=== PATIENT | female | born 1955 | race Caucasian/White ===

== ENCOUNTER 2023-05-27 10:02 | Emergency (ER) | payer OTHER, MEDICARE, SELFPAY ==
[2023-05-27 10:19] VITALS: BP 163/95; PULSE 72; RESP 18; TEMP 36.6; O2SAT 98; BMI 26.6
[2023-05-27 10:47] LABS: Bilirubin Urine NEGATIVE (NEGATIVE); Blood Urine NEGATIVE (NEGATIVE); Clarity Urine CLEAR (CLEAR); Color Urine LT. YELLOW (YELLOW); Glucose Urine UA NEGATIVE (NEGATIVE); Ketones Urine NEGATIVE (NEGATIVE); Leukocyte Esterase Urine NEGATIVE (NEGATIVE); Nitrite Urine NEGATIVE (NEGATIVE); Protein Urine NEGATIVE (NEG/TRACE); Specific Gravity Urine <=1.005 (1.005-1.025); Urobilinogen Urine 0.2 EU/dL (0.2-1.0); pH Urine 6.5 (5.0-9.0)
[2023-05-27 11:52] LABS: Urine Microscopic Indicated YES
[2023-05-27 12:04] LABS: Bacteria Urine TRACE #/HPF (NONE SEEN); Cast Seen? NONE SEEN #/LPF (NONE SEEN); Crystals Seen? None Seen #/HPF (None Seen); Mucus Urine NONE SEEN (NONE SEEN); RBC Urine 0-2 #/HPF (0-2); Squamous Epithelial Cell Urine FEW #/LPF (NONE/RARE); WBC Urine 0-2 #/HPF (NONE SEEN)
--- NOTE | 2023-05-27 13:19 | ED.GENADUL1 ---
HPI - General Adult General Chief complaint: Urogenital-Female Stated complaint: UTI SYMPTOMS Time Seen by Provider: 05/27/23 11:40 Source: patient Source information: Pt was on cefdinir previously - UTI on 05/11/23 finished course of treatment Mode of arrival: walk-in Limitations: no limitations History of Present Illness HPI narrative: Patient is a 68-year-old female who is presenting to the Emergency Room with intermittent bladder spasms/lower abdominal pain this been intermittent and frequent urinary tract infection for the past month. Patient was initially on a antibiotic, patient had finished the course in her bladder spasm and urinary symptoms improved for a few days, then patient's bladder spasms started again. Patient was then placed on Cipro. Patient did give a urine sample the 1st time and Dr. Collins office and was started on antibiotic. The 2nd time a repeat urine sample was not done. Patient has no fever, chills. No bowel pain, she has had intermittent bladder spasm and pelvic spasm. Patient does have her ovaries and her uterus. No diarrhea or constipation. No other acute complaints at this time. Patient has not seen a urologist for this. No rash, no heavy lifting, twisting or turning. Related Data Home Medications Medication Instructions Recorded Confirmed amlodipine 10 mg tablet 10 mg PO DAILY 05/27/23 05/27/23 azelastine 205.5 mcg (0.15 %) 205.5 mcg intranasal .hs 05/27/23 05/27/23 nasal spray bisoprolol fumarate 10 mg tablet 10 mg PO DAILY 05/27/23 05/27/23 buspirone 10 mg tablet 7.5 mg PO DAILY 05/27/23 05/27/23 ciprofloxacin HCl 500 mg tablet 500 mg PO Q12H UTI 05/27/23 05/27/23 fluticasone propionate 50 1 spray intranasal Q12H 05/27/23 05/27/23 mcg/actuation nasal spray,suspension hydrochlorothiazide 12.5 mg capsule 12.5 mg PO DAILY 05/27/23 05/27/23 Previous Rx's Medication Instructions Recorded oxybutynin chloride 5 mg tablet 5 mg PO Q12H PRN bladder spasms 3 05/27/23 days #7 tabs Allergies Allergy/AdvReac Type Severity Reaction Status Date / Time No Known Drug Allergies Allergy Verified 05/27/23 10:18 Review of Systems ROS Narrative All systems are negative except as noted/marked. All systems reviewed and otherwise negative. [facility], [facility] Surgical History (Updated 05/27/23 @ 10:42 by George Dallas) History of cholecystectomy ?Z90.49 - Acquired absence of other specified parts of digestive tract (ICD-10) History of hysterectomy ?Z90.710 - Acquired absence of both cervix and uterus (ICD-10) Social History Smoking status: Former smoker Exam Narrative Exam Narrative: Nurses note and vital signs reviewed and patient is not hypoxic. General: The patient appears well and in no apparent distress. Patient is resting comfortably on cart. Patient is not toxic, lethargic, or listless Skin: Warm, dry, no pallor noted. There is no rash noted. No petechiae, purpura. Head: Normocephalic, atraumatic Eye: Normal conjunctiva, no drainage, EOMI. PERRL Ears, Nose, Mouth, and Throat: oral mucosa is moist. Cardiovascular: Regular Rate and Rhythm, no murmur, gallop, rub Respiratory: Patient is in no distress, no accessory muscle use, lungs are clear to auscultation, no wheezing, rales or rhonchi Back: non-tender, no CVA tenderness bilaterally to percussion. No CT LS midline pain GI: soft, no tenderness to palpation, no masses appreciated. No rebound, guarding, or rigidity noted. No flank pain bilateral, No distention. Mild suprapubic tenderness to palpation reproducible. Musculoskeletal: Patient has full range of motion of all of the extremities, no motor, sensory, or focal neurological deficits Neurological: A&O x3, normal speech Psychiatric: Cooperative Constitutional Vital Signs, click to edit/add: Last Vital Signs Temp 97.8 F 05/27/23 10:19 Pulse 72 05/27/23 10:19 Resp 18 05/27/23 10:19 BP 163/95 H 05/27/23 10:19 Pulse Ox 98 05/27/23 10:19 O2 Del Method Room Air 05/27/23 10:19 Course Vital Signs Vital signs: Vital Signs Temperature 97.8 F 05/27/23 10:19 Pulse Rate 72 05/27/23 10:19 Respiratory Rate 18 05/27/23 10:19 Blood Pressure 163/95 H 05/27/23 10:19 Pulse Oximetry 98 05/27/23 10:19 Oxygen Delivery Method Room Air 05/27/23 10:19 Temperature 97.8 F 05/27/23 10:19 Pulse Rate 72 05/27/23 10:19 Respiratory Rate 18 05/27/23 10:19 Blood Pressure 163/95 H 05/27/23 10:19 Pulse Oximetry 98 05/27/23 10:19 Oxygen Delivery Method Room Air 05/27/23 10:19 Medical Decision Making MDM Narrative Medical decision making narrative: Patient's urine shows no signs of acute infection. Patient was given a oxybutynin in the Emergency Room and a short prescription for this. Patient was referred to urology. Patient will follow-up with PCP Dr. Collins. Patient will continue increase fluids. No acute indication for imaging or radiographic imaging at this time. Patient was told to stop continuing in taking the Cipro that she started last Sunday or Sunday. No questions at discharge, patient agrees the plan, patient will return if intractable nausea, vomiting, bladder spasm or pain continue. Lab Data Lab results reviewed: Yes I reviewed the patient's lab results Labs: Lab Results 05/27/23 Range/Units 10:38 Urine Color Lt. yellow (YELLOW) Urine Clarity Clear (CLEAR) Urine pH 6.5 (5.0-9.0) Ur Specific [place] <=1.005 A (1.005-1.025) Urine Protein Negative (NEG/TRACE) mg/dL Urine Glucose (UA) Negative (NEGATIVE) mg/dL Urine Ketones Negative (NEGATIVE) mg/dL Urine Occult Blood Negative (NEGATIVE) Urine Nitrite Negative (NEGATIVE) Urine Bilirubin Negative (NEGATIVE) Urine Urobilinogen 0.2 (0.2-1.0) EU/dL Ur Leukocyte Esterase Negative (NEGATIVE) Urine RBC 0-2 (0-2) #/HPF Urine WBC 0-2 A (NONE SEEN) #/HPF Ur Squamous Epith Cells Few A (NONE/RARE) #/LPF Urine Crystals None seen (None Seen) #/HPF Urine Bacteria Trace A (NONE SEEN) #/HPF Urine Casts None seen (NONE SEEN) #/LPF Urine Mucus None seen (NONE SEEN) Discharge Plan Discharge Chief Complaint: Urogenital-Female Clinical Impression: Abdominal pain, Bladder spasms Patient Disposition: Home, Self-Care Time of Disposition Decision: 13:22 Condition: Fair Prescriptions / Home Meds: New oxybutynin chloride 5 mg tablet 5 mg PO Q12H PRN (Reason: bladder spasms) 3 Days Qty: 7 0RF No Action amlodipine 10 mg tablet 10 mg PO DAILY azelastine 205.5 mcg (0.15 %) spray,non-aerosol 205.5 mcg INTRANASAL .hs bisoprolol fumarate 10 mg tablet 10 mg PO DAILY ciprofloxacin HCl 500 mg tablet 500 mg PO Q12H fluticasone propionate 50 mcg/actuation spray,suspension 1 spray INTRANASAL Q12H hydrochlorothiazide 12.5 mg capsule 12.5 mg PO DAILY buspirone 10 mg tablet 7.5 mg PO DAILY Additional Instructions: Continue increase fluids. Use oxybutynin if needed for bladder spasm. Follow-up with PCP for further recommendation. Follow-up with Dr. islas for urology as well for further evaluation. Stand Alone Forms: Portal Instructions Referrals: Gunnar Collins MD [Primary Care Provider] - 1 week Luis Fernando Islas MD [Physician] - 1 week Discharge Date/Time: 05/27/23 13:30
[2023-05-27] MEDS: OXYBUTYNIN CHLORIDE 5 MG TAB XL PO (13:24)
== END 2023-05-27 13:30 | disposition home or self-care (01) ==
PROVIDERS: Emergency Provider Emergency Medicine; PCP Family Medicine
DX: N32.89 Other specified disorders of bladder (principal); R10.9 Unspecified abdominal pain; Z87.440 Personal history of urinary (tract) infections; Z79.899 Other long term (current) drug therapy; Z90.49 Acquired absence of other specified parts of digestive tract; Z90.710 Acquired absence of both cervix and uterus; Z87.891 Personal history of nicotine dependence
CPT/HCPCS: 81001; 81003; 99283

== ENCOUNTER 2023-06-05 08:51 | Outpatient (OUT) | payer OTHER, SELFPAY ==
--- NOTE | 2023-06-05 09:07 | CT_ITS ---
The [address] [address] Patient Name: CARON FREIRE MRN: [id number] date: 1955 Sex: F Assigned Patient Location: LAB Current Patient Location: LAB Accession/Order Number: [id number] Exam Date: 06/05/2023 10:22 Report Date: 06/05/2023 11:18 At the request of: CHARLES ARAMBULA Procedure: CT abdomen pelvis w con EXAM: CT abdomen pelvis w con HISTORY: Abdominal Pain R10.9 COMPARISON: None. TECHNIQUE: Following the intravenous administration of 90 cc of Omnipaque 300, axial soft tissue windows of the abdomen and pelvis were performed with coronal and sagittal reformats. CT dose reduction technique was used including Automated Exposure Control. Findings: Minimal left lower lobe scarring. ABDOMEN: There is fatty infiltration of the liver. The gallbladder is surgically absent. The spleen, pancreas and adrenal glands are unremarkable. Minimal nonspecific bilateral perinephric fat stranding bilaterally. No renal stones or collecting system dilatation. Left renal cysts. The largest is an exophytic cyst off the upper pole measuring 3.1 cm. The bilateral ureters are nondilated. There are colonic diverticula. Otherwise, the bowel is unremarkable without evidence of wall thickening or obstruction. The appendix is nondilated. The aorta is normal caliber. Mild atherosclerotic disease. No enlarged abdominal lymph nodes or free abdominal fluid. Pelvis: Unremarkable bladder. The uterus is surgically absent. No enlarged pelvic lymph nodes or free pelvic fluid. No aggressive sclerotic or lytic osseous lesions. Multilevel degenerative spondylosis. CT/CT abdomen pelvis w con IMPRESSION: 1. Diverticulosis. 2. Fatty liver. 3. Other more incidental findings, as described above. Electronically authenticated by: HARRIETT LU Date: 06/05/2023 11:18
[2023-06-05 09:09] LABS: Estimated GFR (African America >60 (>=60); Estimated GFR (Non-African Ame >60 (>=60)
== END 2023-06-05 08:52 | disposition home or self-care (01) ==
LOC: LAB 08:51
PROVIDERS: PCP Family Medicine; Visit Provider Family Medicine
DX: R10.9 Unspecified abdominal pain (principal); K57.90 Diverticulosis of intestine, part unspecified, without perforation or abscess without bleeding; K76.0 Fatty (change of) liver, not elsewhere classified
CPT/HCPCS: 36415; 74177; 82565; Q9967

== ENCOUNTER 2023-08-29 11:25 | Outpatient (OUT) | payer SELFPAY ==
--- NOTE | 2023-08-29 11:27 | MM_ITS ---
Patient Name: CARON FREIRE MR#: [id number] : 1955 Exam Date: 08/29/2023 Ordering Doctor: DR Gunnar Collins . RADIOLOGY REPORT PROCEDURE: MM TOMOSYNTHESIS SCREENING BI COMPARISON: MG MAMM SCREEN 3D ERNESTO CAD, 12/20/2021. MG MAMM SCREEN 3D ERNESTO CAD, 12/25/2019. INDICATIONS: screening Calculator Name NCI Breast Cancer Risk Assessment Tool 5 Year Breast Cancer Risk 1.80% Lifetime Breast Cancer Risk 6.30% Personal Breast Cancer No Personal Ovarian Cancer No Treatments Lobectomy LLL Family Cancers None LOCATION: [facility] BREAST COMPOSITION: Heterogeneously dense,which may obscure small masses. FINDINGS: DIAGNOSTIC CATEGORY 2--BENIGN FINDING. NO CHANGE FROM COMPARISON. Scattered benign-appearing nodules are present. Scattered benign-appearing calcifications are present. Scattered benign-appearing lymph nodes are present. RIGHT BREAST: No significant suspicious finding. LEFT BREAST: No significant suspicious finding. RECOMMENDATIONS: ROUTINE MAMMOGRAM AND CLINICAL EVALUATION IN 12 MONTHS. PLEASE NOTE: A NORMAL MAMMOGRAM DOES NOT EXCLUDE THE POSSIBILITY OF BREAST CANCER. A CLINICALLY SUSPICIOUS PALPABLE LUMP SHOULD BE BIOPSIED. Dictated by: George Cisneros MD on 08/29/2023 at 14:17 Approved by: George Cisneros MD on 08/29/2023 at 14:18
== END 2023-08-29 11:26 | disposition home or self-care (01) ==
LOC: MAMMO 11:25
PROVIDERS: PCP Family Medicine; Visit Provider Family Medicine
DX: Z12.31 Encounter for screening mammogram for malignant neoplasm of breast (principal)
CPT/HCPCS: 77063; 77067

== ENCOUNTER 2023-12-26 19:59 | Outpatient (OUT) | payer MEDICARE, OTHER, SELFPAY ==
--- OUTSIDE RECORDS SUMMARY | 2023-12-26 20:03 | XMS_ITS ---
Patient Summarization (C-CDA 2.1 CCD) Created on: December 26, 2023 TANIROSELYN Wolfgang : 1955 Sex: Female Author Organization Sample organization Care Team Providers Care Nutrition Worker Name Role Phone Charles Arambula Primary Care Physician [phone] MD Charles Arambula Primary Care Provider [phone] DO Noah Dolan Attending Provider Charles Arambula Unavailable Unavailable Unavailable MARILEE Cortez Attending Provider Gely Cortez Unavailable DR CHARLES OLIVAREZ Attending Unavailable HOY ., DR SOTO Consulting Unavailable HOY ., DR SOTO Primary Care Unavailable HOY ., DR SOTO Admitting Unavailable ZIEBER, DR ROBE Nath Consulting Unavailable HOY ., DR SOTO Attending Unavailable HOY ., DR SOTO Consulting Unavailable HOY ., DR SOTO Primary Care Unavailable HOY ., DR SOTO Admitting Unavailable NEFLC CRAWFORD Consulting Unavailable MISC, DR ALSTON Admitting Unavailable HOY ., DR SOTO Primary Care Unavailable MISC, DR ALSTON Attending Unavailable MISC, DR ALSTON Consulting Unavailable ZIEBER, DR ROBE Nath Consulting Unavailable HOY ., DR SOTO Attending Unavailable HOY ., DR SOTO Consulting Unavailable HOY ., DR SOTO Primary Care Unavailable HOY ., DR SOTO Admitting Unavailable CARLOS, DR SIN Yeager Consulting Unavailable HOY ., DR SOTO Attending Unavailable HOY ., DR SOTO Primary Care Unavailable HOY ., DR SOTO Admitting Unavailable HOY ., DR SOTO Admitting Unavailable HOY ., DR SOTO Attending Unavailable HOY ., DR SOTO Consulting Unavailable HOY ., DR SOTO Primary Care Unavailable PERICO FARAH Consulting Unavailable MD LUKASZ ROSARIO Attending Unav ailable ABRAHAM, MD LUKASZ VOGT Referring Unav ailable Dennis, Dr. Charles Lubin Primary Care Unavail able Dennis, Dr. Charles Lubin Primary Care Unavail able Magdaleno, Dr. Noah Holden Referring Unavailab le ABRAHAM, MD LUKASZ VOGT Attending Unav ailable ABRAHAM, MD LUKASZ VOGT Attending Unav ailable ABRAHAM, MD LUKASZ VOGT Referring Unav ailable ABRAHAM, MD LUKASZ VOGT Admitting Unav ailable Hoy, Dr. Charles Lubin Primary Care Unavail able MD YENNY VARGAS Referring Unavailable ABRAHAM, MD LUKASZ VOGT Admitting Unav ailable ABRAHAM, MD LUKASZ VOGT Attending Unav ailable Hoy, Dr. Charles Lubin Primary Care Unavail able MD YENNY VARGAS Attending Unavailable Hoy, Dr. Charles Lubin Primary Care Unavail able Dennis, Dr. Charles Lubin Primary Care Unavail able MD LUKASZ ROSARIO Attending Unav ailable Hoy, Dr. Charles Lubin Primary Care Unavail able MD LUKASZ ROSARIO Referring Unav ailable ABRAHAM, MD LUKASZ VOGT Attending Unav ailable Hoy, Dr. Charles Lubin Primary Care Unavail able MD LUKASZ ROSARIO Referring Unav ailable ABRAHAM, MD LUKASZ VOGT Attending Unav ailable ABRAHAM, MD LUKASZ VOGT Referring Unav ailable ABRAHAM, MD LUKASZ VOGT Attending Unav ailable Hoy, Dr. Charles Lubin Primary Care Unavail able Charles Arambula MD Primary Care Provider [phone] MD Rebeca Mason Attending Provider [phone] MD Charles Arambula Primary Care Provider [phone] Rebeca Mason Admitting Unavailable Rebeca Mason Attending Unavailable Charles Arambula Primary Care Unavailable Charles Arambula Primary Care Unavailable Noah Dolan Admitting Unavailable Noah Dolan Attending Unavailable NO FAMILY, PHYSICIAN Primary Care Unavailable Gely Cortez Admitting Unavailable Gely Cortez Attending Unavailable LUKASZ ROSARIO Attending Unavailable CHARLES ARAMBULA Primary Care Unavailable GABRIEL HUERTA Attending Unavailable REBECA MASON Attending Unavailable REBECA MASON Referring Unavailable TRISTAN WARD Attending Unavailable SITA PEREZ Referring Unavailable Torri Null Attending Unavailable Orzech, Torri X Referring Unavailable Orzech, Torri X Attending Unavailable Torri Null Admitting Unavailable Oneal Cornelius Attending Unavailable Tay BHAT Attending Unavailable Oneal Cornelius Attending Unavailable Allergies Allergy Classification Reported Allergen(s) Allergy Type Date of Onset Reaction(s) Facility (4 sources) Meperidine; Translations: [MEPERIDINE] Drug Allergy 4 Nausea And Vomiting, Unknown [facility] (1 source) Meperidine Drug Allergy 3 [facility] Repository Encounters Encounter Date Encounter Type Care Provider Facility Start: 11-24-2023 End: 11-24-2023 Emergency department patient visit Oneal Cornelius [place] Start: 11-24-2023 End: 11-24-2023 Emergency department patient visit Oneal Cornelius [facility] Start: 10-29-2023 End: 10-29-2023 ambulatory TRISTAN WARD Not Available Start: 09-26-2023 End: 09-26-2023 ambulatory LUKASZ ROSARIO [facility] Start: 09-26-2023 End: 09-26-2023 Office outpatient visit 15 minutes Lukasz Rosario MD Work Phone: [facility] Comment on above: Chronic sphenoidal s inusitis (Primary Dx); Decreased sense of smell; Inverted papilloma of sphenoid sinus; Epistaxis Start: 09-14-2023 End: 09-14-2023 ambulatory Rebeca Mason Facility:[facility] Start: 09-14-2023 End: 09-14-2023 ambulatory MD Charles Arambula Work Phone: [facility] Work Phone: Start: 09-14-2023 End: 09-14-2023 Patient encounter procedure MD Charles Arambula Work Phone: [facility] [place] Work Phone: Start: 09-10-2023 End: 09-10-2023 ambulatory REBECA MASON Not Available Start: 09-04-2023 End: 09-05-2023 ambulatory Tay BHAT Facility:[facility] Start: 08-20-2023 End: 08-21-2023 ambulatory Torri X Orzech [place] Start: 08-20-2023 End: 08-20-2023 Patient encounter procedure Torri X Orzech [facility] Start: 07-31-2023 End: 08-01-2023 ambulatory Torri X Orzech Facility:[facility] Start: 07-31-2023 End: 07-31-2023 Patient encounter procedure Torri X Orzech [facility] Start: 07-13-2023 ambulatory Torri Orbony Facility: [facility] Start: 07-03-2023 End: 07-03-2023 ambulatory GABRIEL HUERTA Not Available Start: 01-03-2023 Postop follow up vis it related to original px Charles Arambula Work Phone: [facility] Work Phone: Start: 01-03-[address] Charles Arambula Facility:[id number] Start: 12-27-2022 Postop follow up vis it related to original px Charles Anisa Arambula Work Phone: [facility] Work Phone: Start: 12-27-[address] Charles Arambula Facility:[id number] Start: 12-18-2022 End: 12-19-2022 Evaluation and management of inpatient MD YENNY VARGAS Facility:[facility] Start: 12-12-2022 Office outpatient ne w 60 minutes Charles Arambula Work Phone: [facility] Work Phone: Start: 12-11-2022 ambulatory MD YENNY VARAGS Facilit y:[facility] Start: 12-11-2022 Encounter for blood typing MD YENNY VARGAS [facility] Start: 12-11-2022 Encounter for preprocedural laboratory examination MD YENNY VARGAS [facility] Start: 12-03-2022 End: 12-03-2022 ambulatory Gely Cortze Other [address] Other Start: 12-03-2022 Telephone encounter Gely Cortez [facility] [address] Start: 12-01-2022 End: 12-01-2022 ambulatory PHYSICIAN NO FAMILY Facility:[facility] Start: 12-01-2022 End: 12-01-2022 Departed Referred MD Charles Arambula Work Phone: [facility] [place] Work Phone: Start: 12-01-2022 End: 12-01-2022 ambulatory MD Charles Arambula Work Phone: [facility] Work Phone: Start: 12-01-2022 Office outpatient ne w 20 minutes Gely Cortez [facility] Start: 11-22-2022 End: 11-23-[address] [place] [facility] [place] Start: 11-08-2022 Office outpatient vi sit 15 minutes Charles Arambula Work Phone: [facility] Work Phone: Start: 11-08-2022 Patient encounter procedure Charles Arambula Work Phone: [facility] Work Phone: Start: 11-08-2022 ambulatory MD LUKASZ ROSARIO Facility:[id number] Start: 11-01-2022 Office outpatient vi sit 25 minutes Charles Arambula Work Phone: [facility]bkft[facility]ihfw[facility]10 Work Phone: Start: 11-01-2022 ambulatory MD LUKASZ ROSARIO Facility:[id number] Start: 10-16-2022 End: 10-16-2022 ambulatory MD LUKASZ ROSARIO Facility:[facility] Start: 10-16-2022 End: 10-16-2022 Subsequent hospital visit by physician Lukasz Rosario MD Work Phone: [facility] Comment on above: Neoplasm of unspecif ied behavior of bone, soft tissue, and skin; Chronic sphenoidal sinusitis; Benign neoplasm of middle ear, nasal cavity and accessory sinuses; Essential (primary) hypertension; Obstructive sleep apnea (adult) (pediatric); Malignant neoplasm of unspecified part of unspecified bronchus or lung (CMS/HCC); Anxiety disorder, unspecified; Depression, unspecified; Unspecified viral hepatitis C without hepatic coma; Personal history of nicotine dependence; alf (current) use of aspirin Start: 10-06-[address] Charles Arambula Facility:[facility] Start: 10-06-2022 Encounter for preprocedural cardiovascular examination MD LUKASZ ROSARIO [facility] Start: 10-04-2022 Chart Update Charles Arambula Work Phone: MN[facility]Punebcuyvrloyb[facility]1 Work Phone: Start: 09-28-2022 Office consultation new/estab patient 60 min Charles Arambula Work Phone: YV[facility]Ttkopfmqwaifmc-[facility] 9581 Work Phone: Start: 09-28-2022 Patient encounter procedure Charles Arambula Work Phone: GH-Zkvyamobpcqexu-[facility]em[facility] 6679 Work Phone: Start: 09-28-[address] Charles Arambula Facility:[id number] Start: 09-23-2022 End: 09-23-2022 ambulatory Charles Arambula Facility:[facility] Start: 09-23-2022 End: 09-23-2022 ambulatory MD Charles Arambula Work Phone: [facility] Work Phone: Start: 09-23-2022 End: 09-23-2022 Patient encounter procedure MD Charles Arambula Work Phone: [facility] [place] Work Phone: Start: 09-18-2022 End: 09-18-2022 ambulatory MD Charles Arambula Work Phone: [facility] Work Phone: Start: 09-18-2022 End: 09-18-2022 Patient encounter procedure MD Charles Arambula Work Phone: [facility] [place] Work Phone: Start: 08-05-2022 End: 08-06-[address] CHARLES ARAMBULA . Facility:[facility]1 Start: 07-27-2022 End: 07-28-[address] CHARLES ARAMBULA . Facility:[facility] Start: 07-13-2022 End: 07-14-[address] CHARLES ARAMBULA . Facility:[facility] Start: 03-07-2022 End: 03-07-2022 Patient encounter procedure Daly White [facility] Start: 12-30-[address] CHARLES ARAMBULA . Facili ty:H1 Start: 12-20-2021 End: 12-21-[address] CHARLES ARAMBULA . Facility:[facility] Start: 12-15-2021 End: 12-15-2021 Patient encounter procedure Jamie Cunningham [facility] Start: 12-02-2021 End: 12-02-2021 Patient encounter procedure Daly White [facility] Start: 11-11-2021 End: 11-11-2021 Patient encounter procedure Liana ROJAS [facility] Start: 10-04-2021 End: 10-04-2021 Patient encounter procedure Daly White [facility] Immunizations Immunization Date Immunization Notes Care Provider Semaj rocha 12-30-2022 zoster vaccine recombinant [employer] [facility] 06-06-2022 influenza virus vaccine, unspecified formulation Lukasz Rosario MD Work Phone: [facility] 04-22-2022 zoster vaccine recombinant [employer] [facility] 09-24-2020 tetanus toxoid, redu alberta diphtheria toxoid, and acellular pertussis vaccine, adsorbed [employer] [facility] 07-12-2020 SARS-CoV-2 (COVID-19 ) mRNA BNT-162b2 vax [employer] [facility] Comment on above: Result Comment: 2023: [id number] 06-21-2020 SARS-CoV-2 (COVID-19 ) mRNA BNT-162b2 vax [employer] [facility] Comment on above: Result Comment: 2023: [id number] 04-26-2020 influenza virus vaccine, unspecified formulation [employer] [facility] Medications Current Medications Medication Drug Class(es) Dates Sig (Normalized) Sig (Original) 8 hr acetaminophen 650 mg extended release oral tablet (1 source) acetaminophen (Tylenol 8 HOUR) 650 mg ER tablet Tylenol 0 Active acetaminophen 325 mg / HYDROcodone bitartrate 5 mg oral tablet (4 sources) Opioid Agonist Start: 12-04-2017 Hydrocodone-Acetam inophen Active TABLET December 04, 2017 12:00am amLODIPine 10 mg oral tablet (20 sources) Dihydropyridine Calcium [employer] Leanna Start: 12-04-2017 amLODIPine 10 mg Tab Refills(s) 0, High blood sugar Start Date: 10/04/21 Status: Ordered Norvasc 10 MG Or al Tablet Quantity: 0 Refills: 0 Ordered: 28-Sep-2022 DO Active amoxicillin 875 mg / clavulanate 125 mg oral tablet (2 sources) Penicillin-class Antibacterial Start: 11-24-2023 End: 12-04-2023 take 1 tablet by mouth every eight hours Augmentin 875 mg oral tablet = 1 tab(s), Oral, q8hr, X 10 day(s), # 30 tab(s), Refills(s) 0, Pharmacy: [facility]/pharmacy #[id number], 159, cm, 11/24/23 13:04:00 EDT, Height/Length Dosing, 68.4, kg, 11/24/23 13:04:00 EDT, Weight Dosing Start Date: 11/24/23 Stop Date: 12/04/23 Status: Ordered Start: 07-12-2022 End: 11-01-2022 take 1 tablet by mouth twice daily Amoxicillin-Pot Clavulanate 875-125 MG Oral Tablet take 1 tablet by mouth twice a day Quantity: 20 Refills: 0 Ordered: 12-Jul-2022 DO Start : 12-Jul-2022 End : 01-Nov-2022 Complete aspirin 325 mg oral tablet (19 sources) Platelet Aggregation Inhibitor, Nonsteroidal Anti-inflammatory Drug Start: 10-04-2021 take 325 mg by mouth once daily aspirin 325 mg, Oral, Daily, Ordered by another provider., Refills(s) 0, Prophylaxis Start Date: 10/04/21 Status: Ordered Aspirin 325 MG O ral Tablet Quantity: 0 Refills: 0 Ordered: 28-Sep-2022 DO Active take 1 tablet by mouth once hemant y Aspirin 325 mg 325 mg one tab orally daily Active bisoprolol fumarate 10 mg oral tablet (20 sources) beta-Adrenergic Leanna Start: 10-04-2021 bisopr olol 10 mg Tab Refills(s) 0, High blood pressure Start Date: 10/04/21 Status: Ordered Zebeta TABS Vineet tity: 0 Refills: 0 Ordered: 27-Dec-2022 DO Active Zebeta 10 MG TAB S Quantity: 0 Refills: 0 Ordered: 28-Sep-2022 DO Active busPIRone hydrochloride 15 m g oral tablet (19 sources) Start: 10-04-2021 busPIRone 15 m g Tab Refills(s) 0, Anxiety Start Date: 10/04/21 Status: Ordered busPIRone HCl - 7.5 MG Oral Tablet Quantity: 0 Refills: 0 Ordered: 28-Sep-2022 DO Active [facility] busPIRone HCl 7.5 MG 1 tablet Orally ONC E A DAY Active chlorhexidine gluconate 1.2 mg/ml mouthwash (4 sources) Start: 12-11-2022 End: 12-27-2022 take 15 mL by mouth in the morning Chlorhexidine Gluconate 0.12 % Mouth/Throat Solution RINSE MOUTH WITH 15ML (1 CAPFUL) FOR 30 SECONDS AM AND PM AFTER TOOTHBRUSHING. EXPECTORATE AFTER RINSING, DO NOT SWALLOW Quantity: 1 Refills: 0 Ordered: 11-Dec-2022 Karen Hartman Start : 11-Dec-2022 End : 27-Dec-2022 Active Start: 12-11-2022 Hibiclens 4 % External Liquid Use as directed for preoperative shower. Quantity: 1 Refills: 0 Ordered: 11-Dec-2022 Karen Hartman Start : 11-Dec-2022 Active 24 hr desvenlafaxine succinate 50 mg extended release oral tablet (4 sources) Serotonin and Norepinephrine Reuptake Inhibitor Start: 12-04-2017 Desvenlafaxine Succinate Active December 04, 2017 12:00am Colace (15 sources) Start: 07-31-2023 Colace Oral, B ID, Refills(s) 0 Start Date: 07/31/23 Status: Ordered take 1 capsule by mo [facility] every twenty-four hours as needed docusate sodium (Colace) 100 mg capsule Take 1 capsule (100 mg) by mouth once daily as needed. 0 Active Colace 100 MG Or al Capsule Quantity: 0 Refills: 0 Ordered: 28-Sep-2022 DO Active fluticasone propionate 0.05 mg/actuat metered dose nasal spray (10 sources) Corticosteroid take 2 spray(s) nasal route once daily fluticasone (Flonase) 50 mcg/actuation nasal spray INSTILL 2 SPRAYS IN EACH NOSTRIL ONCE A DAY for 90 0 Active Fluticasone Prop ionate SUSP Quantity: 0 Refills: 0 Ordered: 28-Sep-2022 DO Active hydroCHLOROthiazide 12.5 mg oral capsule (20 sources) Thiazide Diuretic Start: 12-04-2017 hydrochlorothiazide 12.5 mg Cap Refills(s) 0, diuretic/water pill Start Date: 10/04/21 Status: Ordered hydroCHLOROthiaz olivier 12.5 MG Oral Capsule Quantity: 0 Refills: 0 Ordered: 28-Sep-2022 DO Active Hydrochlorothiazide-12.5 mg 12.5 MG (2 sources) take 1 tablet by mouth once daily Hydrochlorothiazide-12.5 mg 12.5 MG 1 tablet Orally Once a day Active nebivolol 10 mg oral tablet (4 sources) Start: 018 Nebivolol (Bystolic) 10 mg tablet Active TABLET December 04, 2017 12:00am phenazopyridine hydrochlorid e 200 mg oral tablet (2 sources) Start: take 1 tablet by mouth every eight hours Pyridium 200 MG 1 tablet after meals Orally Three times a day for 2 day(s) Nov, Active polyethylene glycol 3350 wit h electrolytes Oral Pwdr for Dia 4000 mL (NuLytely) (1 source) Start: 022 take 1 dose by mouth once polyethylene glycol 3350 with electrolytes Oral Pwdr for Dia 4000 mL (NuLytely) See Instructions, 1 EA, Refill(s) 0, PER PHYSICIAN INSTRUCTIONS. PRIOR TO COLONOSCOPY., [facility]/pharmacy #[id number], 164, cm, 10/04/21 12:12:00 EDT, Height/Length Dosing, 73, kg, 10/04/21 12:12:00 EDT, Weight Dosing Start Date: 10/04/21 Status: Ordered Psyllium (3 sources) Start: 024 Metamucil Oral, Refills(s) 0 Start Date: 07/31/23 Status: Ordered sodium chloride 0.111 meq/ml nasal spray (7 sources) Start: 023 take 4 spray(s) nasal route every four hours Saline NasaL 0.65 % nasal spray SPRAY 4 SPRAYS INTO EACH NOSTRIL EVERY 4 HOURS 0 12/09/2022 Active Start: 10-16-2022 take 4 spray(s) nasa l route every four hours [facility] Saline Nasal [place] 0.65 % Nasal Solution SPRAY 4 SPRAYS INTO EACH NOSTRIL EVERY 4 HOURS Quantity: 88 Refills: 0 Ordered: 16-Oct-2022 DO Start : 16-Oct-2022 Active terconazole 4 mg/ml vaginal cream (1 source) Azole Antifungal Start: 09-13-2023 terconazole ( Terazol 7) 0.4 % vaginal cream INSERT 1 APPLICATOR INTO THE VAGINA AT BEDTIME FOR 7 DAYS. 0 09/13/2023 Active Completed/Discontinued Medications Medication Drug Class(es) Dates Sig (Normalized) Sig (Original) ASA Arthritis Strength/Antacid TABS (4 sources) End: 11-01-2022 ASA Arthritis Strength/Antacid TABS Quantity: 0 Refills: 0 Ordered: 01-Nov-2022 DO End : 01-Nov-[address] rength/Antacid TABS Quantity: 0 Refills: 0 Ordered: 28-Sep-2022 DO Active azelastine (9 sources) Histamine-1 Receptor Antagonist Azelastine HCl SOLN Quantity: 0 Refills: 0 Ordered: 28-Sep-2022 DO Active ciprofloxacin 500 mg oral tablet (3 sources) Quinolone Antimicrobial Start: 07-31-19 take 1 tablet by mouth once daily Cipro 500 mg Tab 500 mg = 1 tab(s), Oral, Daily, Take 1 tablet the day before the procedure and 1 tablet after the procedure, # 2 tab(s), Refills(s) 0, Pharmacy: [facility]/pharmacy #[id number], 159, cm, 07/31/23 10:21:00 EST, Height/Length Dosing, 65, kg, 07/31/23 10:21:00 EST, Weight Dosing Start Date: 07/31/23 Status: Ordered docusate sodium 50 mg / sennosides, prison 8.6 mg oral tablet (3 sources) Start: 10-17-19 End: 11-09-19 take 2 tablets by mouth once daily at bedtime [facility] Senna Plus 8.6-50 MG Oral Tablet TAKE 2 TABLETS BY MOUTH EVERY DAY AT BEDTIME Quantity: 14 Refills: 0 Ordered: 16-Oct-2022 DO Start : 16-Oct-2022 End : 08-Nov-2022 Complete krill oil 500 mg oral capsule (5 sources) Start: 11-09-19 Krill Oil 500 MG Oral Capsule Quantity: 0 Refills: 0 Ordered: 08-Nov-2022 DO Start : 08-Nov-2022 Active levoFLOXacin 500 mg oral tablet (1 source) Quinolone Antimicrobial Start: 08-18-19 End: 11-02-19 take 1 tablet by mouth once daily levoFLOXacin 500 MG Oral Tablet TAKE 1 TABLET BY MOUTH EVERY DAY Quantity: 10 Refills: 0 Ordered: 18-Aug-2022 DO Start : 18-Aug-2022 End : 01-Nov-2022 Complete nitrofurantoin, macrocrystals 25 mg / nitrofurantoin, monohydrate 75 mg oral capsule (1 source) Nitrofuran Antibacterial Start: 09-13-19 End: 09-20-19 take 1 capsule by mouth twice daily nitrofurantoin, macrocrystal-monohyd rate, (Macrobid) 100 mg capsule Take 1 capsule (100 mg) by mouth 2 times a day. 0 09/13/2023 09/20/2023 oxyCODONE hydrochloride 5 mg oral tablet (3 sources) Opioid Agonist Start: 10-17-19 End: 11-09-19 oxyCODONE HCl - 5 MG Oral Tablet Quantity: 15 Refills: 0 Ordered: 16-Oct-2022 DO Start : 16-Oct-2022 End : 08-Nov-2022 Complete pantoprazole 40 mg delayed release oral tablet (6 sources) Proton Pump Inhibitor Start: 12-03-19 End: 02-01-20 take 1 tablet by mouth once daily Pantoprazole [address] Tab 40 mg = 1 tab(s), Oral, Daily, X 60 day(s), # 60 tab(s), Refills(s) 0, Pharmacy: [facility]/pharmacy #[id number], 164, cm, 12/02/21 9:25:00 EDT, Height/Length Dosing, 72.1, kg, 12/02/21 9:25:00 EDT, Weight Dosing Start Date: 12/02/21 Stop Date: 01/31/22 Status: Ordered Start: 12-02-2021 End: 01-31-2022 take 1 tablet by mouth once daily Pantoprazole Sodium 40 MG Oral Tablet Delayed Release TAKE 1 TABLET BY MOUTH EVERY DAY Quantity: 60 Refills: 0 Ordered: 02-Dec-2021 DO Start : 02-Dec-2021 Active Payers Date Payer Category Payer Private Health Insurance [employer] SUPP[employer]MENTAL [employer] SENIOR SUPPLEMENT [id number] 2023-Present [address] [place] [address] [id number] 2023 Medicare MEDICARE MEDICAR E PART A AND B [id number] 2023-Present [address] [place] [address] [id number] 2023 Private Health Insurance [id number] 2022 Self-pay [id number] 1959 Medicare [id number] 1959 Self-pay [id number] 1959 Unknown [id number] 1959 Unknown [id number] 1956 Unknown [id number] 2.16.840.1.816010.3.579.2 .593 1956 Unknown [id number] 2.16.840.1.302271.3.579.2 .593 1956 Unknown [id number] 2.16.840.1.459731.3.579.2 .593 1956 Unknown [id number] 2.16.840.1.568677.3.579.2 .593 1956 Unknown [id number] 2.16.840.1.903466.3.579.2 .593 1956 Unknown [id number] 2.16.840.1.945888.3.579.2 .593 1956 Unknown [id number] 2.16.840.1.548619.3.579.2 .356 1956 Unknown [id number] 2.16.840.1.997490.3.579.2 .356 1956 Unknown [id number] 2.16.840.1.317449.3.579.2 .356 1956 Unknown [id number] 2.16.840.1.366885.3.579.2 .356 1956 Unknown [id number] 2.16.840.1.015939.3.579.2 .356 1956 Unknown [id number] 2.16.840.1.391994.3.579.2 .356 1956 Unknown [id number] 2.16.840.1.935924.3.579.2 .356 1956 Unknown [id number] 2.16.840.1.221104.3.579.2 .356 1956 Unknown [id number] 2.16.840.1.240914.3.579.2 .356 1956 Unknown [id number] 2.16.840.1.376478.3.579.2 .1244 1956 Unknown [id number] 2.16.840.1.922040.3.579.2 .1259 1956 Unknown [id number] 2.16.840.1.963677.3.579.2 .1259 1956 Unknown [id number] 2.16.840.1.735201.3.579.2 .1259 1956 Unknown [id number] 2.16.840.1.654090.3.579.2 .1259 1956 Unknown [id number] 2.16.840.1.786247.3.579.2 .727 1956 Unknown [id number] 2.16.840.1.977807.3.579.2 .727 1956 Unknown [id number] 2.16.840.1.866658.3.579.2 .727 1956 Unknown [id number] 2.16.840.1.116512.3.579.2 .727 1956 Unknown [id number] 2.16.840.1.253659.3.579.2 .727 Private Health Insurance [employer] [id number] Unknown O [id number] Unknown [facility] [employer] Unknown [id number] Unknown [id number] 2.16.840.1.296436.3.579.2 .531 Unknown [id number] 2.16.840.1.622859.3.579.2 .531 Unknown [id number] 2.16.840.1.969683.3.579.2 .531 Plan of Treatment Date Care Activity Detail Author Start: 09-24-2030 DTaP/Tdap/Td Vaccines (2 - Td or Tdap) DTaP/Tdap/Td Vaccines (2 - Td or Tdap) [facility] Start: 03-26-2024 End: 03-26-2024 Patient encounter procedure 03/26/2024 2:15 PM EDT Office Visit [facility] [address] [place] [phone] Lukasz Rosario MD [address] [facility] [address] [place] [address] [facility] Start: 09-26-2023 End: 09-26-2023 Patient encounter procedure 09/26/2023 2:30 PM EDT Office Visit [facility] [address] [place] [phone] Lukasz Rosario MD [address] [facility] [address] [place] [address] [facility] Start: 03-28-2023 FUV, Provider: Lukasz Rosario, Status: Pen, Time: 9:45 AM FUV, Provider: Lukasz Rosario, Status: Pen, Time: 9:45 AM [facility] Work Phone: Start: 03-02-2023 COVID-19 Vaccine ( season) COVID-19 Vaccine () [facility] Start: 03-02-2023 Influenza vaccination Influenza Vaccine (#1) [facility] Start: 01-03-2023 POV, Provider: Lukasz Rosario, Status: Pen, Time: 2:45 PM POV, Provider: Lukasz Rosario, Status: Pen, Time: 2:45 PM ZI-Ahmdwgvmxewftx-Szi [address] Work Phone: Start: 12-27-2022 POV, Provider: Lukasz Rosario, Status: Pen, Time: 9:00 AM POV, Provider: Lukasz Rosario, Status: Pen, Time: 9:00 AM CE-Cgdmqmfablpaqe-Naj [address] Work Phone: Start: 12-18-2022 [facility], Provider: Yenny Vargas, Status: Pen, Time: 12:30 PM [facility], Provider: Yenny Vargas, Status: Pen, Time: 12:30 PM HQ-Uvqkmdzvwesubw-Vne [address] Work Phone: Start: 12-18-2022 [facility], Provider: Lukasz Rosario, Status: Pen, Time: 12:00 PM [facility], Provider: Lukasz Rosario, Status: Pen, Time: 12:00 PM VY-Zirdhxhyprrjxu-Gou [address] Work Phone: Start: 12-12-2022 VIRNPVHOME, Provider: Yenny Vargas, Status: Pen, Time: 1:00 PM VIRNPVHOME, Provider: Yenny Vargas, Status: Pen, Time: 1:00 PM [facility] Work Phone: Start: 12-12-2022 NPVRFRL, Provider: Yenny Vargas, Status: Pen, Time: 10:00 AM NPVRFRL, Provider: Yenny Vargas, Status: Pen, Time: 10:00 AM [facility] Work Phone: Start: 12-01-2022 Bacteria identified in Urine by Culture [facility] Start: 11-08-2022 POV, Provider: Lukasz Rosario, Status: Pen, Time: 1:15 PM POV, Provider: Lukasz Rosario, Status: Pen, Time: 1:15 PM VH-Bwdpnnjzzuyfii-Ape [address] Work Phone: Start: 11-01-2022 POV, Provider: Lukasz Rosario, Status: Pen, Time: 11:45 AM POV, Provider: Lukasz Rosario, Status: Pen, Time: 11:45 AM [facility] 4[facility] Work Phone: Start: 10-16-2022 SURGCM, Provider: Lukasz Rosario, Status: Pen, Time: 10:00 AM SURGCMC, Provider: Lukasz Rosario, Status: Pen, Time: 10:00 AM SX-Xmddlxmvphtqvy[facility] [address] Work Phone: Start: 09-18-2022 MR angiography of head with contrast MR angio MR brain wo/w con [facility] Start: 2021 Pneumococcal Vaccine: 65+ Years (1 - PCV) Pneumococcal Vaccine: 65+ Years (1 - PCV) [facility] Start: 12-24-2020 Screening for malignant neoplasm of breast Mammogram [facility] Start: 09-06-2020 COVID-19 Vaccine (3 - Pfizer series) COVID-19 Vaccine (3 - Pfizer series) [facility] Start: 2016 Hepatitis B Vaccines (1 of 3 - Risk 3-dose series) Hepatitis B Vaccines (1 of 3 - Risk 3-dose series) [facility] Start: 1996 Screening for malignant neoplasm of breast Mammogram [facility] Start: 1975 Hepatitis A Vaccines (1 of 2 - Risk 2-dose series) Hepatitis A Vaccines (1 of 2 - Risk 2-dose series) [facility] Start: 1974 Diabetes mellitus screening Diabetes Screening [facility] Start: 1956 Examination of skin Derm Melanoma Skin Check [facility] Start: 1956 Lipid panel Lipid Panel [facility] Start: 1956 Medicare Annual Wellness Visit Medicare Annual Wellness Visit (AWV) [facility] Start: 1956 Screening for malignant neoplasm of colon [facility] Start: 1956 Screening for osteoporosis Bone Density Scan [facility] Start: 1956 Thyroid stimulating hormone measurement TSH Level [facility] Start: 1956 Yearly Adult Physical Yearly Adult Physical [facility] Problems Active Problems Problem Classification Problem Date Documented Date Episodic/Chronic Abdominal pain (11 sources) Left upper quadrant pain; Translations: [Left upper quadrant pain] Onset: 10-04-2021 Episodic Anal and rectal conditions (7 sources) Rectal polyp; Translations: [Rectal polyp] Onset: 12-02-2021 Episodic Anxiety disorders (2 sources) Anxiety disorder, unspecified; Translations: [Anxiety disorder] Onset: 12-19-2022 10-26-2022 Chronic Biliary tract disease (3 sources) Gallstone 07-31-2023 Episodic Cancer of bronchus; lung (5 sources) Malignant neoplasm of unspecified part of unspecified bronchus or lung; Translations: [Malignant neoplasm of lower respiratory tract] Onset: 10-16-2022 10-26-2022 Chronic Cancer of bronchus; lung (1 source) Personal history of other malignant neoplasm of bronchus and lung; Translations: [Personal history of malignant neoplasm of bronchus and lung] Onset: 12-19-2022 Episodic Cancer of thyroid (3 sources) Malignant tumor of thyroid gland 07-31-2023 Chronic Cancer of thyroid (1 source) Personal history of malignant neoplasm of thyroid; Translations: [Personal history of malignant neoplasm of thyroid] Onset: 12-19-2022 Episodic Complications of surgical procedures or medical care (1 source) Postprocedural hypothyroidism; Translations: [Postprocedural hypothyroidism] Onset: 12-19-2022 Chronic Disorders of lipid metabolism (4 sources) Hyperlipidemia, unspecified; Translations: [Hypercholesterolemia ] Onset: 10-06-2022 07-31-2023 Chronic Diverticulosis and diverticulitis (8 sources) Diverticula of intestine; Translations: [Diverticulosis of intestine, part unspecified, without perforation or abscess without bleeding] Onset: 12-02-2021 Chronic E Codes: Adverse effects of medical care (1 source) Removal of other organ (partial) (total) as the cause of abnormal reaction of the patient, or of later complication, without mention of misadventure at the time of the procedure; Translations: [Remov org (total) cause abn react/compl, w/o misadvnt] Onset: 12-19-2022 Episodic Esophageal disorders (1 source) Gastro-esophageal reflux disease without esophagitis; Translations: [Gastro-esophageal reflux disease without esophagitis] Onset: 12-19-2022 Chronic Essential hypertension (10 sources) Hypertensive disorder; Translations: [Essential (primary) hypertension] Onset: 12-19-2022 07-12-2016 Chronic Gastritis and duodenitis (7 sources) Gastritis; Translations: [Gastritis, unspecified, without bleeding] Onset: 12-02-2021 Episodic Genitourinary symptoms and ill-defined conditions (5 sources) Dysuria; Translations: [Personal history of urinary (tract) infections] Onset: 12-01-2022 Episodic Headache; including migraine (4 sources) Headache; including migraine; Translations: [HEADACHE UNSPECIFIED] Onset: 07-27-2022 Hepatitis (2 sources) Unspecified viral hepatitis C without hepatic coma; Translations: [Viral hepatitis C] Onset: 10-16-2022 10-26-2022 Episodic Menopausal disorders (2 sources) Postmenopausal bleeding; Translations: [Atrophy of vagina] Onset: 09-14-2023 09-04-2023 Chronic Mood disorders (1 source) Depressive disorder; Translations: [Depression, unspecified] 10-26-2022 Chronic Mood disorders (1 source) Mood disorders; Translations: [Depression, unspecified] Onset: 12-11-2022 Neoplasms of unspecified nature or uncertain behavior (12 sources) Neoplasm of sphenoid bone; Translations: [Neoplasm of unspecified nature of bone, soft tissue, and skin] Onset: 11-29-2022 Episodic Osteoarthritis (4 sources) Unspecified osteoarthritis, unspecified site; Translations: [Arthritis] Onset: 12-19-2022 07-31-2023 Chronic Other aftercare (1 source) 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; Translations: [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] Onset: 12-19-2022 Episodic Other aftercare (1 source) Other meterman (current) drug therapy; Translations: [Other skilled nursing (current) drug therapy] Onset: 12-19-2022 Episodic Other aftercare (1 source) Long-term current use of aspirin; Translations: [alf (current) use of aspirin] 10-26-2022 Episodic Other and ill-defined heart disease (1 source) Cardiomegaly; Translations: [Cardiomegaly] Onset: 10-06-2022 Chronic Other and ill-defined heart disease (3 sources) Heart disease 07-31-2023 Chronic Other and unspecified benign neoplasm (9 sources) History of polyp of colon; Translations: [Personal history of colonic polyps] Onset: 10-04-2021 Episodic Other and unspecified benign neoplasm (3 sources) Benign neoplasm of middle ear, nasal cavity and accessory sinuses; Translations: [Benign neoplasm of mid ear, nasl cav and accessory sinuses] Onset: 12-18-2022 Episodic Other and unspecified benign neoplasm (1 source) Benign neoplasm of nose, middle ear and accessory sinuses; Translations: [Benign neoplasm of middle ear, nasal cavity and accessory sinuses] 10-26-2022 Episodic Other and unspecified benign neoplasm (1 source) Benign lipomatous tumor; Translations: [Benign lipomatous neoplasm, unspecified] Onset: 07-31-2023 Episodic Other and unspecified benign neoplasm (1 source) Neoplasm of sphenoidal sinus; Translations: [Benign neoplasm of middle ear, nasal cavity and accessory sinuses] 10-01-2023 Episodic Other and unspecified benign neoplasm (1 source) Lipoma (clinical) 09-04-2023 Episodic Other connective tissue disease (8 sources) Ganglion/synovial cyst - wrist 07-12-2016 Episodic Other diseases of kidney and ureters (1 source) Acquired renal cyst without neoplastic change; Translations: [Cyst of kidney, acquired] Onset: 07-31-2023 Episodic Other diseases of kidney and ureters (1 source) Cyst of kidney 09-04-2023 Episodic Other infections; including parasitic (1 source) Personal history of other infectious and parasitic diseases; Translations: [Personal history of other infectious and parasitic diseases] Onset: 12-11-2022 Episodic Other liver diseases (3 sources) Inflammatory disease of liver 07-31-2023 Chronic Other nervous system disorders (1 source) Chronic pain; Translations: [Other chronic pain] Onset: 11-11-2021 Chronic Other nervous system disorders (1 source) Sense of smell impaired; Translations: [Other disturbances of smell and taste] 10-01-2023 Episodic Other upper respiratory disease (1 source) Bleeding from nose; Translations: [Epistaxis] 10-01-2023 Episodic Other upper respiratory infections (20 sources) Chronic sphenoidal sinusitis; Translations: [Chronic sphenoidal sinusitis] Onset: 08-05-2022 Chronic Other upper respiratory infections (12 sources) Posterior rhinorrhea; Translations: [Postnasal drip] Onset: 07-13-2022 Episodic Residual codes; unclassified (1 source) Obstructive sleep apnea (adult) (pediatric); Translations: [Obstructive sleep apnea (adult) (pediatric)] Onset: 12-19-2022 Chronic Residual codes; unclassified (1 source) Obstructive sleep apnea syndrome; Translations: [Obstructive sleep apnea (adult) (pediatric)] 10-26-2022 Chronic Residual codes; unclassified (1 source) Family history of polyp of colon; Translations: [Family history of colonic polyps] Onset: 11-11-2021 Episodic Residual codes; unclassified (1 source) Acquired absence of lung [part of]; Translations: [ACQUIRED ABSENCE OF LUNG] Onset: 12-19-2022 Episodic Residual codes; unclassified (1 source) Acquired absence of other specified parts of digestive tract; Translations: [Acquired absence of other specified parts of digestive tract] Onset: 12-19-2022 Episodic Residual codes; unclassified (1 source) Acquired absence of both cervix and uterus; Translations: [Acquired absence of both cervix and uterus] Onset: 12-19-2022 Episodic Screening and history of mental health and substance abuse codes (2 sources) Personal history of nicotine dependence; Translations: [Personal history of tobacco use] Onset: 12-19-2022 10-26-2022 Episodic Sprains and strains (4 sources) Lumbar sprain; Translations: [Lumbar sprain] Episodic Unclassified (1 source) Pt noncompl with other med trtmt and regimen d/t unsp reason; Translations: [Pt noncompl with other med trtmt and regimen d/t unsp reason] Onset: 10-06-2022 Past or Other Problems Problem Classification Problem Date Documented Da te Episodic/Chronic Cardiac dysrhythmias (1 source) Bradycardia, unspecified; Translations: [Bradycardia, unspecified] Onset: 10-06-2022 Episodic Other bone disease and musculoskeletal deformities (2 sources) Disorder of bone, unspecified; Translations: [Disorder of bone, unspecified] Onset: 10-06-2022 Episodic Other screening for suspected conditions (not mental disorders or infectious disease) (5 sources) Screening for malignant neoplasm of colon done; Translations: [Encounter for screening for malignant neoplasm of colon] Onset: 11-11-2021 Episodic Other upper respiratory disease (1 source) Cyst and mucocele of nose and nasal sinus; Translations: [CYST AND MUCOCELE NOSE AND NASAL SINUS] Onset: 08-07-2022 Episodic Other upper respiratory disease (1 source) Unspecified disorder of nose and nasal sinuses; Translations: [UNS DISORDER NOSE AND NASAL SINUSES] Onset: 07-28-2022 Episodic Other upper respiratory disease (3 sources) Other specified disorders of nose and nasal sinuses; Translations: [Other specified disorders of nose and nasal sinuses] Onset: 09-23-2022 Episodic Unclassified (1 source) Onset: 09-26-2023 09-26-2023 Procedures Date Procedure Procedure Detail Performing Clinician Start: 09-26-2023 Follow-up visit Follow-up LUKASZ ROSARIO Start: 09-14-2023 CT of pelvis with contrast MD Charles raza Work Phone: Start: 09-04-2023 Transurethral cystoscopy Oneal Cornelius Start: 12-11-2022 Antibody screen MD LKUASZ ROSARIO Comment on above: Performed By: #### T+S ####[id number] [place] [address] Start: 10-16-2022 SURGICAL PATHOLOGY RESULTS Lukasz Rosario MD Work Phone: Start: 09-23-2022 Magnetic resonance angiography of head without contrast MD Charles Arambula Work Phone: Start: 09-18-2022 MRI of head MD Charles Arambula Work Phone: Start: 11-11-2021 Colonoscopy Liana SALSTEWART Start: 11-11-2021 Esophagogastroduodenoscopy Gaines SALAM Start: 12-25-2019 Mammography Lukasz Rosario MD Work Phone: Start: 07-02-2006 Cholecystectomy Torri Orzech Hysterectomy Torri Orzech Lobectomy Torri Orzech Results Test Name Value Interpretation Reference Range Facility ED Note-Physicianon 11-26-19 ED Note-Physician Basic Information Time Seen: Katherine Holt PA-C 11/24/2023 13:04 Chief Complaint c/o fevers, vomiting, diarrhea, cramping lower abdominal pain that started night. took tylenol 1230 today. History of Present Illness 68-year-old female presents to the ER complaining of abdominal pain, fevers, chills, nausea, vomiting, diarrhea. Symptoms have been going for the last 3 days. Diarrhea and vomiting have improved but patient still having lower abdominal pain with fevers. Has been taking Tylenol and Motrin on the clock to help with fevers and pain. Patient reports he had a colonoscopy 2 years ago and was diagnosed with diverticulosis but otherwise was normal and was told to come back in 7 years. No history abdominal surgeries. Otherwise healthy. Review of Systems All organ systems are reviewed. Pertinent positive and negative findings as mentioned in the HPI. Physical Exam Vitals & Measurements T: 36.9 ?C(Oral) HR: 63(Monitored) RR: 16 BP: 120/78 SpO2: 97% HT: 159 cm WT: 68.4 kg BMI: 27.06 GENERAL APPEARANCE: Well developed, well nourished, alert and cooperative, and appears to be in no acute distress. HEAD: normocephalic, atraumatic EYES: PERRL, EOMI. Vision is grossly intact. EARS: External auditory canals clear, hearing grossly intact. NOSE: No nasal discharge. THROAT: Oral cavity and pharynx normal. Oral mucosa moist. CARDIAC: Normal heart sounds, no murmurs. Rhythm is regular. LUNGS: Clear to auscultation without rales, rhonchi, wheezing or diminished breath sounds. ABDOMEN: Abdomen soft, nondistended. Mild generalized tenderness to deep palpation without rebound or guarding. MUSCULOSKELETAL: Adequately aligned spine. ROM intact spine and extremities. No joint erythema or tenderness. NEUROLOGICAL: CN grossly intact. Strength and sensation symmetric and intact throughout. SKIN: Skin normal color, texture and turgor with no lesions or eruptions. Assessment/Plan 1. Diverticulitis (K57.92: Diverticulitis of intestine, part unspecified, without perforation or abscess without bleeding) Orders: amoxicillin-clavulanate, = 1 tab(s), Oral, q8hr, X 10 day(s), # 30 tab(s), Refills(s) 0, Pharmacy: [facility]/pharmacy #[id number], 159, cm, 11/24/23 13:04:00 EDT, Height/Length Dosing, 68.4, kg, 11/24/23 13:04:00 EDT, Weight Dosing piperacillin-tazobactam + Sodium Chloride 0.9% intravenous solution 50 mL, 3.375 gm = 1 EA, IV Piggyback, q6hrFT, STAT, Start date 11/24/23 14:39:00 EDT, 100 mL/hr, Infuse over 30 minute(s), 11/24/23 14:39:00 EDT Sodium Chloride 0.9% intravenous solution, 500 mL, Soln-IV, IV, Once, Stop date 11/24/23 13:22:00 EDT, STAT, Start date 11/24/23 13:22:00 EDT, 500 mL/hr, Infuse over 1, hour(s) Sodium Chloride 0.9% intravenous solution 1,000 mL, 1,000 mL, IV, 20 mL/hr, STAT, Start date 11/24/23 13:22:00 EDT, 50 hour(s), Total volume (mL): 1,000, 68.4 kg, 1.74, m2 Basic Metabolic Panel Blood Culture Charcoal Blood Culture Charcoal CBC w/ Auto Diff CT Abdomen/Pelvis w/ Contrast eGFR Extra SST Tube Hepatic Function Panel Influenza A&B Ag Lactic Acid Lipase Level Rapid [place] Antigen [place] UA with Cult Rflx 68-year-old female presents to the ER with abdominal complaints and fever. In the ER patient is febrile, vital signs otherwise stable. Labs are reviewed and noted. CT scan was ordered, concerning for acute uncomplicated diverticulitis. Patient was treated with Zosyn in the ER. On reexamination patient resting comfortably, sitting up on edge of exam bed, ready to be discharged home. Results are discussed with the patient at length. She is discharged home with prescription for Augmentin and instructions to follow with her PCP. Patient is to return to the ER with any new or worsening symptoms. Patient voices understanding is agreeable to plan. Medications Administered Given Sodium Chloride 0.9% IV Dia 1000 mL 1,000 mL, 1000 mL, IV NS 500 ml Bolus, 500 mL, IV piperacillin-tazobactam additive 3.375 gm + Sodium Chloride 0.9% intravenous solution 50 mL, IV Piggyback Disposition Plan Patient Discharge Condition Improved, stable Discharge Disposition To home Discharge Prescription List Prescriptions Augmentin 875 mg oral tablet, 1 tab(s), Oral, q8hr Follow-up With When Contact Information Charles Hory In 3 days [address] [facility] [place] [id number] Business (1) Additional Instructions: Patient Education Diverticulitis Attestation Patient was treated and evaluated by the Physician Hand Inserter Operator. The attending physician was in the Emergency Department at all times and supervised care. The case was discussed with the attending physician and diagnostics were reviewed as needed. Problem List/Past Medical History Ongoing Angiomyolipoma Arthritis Bladder pain Diverticulosis Elevated cholesterol Gallstones Gastritis Heart disease Hepatitis History of colon polyps Lung cancer LUQ pain Rectal polyp Renal cyst Thyroid cancer Vaginal atrophy (more content not included)... Normal [facility] Comment on above: Result Comment: Elec tronically Signed By: Katherine Holt PA-C\.br\Date and Time Signed: 11/24/23 15:44 EDT\.br\Electronically Co-Signed By: Oneal Cornelius DO\.br\Date and Time Co-Signed: 11/26/23 07:05 EDT BMPon 11-24-2023 Anion gap [Moles/Vol] 11 mmol/L Normal 6-16 [facility] Comment on above: Performed By: #### 2 [id number] #### [facility] [address] [place] [address] Calcium [Mass/Vol] 9.3 mg/dL Normal 8.9-11.1 [facility] Comment on above: Performed By: #### 2 [id number] #### [facility] [address] [place] [address] Chloride [Moles/Vol] 100 mmol/L Low 101-111 [facility] Comment on above: Performed By: #### 2 [id number] #### [facility] [address] [place] [address] CO2 [Moles/Vol] 28 mmol/L Normal 21-31 [facility] Comment on above: Performed By: #### 2 [id number] #### [facility] [address] [place] [address] Creatinine [Mass/Vol] 0.5 mg/dL Normal 0.5-1.3 [facility] Comment on above: Performed By: #### 2 [id number] #### [facility] [address] [place] [address] Glucose [Mass/Vol] 113 mg/dL Normal 55-199 [facility] Comment on above: Performed By: #### 2 [id number] #### [facility] [address] [place] [address] Potassium [Moles/Vol] 3.4 mmol/L Low 3.5-5.3 [facility] Comment on above: Performed By: #### 2 [id number] #### [facility] [address] [place] [address] Sodium [Moles/Vol] 136 mmol/L Normal 135-145 [facility] Comment on above: Performed By: #### 2 [id number] #### [facility] [address] [place] [address] Urea nitrogen [Mass/Vol] 17 mg/dL Normal 5-21 [facility] Comment on above: Performed By: #### 2 [id number] #### [facility] [address] [place] [address] Urea nitrogen/Creatinine [Mass ratio] 34 No Units High 10-20 [facility] Comment on above: Performed By: #### 2 [id number] #### [facility] [address] [place] [address] CBC w/ Auto Diffon 11-23- 4 Basophils/100 WBC (Bld) 0.2 % Normal 0.0-2.0 [facility] Comment on above: Performed By: #### 2 [id number] #### [facility] [address] [place] [address] Basophils/Leukocytes Auto (Bld) [Pure # fraction] 0.0 E9/L Normal 0.0-0.2 [facility] Comment on above: Performed By: #### 2 [id number] #### [facility] [address] [place] [address] Eosinophils (Bld) [#/Vol] 0.0 E9/L Normal 0.0-0.5 [facility] Comment on above: Performed By: #### 2 [id number] #### [facility] [address] [place] [address] Eosinophils/100 WBC (Bld) 0.4 % Normal 0.0-8.0 [facility] Comment on above: Performed By: #### 2 [id number] #### [facility] [address] [place] [address] Erythrocyte distribution width (RBC) [Ratio] 12.9 % Normal 10.9-14.2 [facility] Comment on above: Performed By: #### 2 [id number] #### [facility] [address] [place] [address] Hematocrit (Bld) [Volume fraction] 39.9 % Normal 34.0-46.0 [facility] Comment on above: Performed By: #### 2 [id number] #### [facility] [address] [place] [address] Hemoglobin (Bld) [Mass/Vol] 14.1 g/dL Normal 12.0-16.0 [facility] Comment on above: Performed By: #### 2 [id number] #### [facility] [address] [place] [address] Lymphocytes (Bld) [#/Vol] 0.5 E9/L Low 1.0-4.0 [facility] Comment on above: Performed By: #### 2 [id number] #### [facility] [address] [place] [address] Lymphocytes/100 WBC (Bld) 7.2 % Low 14.0-50.0 [facility] Comment on above: Performed By: #### 2 [id number] #### [facility] [facility] [address] [place] [address] MCH (RBC) [Entitic mass] 30.9 pg Normal 27.0-34.0 [facility] Comment on above: Performed By: #### 2 [id number] #### [facility] [address] [place] [address] MCHC (RBC) [Mass/Vol] 35.5 g/dL Normal 31.4-36.0 [facility] Comment on above: Performed By: #### 2 [id number] #### [facility] [address] [place] [address] MCV (RBC) [Entitic vol] 87.0 fL Normal 80.0-100.0 [facility] Comment on above: Performed By: #### 2 [id number] #### [facility] [address] [place] [address] Monocytes (Bld) [#/Vol] 0.6 E9/L Normal 0.2-1.0 [facility] Comment on above: Performed By: #### 2 [id number] #### [facility] [address] [place] [address] Neutrophils (Bld) [#/Vol] 5.9 E9/L Normal 2.0-7.5 [facility] Comment on above: Performed By: #### 2 [id number] #### [facility] [address] [place] [address] Neutrophils/100 WBC (Bld) 83.7 % High 36.0-75.0 [facility] Comment on above: Performed By: #### 2 [id number] #### [facility] [address] [place] [address] Platelet mean volume (Bld) [Entitic vol] 8.3 fL Normal 6.4-10.8 [facility] Comment on above: Performed By: #### 2 [id number] #### [facility] [address] [place] [address] Platelets (Bld) [#/Vol] 128.0 E9/L Low 150.0-500. 0 [facility] Comment on above: Performed By: #### 2 [id number] #### [facility] [address] [place] [address] RBC (Bld) [#/Vol] 4.6 E12/L Normal 4.3-5.9 [facility] Comment on above: Performed By: #### 2 [id number] #### [facility] [address] [place] [address] WBC corrected for nucl RBC Auto (Bld) [#/Vol] 7.1 E9/L Normal 4.0-11.0 [facility] Comment on above: Performed By: #### 2 [id number] #### [facility] [address] [place] [address] CHEMISTRYOrdered By: SYSTEM SYSTEM on 11-24-2023 Albumin [Mass/Vol] 4.3 g/dL Normal 3.3 - 5.0 gm/dL Rem[facility] Chem Albumin/Globulin [Mass ratio] 1.3 {ratio} Normal 1.1 - 2.2 [facility] Chem ALP [Catalytic activity/Vol] 48 [iU]/d Normal 21 - 98 Int._Unit/ L Rem[facility] Chem ALT No additional P-5'-P [Catalytic activity/Vol] 20 [iU]/d Normal 6 - 46 Int._Unit/ L [facility] Chem Anion gap [Moles/Vol] 11 mmol/L Normal 6 - 16 mEq/L [facility] Chem AST [Catalytic activity/Vol] 19 [iU]/d Normal 5 - 43 Int._Unit/ L [facility] Chem Bilirubin [Mass/Vol] 0.9 mg/dL Normal 0.0 - 1 .1 mg/dL Remisol Chem Bilirubin.direct [Mass/Vol] 0.2 mg/dL Normal 0.0 - 0.4 mg/dL [facility] Chem Bilirubin.indirect [Mass or moles/Vol] 0.7 mg/dL Normal 0.1 - 0.9 mg/dL [facility] Chem Calcium [Mass/Vol] 9.3 mg/dL Normal 8.9 - 11. 1 mg/dL [facility] Chem Chloride [Moles/Vol] 100 mmol/L Low 101 - 1 11 mmol/L [facility] Chem CO2 [Moles/Vol] 28 mmol/L Normal 21 - 31 mmol/L [facility] Chem Creatinine [Mass/Vol] 0.5 mg/dL Normal 0.5 - 1.3 mg/dL [facility] Chem eGFR 102 mL/min/1.73 m2 Normal >=59mL/mi n /1.73 m2 [facility] Chem Globulin (S) [Mass/Vol] 3.2 g/dL Normal 1.4 - 4.0 gm/dL [facility] Chem Glucose [Mass/Vol] 113 mg/dL Normal 55 - 199 mg/dL [facility] Chem Lactic Acid Lvl 1.7 mmol/L Normal 0.5 - 2.2 mmol/L [facility] Chem Lipase [Catalytic activity/Vol] 45 U/L Normal 13 - 58 unit/L [facility] Chem Potassium [Moles/Vol] 3.4 mmol/L Low 3.5 - 5.3 mmol/L [facility] Chem Protein [Mass/Vol] 7.5 g/dL Normal 6.0 - 7.8 gm/dL [facility] Chem Sodium [Moles/Vol] 136 mmol/L Normal 135 - 145 mmol/L [facility] Chem Urea nitrogen [Mass/Vol] 17 mg/dL Normal 5 - 21 mg/dL [facility] Chem Urea nitrogen/Creatinine [Mass ratio] 34 mg/mg High 10 - [address] Abdomen/Pelvis w/ Contras ton 11-24-2023 CT Abdomen/Pelvis w/ Contrast Exam Date/Time: 11/24/2023 14:23 EDT Reason for Exam: Abdominal pain, acute, nonlocalized;Other (please specify) Report IMPRESSION: Acute uncomplicated distal sigmoid diverticulitis. EXAMINATION: CT Abdomen/Pelvis w/ Contrast HISTORY: Abdominal pain, acute, nonlocalized. Fevers. Vomiting. Diarrhea. TECHNIQUE: CT of the abdomen and pelvis was performed using standard technique with intravenous contrast, scanning from just above the dome of the diaphragm to the symphysis pubis. Including delayed images through the kidneys. Including sagittal and coronal reconstructions on both phases. Unless otherwise stated, incidental findings identified in this report do not require routine follow-up imaging. All CT scans at this facility use dose modulation, iterative reconstruction, and/or weight based dosing when appropriate to reduce radiation dose to as low as reasonably achievable. COMPARISON: 12/16/2021. RESULT: Liver: Diffuse hepatic steatosis without focal hepatic lesion. Biliary: Cholecystectomy. No bile duct dilation. Pancreas: No mass or duct dilation. Spleen: No mass or splenomegaly. Adrenals: No mass. Kidneys: No calculus or hydronephrosis. 3.0 cm simple cyst left upper pole and additional smaller benign lesions, unchanged. Delayed phase imaging with normal excreted contrast in the renal collecting system, ureters, and bladder. GI tract: Diverticulosis, especially involving the sigmoid colon, with short segment of wall thickening and minimal stranding involving the distal sigmoid colon within the left pelvis, suspicious for acute uncomplicated diverticulitis. Feces throughout the colon. No bowel dilation. Normal caliber appendix. Lymph nodes: No abdominal or pelvic lymphadenopathy. Report Mesentery/Peritoneum/Retrop eritoneum: Perisigmoid stranding as above. No loculated collection or pneumoperitoneum. Vasculature: The celiac axis and SMA are patent. The portal vein and branches, splenic vein, SMV, and hepatic veins are patent. Moderate arterial atherosclerotic disease without aneurysm. Pelvis: Sigmoid findings as above. Hysterectomy. Bladder decompressed and not well evaluated. Bones: No acute osseous findings. Degenerative changes. Underlying decreased bone mineral density. Soft tissues: Unremarkable. Lower thorax: Scarring/atelectasis at the left lung base. Ordering Provider: Katherine Holt FINAL REPORT Dictated: 11/24/2023 2:32 pm Jonny Cho MD Signed (Electronic Signature): 11/24/2023 2:32 pm Signed by: Jonny Cho MD Transcribed by: ROCKY Technologist: GILSON Technical Comments GFR (mL/min/1/73m2) 102 Contrast: Isovue 300 Contrast amount in ml's: 100 Rectal Contrast Given? No Oral contrast amount in ml's: 0 Normal [facility] Consent for Treatmenton 10-31 Consent for Treatment [id number] Normal [facility] Discharge Instructionson Discharge Instructions [id number] Normal [facility] ED Clinical Summaryon 2023 ED Clinical Summary (Inserted Image. Corina ble to display) [place] [id number] ED Clinical Summary Person Information Name: ROSELYN FREIRE [facility] Age: 68 Years : 1955 Sex: Female Language: Albanian PCP: Charles Arambula MD Marital Status: Visit Id: Visit Reason: Diarrhea; Vomiting; Abdominal pain; Fever; N/V FEVER Speciality: Acuity: 3 Enc Type: Emergency Med Service: Emergency Arrival: 11/24/2023 12:58:20 Discharge: 11/24/2023 15:44:31 LOS: 000 02:46 Checkin: 11/24/2023 12:58:20 Checkout: 11/24/2023 15:44:31 Dispo Type: Home (Routine DC) EVENTS: Event Name Event Status Request Date/Time Start Date/Time Complete Date/Time Arrive Complete 11/24/2023 12:58:20 11/24/2023 12:58:20 11/24/2023 12:58:20 Document Home Meds Request 11/24/2023 12:58:20 Triage Complete 11/24/2023 12:58:20 11/24/2023 13:04:39 11/24/2023 13:04:39 Registration Complete 11/24/2023 13:04:14 11/24/2023 13:04:14 11/24/2023 13:04:14 Reg Complete Request 11/24/2023 13:04:14 Reg Bed Request Complete 11/24/2023 13:04:14 11/24/2023 13:04:14 11/24/2023 13:04:14 Bed Assign Complete 11/24/2023 13:04:47 11/24/2023 13:04:47 11/24/2023 13:04:47 Dr Exam Complete 11/24/2023 13:04:47 11/24/2023 13:04:58 11/24/2023 13:04:58 RN Exam Complete 11/24/2023 13:04:47 11/24/2023 13:30:22 11/24/2023 13:30:22 Registration Request 11/24/2023 13:04:58 Dr Exam Complete 11/24/2023 13:05:51 11/24/2023 13:05:51 11/24/2023 13:05:51 Meds Admin Request 11/24/2023 13:22:42 Pending Labs Complete 11/24/2023 13:22:42 11/24/2023 13:58:52 Lab Complete 11/24/2023 13:22:42 11/24/2023 13:58:52 CT Complete 11/24/2023 13:22:42 11/24/2023 14:02:24 11/24/2023 14:23:40 Pending Labs Inlab 11/24/2023 13:33:44 Lab Inlab 11/24/2023 13:33:44 Pending Labs Complete 11/24/2023 13:34:16 11/24/2023 14:10:15 Swab Complete 11/24/2023 13:34:16 11/24/2023 14:09:39 Lab Complete 11/24/2023 13:34:16 11/24/2023 14:10:15 Pending Labs Complete 11/24/2023 13:35:15 11/24/2023 13:35:15 11/24/2023 13:58:52 Lab Complete 11/24/2023 13:35:15 11/24/2023 13:35:15 11/24/2023 13:58:52 Meds Admin Request 11/24/2023 14:39:20 Pending Labs Complete 11/24/2023 15:22:39 11/24/2023 15:22:39 11/24/2023 15:22:39 Discharge Complete 11/24/2023 15:39:15 11/24/2023 15:44:36 11/24/2023 15:44:36 Transfer Complete 11/24/2023 15:44:36 11/24/2023 15:44:36 11/24/2023 15:44:36 ADDRESS: [address] [place] [phone] PHYS DOC NOTES: MEDICAL INFORMATION: Prescriptions Given: New Medications [id number], [address] [place], [place] [id number], [phone] amoxicillin-clavulanate (Augmentin 875 mg oral tablet) 1 Tablets By Mouth every 8 hours for 10 Days. Refills: 0. Medications to Continue with No Changes Other Medications amlodipine (amLODIPine 10 mg Tab) aspirin 325 Milligram By Mouth every day. Ordered by another provider.. bisoprolol (bisoprolol 10 mg Tab) busPIRone (busPIRone 15 mg Tab) ciprofloxacin (Cipro 500 mg Tab) 1 Tablets By Mouth every day. Take 1 tablet the day before the procedure and 1 tablet after the procedure. Refills: 0. docusate (Colace) By Mouth 2 times a day. hydrochlorothiazide (hydrochlorothiazide 12.5 mg Cap) psyllium (Metamucil) By Mouth. PATIENT EDUCATION INFORMATION: Instructions: Diverticulitis Follow up: With: Address: When: Charles Arambula [facility] [facility], [place] [address] Business (1) In 3 days DIAGNOSIS: 1:Diverticulitis Normal [facility] ED Patient Education Noteon 11-24-2023 ED Patient Education Note Gastroenterology Diverticulitis Diverticulitis is infection or inflammation of small pouches (diverticula) in the colon that form due to a condition called diverticulosis. Diverticula can trap stool (feces) and bacteria, causing infection and inflammation. Diverticulitis may cause severe stomach pain and diarrhea. It may lead to tissue damage in the colon that causes bleeding or blockage. The diverticula may also burst (rupture) and cause infected stool to enter other areas of the abdomen. What are the causes? This condition is caused by stool becoming trapped in the diverticula, which allows bacteria to grow in the diverticula. This leads to inflammation and infection. What increases the risk? You are more likely to develop this condition if you have diverticulosis. The risk increases if you: ? Are overweight or obese. ? Do not get enough exercise. ? Drink alcohol. ? Use tobacco products. ? Eat a diet that has a lot of red meat such as beef, pork, or ashley. ? Eat a diet that does not include enough fiber. High-fiber foods include fruits, vegetables, beans, nuts, and whole grains. ? Are over 40 years of age. What are the signs or symptoms? Symptoms of this condition may include: ? Pain and tenderness in the abdomen. The pain is normally located on the left side of the abdomen, but it may occur in other areas. ? Fever and chills. ? Nausea. ? Vomiting. ? Cramping. ? Bloating. ? Changes in bowel routines. ? Blood in your stool. How is this diagnosed? This condition is diagnosed based on: ? Your medical history. ? A physical exam. ? Tests to make sure there is nothing else causing your condition. These tests may include: ? Blood tests. ? Urine tests. ? CT scan of the abdomen. How is this treated? Most cases of this condition are mild and can be treated at home. Treatment may include: ? Taking wrad-dbl-sjrylje pain medicines. ? Following a clear liquid diet. ? Taking antibiotic medicines by mouth. ? Resting. More severe cases may need to be treated at a hospital. Treatment may include: ? Not eating or drinking. ? Taking prescription pain medicine. ? Receiving antibiotic medicines through an IV. ? Receiving fluids and nutrition through an IV. ? Surgery. When your condition is under control, your health care provider may recommend that you have a colonoscopy. This is an exam to look at the entire large intestine. During the exam, a lubricated, bendable tube is inserted into the anus and then passed into the rectum, colon, and other parts of the large intestine. A colonoscopy can show how severe your diverticula are and whether something else may be causing your symptoms. Follow these instructions at home: Medicines ? Take msnf-bdd-uihmdcl and prescription medicines only as told by your health care provider. These include fiber supplements, probiotics, and stool softeners. ? If you were prescribed an antibiotic medicine, take it as told by your health care provider. Do not stop taking the antibiotic even if you start to feel better. ? Ask your health care provider if the medicine prescribed to you requires you to avoid driving or using machinery. Eating and drinking ? Follow a full liquid diet or another diet as directed by your health care provider. ? After your symptoms improve, your health care provider may tell you to change your diet. He or she may recommend that you eat a diet that contains at least 25 grams (25 g) of fiber daily. Fiber makes it easier to pass stool. Healthy sources of fiber include: ? Berries. One cup contains 4?8 grams of fiber. ? Beans or lentils. One-half cup contains 5?8 grams of fiber. ? Green vegetables. One cup contains 4 grams of fiber. ? Avoid eating red meat. General instructions ? Do not use any products that contain nicotine or tobacco, such as cigarettes, e-cigarettes, and chewing tobacco. If you need help quitting, ask your health care provider. ? Exercise for at least 30 minutes, 3 times each week. You should exercise hard enough to raise your heart rate and break a sweat. ? Keep all follow-up visits as told by your health care provider. This is important. You may need to have a colonoscopy. Contact a health care provider if: ? Your pain does not improve. ? Your bowel movements do not return to normal. Get help right away if: ? Your pain gets worse. ? Your symptoms do not get better with treatment. ? Your symptoms suddenly get worse. ? You have a fever. ? You vomit more than one time. ? You have stools that are bloody, black, or tarry. Summary ? Diverticulitis is infection or inflammation of small pouches (diverticula) in the colon that form due to a condition called diverticulosis. Diverticula can trap stool (feces) and bacteria, causing infection and inflammation. ? You are at higher risk for this condition if you have diverticulosis and you eat a diet zack (more content not included)... Normal [facility] ED Patient Summaryon 024 ED Patient Summary (Inserted Image. Corina ble to display) [address] [address] Patient Discharge Instructions Person Information Name: ROSELYN FREIRE Age: 68 Years Arrival Date: 11/24/2023 12:58:20 Discharge Diagnosis: 1:Diverticulitis Primary Care Physician: Charles Arambula MD Provider Information Primary Provider: Oneal Cornelius DO Advanced Water Chaser:Katherine Holt PA-C The exam and treatment you received in the Emergency Department were for an urgent problem and are not intended as complete care. It is important that you follow up with a doctor, nurse practitioner, or physician?s under water assistant for ongoing care. If your symptoms become worse or you do not improve as expected and you are unable to reach your usual health care provider, you should return to the Emergency Department. We are available 24 hours a day. ROSELYN FREIRE has been given the following list of patient education materials, prescriptions and follow-up instructions: Follow-up Instructions: With: Address: When: Charles Arambula [address] [place] [address], [place] [address] [facility] (1) In 3 days In the event that this physician does not participate in your insurance network, please consult with your insurance company to find a nearby participating provider. Patient Education Materials: Diverticulitis A MESSAGE TO ALL PATIENTS REGARDING OPIOIDS PRESCRIPTION OPIOIDS: WHAT YOU NEED TO KNOW Prescription opioids can be used to help relieve wewiryra-sc-odypqj pain and are often prescribed following a surgery or injury, or for certain health conditions. These medications can be an important part of the treatment but also come with serious risks. It is important to work with your healthcare provider to make sure you are getting the safest, most effective care. WHAT ARE THE RISKS AND SIDE EFFECTS OF OPIOID USE? Prescription opioids carry serious risks of addiction and overdose, especially with prolonged use. An opioid overdose, often marked by slowed breathing, can cause sudden . The use of prescription opioids can have a number of side effects as well, even when taken as directed: ? Tolerance?meaning you might need to take more of the medication for the same pain relief ? Physical dependence?meaning you have symptoms of withdrawal when a medication is stopped ? Increased sensitivity to pain ? Constipation ? Nausea, vomiting, and dry mouth ? Sleepiness and dizziness ? Confusion ? Depression ? Low levels of testosterone that can result in lower sex drive, energy, and strength ? Itching and sweating RISKS ARE GREATER WITH: ? History of drug misuse, substance use disorder, or overdose ? Mental health conditions (such as depression or anxiety) ? Sleep apnea ? Older age (65 years and older) ? Avoid alcohol while taking prescription opioids. Also, unless specifically advised by your health care provider, medications to avoid include: ? Benzodiazepines (such as Xanax or Valium) ? Muscle relaxants (such as Soma or Flexeril) ? Hypnotics (such as Ambien or Lunesta) ? Other prescription opioids KNOW YOUR OPTIONS Talk to your health care provider about ways to manage your pain that don?t involve prescription opioids. Some of these options may actually work better and have fewer risks and side effects. Options may include: ? Pain relievers such as acetaminophen, ibuprofen, and naproxen ? Some medication that are also used for depression or seizures ? Physical therapy and exercise ? Cognitive behavioral therapy, a psychological, goal-directed approach, in which patients learn how to modify physical, behavioral, and emotional triggers of pain and stress. IF YOU ARE PRESCRIBED OPIOIDS FOR PAIN: ? Never take opioids in greater amounts or more often than prescribed. ? Follow up with your primary health care provider. o Work together to create a plan on how to manage your pain. o Talk about ways to help manage your pain that don?t involve prescription opioids. o Talk about any and all concerns and side effects. ? Help prevent misuse and abuse o Never sell or share prescription opioids. o Never use another person?s prescription opioids. ? Store prescription opioids in a secure place and out of reach of others (this may include visitors, children, friends, and family). ? Safely dispose of unused prescription opioids: Find your community drug take-back program or your pharmacy mail-back program, or flush them down the toilet, following guidance from the Food and Drug Administration (www.fda.gov/Drugs/Resource sForYou). ? Visit www.cdc.gov/drugoverdose to learn about the risks of opioids abuse and overdose. ? If you believe you may be struggling with addiction, tell your health rn progressive care unit and ask for guidance or call [facility]?S National Helpline at 9-174-732-GGAE. v Source: [facility] of [facility] (more content not included)... Normal [facility] HEMATOLOGYOrdered By: SYSTEM SYSTEM on 11-24-2023 Basophils/100 WBC (Bld) 0.2 % Normal 0.0 - 2.0 % [facility] Basophils/Leukocytes Auto (Bld) [Pure # fraction] 0.0 E9/L Normal 0.0 - 0.2 E9/L [facility] Eosinophils (Bld) [#/Vol] 0.0 E9/L Normal 0.0 - 0.5 E9/L [facility] Eosinophils/100 WBC (Bld) 0.4 % Normal 0.0 - 8.0 % [facility] Erythrocyte distribution width (RBC) [Ratio] 12.9 % Normal 10.9 - 14.2 % [facility] Hematocrit (Bld) [Volume fraction] 39.9 % Normal 34.0 - 46.0 % [facility] Hemoglobin (Bld) [Mass/Vol] 14.1 g/dL Normal 12.0 - 16.0 gm/dL [facility] Lymphocytes (Bld) [#/Vol] 0.5 E9/L Low 1.0 - 4.0 E9/L [facility] Lymphocytes/100 WBC (Bld) 7.2 % Low 14.0 - 50.0 % [facility] MCH (RBC) [Entitic mass] 30.9 pg Normal 27.0 - 34.0 pg [facility] MCHC (RBC) [Mass/Vol] 35.5 g/dL Normal 31.4 - 36.0 gm/dL [facility] MCV (RBC) [Entitic vol] 87.0 fL Normal 80.0 - 100.0 fL [facility] Monocytes (Bld) [#/Vol] 0.6 E9/L Normal 0.2 - 1.0 E9/L [facility] Monocytes/100 WBC (Bld) 8.5 % Normal 4.0 - 14.0 % [facility] Neutrophils (Bld) [#/Vol] 5.9 E9/L Normal 2.0 - 7.5 E9/L [facility] Neutrophils/100 WBC (Bld) 83.7 % High 36.0 - 75.0 % [facility] Platelet mean volume (Bld) [Entitic vol] 8.3 fL Normal 6.4 - 10.8 fL [facility] Platelets (Bld) [#/Vol] 128.0 E9/L Low 150.0 - 500.0 E9/L [facility] RBC (Bld) [#/Vol] 4.6 E12/L Normal 4.3 - 5.9 E12/L [facility] WBC corrected for nucl RBC Auto (Bld) [#/Vol] 7.1 E9/L Normal 4.0 - 11.0 E9/L [facility] Hep Func Panelon 11-24-2023 Albumin [Mass/Vol] 4.3 g/dL Normal 3.3-5.0 [facility] Comment on above: Performed By: #### 2 [id number] #### [facility] [address] [place] [address] Albumin/Globulin (S) [Mass conc ratio] 1.3 Normal 1.1-2.2 [facility] Comment on above: Performed By: #### 2 [id number] #### [facility] [address] [place] [address] ALP [Catalytic activity/Vol] 48 Int._Unit/L Normal 21-98 [facility] Comment on above: Performed By: #### 2 [id number] #### [facility] [address] [place] [address] ALT No additional P-5'-P [Catalytic activity/Vol] 20 Int._Unit/L Normal 6-46 [facility] Comment on above: Performed By: #### 2 [id number] #### [facility] [address] [place] [address] AST [Catalytic activity/Vol] 19 Int._Unit/L Normal 5-43 [facility] Comment on above: Performed By: #### 2 [id number] #### [facility] [address] [place] [address] Bilirubin [Mass/Vol] 0.9 mg/dL Normal 0.0-1.1 [facility] Comment on above: Performed By: #### 2 [id number] #### [facility] [address] [place] [address] Bilirubin.direct [Mass/Vol] 0.2 mg/dL Normal 0.0-0.4 [facility] Comment on above: Performed By: #### 2 [id number] #### [facility] [address] [place] [address] Bilirubin.indirect [Mass or moles/Vol] 0.7 mg/dL Normal 0.1-0.9 [facility] [place] Comment on above: Performed By: #### 2 [id number] #### [facility] [address] [place] [address] Globulin (S) [Mass/Vol] 3.2 g/dL Normal 1.4-4.0 [facility] [place] [facility] Comment on above: Performed By: #### 2 [id number] #### [facility] [address] [place] [address] Protein [Mass/Vol] 7.5 g/dL Normal 6.0-7.8 [facility] [place] [facility] Comment on above: Performed By: #### 2 [id number] #### [facility] [place] [address] [place] [address] [address] Influenza A&B Agon 4 Influenzae A Ag Negative Normal Negative [facility] Comment on above: Performed By: #### 1 [id number] #### [facility] [address] [place] [address] Influenzae B Ag Negative Normal Negative [facility] Comment on above: Result Comment: Test sensitivity and specificity vary for age group, specimen type, antigen types, and prevalence of disease. Test results must be evaluated in conjunction with other clinical data available to the physician. Individuals who received nasally administered Influenza A vaccine may have positive test results up to 3 days after vaccination. Performed By: #### 1 [id number] #### [facility] [address] [place] [address] Lactic Acidon 11-24-2023 Lactic Acid Lvl 1.7 mmol/L Normal 0.5-2.2 [facility] Comment on above: Performed By: #### 2 [id number] #### [facility] [address] [place] [address] Lipase Levelon 11-24-2023 Lipase [Catalytic activity/Vol] 45 U/L Normal 13-58 [facility] Comment on above: Performed By: #### 2 [id number] #### [facility] [address] [place] [address] MICRO OTHER TESTSOrdered By: Harriet Barros on 11-24-2023 Influenzae A Ag Negative (11/24/23 1:42 PM) Normal Negative [facility] Influenzae B Ag Negative 2 (11/24/23 1:42 PM) Normal Negative [facility] Comment on above: Interpretive Data: T est sensitivity and specificity vary for age group, specimen type, antigen types, and prevalence of disease. Test results must be evaluated in conjunction with other clinical data available to the physician. Individuals who received nasally administered Influenza A vaccine may have positive test results up to 3 days after vaccination. Rapid COV Int NEG Ctl Pass (11/24/23 1:42 PM) Normal [facility] Rapid COV Int POS Ctl Pass (11/24/23 1:42 PM) Normal [facility] SARS-CoV+SARS-CoV-2 (COVID-19) Ag IA.rapid Ql (Resp) Not Detected 3 (11/24/23 1:42 PM) Normal Not Detected [facility] Comment on above: Interpretive Data: T he [employer] Veritor System for Rapid Detection of SARS-CoV-2 is a chromatographic digital immunoassay intended for the direct and qualitative detection of SARS-CoV-2 nucleocapsid antigens in nasal swabs from individuals who are suspected of COVID-19 by their healthcare provider within the first five days of the onset of symptoms. Negative results should be treated as presumptive, do not rule out SARS-CoV-2 infection and should not be used as the sole basis for treatment or patient management decisions, including infection control decisions. Negative results should be considered in the context of a patient s recent exposures, history and the presence of clinical signs and symptoms consistent with COVID-19, and confirmed with a molecular assay, if necessary, for patient management. For in vitro diagnostic use. In the [place], only for use under an Emergency Use Authorization. In the [place], this test has not been FDA cleared or approved; this test has been authorized by FDA under an EUA for use by authorized laboratories; use by laboratories certified under the CLIA, 42 U.S.C. 263a, that meet requirements to perform moderate, high, or waived complexity tests and at the Point of Care (POC), i.e., in patient care settings operating under a CLIA Certificate of Waiver, Certificate of Compliance, or Certificate of Accreditation. This test has been authorized only for the detection of proteins from SARS-CoV-2, not for any other viruses or pathogens; and, in the [place], this test is only authorized for the duration of the declaration that circumstances exist justifying the authorization of emergency use of in vitro diagnostics for detection and/or diagnosis of the virus that causes COVID-19 under Section 564(b)(1) of the Act, 21 U.S.C. 360bbb-3(b)(1), unless the authorization is terminated or revoked sooner. Rapid COVID Antigen ([facility]on 11-24-2023 Rapid COV Int NEG Ctl Pass Normal [facility] Comment on above: Performed By: #### 2 [id number] #### [facility] [address] [place] [address] Rapid COV Int POS Ctl Pass Normal [facility] Comment on above: Performed By: #### 2 [id number] #### [facility] [address] [place] [address] SARS-CoV+SARS-CoV-2 (COVID-19) Ag IA.rapid Ql (Resp) Not detected Normal Not Detected [facility] Comment on above: Result Comment: The [employer] Veritor? System for Rapid Detection of SARS-CoV-2 is a chromatographic digital immunoassay intended for the direct and qualitative detection of SARS-CoV-2 nucleocapsid antigens in nasal swabs from individuals who are suspected of COVID-19 by their healthcare provider within the first five days of the onset of symptoms. Negative results should be treated as presumptive, do not rule out SARS-CoV-2 infection and should not be used as the sole basis for treatment or patient management decisions, including infection control decisions. Negative results should be considered in the context of a patient?s recent exposures, history and the presence of clinical signs and symptoms consistent with COVID-19, and confirmed with a molecular assay, if necessary, for patient management. For in vitro diagnostic use. In the [facility], only for use under an Emergency Use Authorization. In the [place], this test has not been FDA cleared or approved; this test has been authorized by FDA under an EUA for use by authorized laboratories; use by laboratories certified under the CLIA, 42 U.S.C. ?263a, that meet requirements to perform moderate, high, or waived complexity tests and at the Point of Care (POC), i.e., in patient care settings operating under a CLIA Certificate of Waiver, Certificate of Compliance, or Certificate of Accreditation. This test has been authorized only for the detection of proteins from SARS-CoV-2, not for any other viruses or pathogens; and, in the [facility], this test is only authorized for the duration of the declaration that circumstances exist justifying the authorization of emergency use of in vitro diagnostics for detection and/or diagnosis of the virus that causes COVID-19 under Section 564(b)(1) of the Act, 21 U.S.C. ? 360bbb-3(b)(1), unless the authorization is terminated or revoked sooner. Performed By: #### 2 [id number] #### [facility] [address] [place] [address] UA with Cult Rflxon 11-23-20 24 Bacteria Auto Ql (U) Trace Normal Trace Fish [facility] Comment on above: Performed By: #### 4 [id number] #### [facility] [address] [place] [address] Bilirubin Ql (U) Negative Normal Negative [facility] Comment on above: Performed By: #### 4 [id number] #### [facility] [address] [place] [address] Clarity (U) Clear Normal Clear [facility] Comment on above: Performed By: #### 4 [id number] #### [facility] [address] [place] [address] Color (U) Yellow Normal Yellow [facility] Comment on above: Result Comment: Micr oscopic readings are only performed on those samples that meet specific criteria set forth by [facility]. Performed By: #### 4 [id number] #### [facility] [address] [place] [address] Epithelial cells.squamous Auto (Urine sed) [#/Area] 0-2 Normal 0-2 [facility] Comment on above: Performed By: #### 4 [id number] #### [facility] [address] [place] [address] Glucose Ql (U) Negative Normal Negative [facility] Comment on above: Performed By: #### 4 [id number] #### [facility] [address] [place] [address] Hemoglobin Auto test strip (U) [Mass/Vol] Negative Normal Negative [facility] Comment on above: Performed By: #### 4 [id number] #### [facility] [address] [place] [address] Ketones Auto test strip Ql (U) Negative Normal Negative [facility] Comment on above: Performed By: #### 4 [id number] #### [facility] [address] [place] [address] Leukocyte esterase Auto test strip Ql (U) Negative Normal Negative [facility] Comment on above: Performed By: #### 4 [id number] #### [facility] [address] [place] [address] Mucus Auto Ql (U) Trace Normal Negative [facility] Comment on above: Performed By: #### 4 [id number] #### [facility] [address] [place] [address] Nitrite Auto test strip Ql (U) Negative Normal Negative [facility] Comment on above: Performed By: #### 4 [id number] #### [facility] [address] [place] [address] pH (U) 6.5 [pH] Invalid Interpretation Code 5.0-9.0 [facility] Comment on above: Performed By: #### 4 [id number] #### [facility] [address] [place] [address] Protein Ql (U) 1+ mg/dL Abnormal Negative [facility] Comment on above: Performed By: #### 4 [id number] #### [facility] [address] [place] [address] RBC Ql (U) 4-20 Abnormal 0-3 [facility] Comment on above: Performed By: #### 4 [id number] #### [facility] [address] [place] [address] Specific gravity (U) [Rel density] 1.024 Invalid Interpretation Code 1.005-1.03 0 [facility] Comment on above: Performed By: #### 4 [id number] #### [facility] [address] [place], [place] [id number] Type of Urine collection method Clean Catch Normal [facility] Comment on above: Performed By: #### 4 [id number] #### [facility] [address] [place] [address] Urobilinogen (U) [Mass/Vol] 2 mg/dL Abnormal Negative [facility] Comment on above: Performed By: #### 4 [id number] #### [facility] [address] [place] [address] WBC Auto (Urine sed) [#/Area] 0-5 Normal 0-5 [facility] Comment on above: Performed By: #### 4 [id number] #### [facility] [address] [place] [address] URINALYSISOrdered By: SYSTEM SYSTEM on 11-24-2023 Bacteria Auto Ql (U) Trace /HPF Normal Trace/HPF [facility] UA Auto SS Bilirubin Ql (U) Negative Normal Negativemg /dL [facility] UA Auto SS Clarity (U) Clear (11/24/23 1:28 PM) Normal Clear [facility] UA Auto SS Color (U) Yellow 1 (11/24/23 1:28 PM) Normal Yellow [facility] UA Auto SS Comment on above: Interpretive Data: M icroscopic readings are only performed on those samples that meet specific criteria set forth by [facility]. Epithelial cells.squamous Auto (Urine sed) [#/Area] 0-2 graded/HPF Normal 0-2graded/ HPF [facility] UA Auto SS Glucose Ql (U) Negative Normal Negativemg /dL [facility] UA Auto SS Hemoglobin Auto test strip (U) [Mass/Vol] Negative Normal Negativemg /dL [facility] UA Auto SS Ketones Auto test strip Ql (U) Negative Normal Negativemg /dL [facility] UA Auto SS Leukocyte esterase Auto test strip Ql (U) Negative Normal NegativeLe u/uL [facility] UA Auto SS Mucus Auto Ql (U) Trace graded/LPF Normal Negati vegr aded/LPF [facility] UA Auto SS Nitrite Auto test strip Ql (U) Negative Normal Negativemg /dL [facility] UA Auto SS pH (U) 6.5 *NA* (11/24/23 1:28 PM) Invalid Interpretation Code 5.0 - 9.0 [facility] UA Auto SS Protein Ql (U) 1+ mg/dL Invalid Interpretation Code Negativemg /dL [facility] UA Auto SS RBC Ql (U) 4-20 graded/HPF Invalid Interpretation Code 0-3graded/ HPF [facility] UA Auto SS Specific gravity (U) [Rel density] 1.024 *NA* (11/24/23 1:28 PM) Invalid Interpretation Code 1.005 - 1.030 [facility] UA Auto SS Urobilinogen (U) [Mass/Vol] 2 mg/dL Invalid Interpretation Code Negativemg /dL [facility] UA Auto SS WBC Auto (Urine sed) [#/Area] 0-5 graded/HPF Normal 0-5graded/ HPF [facility] UA Auto SS URINALYSISOrdered By: Kp Holt on 11-24-2023 UA Spec Desc Clean Catch (11/24/23 1:28 PM) Normal [facility] UA Auto SS eGFRon 11-24-2023 eGFR 102 mL/min/1.73 m2 Normal >=59 [facility] Comment on above: Order Comment: Order added by Discern Expert. Performed By: #### 1 [id number] #### [facility] [address] [place] [id number] Blood Urea Nitrogenon 2023 Urea nitrogen [Mass/Vol] 11 mg/dL Normal 7-25 [facility] Comment on above: Order Comment: STAT FOR CT Performed By: #### C REAT, BUN #### [facility] [address] pelvis w conon 09-14-2023 CT pelvis w con [facility] [place] [address] [place] [address] CT Scan Report Signed Patient: Roselyn Freire MR#: [id number] : 1955 Acct:[id number] Age/Sex: 68 / F ADM Date: 09/14/23 Loc: CT Room: Type: [facility] Attending Dr: Rebeca Mason MD Copies to: Rebeca Mason MD-NOMS Ordering Provider: Rebeca Mason MD-FORTINO Date of Service: 09/14/23 CT/CT pelvis w con: N94.0, R19.00 CT PELVIS WITH INTRAVENOUS CONTRAST: CLINICAL HISTORY: Postmenopausal bleeding for 4 days. Lower pelvic pain for 4 months. COMPARISON: None TECHNIQUE: Spiral images were obtained through the pelvis following the administration of IV contrast. This CT exam was performed using one or more following dose reduction techniques: Automated exposure control, adjustment of the mA and/or kV according to patient size, or use of iterative reconstruction technique. FINDINGS: Urinary bladder is grossly unremarkable. Uterus has been removed. A presumed right ovary is seen within the right adnexa. Presumed left ovarian tissue is seen. No definite pelvic mass is seen. Colonic diverticulosis. Visualized small bowel appears nondilated. No free air, free fluid or lymphadenopathy. Osseous structures demonstrate degenerative change. CT/CT pelvis w con IMPRESSION: NO EVIDENCE OF PELVIC MASS. COLONIC DIVERTICULOSIS. Impression dictated by: Rey Fletcher Jr., D.O.09/14/2023 2:30 PM Dictation Location: [place] [address] Transcribed By: [facility] 09/14/23 1430 Dictated By: Rey Fletcher Jr, DO 09/14/23 1428 Signed By: 09/14/23 1430 Normal [facility] Creatinineon 09-14-2023 Creatinine [Mass/Vol] 0.57 mg/dL Low 0.60-1.20 [facility] Comment on above: Order Comment: STAT FOR CT Performed By: #### C REAT, BUN #### [facility] [address] [place] [address] [place] GFR/1.73 sq M.predicted MDRD (S/P/Bld) [Vol rate/Area] mL/min/{1.73_m2} [facility] Comment on above: Order Comment: STAT FOR CT Result Comment: PERF ORMED BY: [place] [address] PATHOLOGIST [employer] ALANNA GABRIEL M.D. Performed By: #### C REAT, BUN #### [facility] [address] Creatinine [Mass/volume] in Serum or PlasmaOrdered By: VASQUEZ Mason on 09-14-2023 Creatinine [Mass/Vol] 0.57 mg/dL 0.60-1.20 [facility] No Panel InformationOrdered By: VASQUEZ Mason on 09-14-2023 Estimated GFR (CKD-EPI) > 60.0 mL/Min [facility] Creatinine Clearance (Chem N/A [facility] Urea nitrogen [Mass/volume] in Serum or PlasmaOrdered By: VASQUEZ Mason on 09-14-2023 Urea nitrogen [Mass/Vol] 11 mg/dL 01-23 [facility] Consent for Procedure/Surger yon 09-05-2023 Consent for Procedure/Surgery [id number] Normal [facility] Ambulatory Visit Summaryon 0 09-04-2023 Ambulatory Visit Summary ROSELYN FREIRE :1955 Visit Date:09/04/2023 Ambulatory Visit Instructions Your Diagnosis Bladder pain Angiomyolipoma Renal cyst Vaginal atrophy Your Care Team Attending Physician - BHAT Tay BREWER Primary Care Physician - Charles Arambula MD This Is Your Medications List ciprofloxacin (Cipro 500 mg Tab) Contact prescribing physician if questions or concerns amlodipine (amLODIPine 10 mg Tab) aspirin bisoprolol (bisoprolol 10 mg Tab) busPIRone (busPIRone 15 mg Tab) docusate (Colace) hydrochlorothiazide (hydrochlorothiazide 12.5 mg Cap) psyllium (Metamucil) Procedures Performed Cystoscopy (09/04/2023), Colonoscopy (11/11/2021), Esophagogastroduodenoscopy (11/11/2021), Cholecystectomy (2006), Hysterectomy, Lobectomy. Discharge Vitals Heart Rate (Apical) 54 Blood Pressure 136/88 Height 63 in Height 159 cm Weight 143 lb Weight 65 kg BMI 25.71 What to do next You Need to Schedule the Following Appointments Follow Up with Tay BHAT MD, URL When: Comments: 1 yr recall placed for MONICA f/u with AO Where: [facility] [address], [place] [address]- Medications What How Much When Instructions Unchanged ciprofloxacin (Cipro 500 mg Tab) 1 Tablets By Mouth Every day Take 1 tablet the day before the procedure and 1 tablet after the procedure Unchanged amlodipine (amLODIPine 10 mg Tab) Contact prescribing physician if questions or concerns Unchanged aspirin 325 Milligram By Mouth Every day Ordered by another provider. Contact prescribing physician if questions or concerns Unchanged bisoprolol (bisoprolol 10 mg Tab) Contact prescribing physician if questions or concerns Unchanged busPIRone (busPIRone 15 mg Tab) Contact prescribing physician if questions or concerns Unchanged docusate (Colace) By Mouth 2 times a day Contact prescribing physician if questions or concerns Unchanged hydrochlorothiazide (hydrochlorothiazide 12.5 mg Cap) Contact prescribing physician if questions or concerns Unchanged psyllium (Metamucil) By Mouth Contact prescribing physician if questions or concerns Medications and Immunizations Administered Given lidocaine Top 2% Gel w/Appl 6 mL, 6 mL, Topical. For: Bladder pain, Angiomyolipoma, Renal cyst Allergies No Known Allergies Problems Ongoing - Any problem that you are currently receiving treatment for. Angiomyolipoma Arthritis Bladder pain Diverticulosis Elevated cholesterol Gallstones Gastritis Heart disease Hepatitis History of colon polyps Lung cancer LUQ pain Rectal polyp Renal cyst Thyroid cancer Vaginal atrophy Patient Survey You may receive a survey via text or e-mail asking about your office visit. Please share your experience with us by completing your survey. We appreciate your feedback and thank you for choosing us for your care. Education Materials Atrophic Vaginitis Atrophic vaginitis is a condition in which the tissues that line the vagina become dry and thin. This condition is most common in women who have stopped having regular menstrual periods (are in menopause). This usually starts when a woman is 45 to 55 years old. That is the time when a woman's estrogen levels begin to decrease. Estrogen is a female hormone. It helps to keep the tissues of the vagina moist. It stimulates the vagina to produce a clear fluid that lubricates the vagina for sex. This fluid also protects the vagina from infection. Lack of estrogen can cause the lining of the vagina to get thinner and dryer. The vagina may also shrink in size. It may become less elastic. Atrophic vaginitis tends to get worse over time as a woman's estrogen level drops. What are the causes? This condition is caused by the normal drop in estrogen that happens around the time of menopause. What increases the risk? Certain conditions or situations may lower a woman's estrogen level, leading to a higher risk for atrophic vaginitis. You are more likely to develop this condition if: ? You are taking medicines that block estrogen. ? You have had your ovaries removed. ? You are being treated for cancer with radiation or medicines (chemotherapy). ? You have given or are . ? You are older than age 50. ? You smoke. What are the signs or symptoms? Symptoms of this condition include: ? Pain, soreness, a feeling of pressure, or bleeding during sex (dyspareunia). ? Vaginal burning, irritation, or itching. ? Pain or bleeding when a speculum is used in a vaginal exam. ? Having burning pain while urinating. ? Vaginal discharge. In some cases, there are no symptoms. How is this diagnosed? This condition is diagnosed based on your medical history and a physical exam. This will include a pelvic exam that checks the vaginal tissues. Though rare, you may also have other tests, including: ? A urine test. ? A test that (more content not included)... Normal [facility] Patient Educationon 09-04-19 Patient Education Obstetrics and Gynec ology Atrophic Vaginitis Atrophic vaginitis is a condition in which the tissues that line the vagina become dry and thin. This condition is most common in women who have stopped having regular menstrual periods (are in menopause). This usually starts when a woman is 45 to 55 years old. That is the time when a woman's estrogen levels begin to decrease. Estrogen is a female hormone. It helps to keep the tissues of the vagina moist. It stimulates the vagina to produce a clear fluid that lubricates the vagina for sex. This fluid also protects the vagina from infection. Lack of estrogen can cause the lining of the vagina to get thinner and dryer. The vagina may also shrink in size. It may become less elastic. Atrophic vaginitis tends to get worse over time as a woman's estrogen level drops. What are the causes? This condition is caused by the normal drop in estrogen that happens around the time of menopause. What increases the risk? Certain conditions or situations may lower a woman's estrogen level, leading to a higher risk for atrophic vaginitis. You are more likely to develop this condition if: ? You are taking medicines that block estrogen. ? You have had your ovaries removed. ? You are being treated for cancer with radiation or medicines (chemotherapy). ? You have given or are . ? You are older than age 50. ? You smoke. What are the signs or symptoms? Symptoms of this condition include: ? Pain, soreness, a feeling of pressure, or bleeding during sex (dyspareunia). ? Vaginal burning, irritation, or itching. ? Pain or bleeding when a speculum is used in a vaginal exam. ? Having burning pain while urinating. ? Vaginal discharge. In some cases, there are no symptoms. How is this diagnosed? This condition is diagnosed based on your medical history and a physical exam. This will include a pelvic exam that checks the vaginal tissues. Though rare, you may also have other tests, including: ? A urine test. ? A test that checks the acid balance in your vagina (acid balance test). How is this treated? Treatment for this condition depends on how severe your symptoms are. Treatment may include: ? Using an rejw-djj-jikhxry vaginal lubricant before sex. ? Using a long-acting vaginal moisturizer. ? Using low-dose estrogen for moderate to severe symptoms that do not respond to other treatments. Options include creams, tablets, and inserts (vaginal rings). Before you use a vaginal estrogen, tell your health care provider if you have a history of: ? Breast cancer. ? Endometrial cancer. ? Blood clots. If you are not sexually active and your symptoms are very mild, you may not need treatment. Follow these instructions at home: Medicines ? Take sfqs-cns-udtmnwh and prescription medicines only as told by your health care provider. ? Do not use herbal or alternative medicines unless your health care provider says that you can. ? Use tthw-gqb-eweongt creams, lubricants, or moisturizers for dryness only as told by your health care provider. General instructions ? If your atrophic vaginitis is caused by menopause, discuss all of your menopause symptoms and treatment options with your health care provider. ? Do not douche. ? Do not use products that can make your vagina dry. These include: ? Scented feminine sprays. ? Scented tampons. ? Scented soaps. ? Vaginal sex can help to improve blood flow and elasticity of vaginal tissue. If you choose to have sex and it hurts, try using a water-soluble lubricant or moisturizer right before having sex. Contact a health care provider if: ? Your discharge looks different than normal. ? Your vagina has an unusual smell. ? You have new symptoms. ? Your symptoms do not improve with treatment. ? Your symptoms get worse. Summary ? Atrophic vaginitis is a condition in which the tissues that line the vagina become dry and thin. It is most common in women who have stopped having regular menstrual periods (are in menopause). ? Treatment options include using vaginal lubricants and low-dose vaginal estrogen. ? Contact a health care provider if your vagina has an unusual smell, or if your symptoms get worse or do not improve after treatment. This information is not intended to replace advice given to you by your health care provider. Make sure you discuss any questions you have with your health care provider. Document Revised: 12/16/2020 Document Reviewed: 12/16/2020 [employer] Patient Education ? 2022 [employer]. Larry [facility] Urology Office/Clinic Noteon 09-04-2023 Urology Office/Clinic Note Chief Complaint Cysto HPI Staff Cysto, possible UD History of Present Illness Tests reviewed: none. I have reviewed the previous health record information and history for this patient from Torri MUNOZ. I have reviewed and verified the staff HPI to be accurate for this encounter. There have been no associated fever, chills, flank pain, or blood in the urine. Denies any urinary infections since last encounter. Review of Systems PHQ Score Initial Depression Screen Score: 0 SCORE ROS - Provider Constitutional: denies weight loss, denies hot flashes. Eyes: denies eye problems. Gastrointestinal: denies nausea, denies vomiting. Cardiovascular: denies chest pain or angina. Integumentary: no dryness Musculoskeletal: denies musculoskeletal symptoms. ENMT: denies otolaryngeal symptoms. Respiratory: no shortness of breath. Heme/Lymph: denies easy bleeding tendency, denies easy bruising tendency. Psychiatric: no confusion, no anxiety. Genitourinary: See HPI. Physical Exam Vitals & Measurements HR: 54(Apical) BP: 136/88 HT: 63 in HT: 159 cm WT: 65 kg WT: 143 lb BMI: 25.71 General Appearance: alert , no acute distress, well nourished, well developed female. Genitourinary: bladder nonpalpable, no flank pain. Procedure Operative Information Anesthesia Type: Local Procedure: Local Cystoscopy Complications: None Surgical risks, benefits, details of the procedure have been explained to the patient. Full informed consent has been obtained. Intraoperative Information Prepped: Patient is brought back to the endoscopy suite. Patient is placed in supine/frog leg position. Patient prepped in the usual fashion with Betadine solution. 2% Xylocaine Jelly is placed per Urethra. After waiting several minutes, the Cystoscope is introduced. The Urethra is: Normal, The Bladder: Normal, no tumors, no stones, no STACEY, no prolapse, moderate A.V, Trabeculated: Moderate (2) The Ureteral orifices: Show efflux of clear urine Specimens Removed: None Removal: Cystoscope is removed. The patient tolerated it well. Postoperative Information Patient is discharged home with antibiotic coverage. Follow up arranged. Assessment/Plan 1. Bladder pain (R39.89: Other symptoms and signs involving the genitourinary system) Patient reports ongoing bladder pain since May. Reports that it feels like a bladder spasm that does not stop. Has had ongoing pain for 3 weeks at a time x 2 episodes since May. Denies episode of sensation at this time and has not had the pain for about 3 weeks. Denies episodes being accompanied by other urinary sxs. Denies other systemic sxs. Initially thought she might have a UTI during first episode. PCP Dr Arambula treated her w/ 10 days of cefdinir on 05/11/23 without improvement of symptoms. Then was placed on cipro x 10 days starting 05/23/23, which she does report improved pain but started again as soon as she stopped it. She does report that pain did mildly improve w/ tylenol. [facility] ER 05/27/23 - negative UA, rx'd oxybutynin Pt states oxybutynin did not change her sxs. CT AP w/o con 06/05/23 - no renal stones or collecting system dilatation. Bilateral ureters are nondilated. Unremarkable bladder. Pt denies constipation. Currently taking Metamucil and Colace, having soft BM daily. Drinks mostly water throughout the day. Denies heavy intake of bladder irritants. Pt is a former smoker and does note that she is worried about cancer. Denies ever having episode of gross hematuria. Pt had IO Cysto today without complications. Prophylactic abx taken. she will do timed voids q2-3 and focus on emptying. All questions/concerns were discussed. Pt to call the office if she encounters any issues prior. Pt acknowledges understanding. 2. 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 3. Renal cyst (N28.1: Cyst of kidney, acquired) CT AP w/ con 12/16/21 - a nearly 3 cm simple cyst arises from the upper pole of the left kidney, w/ a few less than 1 cm cysts noted in the upper poles of both kidneys CT AP w/ con 06/05/23 - 3.1 cm exophytic cyst off left upper pole. Other small left renal cysts. Pt reports she has had these for years. 4. Vaginal atrophy (N95.2: Postmenopausal atrophic vaginitis) Found on Cysto today, moderate. was on estrogen many years ago. Follow-up With When Contact Information HOME BREWER, Tay Nath, URL [facility] [address], [place] [address]- Additional Instructions: 1 yr recall placed for MONICA f/u with AO Patient Education Atrophic Vaginitis I, Karlene Dow , personally scribed for Dr. Bhat on 09/04/2023 16:20:42. . Documentation (more content not included)... [facility] Comment on above: Result Comment: Elec tronically Signed By: Tay BHAT MD\.br\Date and Time Signed: 09/04/23 16:23 EST\.br\Electronically Co-Signed By: Karlene Dow\.br\Date and Time Co-Signed: 09/04/23 16:20 EST Consent for Treatmenton 08-02 Consent for Treatment [id number]#1.00TIFF [facility] US Renalon 08-20-2023 US Renal Exam Date/Time: 08/20/2023 07:31 EST Reason for Exam: Angiomyolipoma;Other (please specify) Report IMPRESSION: NO SIGNIFICANT INTERVAL CHANGE OF AN 8 MM ECHOGENIC FOCUS OF THE INFERIOR POLE OF THE LEFT KIDNEY LIKELY REPRESENTING AN ANGIOMYOLIPOMA HOWEVER CONTINUED SURVEILLANCE IS RECOMMENDED. CLINICAL HISTORY: Angiomyolipoma. COMPARISON: CT abdomen pelvis 12/16/2021 COMMENT: The right kidney measures approximately 12.2 cm in length, with renal cortical thickness of approximately 1.7 cm. The left kidney measures approximately 12.3 cm in length, with renal cortical thickness of approximately 1.8 cm. No significant interval change of an 8 mm echogenic focus within the inferior pole of the right kidney. No additional solid renal lesions. No hydronephrosis. Simple appearing cyst of the superior pole of the left kidney measuring approximately 2.7 cm. Ordering Provider: Torri Null FINAL REPORT Dictated: 08/20/2023 3:48 pm Sanchez Davies DO Signed (Electronic Signature): 08/20/2023 3:48 pm Signed by: Sanchez Davies DO Transcribed by: ROCKY Technologist: CADE [facility] RAD - CT Reporton 08-15-2023 RAD - CT Report [id number]#1.00TIFF Normal [facility] ED Note-Physicianon 08-01-19 24 ED Note-Physician [id number]#1.00TIFF Normal [facility] Lab Reportson 08-01-2023 Lab Reports [id number]#1.00TIFF Normal [facility] Lab Reports [id number]#1.00TIFF Normal [facility] RAD - CT Reporton 08-01-2023 RAD - CT Report [id number]#1.00TIFF Normal [facility] Screenson 08-01-2023 Screens [id number]#1.00TIFF [facility] Ambulatory Visit Summaryon 0 07-31-2023 Ambulatory Visit Summary ROSELYN FREIRE :1955 Visit Date:07/31/2023 Ambulatory Visit Instructions Your Diagnosis Angiomyolipoma Renal cyst Your Care Team Attending Physician - HENRIETTA Null APRN, Torri Carrion Primary Care Physician - Charles Arambula MD This Is Your Medications List Contact prescribing physician if questions or concerns amlodipine (amLODIPine 10 mg Tab) aspirin bisoprolol (bisoprolol 10 mg Tab) busPIRone (busPIRone 15 mg Tab) docusate (Colace) hydrochlorothiazide (hydrochlorothiazide 12.5 mg Cap) psyllium (Metamucil) Procedures Performed Colonoscopy (11/11/2021), Esophagogastroduodenoscopy (11/11/2021), Cholecystectomy (2006), Hysterectomy, Lobectomy. Discharge Vitals Heart Rate (Peripheral) 53 Respiratory Rate 16 Blood Pressure 135/77 Height 159 cm Height 63 in Weight 65 kg Weight 143 lb BMI 25.71 Medications What How Much When Instructions Unchanged amlodipine (amLODIPine 10 mg Tab) Contact prescribing physician if questions or concerns Unchanged aspirin 325 Milligram By Mouth Every day Ordered by another provider. Contact prescribing physician if questions or concerns Unchanged bisoprolol (bisoprolol 10 mg Tab) Contact prescribing physician if questions or concerns Unchanged busPIRone (busPIRone 15 mg Tab) Contact prescribing physician if questions or concerns Unchanged docusate (Colace) By Mouth 2 times a day Contact prescribing physician if questions or concerns Unchanged hydrochlorothiazide (hydrochlorothiazide 12.5 mg Cap) Contact prescribing physician if questions or concerns Unchanged psyllium (Metamucil) By Mouth Contact prescribing physician if questions or concerns Allergies No Known Allergies Problems Ongoing - Any problem that you are currently receiving treatment for. Arthritis Diverticulosis Elevated cholesterol Gallstones Gastritis Heart disease Hepatitis History of colon polyps Lung cancer LUQ pain Rectal polyp Thyroid cancer Patient Survey You may receive a survey via text or e-mail asking about your office visit. Please share your experience with us by completing your survey. We appreciate your feedback and thank you for choosing us for your care. Normal [facility] Urology Office/Clinic Noteon 07-31-2023 Urology Office/Clinic Note Chief Complaint New Pt *Bladder Spasms HPI Staff New pt. Never before seen in our office. Here today due to Bladder Spasms. Previous incidental finding of 8mm angiomyolipoma found on CT ap 12/16/21 ordered by [facility] to f/u to abdominal US done 12/07/21 due to abdominal pain. Frequent UTI's. Has been ongoing for several yrs. Believes last infection was w/in last 2 months. Cardinal SX: Bladder pain & burning. Pain last month that felt like it was coming from bladder. Did try Oxybutynin (from [facility] ER). Took for a couple days. No improvement. Occasional frequency, attributes to water intake & water pill. Not bothersome. Occasional leaking with coughing & sneezing. Again not bothersome at this time. Main concern is bladder pain. History of Present Illness I have reviewed and verified the staff HPI to be accurate for this encounter. Review of Systems PHQ Score Initial Depression Screen Score: 0 SCORE Physical Exam Vitals & Measurements HR: 53(Peripheral) RR: 16 BP: 135/77 HT: 63 in HT: 159 cm WT: 65 kg WT: 143 lb BMI: 25.71 General: Well developed, well nourished, in no acute distress. Genitourinary: Flank Pain: none. Bladder: nonpalpable. Assessment/Plan BBSQ 10 Complete review of external labs, imaging, ER note. 1. Bladder pain (R39.89: Other symptoms and signs involving the genitourinary system) Patient reports ongoing bladder pain since May. Reports that it feels like a bladder spasm that does not stop. Has had ongoing pain for 3 weeks at a time x 2 episodes since May. Denies episode of sensation at this time and has not had the pain for about 3 weeks. Denies episodes being accompanied by other urinary sxs. Denies other systemic sxs. Initially thought she might have a UTI during first episode. PCP Dr Arambula treated her w/ 10 days of cefdinir on 05/11/23 without improvement of symptoms. Then was placed on cipro x 10 days starting 05/23/23, which she does report improved pain but started again as soon as she stopped it. She does report that pain did mildly improve w/ tylenol. [facility] ER 05/27/23 - negative UA, rx'd oxybutynin Pt states oxybutynin did not change her sxs. CT AP w/o con 06/05/23 - no renal stones or collecting system dilatation. Bilateral ureters are nondilated. Unremarkable bladder. Pt denies constipation. Currently taking Metamucil and Colace, having soft BM daily. Drinks mostly water throughout the day. Denies heavy intake of bladder irritants. Pt is a former smoker and does note that she is worried about cancer. Denies ever having episode of gross hematuria. UA today w/o blood or infection. PVR 15cc Discussed imaging results without abnormality that explains her discomfort. Discussed next step would be to cystoscopy to view inside bladder. The risks and benefits for cystoscopy have been discussed. The risks include bleeding, infection, and irritation of the bladder and urinary channel, among others. The patient, after being informed of procedural details and after questions have been answered, wishes to proceed. Full informed consent has been obtained. Will order Local anesthesia and prophylactic abx. -Schedule cysto w/ PRW -f/u pending results 2. 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 Left message w/ [facility] Radiology requesting addendum commenting on this. If not visualized on recent CT, will order MONICA. -f/u 1 yr w/ MONICA, recall placed. Ordered: Urnls Dip Stick Auto w/o Microscopy POC [id number] Urology Procedure Order 3. Renal cyst (N28.1: Cyst of kidney, acquired) CT AP w/ con 12/16/21 - a nearly 3 cm simple cyst arises from the upper pole of the left kidney, w/ a few less than 1 cm cysts noted in the upper poles of both kidneys CT AP w/ con 06/05/23 - 3.1 cm exophytic cyst off left upper pole. Other small left renal cysts. Pt reports she has had these for years. Discussed the simple cysts are benign growths, generally do not cause issues at this size. Did discuss that cysts may cause discomfort w/ increased size, usually >5 cm. Denies flank pain at this time. Ordered: Urnls Dip Stick Auto w/o Microscopy POC [id number] Urology Procedure Order Orders: ciprofloxacin, 500 mg = 1 tab(s), Oral, Daily, Take 1 tablet the day before the procedure and 1 tablet after the procedure, # 2 tab(s), Refills(s) 0, Pharmacy: [facility]/pharmacy #[id number], 159, cm, 07/31/23 10:21:00 EST, Height/Length Dosing, 65, kg, 07/31/23 10:21:00 EST, W... Follow-up With When Contact Information HENRIETTA Null APRN, Torri Carrion, PEDRO, URL In 1 year Additional Instructions: w/ MONICA Patient Education Cystoscopy Renal Mass Problem List/Past Medical History Ongoing Arthritis Diverticulosis Elevated cholesterol Gallstones Gastritis Heart disease Hepati (more content not included)... 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 Please feel free to contact my office by calling [phone] with any questions. Provider Impressions 1. 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 Sensation of left eye pulsation, increased watering, and blurry vision 3. Posterior nasal drainage 4. Headaches 5. Adenocarcinoma of left lung s/p lobectomy in 2012 6. History of left thyroid lobectomy Discussion: Roselyn appeared very well on examination today. She has been utilizing Tylenol as needed for pain and I think this is more than reasonable. It is okay for her to restart her aspirin. I recommended continuation of rinsing and follow-up with me in 1 week. She was amenable to this and all questions were answered. Chief Complaint 1. Left sphenoid inverted papilloma 2. Sensation of left eye pulsation, increased watering, and blurry vision 3. Posterior nasal drainage 4. Headaches 5. Adenocarcinoma of left lung s/p lobectomy in 2012 6. History of left thyroid lobectomy History of Present Illness Roselyn presents to her first postoperative visit following endoscopic endonasal resection of left-sided inverted papilloma and right-sided sinus surgery on 12/18/22. She's doing well in the postoperative setting, she is having some pain, she's taking Tylenol as needed. She is doing the saline irrigations 3-5x daily as well as saline spray as needed. 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 hydroCHLOROthiazide 12.5 MG Oral Capsule Krill Oil 500 MG Oral Capsule Norvasc 10 MG Oral Tablet Zebeta TABS Vitals Vital Signs Recorded: 27Dec2022 09:05AM Height5 ft 3 in Frrcyl187 lb 11.2 oz BMI Prncqmdczs77.05 kg/m2 BSA Calculated1.72 Tobacco Useb) No PHQ-2 #1. Over the last 2 weeks have you felt down, depressed or hopeless? (If yes, answer PHQ-9 below)No PHQ-2 #2. Over the last 2 weeks have you felt little interest or pleasure in doing things? (If yes, answer PHQ-9 below)No Falls Screening (Age 18+)a) No falls within the last year Physical Exam Nose: On external exam there are neither lesions nor asymmetry of the nasal tip/dorsum. On anterior rhinoscopy, visualization posteriorly is limited on anterior examination. For this reason, to adequately evaluate posteriorly for masses, source of epistaxis, polypoid disease, debridement, and/or signs of infections, nasal endoscopy is indicated. (Please see procedure below.) SINONASAL ENDOSCOPY WITH DEBRIDEMENT (CPT 58958-44-Q): Due to the patient's chronic sinusitis/chronic rhinitis, sinonasal endoscopy with debridement is indicated.After discussion of risks and benefits, and topical decongestion and anesthesia, an endoscope was used to perform nasal endoscopy with debridement. A timeout identifying the patient, the procedure, and any concerns was performed prior to beginning the procedure. Findings: Examination of the right nasal cavity revealed a patent ethmoid cavity and sphenoid without significant debris. Examination of the left nasal cavity revealed a patent maxillary and ethmoid cavity without crusting. Within the left sphenoid there was granulation tissue and crusting over the site of the tumor resection that was removed with a malleable suction. She tolerated the procedure very well. Procedure This note is prepared by Pamela Aguero acting as Lukasz Rosario MD. All medical record entries made by the Scribe were at my direction and personally dictated by me. I have reviewed the chart and agree that the record accurately reflects my personal performance of the history, physical exam, assessment, plan, and diagnosis. I have also personally directed, reviewed, and agree with the discharge instructions. Lukasz Rosario MD. 'Scores and Scales' Signatures Electronically signed by : Lukasz Rosario MD; Dec 27 2022 9:38AM EST (Author) Normal [facility] Tobacco Screening.on 023 Adult depression screening assessment No MG-Otolaryn go logy-[facility] 4100 Work Phone: Fall risk assessment a) No falls within the last year [facility]: Tobacco use status [facility] b) No MG-Otolaryngo logy-[facility] 4100 Work Phone: Daily Progress Note-ENTon Daily Progress Note-ENT Service: ENT Subjective Data: ROSELYN FREIRE is a 67 year old Female who is Hospital Day # 2 and POD #1 for 1. Extradural resection of left sphenoid mass;2. Right total ethmoid and sphenoid;3. Image guidance. Additional Information: [facility] [place] Daily Progress Note Subjective: No acute events overnight No significant nasal bleeding Pain controlled No visual complaints Objective: Vitals reviewed in EMR General: In no acute distress Nose: External nose midline, no bleeding, drainage, or lesions. OC/OP: Moist mucous membranes. No masses or lesions. Neck: Neck supple, trachea midline. Skin: Neck skin without scar or injury. Psych: Appropriate mood and affect Assessment: This patient is a 67-year-old female who presented with concerns for a left sphenoid mass on imaging who was taken to the OR on 12/18/2022 for endoscopic resection of left sphenoid mass, right total ethmoidectomy, sphenoidotomy with Drs. Rosario and Sam. Admitted to the regular nursing floor overnight for observation. Active Issues: L. sphenoid mass Hypertension History of lung cancer History of thyroid cancer Recurrent UTI Obstructive sleep apnea Plan: - Neuro: Continue scheduled acetaminophen, 650 mg Q6H Continue oxycodone 5/10 mg Q4H PRN - Resp: IS 10x per hour when awake - Cardiovascular: Continuing home Bisoprolol, Amlodipine, HCTZ - GI: Bowel regimen Famotidine 10 mg daily Ondansetron 4 mg Q6H - FEN: Monitor and replete electrolytes PRN Diet: Regular - : No active issues - Heme: Monitor H/H PRN Oxymetazoline for bleeding - ID: No indication for antibiotics - Endo: No active issues - Embolic PPx: SCDs - Consulting Teams: Neurosurgery: No further needs Disposition: Discharge today. Otolaryngology - Head & Neck Surgery Phone: [phone] Consult Pager: [phone]. Objective Data: Objective Information: T PRBPMAPSpO2 [id number]/7293% Date/Time12/19 1: 1: 1: 1: 1:56 Range(36.6C - 36.6C ) (77 - 81 ) (18 - 18 ) (118 - 147 )/ (72 - 88 ) (93% - 96% ) Pain reported at 12/19 2:43: sleeping ---- Intake and Output ----- Mn/Dy/Year TimeIntakeOutputNet Dec 19, 2022 6:00 [id number] Dec 18, 2022 10:00 [id number] The Intake and Output Totals for the last 24 hours are: IntakeOutputNet [id number] Assessment and Plan: Code Status: Code StatusFull Code Attestation: Note Completion: I am a: Resident/Fellow Attending AttestationI reviewed the resident/fellows documentation and discussed the patient with the resident/fellow. I agree with the resident/fellows medical decision making as documented in the note. Electronic Signatures: Manuelito Mir (Resident)) (Signed 19-Dec-2022 07:35) Authored: Service, Subjective Data, Objective Data, Assessment and Plan, Note Completion Lukasz Rosario) (Signed 20-Dec-2022 07:16) Authored: Note Completion Co-Signer: Service, Subjective Data, Objective Data, Assessment and Plan, Note Completion Last Updated: 20-Dec-2022 07:16 by Lukasz Rosario) Normal [facility] Daily Progress Note-Monica ahumada 12-19-2022 Daily Progress Note-Neurosurgery Service: Neurosurgery Subjective Data: ROSELYN FREIRE is a 67 year old Female who is Hospital Day # 2 and POD #1 for 1. Extradural resection of left sphenoid mass;2. Right total ethmoid and sphenoid;3. Image guidance. Objective Data: Objective Information: T PRBPMAPSpO2 [id number]% Date/Time12/18 20: 20: 20: 20:46 Range (81 - 81 ) (18 - 18 ) (147 - 147 )/ (88 - 88 ) (96% - 96% ) Pain reported at 12/18 21:40: 0 = None Assessment and Plan: Code Status: Code StatusFull Code Assessment: 67yF h/o HTN, MAGALI, lung adenocarcinoma s/p lobectomy (2011), recurrent UTIs, anxiety, GERD, thyroid cancer (s/p thyroidectomy 2019), OA, who presented post nasal drainage, found to have sphenoid mass (path consistent with inverted papilloma), 12/18 s/p endoscopic endonasal removal of sphenoid mass PLAN No acute neurosurgical intervention or additional neuroimaging needed at this time no follow up needed Attestation: Note Completion: I am a: Resident/Fellow Attending AttestationI reviewed the resident/fellows documentation and discussed the patient with the resident/fellow. I agree with the resident/fellows medical decision making as documented in the note. Electronic Signatures: Yenny Vargas) (Signed 19-Dec-2022 12:57) Authored: Note Completion Co-Signer: Service, Subjective Data, Objective Data, Assessment and Plan, Note Completion Wilson Tsang (Resident)) (Signed 19-Dec-2022 07:23) Authored: Service, Subjective Data, Objective Data, Assessment and Plan, Note Completion Last Updated: 19-Dec-2022 12:57 by Yenny Vargas) Normal [facility] Order Reconciliationon 12-19 Order Reconciliation Page 1 Discharge Reconciliation Document Reconciliation Type: Discharge requested on behalf of Manuelito Mir (Resident) done by Manuelito iMr ( (Resident)) Discharge - Reconciliation: 19-Dec-2022 07:31 by: Manuelito Mir ( (Resident)) Home Medications EnteredHOME MEDICATIONS AT DISCHARGE DateReconciliation Comment/ Additional Information acetaminophen 325 mg oral tablet 2 tab(s) orally every 4 hours, As Needed 18-Dec-2022 12:23 acetaminophen 325 mg oral tablet 2 tab(s) orally every 4 hours, As Needed 18-Dec-2022 12:23 acetaminophen 325 mg oral tablet is continued as acetaminophen 325 mg oral tablet amLODIPine 10 mg oral tablet 1 tab(s) oral once a day 11-Dec-2022 08:20 amLODIPine 10 mg oral tablet 1 tab(s) oral once a day 11-Dec-2022 08:20 amLODIPine 10 mg oral tablet is continued as amLODIPine 10 mg oral tablet aspirin 325 mg oral tablet 1 tab(s) oral once a day 11-Dec-2022 08:32 aspirin 325 mg oral tablet 1 tab(s) oral once a day 11-Dec-2022 08:32 Resume tomorrow, 12/20/2022 azelastine nasal 137 mcg/inh nasal spray 1 spray(s) nasal 2 times a day, As Needed 18-Dec-2022 12:19 azelastine nasal 137 mcg/inh nasal spray 1 spray(s) nasal 2 times a day, As Needed 18-Dec-2022 12:19 azelastine nasal 137 mcg/inh nasal spray is continued as azelastine nasal 137 mcg/inh nasal spray bisoprolol 10 mg oral tablet 1 tab(s) orally once a day 18-Dec-2022 12:22 bisoprolol 10 mg oral tablet 1 tab(s) orally once a day 18-Dec-2022 12:22 bisoprolol 10 mg oral tablet is continued as bisoprolol 10 mg oral tablet busPIRone 7.5 mg oral tablet 1 tab(s) oral once a day 11-Dec-2022 08:20 busPIRone 7.5 mg oral tablet 1 tab(s) oral once a day 11-Dec-2022 08:20 busPIRone 7.5 mg oral tablet is continued as busPIRone 7.5 mg oral tablet docusate sodium 100 mg oral capsule 1 tab(s) oral once a day 11-Dec-2022 08:20 docusate sodium 100 mg oral capsule 1 tab(s) oral once a day 11-Dec-2022 08:20 docusate sodium 100 mg oral capsule is continued as docusate sodium 100 mg oral capsule famotidine 10 mg oral tablet 1 tab(s) orally once, As Needed 18-Dec-2022 12:23 famotidine 10 mg oral tablet 1 tab(s) orally once, As Needed 18-Dec-2022 12:23 famotidine 10 mg oral tablet is continued as famotidine 10 mg oral tablet hydroCHLOROthiazide 12.5 mg oral capsule 1 tab(s) oral once a day 11-Dec-2022 08:21 hydroCHLOROthiazide 12.5 mg oral capsule 1 tab(s) oral once a day 11-Dec-2022 08:21 hydroCHLOROthiazide 12.5 mg oral capsule is continued as hydroCHLOROthiazide 12.5 mg oral capsule krill oil 500mg capsules 1 cap(s) orally once a day 18-Dec-2022 12:22 Discontinued; Discontinue from ORM krill oil 500mg capsules is not required Multiple Vitamins oral tablet 1 tab(s) orally once a day 18-Dec-2022 12:24 Multiple Vitamins oral tablet 1 tab(s) orally once a day 18-Dec-2022 12:24 Multiple Vitamins oral tablet is continued as Multiple Vitamins oral tablet [place] 0.65% nasal spray 4 spray(s) nasal every 4 hours, As Needed 16-Oct-2022 00:00 [place] 0.65% nasal spray 4 spray(s) nasal every 4 hours, As Needed 16-Oct-2022 00:00 [place] 0.65% nasal spray is continued as [place] 0.65% nasal spray Current OrdersDateHOME MEDICATIONS AT DISCHARGE DateReconciliation Comment/ Additional Information Acetaminophen Tablet (TYLENOL)DOSE = 650 mg Oral Every 6 Hours, PRN Pain - Mild (1-3) 18-Dec-2022 16:06 Acetaminophen is not required amLODIPine (NORVASC) TabletDOSE = 10 mg Oral Daily 18-Dec-2022 16:02 amLODIPine (NORVASC) is not required Bisacodyl Rectal Suppository (DULCOLAX)DOSE = 10 mg Rectal Daily, PRN if no BM in the previous 36 hoursClinician Notes: once now and daily PRN 18-Dec-2022 16:06 Bisacodyl Rectal is not required Bisoprolol Tablet (ZEBETA)DOSE = 10 mg Oral Daily 18-Dec-2022 16:02 Bisoprolol is not required busPIRone (BUSPAR) TabletDOSE = 7.5 mg Oral Every 24 Hours 18-Dec-2022 16:02 busPIRone (BUSPAR) is not required Docusate Capsule (COLACE)DOSE = 100 mg Oral Daily 18-Dec-2022 16:02 Docusate is not required Famotidine Tablet (PEPCID)DOSE = 10 mg Oral Daily, PRN dyspepsia 18-Dec-2022 16:02 Famotidine is not required Fleet Adult (Sodium Phosphate) Rectal EnemaDOSE = 1 enema Rectal Daily, PRN if no BM in the previous 24 hoursClinician Notes: now and daily PRN 18-Dec-2022 16:06 Fleet Adult (Sodium Phosphate) Rectal is not required hydroCHLOROthiazide Tablet (MICROZIDE)DOSE = 12.5 mg Oral Daily 18-Dec-2022 16:02 hydroCHLOROthiazide is not required HYDROmorphone Injectable (DILAUDID)DOSE = 0.2 mg IntraVenous Push Every 3 Hours, PRN breakthrough pain 18-Dec-2022 16:06 HYDROmorphone Injectable is not required Ondansetron Injectable (ZOFRAN)DOSE = 4 mg IntraVenous Push Every 6 Hours, PRN Nausea 18-Dec-2022 16:06 Ondansetron Injectable is not required oxyCODONE Immediate Release Tablet (OXYIR, ROXICODONE)DOSE = 10 mg Oral Every 4 Hours, PRN Pain - Severe (7-10) 18-Dec-2022 16:06 oxyCODONE Immediate Re (more content not included)... Normal [facility] ABO/RH GROUP TESTon 12-19-19 23 ABO TYPE A Normal [facility] Comment on above: Performed By: #### V ERAB #### [facility] [address] [place] [address] RH TYPE Negative Normal [facility] Comment on above: Performed By: #### V ERAB #### [facility] [address] [place] [address] Discharge [id number] Discharge Profile2 Discharge Orders: Anticipated Discharge Date: Anticipated Discharge [id number] Problem List: Additional Dx: Mass of sphenoid sinus: Catalog Name: Other specified disorders of nose and nasal sinuses Significant Events: Surgical Procedure: Clinical Events This Visit, 18-Dec-2022, 1. endoscopic endonasal resection of sphenoid inverted papilloma Hospital Providers: Provider RoleProvider Name Yenny Bhatti Code Status: Code Status at Discharge: Full Code DNR Order Additional Instructions (peds only): Activity: activity as tolerated. May shower. May not return to school/work until follow-up visit with Dr. Rosario Instructions: May not drive while taking narcotics. No pushing, pulling, or lifting objects greater than 10 pounds. Weight-bearing Instructions: full weight bearing. Diet: Dietresume normal diet Additional Orders: Additional Instructions Nasal and Sinus Surgery At Home Instructions The following instructions will help you know what to expect in the days following your surgery. Do not hesitate to call if you have questions or concerns. Please have the following items available at your home/recovery residence. It is best to pick these supplies up when you go to the pharmacy to drop off your prescriptions. NeilMed Sinus Rinse bottle for post-surgical nasal irrigations Afrin (to be used ONLY if you have a nosebleed or excessive bleeding) or oxymetazoline or neosynephrine or another short acting nasal decongestant (ask your pharmacist.) 4 x 4 gauze and paper tape Tylenol (to be used if necessary after you are out of alternative pain medication) Activities You may shower this evening. Avoid sneezing or blowing your nose for 2 weeks after surgery (gently sniff rather than blow, if you do sneeze, do so with your mouth open). Activities should be limited for 1 week after surgery. Do not lift heavy objects (greater than 10 pounds) for 1 week after surgery. Walking is strongly encouraged. Most patients do not return to work for about 5 to 7 days after surgery; however some return sooner, and others may need more time. The level of pain and frustration caused by the nasal congestion and blockage may be different from patient to patient. Diet A normal diet may be resumed. Fever A low-grade fever, less than 101 F is not uncommon for 2 to 3 days after surgery. If fever continues or is higher than 101 F, call your physician. Use Tylenol to control the fever. Pain Control Many patients do not have much pain after nasal surgery, but everyone is different. Most patients feel pressure and congestion. For mild pain, acetaminophen (Tylenol) will do. We suggest scheduling 500-1000 mg of acetaminophen every 6 hours for the first several days (unless you are allergic to this medicine or have severe liver issues). We will also prescribe stronger pain medication for after surgery. Drink plenty of water as these stronger pain medications can be constipating. Also take the prescribed stool softeners on a regular basis while taking narcotic pain medications. Avoid taking aspirin, ibuprofen (Advil, Motrin), naproxen (Aleve, Naprosyn), and other nonsteroidal anti-inflammatory medications (NSAIDs) for a week following nasal surgery. These drugs can increase bleeding. Pain should lessen with time. If pain increases, call the office. Drainage You can expect to have bloody nasal drainage after nasal or sinus surgery. To catch this drainage and to help avoid continuous nose wiping, we usually put a gauze mustache dressing under the nose and tape it to the cheeks for as long as the drainage continues. BLEEDING: Some blood in the nasal drainage after surgery is to be expected. This may be dark red or brown. If the nose is bleeding freely or you think the amount is too much, call the office immediately. One way to monitor this is to tape a piece of gauze under the nose to collect the bloody drainage. This may saturate with blood every 1 to 2 hours for the first few days after surgery. IF it saturates completely with blood (blood dripping off of it and totally red) MORE FREQUENTLY THAN EVERY 30 MINUTES then call the office. Avoid nose blowing and try to sneeze with your mouth open if needed. Sleeping with your head elevated for at least the first night will also help prevent bleeding and reduce congestion. If you have a nosebleed, you can try spraying oxymetazoline spray (Afrin) in the nose. You can also use neosynephrine spray or another short acting nasal decongestant. Care of the Nose Nasal saline sprays: We will prescribe you a saline spray bottle. You should use this every few hours as directed. PLEASE NOTE: THIS IS DIFFERENT THAN THE NASAL SALINE IRRIGATIONS (LISTED BELOW). IT IS IMPORTANT TO DO BOTH THE SALINE SPRAY AND THE SALINE IRRIGATIONS. NASAL SALINE IRRIGATION: THIS IS VERY IMPORTANT - (more content not included)... Normal [facility] Laboratory - Blood bankon ABO group Nom (Bld) [facility] Phone: Rh immune globulin screen (Bld) [Interp] Negative -Otolaryngo logy-[employer] Work Phone: No Panel Informationon 12-18 MG-Otolaryngo logBizzingo-[employer] Work Phone: Operative Reports - [facility] Operative Reports - [facility] PREOPERATIVE DIAGNOSIS: 1. Left sphenoid papilloma. 2. Chronic sinusitis. POSTOPERATIVE DIAGNOSIS: 1. Left sphenoid papilloma. 2. Chronic sinusitis. OPERATION/PROCEDURE: 1. 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 2. Right nasal endoscopy with total ethmoidectomy including sphenoidotomy with tissue removal. 3. Extracranial CT image guidance. SURGEON: Lukasz Rosario MD. CHILD DEVELOPMENT ASSISTANT(S): None. ANESTHESIA: General endotracheal anesthesia. CO-SURGEON: Yenny Vargas MD. COMPLICATIONS: None. ESTIMATED BLOOD LOSS: Approximately 125 mL. FINDINGS: 1. Gross total resection of left sphenoid inverted papilloma. 2. No permanent packing was placed. 3. Hemostasis achieved with Floseal. INDICATIONS FOR PROCEDURE: The patient is a 67-year-old female who I initially met on September 28, 2022, with concerns over left sphenoid mass. She was brought to the operating room October 16, 2022, for left-sided sinus surgery with biopsy, which returned as inverted papilloma. There was atypia present. Given this finding, I recommended definitive resection. The papilloma was found to be originating from the lateral wall of the left sphenoid, so I asked the patient to meet with my neurosurgery partner, Dr. Vargas, to move forward with the joint procedure with Dr. Vargas and myself resecting the lesion of concern. Risks and benefits were reviewed. We now proceeded to the operating room for this intervention. DESCRIPTION OF PROCEDURE: After informed consent was obtained and all questions were answered, the patient was brought to the operating room and placed supine on the operating room table. General anesthesia was induced by the Anesthesia staff, and the patient was orally intubated. The table was turned 90 degrees. Afrin-soaked pledgets were placed within both the patient's nasal cavities. The CT image guidance system was brought into the field. The CT data was uploaded, reviewed, and a plan was finalized. The headset was attached to the patient. The image guidance was registered accurate in 3 separate orientations and was used throughout the surgical procedure to identify critical landmarks such as the borders of the orbit as well as the ethmoid skull base. The patient was then prepped and draped in a standard fashion for endonasal surgery. Right nasal endoscopy with total ethmoidectomy including sphenoidotomy with tissue removal was performed. Examination of the left nasal cavity revealed a widely patent maxillary, ethmoid, and sphenoid. The previously noted papilloma was within the left sphenoid and was in continuity both laterally and inferiorly. The optic nerve ran immediately above the lesion of concern. Examination of the right nasal cavity revealed a normal middle meatus and sphenoethmoid recess. Bilaterally, each middle turbinate was resected, and each posterior blood supply was cauterized. Anterior and posterior ethmoid air cells on the right adjacent to the lamina along the ethmoid skull base were widely removed. The superior turbinate was identified, and the inferior one-third was resected. Following this, I cannulated the sphenoid through the natural drainage pathway, and then widely opened the sphenoidotomy to the lateral wall as well as the planum. At the conclusion of this dissection, the lamina and posterior ethmoid skull base had been widely delineated. A posterior septectomy was then created, and the intersphenoid septation was resected. There was edematous mucosa on the floor of the right sphenoid that was debrided. Endoscopic resection of left sphenoid inverted papilloma was performed. In conjunction with Neurological Surgery, the lesion of concern was approached. The left maxillary, ethmoid, and sphenoid were patent following the prior procedure. We made mucosal incision circumferentially around the lesion and then began to resect it from the lateral wall and inferior aspect of the sphenoid. Areas of bleeding encountered during this dissection were controlled with Floseal as well as pressure from Afrin pledgets. There was no direct connection between the lesion of concern and the cavernous sinus. As we proceeded more posteriorly into the clival recess, the lesion was resected and then across the floor of the sphenoid. With the lesion grossly resected, we then returned to the surgical field, and any areas of persistence of any mucosa were either removed with a curette or cauterization. Care was paid over the clival carotid that was clearly delineated. There were no direct feeders of the tumor to any arterial vessel within the sphenoid. This dissection was completely extradural and no CSF leak was encountered. We removed all tissue circumferentially around the papilloma within the sphenoid, and therefore, frozen sections were not obtained as the lesion did not extend outside of the sphenoid, and all (more content not included)... Normal [facility] Order Reconciliationon 12-18 Order Reconciliation Page 1 Admission Reconciliation Document Reconciliation Type: Admission requested on behalf of Isidro Hickman (Resident) done by Isidro Hickman ( (Resident)) Admission - Reconciliation: 18-Dec-2022 16:02 by: Isidro Hickman ( (Resident)) Home MedicationsEnteredLast Dose TakenReconciled with current Order Reconciliation Comment/ Additional Information acetaminophen 325 mg oral tablet 2 tab(s) orally every 4 hours, As Needed 18-Dec-2022 Reviewed and Held amLODIPine 10 mg oral tablet 1 tab(s) oral once a [id number] AM amLODIPine (NORVASC) TabletDOSE = 10 mg Oral DailyamLODIPine 10 mg oral tablet continued as the inpatient order amLODIPine (NORVASC) aspirin 325 mg oral tablet 1 tab(s) oral once a [id number] Reviewed and Held azelastine nasal 137 mcg/inh nasal spray 1 spray(s) nasal 2 times a day, As [id number] 3 Reviewed and Held bisoprolol 10 mg oral tablet 1 tab(s) orally once a [id number] AM Bisoprolol Tablet (ZEBETA)DOSE = 10 mg Oral Dailybisoprolol 10 mg oral tablet continued as the inpatient order Bisoprolol busPIRone 7.5 mg oral tablet 1 tab(s) oral once a [id number] AM busPIRone (BUSPAR) TabletDOSE = 7.5 mg Oral Every 24 HoursbusPIRone 7.5 mg oral tablet continued as the inpatient order busPIRone (BUSPAR) docusate sodium 100 mg oral capsule 1 tab(s) oral once a [id number]-Dec-2022 AM Docusate Capsule (COLACE)DOSE = 100 mg Oral Dailydocusate sodium 100 mg oral capsule continued as the inpatient order Docusate famotidine 10 mg oral tablet 1 tab(s) orally once, As [id number] Famotidine Tablet (PEPCID)DOSE = 10 mg Oral Daily, PRN dyspepsiafamotidine 10 mg oral tablet continued as the inpatient order Famotidine hydroCHLOROthiazide 12.5 mg oral capsule 1 tab(s) oral once a [id number]-Dec-2022 AM hydroCHLOROthiazide Tablet (MICROZIDE)DOSE = 12.5 mg Oral DailyhydroCHLOROthiazide 12.5 mg oral capsule continued as the inpatient order hydroCHLOROthiazide krill oil 500mg capsules 1 cap(s) orally once a [id number] Reviewed and Held Multiple Vitamins oral tablet 1 tab(s) orally once a [id number]-Dec-2022 Reviewed and Held [place] 0.65% nasal spray 4 spray(s) nasal every 4 hours, As [id number] Reviewed and Held Additional Current Orders Acetaminophen Tablet (TYLENOL)DOSE = 650 mg Oral Every 4 Hours, PRN Pain - Mild (1-3) (PACU) when able to take OralClinician Notes: Rohini-operative order ONLY Albuterol 2.5 mg/ 3 mL Nebulizer Soln (PROVENTIL)DOSE = 3 mL Inhalation Once via Nebulizer, PRN Wheezing (PACU)Clinician Notes: Rohini-operative order ONLY ceFAZolin 1 gram Vial_IPRO SolutionGive 2 gram(s), IntraVenous, ONCE Droperidol Injectable (INAPSINE)DOSE = 0.625 mg IntraVenous Push Once, PRN Nausea or persistent PONV if first line ineffectivCa.625 mg/DOSE x 1 = 0.625 mg/Dose (Daily Total is 0.625 mg)Clinician Notes: Rohini-operative order ONLY Monitor QTc while on therapy (2 leed monitoring) Esmolol 100 mg/10 mL Inj_IPRO SolutionGive 50 mg, IntraVenous, ONCE FENTANYL 50MCG/1ML 2ML INJ_IPRO SolutionGive 100 microgram(s), IntraVenous, ONCE Glycopyrrolate 0.2 mg/mL Inj 1 mL_IPRO SolutionGive 0.8 mg, IntraVenous, ONCE HYDROmorphone 1 mg/mL 1 mL Ampule_IPRO SolutionGive 1 mg, IntraVenous, ONCE HYDROmorphone Injectable (DILAUDID)DOSE = 0.2 mg IntraVenous Push Every 5 Minutes, PRN Pain - Mod (4-6) (PACU) if unable to take oralClinician Notes: Rohini-operative order ONLYMax total of 4 mg regardless of dose. HYDROmorphone Injectable (DILAUDID)DOSE = 0.4 mg IntraVenous Push Every 5 Minutes, PRN Pain - Severe (7-10) (PACU)Clinician Notes: Rohini-operative order ONLYMax total of 4 mg regardless of dose. Labetalol 100 mg/20 mL Vial_IPRO SolutionGive 10 mg, IntraVenous, ONCE Labetalol Injectable (TRANDATE)DOSE = 5 mg IntraVenous Push Once, PRN For SBP>180, DBP>100, HR>60Clinician Notes: Rohini-operative order ONLY Lactated Ringers Infusion IV Bag Volume = 1,000 mL Run at: 100 mL/hr IntraVenous Clinician Notes: Rohini-operative order ONLY LIDOCAINE 2% PF 5ML VIAL_IPRO SolutionGive 100 mg, IntraVenous, ONCE Lidocaine 1% Injectable DOSE = 0.1 mL SubCutaneous Once, PRN analgesia for IV startClinician Notes: Rohini-operative order ONLYTo be used for IV Insertion Only Midazolam 1 mg/mL Inj 2 mL_IPRO SolutionGive 2 mg, IntraVenous, ONCE Neostigmine 1 mg/mL 10 mL Vial_IPRO SolutionGive 4 mg, IntraVenous, ONCE Ondansetron 4 mg/2 mL Inj_IPRO SolutionGive 4 mg, IntraVenous, ONCE Ondansetron Injectable (ZOFRAN)DOSE = 4 mg IntraVenous Push Once, PRN PONV, first lineClinician Notes: Rohini-operative order ONLY oxyCODONE 5 mg - Acetaminophen 325 mg Tablet (PERCOCET)DOSE = 1 tablet(s) Oral Every 4 Hours, PRN Pain - Mod (4-6) (PACU) when able to take oralClinician Notes: Rohini-operative order ONLY Phenylephrine 400 abbey (more content not included)... Normal [facility] Patient Profile - Preop v3on 12-18-2022 Patient Profile - Preop v3 Patient Profile - Preop: Initial Info: Patient DemographicsName: ROSELYN FREIRE Date: 1955 Address: [address] [place] [address] Primary Phone [phone] How to be AddressedCINDY Spoken Language PreferredEnglish Stated Reason for Admission LEFT SINUS MASS REMOVAL Primary Contact Name and NumberHARRY (SPOUSE) Medications Brought to Hospitalno General Health: Weight in kg70.5 kilogram(s) Weight in gty246.4 pound(s) Weight Methodactual (measured) Scale Typestanding Height in feet5 feet Height in inches2.95 inch(es) Height in cm159.8 centimeter(s) Height Methodstated BMI (kg/m2)27.608 square meter Patient or Family Member Reaction to Anesthesianever had anesthesia; no previous reaction; no previous family member reaction Blood Avoidance/Restrictionsnone Previous Transfusion Reactionnot applicable Health Mgmt: Symptoms/Conditions Managed at Homecardiovascular; cancer Cardiovascular Symptoms/Conditionshyperten mukul Cardiovascular Management Strategiesmedication therapy Barriers to Managing Healthnone Relationship/Environ: Lives Withspouse Living Arrangementshouse Resource/Environmental Concernsnone Anticipated Transition Toinpatient acute unit Services Anticipated at Transitionnone Tobacco Use: Tobacco Useno FORMER [employer], QUIT 2006 Additional Information: Information Review: Allergies, Home Meds and Significant Events have been Reviewed and Verified with Patient/Familyyes Allergy, Intolerance, Adverse Event: Allergies: No Known Allergies: Active Significant Events: 18-Dec-2022 Hypertension (HTN): Past Medical History, Active Electronic Signatures: Muriel Solis (MARISA APODACA) (Signed 18-Dec-2022 11:49) Authored: Initial Info, General Health, Health Mgmt, Relationship/Environ, Tobacco Use, Additional Information Last Updated: 18-Dec-2022 11:49 by Muriel Solis (MARISA APODACA) Normal [facility] Preop Checkliston 12-18-2022 Preop Checklist Preop Checklist: Preop Checklist: Arrival [id number] Arrival Time11:30 Temperature C36.6 degrees C Temperature F97.8 degrees F Heart Rate62 beats per minute Respiratory Rate18 breath per minute Blood Pressure Ohsdtbju589 mm/Hg Blood Pressure Xavhwysvh65 mm/Hg COVID 19 Results in Last 7 daysNot Tested NPOyes Last Food [id number] 23:00 Last Clear Fluid [id number] 23:00 NPO CommentSIPS OF WATER WITH MEDS Beta-leanna Last Dose Date/[id number] 09:00 ID Band On Patientpatient ID (name) Consent Signedpending H&P Completepending Anesthesia Assessment Completedpending EKG Performednot ordered Chest X-Ray Performednot ordered Preop Antibioticsnot ordered Type and Screen Resultedyes HCG Urine TestN/A FORM DRAFTER, HYSTERECTOMY Chlorhexadine Bath Givencompleted at home Nasal Antiseptic Appliedcompleted at home Soap and Water Bath the Night Before Surgeryyes Hair Washed with Shampooyes Hat placed on infant prior to transportyes SCD's Appliedsent to OR NILE Hose Appliednot ordered Denturesplaced in locker Prostheticsnot applicable Hearing Aidsnot applicable Valuables Securedplaced in locker Glasses / Contactsplaced in locker Language / Communication: Language / CommunicationEnglish Electronic Signatures: Muriel Solis (MARISA PRN) (Signed 18-Dec-2022 11:45) Authored: Preop Checklist Last Updated: 18-Dec-2022 11:45 by Muriel Solis (MARISA PRN) Normal [facility] Surgical Pathology Depar tmenton 12-18-2022 [facility] Surgical Pathology Department Name ROSELYN FREIRE Pathologist: Fawn Soria MD, Ph.D. Date of Procedure: 12/18/2022 Date Received: 12/18/2022 Date Reported 12/21/2022 Submitting Physician: LUKASZ ROSARIO MD Location: [place] [address] Copy To/Referring/Attending: YENNY VARGAS MD Other External # FINAL DIAGNOSIS LEFT SPHENOID MASS, EXCISION: --SINONASAL PAPILLOMA, INVERTED TYPE. SEE NOTE Note: Specimen is submitted in its entirety. Microscopic examination of H AND E sections demonstrates a sinonasal papilloma, inverted type. No evidence of high-grade dysplasia is identified. Clinical correlation is recommended. Electronically Signed Out By Fawn Soria MD, Ph.D./MAC By the signature on this report, the individual or group listed as making the Final Interpretation/Diagnosis certifies that they have reviewed this case. Diagnostic interpretation performed at [facility] [address] [facility]. [place] [address] Clinical History: Physician Contact Number: [phone] Fixative (A): Saline Clinical Diagnosis History SPHENOI MASS Specimens Submitted As: A: LEFT SPHENOID MASS Gross Description: Received fresh and then placed in formalin, labeled with the patient's name and hospital number and L sphenoid mass , are multiple fragments of gilman-pink cerebriform soft tissue aggregating to 3.5 x 3.5 x 0.8 cm. Also received are 2 segments of gilman-pink membranous tissue aggregating to 2.0 x 1.0 x 0.2 cm. The specimen is submitted entirely in 4 cassettes, membranous tissue in cassette 4. JLL jl/12/19/2022 [facility] Department of Pathology [id number] [place] [address] Normal [facility] Comment on above: Performed By: #### U [facility] ####[facility] Surgical Pathology [id number] [place] [id number] Initial Visit (Neurosurgery) on 12-12-2022 Initial Visit (Neurosurgery) Provider Impressions I personally reviewed MRI of the brain done on 09/23/[address] sinus done on 11/22/2022 and compared to prior scans. There is a left sphenoid sinus mass abutting the carotid artery with possibly some areas where it is encasing it hard to tell. For the most part there seems to be a good plane between the tumor and the carotid. There does seem to be some growth of this mass when compared to initial CT scan done on 08/25/2022. I described the endoscopic endonasal procedure for resection of the sphenoid sinus mass and risks including hemorrhage, stroke, infection, CSF leak. I explained there is a chance that we believe some tumor behind especially if there is tumor adherent to the carotid artery and there is risk of growth of this residual tumor/recurrence and malignant transformation. Chief Complaint An interactive audio and video telecommunication system which permits real time communications between the patient (at the originating site) and provider (at the distant site) was utilized to provide this telehealth service. Verbal consent was requested and obtained from ROSELYN FREIRE on this date, 12/12/2022 01:00 PM , for a telehealth visit. Ms. ROSELYN FREIRE is a 67 year old woman here for endonasal surgery consult for sphenoid sinus mass, referred by Dr. Abraham BREWER, [facility] . This HANDP is partly from review of the patient's previous chart. History of Present Illness Ms. ROSELYN FREIRE is a very nice 67 year year old woman with history of post-nasal drainage, headaches, sensation of left eye pulsation, increased watering, and blurry vision at times who was found to have a left sphenoid sinus mass. 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 She is scheduled to have endoscopic endonasal resection of this mass on 12/18/2022. Review of Systems All other systems have been reviewed and are negative for complaint other than what is already stated. 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 EXPECTORATE AFTER RINSING, DO NOT SWALLOW Colace 100 MG Oral Capsule [facility] Saline Nasal [place] 0.65 % Nasal SolutionSPRAY 4 SPRAYS INTO EACH NOSTRIL EVERY 4 HOURS Fluticasone Propionate SUSP Hibiclens 4 % External LiquidUse as directed for preoperative shower. hydroCHLOROthiazide 12.5 MG Oral Capsule Krill Oil 500 MG Oral Capsule Norvasc 10 MG Oral Tablet Pantoprazole Sodium 40 MG Oral Tablet Delayed ReleaseTAKE 1 TABLET BY MOUTH EVERY DAY Zebeta 10 MG TABS Physical Exam no acute distress, well developed woman appearing Her stated age normal sclera moist mucus membranes no peripheral edema symmetric chest rise nondistended abdomen alert and oriented, pupils equal and round, extraocular movements intact, no focal weakness, no dysmetria normal mood Signatures Electronically signed by : Yenny Vargas MD; Dec 13 2022 2:58PM EST (Author) Normal [employer] BASIC METABOLIC PANELon 11-30 Anion gap [Moles/Vol] 17 mmol/L Normal 10 - 20 [facility] Comment on above: Performed By: #### B MP #### [facility] [address] [place] [address] Calcium [Mass/Vol] 10.5 mg/dL Normal 8.6 - 10.6 [facility] Comment on above: Performed By: #### B MP #### [facility] [address] [place] [address] Chloride [Moles/Vol] 101 mmol/L Normal 98 - 107 [facility] Comment on above: Performed By: #### B MP #### [facility] [address] [place] [address] Creatinine [Mass/Vol] 0.61 mg/dL Normal 0.50 - 1.05 [facility] Comment on above: Performed By: #### B MP #### [facility] [address] [place] [address] eGFR FEMALE >90 Normal >90 [facility] Comment on above: Result Comment: CALC ULATIONS OF ESTIMATED GFR ARE PERFORMED USING THE 2020 CKD-EPI STUDY REFIT EQUATION WITHOUT THE RACE VARIABLE FOR THE IDMS-TRACEABLE CREATININE METHODS. https://jasn.asnjournals.org/content/early/ASN.3777837 988 Performed By: #### B MP #### [facility] [address] [place] [address] Glucose [Mass/Vol] 110 mg/dL High 74 - 99 [facility] Comment on above: Performed By: #### B MP #### [facility] [address] [place] [address] HCO3 (Bld) [Moles/Vol] 26 mmol/L Normal 21 - 32 [facility] Comment on above: Performed By: #### B MP #### [facility] [address] [place] [address] Potassium [Moles/Vol] 4.6 mmol/L Normal 3.5 - 5.3 [facility] Comment on above: Performed By: #### B MP #### [facility] [address] [place] [address] Sodium [Moles/Vol] 139 mmol/L Normal 136 - 145 [facility] Comment on above: Performed By: #### B MP #### [facility] [address] [place] [address] Urea nitrogen [Mass/Vol] 17 mg/dL Normal 6 - 23 [facility] Comment on above: Performed By: #### B MP #### [facility] [address] [place] [address] CBC AND DIFFERENTIALon 12-11 % AUTOMATED IMMATURE GRAN 0.5 % Normal 0.0 - 0.9 [facility] Comment on above: Result Comment: María Elena ture Granulocyte Count (IG) includes promyelocytes, myelocytes and metamyelocytes but does not include bands. Percent differential counts (%) should be interpreted in the context of the absolute cell counts (cells/L). Performed By: #### C BCDF #### [facility] [address] [place] [address] Basophils (Bld) [#/Vol] 0.07 10*3/uL Normal 0.00 - 0.10 [facility] Comment on above: Performed By: #### C BCDF #### [facility] [address] [place] [address] Basophils/100 WBC (Bld) 1.1 % Normal 0.0 - 2.0 [facility] Comment on above: Performed By: #### C BCDF #### [facility] [address] [place] [address] Eosinophils (Bld) [#/Vol] 0.09 10*3/uL Normal 0.00 - 0.70 [facility] Comment on above: Performed By: #### C BCDF #### [facility] [address] [place] [address] Eosinophils/100 WBC (Bld) 1.4 % Normal 0.0 - 6.0 [facility] Comment on above: Performed By: #### C BCDF #### [facility] [address] [place] [address] Erythrocyte distribution width (RBC) [Ratio] 12.2 % Normal 11.5 - 14.5 [facility] Comment on above: Performed By: #### C BCDF #### [facility] [address] [place] [address] Hematocrit (Bld) [Volume fraction] 42.2 % Normal 36.0 - 46.0 [facility] Comment on above: Performed By: #### C BCDF #### [facility] [address] [place] [address] Hemoglobin (Bld) [Mass/Vol] 14.1 g/dL Normal 12.0 - 16.0 [facility] Comment on above: Performed By: #### C BCDF #### [facility] [address] [place] [address] Lymphocytes (Bld) [#/Vol] 1.83 10*3/uL Normal 1.20 - 4.80 [facility] Comment on above: Performed By: #### C BCDF #### [facility] [address] [place] [address] Lymphocytes/100 WBC (Bld) 28.6 % Normal 13.0 - 44.0 [facility] Comment on above: Performed By: #### C BCDF #### [facility] [address] [place] [address] MCHC (RBC) [Mass/Vol] 33.4 g/dL Normal 32.0 - 36.0 [facility] Comment on above: Performed By: #### C BCDF #### [facility] [address] [place] [address] MCV (RBC) [Entitic vol] 90 fL Normal 80 - 100 [facility] Comment on above: Performed By: #### C BCDF #### [facility] [address] [place] [address] Monocytes (Bld) [#/Vol] 0.51 10*3/uL Normal 0.10 - 1.00 [facility] Comment on above: Performed By: #### C BCDF #### [facility] [address] [place] [address] Monocytes/100 WBC (Bld) 8.0 % Normal 2.0 - 10.0 [facility] Comment on above: Performed By: #### C BCDF #### [facility] [address] [place] [address] Neutrophils (Bld) [#/Vol] 3.86 10*3/uL Normal 1.20 - 7.70 [facility] Comment on above: Performed By: #### C BCDF #### [facility] [address] [place] [address] Neutrophils/100 WBC (Bld) 60.4 % Normal 40.0 - 80.0 [facility] Comment on above: Performed By: #### C BCDF #### [facility] [address] [place] [address] NUCLEATED RBC 0.0 /100 WBC Normal 0.0-0.0 [facility] Comment on above: Performed By: #### C BCDF #### [facility] [address] [place] [address] Platelets (Bld) [#/Vol] 221 10*3/uL Normal 150 - 450 [facility] Comment on above: Performed By: #### C BCDF #### [facility] [address] [place] [address] RBC 4.69 x10E12/L Normal 4.00 - 5.20 [facility] Comment on above: Performed By: #### C BCDF #### [facility] [address] [place] [address] WBC (Bld) [#/Vol] 6.4 10*3/uL Normal 4.4 - 11.3 [facility] Comment on above: Performed By: #### C BCDF #### [facility] [address] [place] [address] COAGULATION SCREENon 06-12-2 023 aPTT Coag (Bld) [Time] 28 s Normal 26 - 39 [facility] Comment on above: Result Comment: THE APTT IS NO LONGER USED FOR MONITORING UNFRACTIONATED HEPARIN THERAPY. FOR MONITORING HEPARIN THERAPY, USE THE HEPARIN ASSAY. Performed By: #### C OAGS #### [facility] [address] [place] [address] PT Coag (PPP) [Time] 10.1 s Normal 9.8 - 13.4 [facility] Comment on above: Performed By: #### C OAGS #### [facility] [address] [place] [address] PT, INR 0.9 Normal 0.9 - 1.1 [facility] Comment on above: Performed By: #### C OAGS #### [facility] [address] [place] [address] Complete Blood Count + Diffe rentialon 12-11-2022 Basophils/100 WBC (Bld) 1.1 % 0.0 - 2.0 [facility] Work Phone: Erythrocyte distribution width (RBC) [Ratio] 12.2 % See Below [facility] -[facility] Work Phone: Comment on above: Reference Range: 11. 5 - 14.5 Hematocrit (Bld) [Volume fraction] 42.2 % See Below [facility] -[facility] Work Phone: Comment on above: Reference Range: 36. 0 - 46.0 Hemoglobin (Bld) [Mass/Vol] 14.1 g/dL See Below [facility] -[facility] Work Phone: Comment on above: Reference Range: 12. 0 - 16.0 Lymphocytes/100 WBC (Bld) 28.6 % See Below [facility] -[facility] Work Phone: Comment on above: Reference Range: 13. 0 - 44.0 MCHC (RBC) [Mass/Vol] 33.4 g/dL See Below MG-Neurosurge [facility] Work Phone: Comment on above: Reference Range: 32. 0 - 36.0 MCV (RBC) [Entitic vol] 90 fL 80 - 100 [facility] Work Phone: Monocytes/100 WBC (Bld) 8.0 % 2.0 - 10.0 [facility] Work Phone: Neutrophils/100 WBC (Bld) 60.4 % See Below [facility] Work Phone: Comment on above: Reference Range: 40. 0 - 80.0 Platelets (Bld) [#/Vol] 221 10*3/uL 150 - 450 [facility] Work Phone: RBC (Bld) [#/Vol] 4.69 {x10E12/L} See Below [facility] -Neurosurge [facility] Work Phone: Comment on above: Reference Range: 4.0 0 - 5.20 WBC (Bld) [#/Vol] 6.4 10*3/uL 4.4 - 11.3 MG-Amber rosurge rhianna-[facility] Work Phone: Complete Blood Count + Differential 0.07 {x10E9/L} See Below [facility] Work Phone: Comment on above: Reference Range: 0.0 0 - 0.10 Complete Blood Count + Differential 0.09 {x10E9/L} See Below [facility] Work Phone: Comment on above: Reference Range: 0.0 0 - 0.70 Complete Blood Count + Differential 0.51 {x10E9/L} See Below [facility] Work Phone: Comment on above: Reference Range: 0.1 0 - 1.00 Complete Blood Count + Differential 1.83 {x10E9/L} See Below [facility] Work Phone: Comment on above: Reference Range: 1.2 0 - 4.80 Complete Blood Count + Differential 3.86 {x10E9/L} See Below [facility] Work Phone: Comment on above: Reference Range: 1.2 0 - 7.70 Complete Blood Count + Differential 1.4 % 0.0 - 6.0 [facility] Work Phone: Complete Blood Count + Differential 0.5 % 0.0 - 0.9 [facility] Work Phone: [phone] Comment on above: Immature Granulocyte Count (IG) includes promyelocytes, myelocytes and metamyelocytes but does not include bands. Percent differential counts (%) should be interpreted in the context of the absolute cell counts (cells/L). Complete Blood Count + Differential 0.0 {/100_WBC} 0.0-0.0 [facility] -[facility] Work Phone: [phone] Laboratory - Blood bankon ABO group Nom (Bld) A MG-Ne urosurge -[facility] Work Phone: [phone] Blood group antibody screen Ql Negative [facility] -[facility] Work Phone: Rh immune globulin screen (Bld) [Interp] Negative [facility] -[facility] Work Phone: [phone] Laboratory - Chemistry and C hemistry - challengeon 12-11-2022 Anion gap [Moles/Vol] 17 mmol/L 10 - 20 [facility] Work Phone: [phone] Calcium [Mass/Vol] 10.5 mg/dL 8.6 - 10.6 MG-Amber rosurge [employer] Work Phone: [phone] Chloride [Moles/Vol] 101 mmol/L 98 - 107 MG-N eurosurge ry-[facility] Work Phone: [phone] CO2 [Moles/Vol] 26 mmol/L 21 - 32 [facility]-Neuros urge [facility] Work Phone: Creatinine [Mass/Vol] 0.61 mg/dL See Below [facility]-Ne[facility]surge [facility] Work Phone: Comment on above: Reference Range: 0.5 0 - 1.05 Glucose [Mass/Vol] 110 mg/dL above high threshold 74 - 99 MG-Neurosurge [facility] Work Phone: Potassium [Moles/Vol] 4.6 mmol/L 3.5 - 5.3 [facility]-Neurosurge [facility] Work Phone: Sodium [Moles/Vol] 139 mmol/L 136 - 145 MG-Amber rosurge [facility] Work Phone: Urea nitrogen [Mass/Vol] 17 mg/dL 6 - 23 [facility]Ne[facility]sur[facility] Work Phone: Laboratory - Coagulationon 0 12-11-2022 aPTT Coag (PPP) [Time] 28 s 26 - 39 [facility]Ne[facility] Work Phone: Comment on above: THE APTT IS NO LONGE R USED FOR MONITORING UNFRACTIONATED HEPARIN THERAPY. FOR MONITORING HEPARIN THERAPY, USE THE HEPARIN ASSAY. INR Coag (PPP) [Relative time] 0.9 {INR} 0.9 - 1.1 [facility]-Neurosur[facility] Work Phone: PT Coag (PPP) [Time] 10.1 s 9.8 - 13.4 MG-N eurosurge [facility] Work Phone: MRSA Screenon 12-11-2022 Staphylococcus sp identified Org specific cx Nom (Unsp spec) MG-Neurosurge [facility] Work Phone: No Panel Informationon 12-11 >90 >90 MG-Neurosurge [facility] Work Phone: Comment on above: CALCULATIONS OF GLENN MATED GFR ARE PERFORMED USING THE 2020 CKD-EPI STUDY REFIT EQUATION WITHOUT THE RACE VARIABLE FOR THE IDMS-TRACEABLE CREATININE METHODS.https://jasn.asnjournals.org/content//ASN .4932847684 STAPH/MRSA SCREENon 12-12-19 STAPH/MRSA SCREEN PATIENT: ELISA FREIRE LOCATION: [place] TAI#: [id number] : 57 AGE: SEX: F ORDERED BY: YENNY VARGAS SOURCE: ANTERIOR NARES COLLECTED: 12/11/22 10:28 ANTIBIOTICS AT TANMAY.: RECEIVED : 12/11/22 15:04 SITE: Nasal R E S U L T S STAPH/MRSA SCREEN FINAL 12/13/22 11:50 NO Staphylococcus aureus ISOLATED. Normal [facility] Comment on above: Performed By: #### S TAPH ####[id number] [id number] TYPE + SCREENon 12-11-2022 ABO TYPE A Normal [facility] Comment on above: Performed By: #### T +S ####[id number] [place] [address] RH TYPE Negative Normal [facility] Comment on above: Performed By: #### T +S ####[id number] [place] [address] Urinalysis - AUTOMATEDon Appearance (U) CLEAR [employer] Other Bilirubin Ql (U) Negative [employer] Other Color (U) YELLOW [email or web address] Other Glucose Ql (U) Negative [employer] Other Hemoglobin Ql (U) TRACE-INTACT [email or web address] Other Ketones Ql (U) Negative [employer] Other Leukocyte esterase Test strip Ql (U) Negative [email or web address] Other Nitrite Ql (U) Negative [employer] Other pH (U) 6.0 [pH] [email or web address] Other Protein Ql (U) 100 [employer] Other Specific gravity (U) [Rel density] 1.015 [email or web address] Other Urobilinogen (U) [Mass/Vol] 0.2 mg/dL [email or web address] Other Urinalysis - AUTOMATED [email or web address] Other Urine Cultureon 12-01-2022 Bacteria identified Cx Nom (U) 20,000 colonies/ml mixed bacterial skin contaminants 2 Days PERFORMED BY: [place] [address] PATHOLOGIST [employer] ALANNA GABRIEL M.D. Normal [facility] Comment on above: Performed By: #### C UU #### [address] SINUSES WO CONon 11-23-19 CT SINUSES WO CON EXAMINATION: CT SINU SES WO CON HISTORY: Chronic sphenoidal sinusitis ; tumor of left sphenoid sinus COMPARISON: CT sinuses to 423 TECHNIQUE: Axial and Coronal CT images were created without IV contrast. Dose reduction techniques were achieved by using automated exposure control and/or adjustment of mA and/or kV according to patient size and/or use of iterative reconstruction technique. FINDINGS: MAXILLARY SINUSES: No significant mucosal thickening or fluid. Right infundibula is patent. Left maxillary antrectomy. No significant anomalous inferior orbital ethmoid (João) air cells. ETHMOID SINUSES: No significant mucosal thickening or fluid. Fovea ethmoidali and lamina papyracea are symmetric and intact. SPHENOID SINUSES: Partial opacification of left sphenoid sinus with area of greater density adjacent the left lateral wall suggestive of a mass or inspissated secretions, 2.1 x 1.0 x 1.2 cm. Low density surrounding this likely representing mucosal thickening or secretions. Small mucocele or retention cysts within base of right sphenoid sinus. FRONTAL SINUSES: No significant mucosal thickening or fluid. Frontal recesses are patent. NASAL FOSSA: 2 mm leftward deviation of the nasal septum. No dinh bullosa or paradoxical turbinates are identified. OTHER: Negative. Limited views of the skull base and orbits are unremarkable. IMPRESSION: 1. Interval increase in size of left sphenoid sinus mass versus inspissated secretions with small amount of surrounding fluid versus mucosal thickening. 2. Small mucocele versus retention cyst within right sphenoid sinus. 3. Prior left maxillary antrectomy. 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 Provider Impressions 1. Left sphenoid inverted papilloma 2. Sensation of left eye pulsation, increased watering, and blurry vision 3. Posterior nasal drainage 4. Headaches 5. Adenocarcinoma of left lung s/p lobectomy in 2011 6. History of left thyroid lobectomy Discussion: Roselyn appeared very well on examination today. We will plan to move forward with endoscopic resection later over the summer and I recommended continuation of rinses between now and then. I provided her with a requisition for CT sinus with high resolution imaging. I asked her to obtain this prior to her surgical date. All questions were answered. Chief Complaint 1. Left sphenoid inverted papilloma 2. Sensation of left eye pulsation, increased watering, and blurry vision 3. Posterior nasal drainage 4. Headaches 5. Adenocarcinoma of left lung s/p lobectomy in 2012 6. History of left thyroid lobectomy History of Present Illness Roselyn presents today for second postoperative evaluation. She is rinsing her nose twice per day. She is scheduled to see my neurosurgery partner, Dr. Vargas, in a few weeks. She has done very well since her last assessment. 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) Postnasal drip (784.91) (R09.82) Allergies No Known Drug Allergies Recorded By: Johnny Barrios; 09/28/2022 10:52:31 AM Current Meds Medication NameInstruction Aspirin 325 MG Oral Tablet Azelastine HCl SOLN busPIRone HCl - 7.5 MG Oral Tablet Colace 100 MG Oral Capsule [facility] Saline Nasal [place] 0.65 % Nasal SolutionSPRAY 4 SPRAYS INTO EACH NOSTRIL EVERY 4 HOURS Fluticasone Propionate SUSP hydroCHLOROthiazide 12.5 MG Oral Capsule Krill Oil 500 MG Oral Capsule Norvasc 10 MG Oral Tablet Pantoprazole Sodium 40 MG Oral Tablet Delayed ReleaseTAKE 1 TABLET BY MOUTH EVERY DAY Zebeta 10 MG TABS Vitals Vital Signs Recorded: [id number] 01:24PM Height5 ft 3 in Fsftrc019 lb 6 oz BMI Osfykrwrzb08.17 kg/m2 BSA Calculated1.73 Tobacco Useb) No PHQ-2 #1. Over the last 2 weeks have you felt down, depressed or hopeless? (If yes, answer PHQ-9 below)No PHQ-2 #2. Over the last 2 weeks have you felt little interest or pleasure in doing things? (If yes, answer PHQ-9 below)No Falls Screening (Age 18+)a) No falls within the last year Physical Exam Nose: On external exam there are neither lesions nor asymmetry of the nasal tip/dorsum. On anterior rhinoscopy, visualization posteriorly is limited on anterior examination. For this reason, to adequately evaluate posteriorly for masses, source of epistaxis, polypoid disease, debridement, and/or signs of infections, nasal endoscopy is indicated. (Please see procedure below.) SINONASAL ENDOSCOPY (CPT 19491): To better evaluate the patient's symptoms, sinonasal endoscopy is indicated. After discussion of risks and benefits, and topical decongestion and anesthesia,an endoscope was used to perform nasal endoscopy on each side. A time out identifying the patient, the procedure, the location of the procedure and any concerns was performed prior to beginning the procedure. Findings: Examination of the left nasal cavity revealed a widely patent maxillary, ethmoid, and sphenoid. There was persistence of inverted papilloma along the lateral wall of the left sphenoid. No pus or polyps at the middle meatus or sphenoethmoid recess. No significant crusting. Examination of the right nasal cavity revealed a normal middle meatus and sphenoethmoid recess. Results/Data Surgical [id number] 01:04PMLukasz Rosario Test NameResultFlagReference Case Surgical Pathology(Report) Name ROSELYN FREIRE Pathologist: WILLIE MONTANEZ DMD. Date of Procedure: 10/16/2022 Date Received: 10/16/2022 Date Reported 10/25/2022 Submitting Physician: LUKASZ ROSARIO MD Location: [facility] Other External # Procedures/Addenda Present FINAL DIAGNOSIS SPHENOID, LEFT, LESION, BIOPSY: -- SINONASAL PAPILLOMA, INVERTED TYPE, WITH ATYPIA, SEE NOTE. NOTE: While definitive high grade dysplasia is not identified, atypia composed of increased cellularity, nuclear enlargement, scattered mitotic figures, and dense ciliation are noted. The findings are seen in background of inflammation. Clinical follow up is recommended. websphere commerce consultant: Dr. Albaro Patino at The gross and/or microscopic findings were reviewed in conjunction with pathology resident, Ezio Montana MD. Electronically Signed Out By WILLIE MONTANEZ DMD./RANDOLPH By the signature on this report, the individual or group listed as making the Final Interpretation/Diagnosis certifies that they have reviewed this case. Diagnostic interpretation performed at [facility] [address] [facility] [address] Ad[place] (more content not included)... Normal [employer] Tobacco Screening.on 023 Adult depression screening assessment No MG-Otolaryn go [facility] 4100 Work Phone: Fall risk assessment a) No falls within the last year -Otolaryngo [facility] 4100 Work Phone: Tobacco use status [facility] b) No -Otolaryngo 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 Provider Impressions 1. Left sphenoid inverted papilloma 2. Sensation of left eye pulsation, increased watering, and blurry vision 3. Posterior nasal drainage 4. Headaches 5. Adenocarcinoma of left lung s/p lobectomy in 2011 6. History of left thyroid lobectomy Discussion: Roselyn and I discussed her pathology. Her specimen was benign but there is a 10% chance of malignant degeneration with this type of pathology. I recommended definitive resection and she was amenable. The skull base surgery itself was discussed at length. The risks, benefits, and alternatives were explained in detail which include but is not limited to: pain, bleeding, infection, scarring. Specifically in regard to the location, we discussed proximity to the carotid and that any damage to the structure can result in stroke and significant morbidity. It would be very unlikely she would have any type of orbital process or vision change with this as we will attempt to stay extradural. Her left sinuses are patent but she may require more of an expanded approach opening of the right sinuses and this is a similar risk profile to what was discussed for her initial biopsy. We discussed that our goal is gross total resection but if the lesion is adherent to a critical structure a small amount may remain behind and we discussed additional strategies to deal with this possibility. She was amenable to moving forward with further surgical intervention. I will arrange an evaluation with my neurosurgery partner, Dr. Vargas. I will schedule her at her convenience. All questions were answered. Chief Complaint 1. Left sphenoid sinus mass 2. Sensation of left eye pulsation, increased watering, and blurry vision 3. Posterior nasal drainage 4. Headaches 5. Adenocarcinoma of left lung s/p lobectomy in 2011 6. History of left thyroid lobectomy History of Present Illness Roselyn presents for her first postoperative visit following left-sided endoscopic sinus surgery on 10/16/22. She's feeling well in the postoperative setting, she's doing saline rinses 3 times daily as well as saline spray regularly. 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) Postnasal drip (784.91) (R09.82) Allergies No Known Drug Allergies Recorded By: Johnny Barrios; 09/28/2022 10:52:31 AM Current Meds Medication NameInstruction Aspirin 325 MG Oral Tablet Azelastine HCl SOLN busPIRone HCl - 7.5 MG Oral Tablet Colace 100 MG Oral Capsule [facility] Saline Nasal [place] 0.65 % Nasal SolutionSPRAY 4 SPRAYS INTO EACH NOSTRIL EVERY 4 HOURS [facility] Senna Plus 8.6-50 MG Oral TabletTAKE 2 TABLETS BY MOUTH EVERY DAY AT BEDTIME Fluticasone Propionate SUSP hydroCHLOROthiazide 12.5 MG Oral Capsule Norvasc 10 MG Oral Tablet oxyCODONE HCl - 5 MG Oral Tablet Pantoprazole Sodium 40 MG Oral Tablet Delayed ReleaseTAKE 1 TABLET BY MOUTH EVERY DAY Zebeta 10 MG TABS Vitals Vital Signs Recorded: 01Nov2022 11:28AM Height5 ft 3 in Riyakw743 lb 1 oz BMI Cncrdyzktk32.35 kg/m2 BSA Calculated1.76 Tobacco Useb) No PHQ-2 #1. Over the last 2 weeks have you felt down, depressed or hopeless? (If yes, answer PHQ-9 below)No PHQ-2 #2. Over the last 2 weeks have you felt little interest or pleasure in doing things? (If yes, answer PHQ-9 below)No Falls Screening (Age 18+)a) No falls within the last year Pain Scale0/10 Physical Exam Nose: On external exam there are neither lesions nor asymmetry of the nasal tip/dorsum. On anterior rhinoscopy, visualization posteriorly is limited on anterior examination. For this reason, to adequately evaluate posteriorly for masses, source of epistaxis, polypoid disease, debridement, and/or signs of infections, nasal endoscopy is indicated. (Please see procedure below.) SINONASAL ENDOSCOPY (CPT 53839): To better evaluate the patient's symptoms, sinonasal endoscopy is indicated. After discussion of risks and benefits, and topical decongestion and anesthesia,an endoscope was used to perform nasal endoscopy on each side. A time out identifying the patient, the procedure, the location of the procedure and any concerns was performed prior to beginning the procedure. Findings: Examination of the left nasal cavity revealed a small amount of crusting in the ethmoid cavity that was removed. The maxillary, ethmoid, and sphenoid were all widely patent. There was expected postoperative edema. I was able to clearly see the inverted papilloma within the lateral wall of the sphenoid. Results/Data Roselyn and I discussed her pathology revealing inverted papilloma. Surgical [id number] 01:04PMLukasz Rosario Test NameResultFlagReference Case Surgical Pathology(Report) Name ROSELYN FREIRE Pathol (more content not included)... Normal [employer] Tobacco Screening.on 023 Adult depression screening assessment No MG-Otolaryn go [facility] 4100 Work Phone: Fall risk assessment a) No falls within the last year -Otolaryngo [facility] 4100 Work Phone: Tobacco use status CPHS b) No -Otolaryngo [facility] 4100 Work Phone: SURGICAL PATHOLOGY RESULTSon 10-25-2022 Pathology Report Name ROSELYN FREIRE Pathologist: WILLIE MONTANEZ DMD. Date of Procedure: 10/16/2022 Date Received: 10/16/2022 Date Reported 10/25/2022 Submitting Physician: LUKASZ ROSARIO MD Location: [place] Other External # Procedures/Addenda Present FINAL DIAGNOSIS SPHENOID, LEFT, LESION, BIOPSY: -- SINONASAL PAPILLOMA, INVERTED TYPE, WITH ATYPIA, SEE NOTE. NOTE: While definitive high grade dysplasia is not identified, atypia composed of increased cellularity, nuclear enlargement, scattered mitotic figures, and dense ciliation are noted. The findings are seen in background of inflammation. Clinical follow up is recommended. websphere commerce consultant: Dr. Albaro Patino at The gross and/or microscopic findings were reviewed in conjunction with pathology resident, Ezio Montana MD. Electronically Signed Out By WILLIE MONTANEZ DMD./AMT By the signature on this report, the individual or group listed as making the Final Interpretation/Diagnosis certifies that they have reviewed this case. Diagnostic interpretation performed at [facility] [address] [facility] [address] Addendum/Procedures: Addendum Date Ordered: 10/25/2022 Status: Signed Out Date Complete: 10/25/2022 Date Reported: 10/25/2022 Addendum Diagnosis Appropriately controlled CDX-2 immunostain is negative. CK20 shows a nonspecific blush. Diagnosis remains unchanged. Electronically Signed Out By WILLIE MONTANEZ DMD./AMT By the signature on this report, the individual or group listed as making the Final Interpretation/Diagnosis certifies that they have reviewed this case. Addendum signed out at [facility] [address] [facility] [address]. Clinical History: Physician Contact Number: [phone] Fixative (A): Saline Clinical Diagnosis History LEFT SPHENOID MASS Specimens Submitted As: A: LEFT SPHENOID LESION Gross Description: Received in formalin, labeled with the patient's name and hospital number and left sphenoid lesion , are multiple fragments of gilman-brown soft tissue aggregating to 1.4 x 1.3 x 0.5 cm. The specimen is submitted in toto in one cassette. [facility]/10/17/2022 The assays/tests were performed with appropriate positive and negative controls which stained appropriately. [facility] Department of Pathology [address] [id number] [facility] No Panel Informationon 10-16 -Otolaryngo logy-[facility] 9006 Work Phone: [facility] PREOPERATIVE DIAGNOSIS: Left sphenoid sinus mass. POSTOPERATIVE DIAGNOSIS: Left sphenoid sinus mass. OPERATION/PROCEDURE: 1. Left nasal endoscopy with total ethmoidectomy including sphenoidotomy with tissue removal, CPT 72194-Y. 2. Left maxillary endoscopy, CPT 75388-A. 3. Extracranial CT image guidance, CPT 06421. SURGEON: Lukasz Rosario MD. CHILD DEVELOPMENT ASSISTANT(S): Dr. Pradip Daly. ANESTHESIA: General endotracheal anesthesia. COMPLICATIONS: None. ESTIMATED BLOOD LOSS: Approximately 50 cc. SPECIMENS: Left sphenoid mass for permanent. FINDINGS: 1. Papillomatous mass within the left sphenoid, originating from the lateral wall. 2. No involvement of the planum. 3. No permanent or absorbable packing was placed. INDICATIONS FOR PROCEDURE: The patient is a 67-year-old female, who I initially met on September 28, 2022. She had presented to a different financial professional outside the System with left eye pulsations and increased epiphora in July of 2022. Imaging was obtained demonstrating a lesion within the left sphenoid sinus. She was asked to see me to discuss further options for this finding. She and I discussed that the lesion of concern may or may not be responsible for her left eye pulsing, but I would recommend biopsy to determine pathology. Risks and benefits were reviewed and we now presented to the operating room for this intervention. DESCRIPTION OF PROCEDURE: After informed consent was obtained and all questions were answered, the patient was brought to the operating room and placed supine on the operating room table. General anesthesia was induced by the anesthesia staff and the patient was orally intubated. The table was turned 90 degrees. Afrin-soaked pledgets were placed within the left nasal cavity. The CT image guidance system was brought into the field. The CT data was uploaded, reviewed, and a plan was finalized. The headset was attached to the patient. The image guidance was registered accurate in 3 separate orientations and was used throughout the surgical procedure to identify critical landmarks such as the borders of the orbit as well as the ethmoid skull base. The patient was then prepped and draped in a standard fashion for endonasal surgery. Left maxillary endoscopy with tissue removal was performed. The left middle turbinate was medialized, and the uncinate process was identified and resected. The antrostomy was opened from the lacrimal bone anteriorly to the posterior wall of the maxillary sinus posteriorly and the natural drainage pathway was incorporated. There was no purulence within maxillary sinus and no significant mucosal edema. Left nasal endoscopy with total ethmoidectomy including sphenoidotomy with tissue removal was performed. Anterior and posterior ethmoid air cells adjacent to the lamina and along the ethmoid skull base were widely removed. The basal lamella was traversed and the superior turbinate was identified and the inferior 1/3 was resected. The anterior nor posterior ethmoid arteries were encountered during the ethmoid dissection. The natural drainage pathway of the sphenoid was identified and cannulated and the sphenoidotomy was opened widely in all orientations. Upon widely opening the sphenoid, the lesion of concern was identified originating from the left lateral wall. 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 Several specimens were obtained for biopsy purposes. There was no direct involvement of the planum. With adequate tissue obtained, the procedure was concluded. Hemostasis was deemed excellent. The monopolar was used to cauterize the cut edge of the basal lamella. With hemostasis excellent, the patient was turned over to the anesthesia staff and extubated in the operating room without complication. She was transported to the postanesthesia care unit in satisfactory condition. I attest that, Dr. Lukasz Rosario, was present for all flynn portions of the surgical procedure and immediately available for all non-flynn portions. There were no intraoperative complications noted. Lukasz Rosario MD EST EST DICTATION NUMBER: [id number] INTERNAL JOB NUMBER: [id number] CC: Lukasz Rosario MD, Electronic Signatures: Lukasz Rosario) (Signed on 18-Oct-2022 18:54) Authored Unsigned, Draft (SYS GENERATED) (Entered on 17-Oct-2022 08:15) Entered Last Updated: 18-Oct-2022 18:54 by Lukasz Rosario) [facility] Order Reconciliationon 10-16 Order Reconciliation Page 1 Discharge Reconciliation Document Reconciliation Type: Discharge requested on behalf of Pradip Daly (Resident) done by Pradip Daly (Resident)) Discharge - Reconciliation: 16-Oct-2022 11:30 by: Pradip Daly (Resident)) Home Medications EnteredHOME MEDICATIONS AT DISCHARGE DateReconciliation Comment/ Additional Information aspirin 81 mg oral tablet 1 tab(s) oral once a day 06-Oct-2022 15:10 aspirin 81 mg oral tablet 1 tab(s) oral once a day 06-Oct-2022 15:10 aspirin 81 mg oral tablet is continued as aspirin 81 mg oral tablet busPIRone 7.5 mg oral tablet 1 tab(s) oral once a day 06-Oct-2022 15:10 busPIRone 7.5 mg oral tablet 1 tab(s) oral once a day 06-Oct-2022 15:10 busPIRone 7.5 mg oral tablet is continued as busPIRone 7.5 mg oral tablet docusate sodium 100 mg oral capsule 1 tab(s) oral once a day 06-Oct-2022 15:10 docusate sodium 100 mg oral capsule 1 tab(s) oral once a day 06-Oct-2022 15:10 docusate sodium 100 mg oral capsule is continued as docusate sodium 100 mg oral capsule fluticasone nasal 50 mcg/inh nasal spray 1 nasal once a day 06-Oct-2022 15:10 fluticasone nasal 50 mcg/inh nasal spray 1 nasal once a day 06-Oct-2022 15:10 fluticasone nasal 50 mcg/inh nasal spray is continued as fluticasone nasal 50 mcg/inh nasal spray hydroCHLOROthiazide 12.5 mg oral capsule 1 tab(s) oral once a day 06-Oct-2022 15:10 hydroCHLOROthiazide 12.5 mg oral capsule 1 tab(s) oral once a day 06-Oct-2022 15:10 hydroCHLOROthiazide 12.5 mg oral capsule is continued as hydroCHLOROthiazide 12.5 mg oral capsule Krill oil 0 06-Oct-2022 15:11 Krill oil 0 06-Oct-2022 15:11 Krill oil is continued as Krill oil Norvasc 10 mg oral tablet 1 tab(s) oral once a day 06-Oct-2022 15:11 Norvasc 10 mg oral tablet 1 tab(s) oral once a day 06-Oct-2022 15:11 Norvasc 10 mg oral tablet is continued as Norvasc 10 mg oral tablet Zebeta 10 mg oral tablet 1 tab(s) oral once a day 06-Oct-2022 15:11 Zebeta 10 mg oral tablet 1 tab(s) oral once a day 06-Oct-2022 15:11 Zebeta 10 mg oral tablet is continued as Zebeta 10 mg oral tablet Home Medications Added During Discharge Reconciliation Activity as Tolerated 16-Oct-2022, Routine, Assistance Level: None, Restrictions: None, Limit your activities and rest today. Additional Patient Instructions Additional post-operative instructions were given to the patient by the provider in the pre-op office visit Additional Patient Instructions Do not consume alcoholic beverages for 24 hours. Additional Patient Instructions Do not engage in sports, heavy work or lifting. Additional Patient Instructions Do not smoke for 24 hours. Additional Patient Instructions Keep Surgical incision dry and clean. Call Physician For: excessive bleeding (slow general oozing that completely soaks dressing or fresh bright red bleeding) or bleeding that will not stop. Apply pressure to the area and elevate. Call Physician For: inability to urinate every 8-12 hours and your bladder becomes too full or painful. Call Physician For: persistant nausea and/or vomiting Over 24 hours Call Physician For: signs and sypmtoms of infection Increased redness or swelling at incision site, increased pain/tenderness at surgical site, increased temperature greater than 100 degress, increasing and/or progressive drainage from surgical site, and/or unusual odor from surgical site. Diet Regular Special Instructions: Liquids and light meals today, regular diet tomorrow. Discharge Discharge Diagnosis< J34.89 Nasal obstruction;G89.18 Postoperative pain;J34.89 Mass of sphenoid sinus Discharge Provider, Lukasz Rosario Discharge Disposition : .Home Condition at Discharge: Satisfactory Discharge Communication Instructions for Nursing Only: Remove IV prior to discharge from hospital. Do not remove any midline, if present, without an order from the provider. Discharge Instructions - PHR After your discharge from the hospital, two Summary of Care Documents will be available online in your Personal Health Record (PHR). 1.Consolidated-Clinical Document Architecture (C-CDA) Patient Discharge Summary This document is a summary of your hospital stay to be kept for your reference.2.C-CDA Visit Summary This document is a summary of your hospital stay to be shared with your follow-up providers (doctor, placement director, physical therapist, etc.). Follow Up with Dr. Rosario in [address] or operate motor vehicles for 24 hours. May shower [place] 0.65% nasal spray 4 spray(s) intranasally every 4 hours oxyCODONE 5 mg oral tablet 1 tab(s) orally every 8 hours x 5 days, As Needed -for severe pain g89.18 Post Procedure Discharge Criteria Criteria: Easily arousable / responding appropriately; Significant complications are absent; SpO2 = or > 92%, or if SpO2 < 92%, maintains within 2% of baseline; Vital signs +/- 20% of preprocedure status; Ambulates without dizziness / age appropria (more content not included)... Normal [facility] Patient Profile - Preop v3on 10-16-2022 Patient Profile - Preop v3 Patient Profile - Preop: Initial Info: Patient DemographicsName: ROSELYN FREIRE Date: 1955 Address: [address] [place] [address] Primary Phone [phone] How to be AddressedCindy Spoken Language PreferredEnglish Stated Reason for AdmissionBiopsy sinus cavity Primary Contact Name and NumberHarry. . [phone] Medications Brought to Hospitalno General Health: Weight in kg70.8 kilogram(s) Weight in nmx908 pound(s) Weight Methodactual (measured) Scale Typestanding Height in feet5 feet Height in inches2.95 inch(es) Height in cm159.8 centimeter(s) Height Methodstated BMI (kg/m2)27.725 square meter Patient or Family Member Reaction to Anesthesiano previous reaction Blood Avoidance/Restrictionsnone Previous Transfusion Reactionnot applicable Health Mgmt: Symptoms/Conditions Managed at Homecardiovascular; behavioral health; musculoskeletal Barriers to Managing Healthnone Relationship/Environ: Lives Withspouse Living Arrangementshouse Resource/Environmental Concernsnone Anticipated Transition [facility] Anticipated at Transitionnone Tobacco Use: Tobacco Useno Pre-op Checklist: Arrival [id number] Arrival Time10:42 Procedure TypeLeft endoscopic sinus surgery with image guidance NPOyes ID Band On Patientpatient ID (name) Consent Signedpending H&P Completepending Anesthesia Assessment Completedpending EKG Performednot ordered Chest X-Ray Performednot ordered Preop Antibioticsnot ordered COVID 19 Results in Last 7 daysoutpatient Type and Screen Resultedno HCG Urine TestN/A Chlorhexadine Bath Givennot applicable Nasal Antiseptic Appliednot applicable Soap and Water Bath the Night Before Surgerynot applicable Hair Washed with Shampoonot applicable Bowel Prepno Surgical Site Infection Preventionyes Pain Scales and Managementyes Additional Information: Information Review: Allergies, Home Meds and Significant Events have been Reviewed and Verified with Patient/Familyyes Allergy, Intolerance, Adverse Event: Allergies: No Known Allergies: Active Electronic Signatures: Donna Cox (MARISA) (Signed 16-Oct-2022 11:15) Authored: Initial Info, General Health, Health Mgmt, Relationship/Environ, Tobacco Use, Pre-op Checklist, Additional Information Last Updated: 16-Oct-2022 11:15 by Donna Cox) Normal [facility] Surgical Pathology Depar tmenton 10-16-2022 [facility] Surgical Pathology Department Name ROSELYN FREIRE Pathologist: WILLIE MONTANEZ DMD. Date of Procedure: 10/16/2022 Date Received: 10/16/2022 Date Reported 10/25/2022 Submitting Physician: LUKASZ ROSARIO MD Location: [facility] Other External # Procedures/Addenda Present FINAL DIAGNOSIS SPHENOID, LEFT, LESION, BIOPSY: -- SINONASAL PAPILLOMA, INVERTED TYPE, WITH ATYPIA, SEE NOTE. NOTE: While definitive high grade dysplasia is not identified, atypia composed of increased cellularity, nuclear enlargement, scattered mitotic figures, and dense ciliation are noted. The findings are seen in background of inflammation. Clinical follow up is recommended. websphere commerce consultant: Dr. Albaro Patino at The gross and/or microscopic findings were reviewed in conjunction with pathology resident, Ezio Montana MD. Electronically Signed Out By WILLIE MONTANEZ DMD./AMT By the signature on this report, the individual or group listed as making the Final Interpretation/Diagnosis certifies that they have reviewed this case. Diagnostic interpretation performed at [place] [address] Addendum/Procedures: Addendum Date Ordered: 10/25/2022 Status: Signed Out Date Complete: 10/25/2022 Date Reported: 10/25/2022 Addendum Diagnosis Appropriately controlled CDX-2 immunostain is negative. CK20 shows a nonspecific blush. Diagnosis remains unchanged. Electronically Signed Out By WILLIE MONTANEZ DMD./STEWARTT By the signature on this report, the individual or group listed as making the Final Interpretation/Diagnosis certifies that they have reviewed this case. Addendum signed out at [place] [address]. Clinical History: Physician Contact Number: [id number] Fixative (A): Saline Clinical Diagnosis History LEFT SPHENOID MASS Specimens Submitted As: A: LEFT SPHENOID LESION Gross Description: Received in formalin, labeled with the patient's name and hospital number and left sphenoid lesion , are multiple fragments of gilman-brown soft tissue aggregating to 1.4 x 1.3 x 0.5 cm. The specimen is submitted in toto in one cassette. [facility]/10/17/2022 The assays/tests were performed with appropriate positive and negative controls which stained appropriately. [facility] Department of Pathology [address] [place] [address] Normal [facility] Comment on above: Performed By: #### U [facility] ####[facility] Surgical Pathology [id number] [place] [address] BASIC METABOLIC PANELon 04-0 Anion gap [Moles/Vol] 16 mmol/L Normal 10 - 20 [facility] Comment on above: Performed By: #### B MP #### [facility] [address] [place] [address] Calcium [Mass/Vol] 10.2 mg/dL Normal 8.6 - 10.6 [facility] Comment on above: Performed By: #### B MP #### [facility] [address] [place] [address] Chloride [Moles/Vol] 99 mmol/L Normal 98 - 107 [facility] Comment on above: Performed By: #### B MP #### [facility] [address] [place] [address] Creatinine [Mass/Vol] 0.60 mg/dL Normal 0.50 - 1.05 [facility] Comment on above: Performed By: #### B MP #### [facility] [address] [place] [address] eGFR FEMALE >90 Normal >90 [facility] Comment on above: Result Comment: CALC ULATIONS OF ESTIMATED GFR ARE PERFORMED USING THE 2020 CKD-EPI STUDY REFIT EQUATION WITHOUT THE RACE VARIABLE FOR THE IDMS-TRACEABLE CREATININE METHODS. https://jasn.asnjournals.org/content/early/ASN.6840199 988 Performed By: #### B MP #### [facility] [address] [place] [address] Glucose [Mass/Vol] 95 mg/dL Normal 74 - 99 [facility] Comment on above: Performed By: #### B MP #### [facility] [address] [place] [address] HCO3 (Bld) [Moles/Vol] 28 mmol/L Normal 21 - 32 [facility] Comment on above: Performed By: #### B MP #### [facility] [address] [place] [address] Potassium [Moles/Vol] 3.6 mmol/L Normal 3.5 - 5.3 [facility] Comment on above: Performed By: #### B MP #### [facility] [address] [place] [address] Sodium [Moles/Vol] 139 mmol/L Normal 136 - 145 [facility] Comment on above: Performed By: #### B MP #### [facility] [address] [place] [address] Urea nitrogen [Mass/Vol] 16 mg/dL Normal 6 - 23 [facility] Comment on above: Performed By: #### B MP #### [facility] [address] [place] [address] CBCon 10-06-2022 Erythrocyte distribution width (RBC) [Ratio] 11.8 % Normal 11.5 - 14.5 [facility] Comment on above: Performed By: #### C BC #### [facility] [address] [place] [address] Hematocrit (Bld) [Volume fraction] 41.2 % Normal 36.0 - 46.0 [facility] Comment on above: Performed By: #### C BC #### [facility] [address] [place] [address] Hemoglobin (Bld) [Mass/Vol] 14.5 g/dL Normal 12.0 - 16.0 [facility] Comment on above: Performed By: #### C BC #### [facility] [address] [place] [address] MCHC (RBC) [Mass/Vol] 35.2 g/dL Normal 32.0 - 36.0 [facility] Comment on above: Performed By: #### C BC #### [facility] [address] [place] [address] MCV (RBC) [Entitic vol] 87 fL Normal 80 - 100 [facility] Comment on above: Performed By: #### C BC #### [facility] [address] [place] [address] NUCLEATED RBC 0.0 /100 WBC Normal 0.0-0.0 [facility] Comment on above: Performed By: #### C BC #### [facility] [address] [place] [address] Platelets (Bld) [#/Vol] 207 10*3/uL Normal 150 - 450 [facility] Comment on above: Performed By: #### C BC #### [facility] [address] [place] [address] RBC 4.71 x10E12/L Normal 4.00 - 5.20 [facility] Comment on above: Performed By: #### C BC #### [facility] [address] [place] [address] WBC (Bld) [#/Vol] 8.7 10*3/uL Normal 4.4 - 11.3 [facility] Comment on above: Performed By: #### C BC #### [facility] [address] [place] [address] Electrocardiogram 12 Leadon 10-06-2022 Electrocardiogram 12 Lead Ventricular Rate 51 Atrial Rate 51 P-R Interval 140 QRS Duration 102 Q-T Interval 438 QTC Calculation(Bazett) 403 P [place] 26 R [place] -10 T [place] -14 QRS Count 9 Q Onset 222 P Onset 152 P Offset 219 T Offset 441 QTC Fredericia 415 Diagnosis Class Abnormal Diagnosis Sinus bradycardia Possible Left atrial enlargement LVH Abnormal ECG No previous ECGs available Confirmed by Marino Wolf ([id number]) on 10/10/2022 5:57:37 PM Normal [facility] Laboratory - Chemistry and C hemistry - challengeon 10-06-2022 Anion gap [Moles/Vol] 16 mmol/L 10 - 20 MG-Otolaryngo [facility] 4100 Work Phone: Calcium [Mass/Vol] 10.2 mg/dL 8.6 - 10.6 MG-Carlos laryngo [facility] 4100 Work Phone: [phone] Chloride [Moles/Vol] 99 mmol/L 98 - 107 MG-O tolaryngo [facility] 4100 Work Phone: CO2 [Moles/Vol] 28 mmol/L 21 - 32 MG-Otolar yngo [facility] 4100 Work Phone: Creatinine [Mass/Vol] 0.60 mg/dL See Below MG-Otolaryngo [facility] 4100 Work Phone: Comment on above: Reference Range: 0.5 0 - 1.05 Glucose [Mass/Vol] 95 mg/dL 74 - 99 [place] [address] Work Phone: Potassium [Moles/Vol] 3.6 mmol/L 3.5 - 5.3 [place] [address] Work Phone: Sodium [Moles/Vol] 139 mmol/L 136 - 145 [place] [address] Work Phone: Urea nitrogen [Mass/Vol] 16 mg/dL 6 - 23 [place] [address] Work Phone: Laboratory - Hematology and Cell countson 10-06-2022 Erythrocyte distribution width (RBC) [Ratio] 11.8 % See Below [place] [address] Work Phone: Comment on above: Reference Range: 11. 5 - 14.5 Hematocrit (Bld) [Volume fraction] 41.2 % See Below [place] [address] Work Phone: Comment on above: Reference Range: 36. 0 - 46.0 Hemoglobin (Bld) [Mass/Vol] 14.5 g/dL See Below [place] [address] Work Phone: Comment on above: Reference Range: 12. 0 - 16.0 MCHC (RBC) [Mass/Vol] 35.2 g/dL See Below [place] [address] Work Phone: Comment on above: Reference Range: 32. 0 - 36.0 MCV (RBC) [Entitic vol] 87 fL 80 - 100 [place] [address] Work Phone: [phone] Platelets (Bld) [#/Vol] 207 10*3/uL 150 - 450 MG-Otolaryngo [place] [address] Work Phone: [phone] RBC (Bld) [#/Vol] 4.71 {x10E12/L} See Below MG -Otolaryngo [place] [address] Work Phone: [phone] Comment on above: Reference Range: 4.0 0 - 5.20 WBC (Bld) [#/Vol] 8.7 10*3/uL 4.4 - 11.3 MG-Carlos laryngo [place] [address] Work Phone: [phone] No Panel Informationon 10-06 [email or web address]/[email or web address]?R etrieveTestByDateTime?Patie auBB=[id number]&Date= 023&Time=14%3a15%3a12%3a00& TestType=ECG&Site=1&OutputT ype=PDF&Ext=PDF MG-Otolaryngo [place] [address] Work Phone: [phone] Sinus bradycardia MG-Otol aryngo [place] [address] Work Phone: [phone] Abnormal MG-Otolaryngo [place] [address] Work Phone: [phone] 1 MG-Otolaryngo [place] [address] Work Phone: [phone] 1 MG-Otolaryngo [place] [address] Work Phone: [phone] 1 MG-Otolaryngo [place] [address] Work Phone: [phone] 1 MG-Otolaryngo [place] [address] Work Phone: [phone] 1 [facility] Work Phone: [phone] 1 [facility] Work Phone: [phone] -[phone] 1 [facility] Work Phone: [phone] -10 1 [facility] Work Phone: [phone] 1 [facility] Work Phone: [phone] 1 [facility] Work Phone: [phone] 1 [facility] Work Phone: [phone] 1 [facility] Work Phone: [phone] 140 1 [facility] Work Phone: [phone] 1 [facility] Work Phone: >[phone] >90 MG-Otolaryngo [facility] 4100 Work Phone: Comment on above: CALCULATIONS OF GLENN MATED GFR ARE PERFORMED USING THE 2020 CKD-EPI STUDY REFIT EQUATION WITHOUT THE RACE VARIABLE FOR THE IDMS-TRACEABLE CREATININE METHODS.https://jasn.asnjournals.org/content//ASN .5663188847 0.0 {/100_WBC} 0.0-0.0 MG-Otolary guerra [facility] 4100 Work Phone: Chart Updateon 10-04-2022 Chart Update Chart Update Following her last assessment, I spoke with my neurosurgery partner who recommended endoscopic biopsy prior to any definitive surgical procedure. I contacted Roselyn today and discussed these details. The sinus surgery itself was discussed at length. The risks, benefits, and alternatives were explained in detail which include but is not limited to: persistence of symptoms, pain, bleeding, smell loss or alteration, infection, need for nasal packing, double vision, or vision loss. Any damage to her brain or CSF leak with a biopsy would be extraordinarily unlikely. We discussed specific considerations with this lesion and bleeding but there are number of methods in the operating room to control this. She understands that this would be a biopsy and not a definitive resection and a secondary surgery may be required in the future. All questions were answered. 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 Lukasz Rosario?s clinic. We are here to assist you with your ENT needs at [facility] [place]. Dr. Rosario is an ENT that specializes in nose, sinus, and skull base disorders. Dr. Lukasz Rosario?s office number is [phone]. Please call this number to contact his care team regardless of which office you use to access care. This number is the most direct way to communicate with all the members of the care team. Elen Beckford CNP is a nurse practitioner who is a part of Dr. Rosario?s team. She will work collaboratively with Dr. Rosario to meet your goals. This often may include seeing you for more urgent appointments or follow-up visits under Dr. Rosario?s supervision. Ellen Crane LAMP REPLACER is Dr. Rosario?s primary nurse. She can be reached by calling [phone]. Ellen is available during business hours Sunday through Sunday. Messages left for her will be returned within one business day. She is also Dr. Rosario?s vice president of business development and will assist you with planning and scheduling of your surgery. Monie Petit is Dr. Rosario?s private secretary and you can reach her at [phone]. She can help you with scheduling of appointments, general questions and information. She is available to receive calls Sunday through Sunday from 8:00 am until 4:25 pm. For your convenience, Dr. Rosario sees patients at [facility]. While we try to make your appointments as convenient as possible, occasionally a visit to another location may be necessary to provide the best care for you. Dr. Rosario makes every effort to run on time for your appointments. Therefore, if you are more than 25 minutes late, your appointment will need to be rescheduled to another day. We appreciate your understanding. We look forward to working with you to meet your healthcare goals. Provider Impressions 1. Left sphenoid sinus mass 2. Sensation of left eye pulsation, increased watering, and blurry vision 3. Posterior nasal drainage 4. Headaches 5. Adenocarcinoma of left lung s/p lobectomy in 2011 6. History of left thyroid lobectomy Discussion: Roselyn and I discussed her MRI findings. I recommended a biopsy given its appearance. 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 We discussed what would be involved in surgical intervention today. There are several ways to approach this issue. One would be endoscopic biopsy without the goal of resection. The advantage of this is we would not rely on frozen section analysis to understand what we are dealing with but she may require a second procedure if the pathology mandates surgical intervention for treatment. We could also consider an approach combining biopsy with resection but this would rely on frozen section analysis and I cannot guarantee that what she has will be able to be definitively known on frozen. Risks were discussed at a high level most notably bleeding. If more aggressive procedures are considered this would elevate surgical risk as the structures just lateral to the lesion of concern include the carotid. I would like to review her imaging with my neurosurgery partner, Dr. Vargas, to get his opinion. If biopsy is the preferred next step I will schedule her as soon as feasible. All questions were answered. I will also ask my nurse to request her CT sinus as we received both MRI images but it was mentioned that a CT was also obtained. Chief Complaint Left sphenoid mass History of Present Illness Reason for visit: ROSELYN FREIRE presents to the Otolaryngology Clinic in consultation at the request of Dr. Noah Dolan for left sinus mass. The symptoms are persistent and have been present for 3 months. Main Symptoms: Patient does not have anterior nasal drainage. Patient has posterior nasal drainage. improves with sprays. Patient does not have nasal airway obstruction. Patient does not have facial pain. Patient does not have facial pressure. Patient does not have decreased sense of smell. Associated Symptoms: Patient has headaches. left cheondoism, new over last 12 months. Patient has throat clearing. improves with sprays. Patient does not have coughing. Patient does not have dysphonia. Patient has nasal bleeding. mild left-sided, cleared large clot 3 days ago. Medications currently on for sinonasal symptoms Flonase/Fluticasone 1 spray in each nostril once per day and Azelastine 1 spray in each nostril once per day. Medications tried in the past for sinonasal symptoms. Augmentin. Other Pertinent Medical Conditions: Patient does not have asthma. Patient does not have aspirin sensitivity. (more content not included)... Normal [facility] Tobacco Screening.on 023 Adult depression screening assessment No MG-Otolaryn go [facility] 4100 Work Phone: Fall risk assessment a) No falls within the last year -Otolaryngo [facility] 4100 Work Phone: Tobacco use status [facility] b) No -Otolaryngo [facility] 4100 Work Phone: MR angio head wo conon 09-24 MR angio head wo [facility] [place] [id number] MRI Report Signed Patient: Roselyn Freire MR#: [id number] 189 : 1955 Acct:[id number] Age/Sex: 67 / F ADM Date: 09/23/22 Loc: MR Room: Type: [facility] Attending Dr: Noah Dolan DO Copies to: oNah Dolan DO Ordering Provider: Noah Dolan DO Date of Service: 09/23/22 MR/MR angio head wo con: J34.89 MR angio head wo con 09/23/2022 11:19 AM SIGN OF SYMPTOMS: History of sphenoid mass on left, pulsatile sensation in left orbit. PROTOCOL: Sagittal T2 and axial 3-D [id number] MRA with 3-D reconstructions COMPARISON: None. FINDINGS: MRI BRAIN WITHOUT CONTRAST: Visualized Paranasal sinuses: There is redemonstration of an intermediate intensity mass in the left sphenoid sinus similar to the prior study measuring 2.1 x 0.8 cm x 1.0 in greatest dimension. There is flow based enhancement along the periphery of the lesion consistent with vascularity. There is mucosal thickening redemonstrated in the posterior left ethmoid air cells which is hyperintense on T2. Visualized Orbits: No abnormal flow based enhancement is noted within the orbits. Normal-appearing ophthalmic arteries are present. Sella and skull base: Within normal limits. The superior cerebellar arteries, posterior inferior cerebellar arteries, and the basilar artery are within normal limits. The posterior cerebral arteries are unremarkable. The intracranial segments of the internal carotid arteries are within normal limits. There are normal anterior and middle cerebral arteries. Anterior communicating artery is patent. The right posterior tracheal artery is hypoplastic. This is a normal variant. The deep venous system and dural venous systems appear to be patent. MR/MR angio head wo con IMPRESSION: No focal stenosis, occlusion, or aneurysmal dilatation. There is redemonstration of an intermediate intensity mass in the left sphenoid sinus similar to the prior study measuring 2.1 x 0.8 cm x 1.0 in greatest dimension. There is flow based enhancement along the periphery of the lesion consistent with vascularity. No abnormal flow based enhancement is noted within the orbits. Normal-appearing ophthalmic arteries are present. Impression dictated by: Sita Don M.D.09/23/2022 11:01 PM Dictation Location: [place] [address] Transcribed By: [facility] 09/23/222300 Dictated By: Sita Don II, MD 09/23/222251 Signed By: 09/23/222300 Normal [facility] Creatinine (Bld) [Mass/Vol]O rdered By: Noah Dolan on 09-18-2022 Creatinine [Mass/Vol] 0.7 mg/dL 0.6-1.3 [facility] Comment on above: ER/ESD physician is notified/shown all ISTAT results.Critical values may be confirmed by laboratory testing ifdeemed necessary by ER attending doctor. CT SINUSES WO CONon 08-06-19 CT SINUSES WO CON EXAMINATION: CT SINU SES WO CON HISTORY: Chronic sinusitis COMPARISON: None. TECHNIQUE: Noncontrast axial CT images obtained through the sinuses. Reconstructions obtained in the sagittal and coronal planes. Dose reduction techniques were achieved by using automated exposure control and/or adjustment of mA and/or kV according to patient size and/or use of iterative reconstruction technique. FINDINGS: There is a small mucous retention cyst inferiorly and medially in the right maxillary sinus measuring approximately 7 mm. Maxillary sinus is otherwise clear. Ostiomeatal units are patent. Nasal septum deviates to the left. No nasal cavity polyps. There is mucosal thickening posteriorly in the posterior ethmoid region on the left. There is a retention cyst or polyp in the sphenoid sinus on the left measuring 2 cm. No significant mucosal thickening. No air-fluid levels. Frontal sinuses clear. No invasive or destructive sinus process. Skull base intact. Nasopharynx normal. 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 Orbital contents normal. IMPRESSION: 1. There is a small mucous retention cyst in the right maxillary sinus. There is some mucosal thickening in the posterior ethmoid region on the left. There is a retention cyst or polyp in the left sphenoid sinus. 2. No significant mucosal thickening in the paranasal sinuses. No air-fluid levels. 3. Nasal septum deviates to the left. Nasal passages are otherwise clear. No nasal cavity polyps. Electronically authenticated by: PERICO FARAH Date: 2022-08-06 13:22 Normal [facility] XR SINUS WATERon 07-27-2022 XR SINUS WATER EXAMINATION: XR SINU S WATER HISTORY: Headache COMPARISON: No relevant comparison available. FINDINGS: MAXILLARY: [Mild mucosal thickening. No fluid levels. ETHMOID: No visible mucosal thickening or fluid level. FRONTAL: Suspect mucosal thickening. No fluid levels. SPHENOID: No visible mucosal thickening or fluid level. OTHER: Negative. IMPRESSION: 1. No appreciable fluid levels to suggest acute sinusitis. 2. Suspect frontal and maxillary mild chronic sinusitis. Electronically authenticated by: ROBE BAR Date: 2022-07-27 14:38 Normal [facility] XR CHEST 2 Von 07-13-2022 XR CHEST 2 V EXAM: XR CHEST 2 V HISTORY: Cough for the past week. The patient has a history of lung cancer. COMPARISON: 01/05/2021 TECHNIQUE: Upright PA and lateral chest x-ray FINDINGS: Some pleural and parenchymal changes are seen at the left lung base, and there is overall loss of lung volume on the left. The patient has had prior surgery. No acute infiltrate, effusion or pneumothorax is identified. The heart is not enlarged and the vasculature is not distended. The osseous structures are grossly intact. Surgical clips are seen in the right upper quadrant. IMPRESSION: No acute infiltrate or evidence of cardiac decompensation. Some chronic changes are seen in the left hemithorax. The overall appearance of the chest is unchanged. Electronically authenticated by: LC HERNANDEZ Date: 2022-07-13 16:19 Normal [facility] MAMM SCREEN 3D ERNESTO CADon 12-20-2021 MAMM SCREEN 3D ERNESTO CAD Patient: ROSELYN FREIRE Exam Date: 12/20/2021 : 1955 Gender:F Ordering : DR CHARLES ARAMBULA . Admission #: [id number] Family : Order #: [id number] CLICK HERE TO VIEW EXAM RADIOLOGY REPORT PROCEDURE: MAMMOGRAM SCREENING 3D BILATERAL CAD COMPARISON: MAMM SCREEN 3D ERNESTO CAD, 12/19/2018. MAMM SCREEN 3D ERNESTO CAD, 12/25/2019. INDICATIONS: Screening mammography Calculator Name NCI Breast Cancer Risk Assessment Tool 5 Year Breast Cancer Risk 1.80% Lifetime Breast Cancer Risk 6.80% Personal Breast Cancer No Personal Ovarian Cancer No Treatments Lobectomy LLL Family Cancers None LOCATION: [facility] BREAST COMPOSITION: Heterogeneously dense,which may obscure small masses. FINDINGS: DIAGNOSTIC CATEGORY 2--BENIGN FINDING. NO CHANGE FROM COMPARISON. Scattered benign-appearing nodules are present. Scattered benign-appearing lymph nodes are present. RIGHT BREAST: No significant suspicious finding. Micro clip marker upper outer quadrant, mid breast. LEFT BREAST: No significant suspicious finding. RECOMMENDATIONS: ROUTINE MAMMOGRAM AND CLINICAL EVALUATION IN 12 MONTHS. PLEASE NOTE: A NORMAL MAMMOGRAM DOES NOT EXCLUDE THE POSSIBILITY OF BREAST CANCER. A CLINICALLY SUSPICIOUS PALPABLE LUMP SHOULD BE BIOPSIED. Dictated by: Sin Cisneros MD on 12/20/2021 at 13:49 Approved by: Sin Cisneros MD on 12/20/2021 at 13:51 Normal [facility] CHEMISTRYOrdered By: SYSTEM SYSTEM on 12-15-2021 Creatinine [Mass/Vol] 0.5 mg/dL Normal 0.5 - 1.3 mg/dL [facility] Remisol GFR/1.73 sq M.predicted among blacks MDRD (S/P/Bld) [Vol rate/Area] mL/min/1.73 m2 Normal >=59mL/min /1.[address] [facility] Chem S GFR/1.73 sq M.predicted among non-blacks MDRD (S/P/Bld) [Vol rate/Area] mL/min/1.73 m2 Normal >=59mL/min /1.[address] [facility] Chem S MRI Shoulder w/o Lefton 08-02 MRI Shoulder w/o Left HISTORY: Shoulder pain and decreased range of motion since lifting injury. COMPARISON: Shoulder radiographs 06/01/2021 TECHNIQUE: Multiplanar multisequence MRI was performed of the left shoulder without contrast. FINDINGS: Mild degenerative changes of the acromial clavicular joint without undersurface of the great formation. The acromion is slightly curved. Coracoclavicular ligament is intact. Trace subacromial/subdeltoid bursal fluid. Low-grade intrasubstance tear along the myotendinous junction of supraspinatus superimposed on moderate tendinosis. Mild infraspinatus and subscapularis tendinosis. No atrophy or fatty infiltration of the rotator cuff musculature. Moderate intra-articular long head biceps tendinosis. The biceps tendon resides within the bicipital groove. Anterior superior through posterior superior labral degeneration/tearing. No well-defined or measurable articular cartilage defect or subchondral bone marrow edema. No glenohumeral joint effusion. IMPRESSION: Low-grade intrasubstance tear along the myotendinous junction of supraspinatus superimposed on moderate tendinosis. Mild infraspinatus and subscapularis tendinosis. Moderate biceps tendinosis. Report reported and signed by Sanchez Davies on 08/11/2021 1550 Normal [facility] [employer] Social History Date Type Detail Facility Start: 09-26-2023 Sex Assigned At Female F [facility] Start: 09-26-2023 Tobacco use and exposure Smokeless tobacco non-user [facility] Work Phone: Start: 09-26-2023 Alcohol intake Current drinke r of alcohol (finding) [facility] Work Phone: Start: 09-26-2023 History of Social function [facility] Work Phone: Start: 09-16-2023 End: 09-26-2023 Exposure to SARS-CoV-2 (event) Not sure [facility] Start: 10-04-2021 End: 11-24-2023 Tobacco smoking status Ex-smoker (finding) [facility] Start: 1955 Sex Assigned At Female F [facility] Start: 1955 Sex Assigned At Not on file [facility] Work Phone: Tobacco smoking status Never [facility] Tobacco smoking status NHIS Tobacco smoking consumption unknown [facility] Work Phone: End: 07-02-2006 History of tobacco use Current smoker [facility] Work Phone: End: 07-02-2006 History of tobacco use Cigarette Smoker [facility] Work Phone: Vital Signs Date Time Vital Sign Value Performing Clinician Facility 11-24-2023 15:41-0400 Diastolic blood pressure 78 mm[Hg] Oneal Cornelius [facility] 11-24-2023 15:41-0400 Heart rate 63 /min Oneal Cornelius [facility] 11-24-2023 15:41-0400 Mean blood pressure 92 mm[Hg] Oneal Cornelius [facility] 11-24-2023 15:41-0400 Respiratory rate 16 /min Oneal Cornelius [facility] 11-24-2023 15:41-0400 SaO2% (BldA) [Mass fraction] 97 % Oneal Mcarthure [facility] 11-24-2023 15:41-0400 Systolic blood pressure 120 mm[Hg] Oneal Mcarthure [facility] 11-24-2023 15:00-0400 Diastolic blood pressure 70 mm[Hg] Oneal Mcarthure [facility] 11-24-2023 15:00-0400 Mean blood pressure 87 mm[Hg] Oneal Mcarthure [facility] 11-24-2023 15:00-0400 SaO2% (BldA) [Mass fraction] 95 % Oneal Mcarthure [facility] 11-24-2023 14:00-0400 Body temperature 98.42 [degF] Oneal Mcarthure [facility] 11-24-2023 14:00-0400 Diastolic blood pressure 74 mm[Hg] Oneal Mcarthure [facility] 11-24-2023 14:00-0400 Heart rate 66 /min Oneal Mcarthure [facility] 11-24-2023 14:00-0400 Mean blood pressure 91 mm[Hg] Oneal Mcarthure [facility] 11-24-2023 14:00-0400 SaO2% (BldA) [Mass fraction] 96 % Oneal Ashli [facility] 11-24-2023 14:00-0400 Systolic blood pressure 124 mm[Hg] Oneal Ashli [facility] 11-24-2023 13:01-0400 Body temperature 99.5 [degF] Oneal Ashli [facility] 11-24-2023 13:01-0400 Heart rate 70 /min Oneal Cornelius [facility] 11-24-2023 13:01-0400 Respiratory rate 18 /min Oneal Cornelius [facility] 09-26-2023 14:38-0400 Body height 160 cm Lukasz Rosario MD Work Phone: [facility] 09-26-2023 14:38-0400 Body mass index (BMI) [Ratio] 26.87 kg/m2 Lukasz Rosario MD Work Phone: [facility] 09-26-2023 14:38-0400 Body weight 68.81 kg Lukasz Rosario MD Work Phone: [facility] 07-31-2023 10:17-0500 Blood Pressure Location Torri Orzech [facility] 07-31-2023 10:17-0500 Diastolic blood pressure 77 mm[Hg] Torri Orzech [facility] 07-31-2023 10:17-0500 Heart rate 53 /min Torri Orzech [facility] 07-31-2023 10:17-0500 Respiratory rate 16 /min Torri Orzech [facility] 07-31-2023 10:17-0500 Systolic blood pressure 135 mm[Hg] Torri Orzech [facility] 12-27-2022 09:05-0400 Body height 160.02 cm Charles M Dennis Work Phone: [facility] Work Phone: 12-27-2022 09:05-0400 Body mass index (BMI) [Ratio] 27.05 kg/m2 Charles Arambula Work Phone: [facility] Work Phone: 12-27-2022 09:05-0400 Body surface area Derived from formula 1.72 m2 Charles Arambula Work Phone: [facility] [address] Work Phone: 12-27-2022 09:05-0400 Body weight 69.26 kg Charles Arambula Work Phone: [facility] [address] Work Phone: 12-01-2022 15:05-0400 Body height 160.02 cm Gely Cortez Other [employer] [facility] [employer] Other 12-01-2022 15:05-0400 Body mass index (BMI) [Ratio] 28.34 kg/m2 Gely Cortez Other [email or web address] Other 12-01-2022 15:05-0400 Body temperature 96.8 [degF] Gely Cortez Other [email or web address] Other 12-01-2022 15:05-0400 Body weight 72.58 kg Gely Cortez Other [email or web address] Other 12-01-2022 15:05-0400 Diastolic blood pressure 82 mm[Hg] Gely Cortez Other [email or web address] Other 12-01-2022 15:05-0400 Respiratory rate 18 /min Gely Cortez Other [email or web address] Other 12-01-2022 15:05-0400 SaO2% (BldA) [Mass fraction] 94 % Gely Cortez Other [facility] [employer] [facility] Other 12-01-2022 15:05-0400 Systolic blood pressure 139 mm[Hg] Gely Cortez Other [facility] [employer] [facility] Other 11-08-2022 13:24-0400 Body height 160.02 cm Charles M Hoy Work Phone: PM[facility]flanctnzmmkqf[facility] Work Phone: 11-08-2022 13:24-0400 Body mass index (BMI) [Ratio] 27.17 kg/m2 Charles M Hoy Work Phone: RT[facility]ou[facility]tbklofurwk[facility] Work Phone: 11-08-2022 13:24-0400 Body surface area Derived from formula 1.73 m2 Charles M Hoy Work Phone: [facility] [address] Work Phone: 11-08-2022 13:24-0400 Body weight 69.57 kg Charles M Hoy Work Phone: [facility] [address] Work Phone: 11-01-2022 11:28-0400 Body height 160.02 cm Charles M Hoy Work Phone: NA-Ypdcklhxyvdkfk-[facility] Work Phone: 11-01-2022 11:28-0400 Body mass index (BMI) [Ratio] 28.35 kg/m2 Charles M Hoy Work Phone: [facility] [address] Work Phone: 11-01-2022 11:28-0400 Body surface area Derived from formula 1.76 m2 Charles M Hoy Work Phone: [facility] Work Phone: 11-01-2022 11:28-0400 Body weight 72.6 kg Charles M Hoy Work Phone: TE-Jpynxlxwmqosrw-By[facility] 4[facility] Work Phone: 11-01-2022 11:28-0400 0 1 Charles M Hoy Work Phone: SE-Rxbmjtsllpbcti-Ch[facility] Work Phone: Comment on above: [employer] 10-16-2022 11:11-0400 Body height 159.8 cm Lukasz Rosario MD Work Phone: [facility] 10-16-2022 11:11-0400 Body mass index (BMI) [Ratio] 27.73 kg/m2 Lukasz Rosario MD Work Phone: [facility] 10-16-2022 11:11-0400 Body weight 70.8 kg Lukasz Rosario MD Work Phone: [facility] 09-28-2022 10:52-0400 Body height 160.02 cm Charles M Hoy Work Phone: [facility] [address] Work Phone: 09-28-2022 10:52-0400 Body mass index (BMI) [Ratio] 28.72 kg/m2 Charles M Hoy Work Phone: OS-Ffvzzaacrfuwji-BrP[facility] Work Phone: 09-28-2022 10:52-0400 Body surface area Derived from formula 1.77 m2 Charles M Hoy Work Phone: NB-Xzjxsavrqlichx-PeP[facility] Work Phone: 09-28-2022 10:52-0400 Body temperature 97.8 [degF] Charles Arambula Work Phone: OE[facility]mvzbaazwebmas[facility] Work Phone: 09-28-2022 10:52-0400 Body weight 73.53 kg Charles Arambula Work Phone: ZY-Kmowteudgyotrl-Tg[facility] Work Phone: 12-02-2021 09:22-0400 Blood Pressure Location Daly Villanuevaz [facility] 12-02-2021 09:22-0400 Body temperature 97.7 [degF] Dalydevyn PérezCindy [facility] 12-02-2021 09:22-0400 Diastolic blood pressure 88 mm[Hg] Daly Pérezmetz [facility] 12-02-2021 09:22-0400 Heart rate 64 /min Daly Villanuevaz [facility] 12-02-2021 09:22-0400 SaO2% (BldA) [Mass fraction] 96 % Daly Villanuevaz [facility] 12-02-2021 09:22-0400 Systolic blood pressure 138 mm[Hg] Daly Cindy [facility] 11-11-2021 13:50-0400 Diastolic blood pressure 84 mm[Hg] Liana ROJAS [facility] 05-13-2022 13:50-0400 Heart rate 62 /min Gaines SALAM [facility] 11-11-2021 13:50-0400 Respiratory rate 10 /min Gaines SALAM [facility] 11-11-2021 13:50-0400 SaO2% (BldA) [Mass fraction] 98 % Gaines SALAM [facility] 11-11-2021 13:50-0400 Systolic blood pressure 125 mm[Hg] Gaines SALAM [facility] 11-11-2021 13:35-0400 Diastolic blood pressure 72 mm[Hg] Gaines SALAM [facility] 11-11-2021 13:35-0400 Heart rate 65 /min Gaines SALAM [facility] 11-11-2021 13:35-0400 Respiratory rate 15 /min Gaines SALAM [facility] 11-11-2021 13:35-0400 SaO2% (BldA) [Mass fraction] 94 % Gaines SALAM [facility] 11-11-2021 13:35-0400 Systolic blood pressure 129 mm[Hg] Gaines SALAM [facility] 11-11-2021 13:30-0400 Diastolic blood pressure 57 mm[Hg] Gaines SALAM [facility] 11-11-2021 13:30-0400 Heart rate 64 /min Gaines SALAM [facility] 11-11-2021 13:30-0400 SaO2% (BldA) [Mass fraction] 95 % Gaines SALAM [facility] 11-11-2021 13:30-0400 Systolic blood pressure 104 mm[Hg] Gaines SALAM [facility] 11-11-2021 13:23-0400 Blood Pressure Location Gaines SALAM [facility] 11-11-2021 13:23-0400 Body temperature 96.98 [degF] Gaines SALAM [facility] 11-11-2021 11:43-0400 Blood Pressure Location Gaines SALAM [facility] 11-11-2021 11:43-0400 Body temperature 96.98 [degF] [facility] SALAM [facility] 10-04-2021 12:27-0400 Diastolic blood pressure 88 mm[Hg] Daly Cindy [facility] 10-04-2021 12:27-0400 Mean blood pressure 109 mm[Hg] Daly Cindy [facility] 10-04-2021 12:27-0400 Systolic blood pressure 151 mm[Hg] Daly Cindy [facility] 10-04-2021 12:10-0400 Diastolic blood pressure 86 mm[Hg] Daly Cindy [facility] 10-04-2021 12:10-0400 Heart rate 91 /min Daly Cindy [facility] 10-04-2021 12:10-0400 Systolic blood pressure 157 mm[Hg] Daly Cindy [facility] Functional Status Date Assessment Result Facility 11-24-2023 Functional Status N/A [facility] 07-31-2023 Functional Status N/A [facility] Clinical Notes 10-04-2021 to 12-01-2023 Lukasz Rosario MD - 09/26/2023 2:30 PM EDT Note Date & Type Note Facility 12-01-2023 Note Microbiology PROCEDURE: Blood Culture Charcoal [R1] SOURCE: Blood BODY SITE: Arm L COLLECTED DATE/TIME: 11/24/2023 13:43 EDT RECEIVED DATE/TIME: 11/24/2023 13:53 EDT START DATE/TIME: 11/24/2023 13:53 EDT FREE TEXT SOURCE: Katherine Holt PA-C, PA-C, Kristen N FINAL REPORTS Final Report [] Verified Date/Time: 12/01/2023 14:20 EDT No growth at 7 days. Performing Locations R1: This test [facility] performed at: [facility], [address] [place] [address], [address] [place] [address], [facility] Comment on above: Performed By: #### [id number] #### [facility] [address] [place] [id number] 12-01-2023 Note Microbiology PROCEDURE: Blood Culture Charcoal [R1] SOURCE: Blood BODY SITE: Hand R COLLECTED DATE/TIME: 11/24/2023 13:48 EDT RECEIVED DATE/TIME: 11/24/2023 13:54 EDT START DATE/TIME: 11/24/2023 13:54 EDT FREE TEXT SOURCE: Katherine Holt PA-C, PA-C, Katherine Ghosh FINAL REPORTS Final Report [] Verified Date/Time: 12/01/2023 14:20 EDT No growth at 7 days. Performing Locations R1: This test was performed at: [facility], [address] [place] [address], [address] [place] [address], [facility] Comment on above: Performed By: #### 1 [id number] #### [facility] [address] [place] [address] 11-24-2023 Hospital Discharge instructions Patient Education 11/24/2023 15:44:36 Diverticulitis Diverticulitis Diverticulitis is infection or inflammation of small pouches (diverticula) in the colon that form due to a condition called diverticulosis. Diverticula can trap stool (feces) and bacteria, causing infection and inflammation. Diverticulitis may cause severe stomach pain and diarrhea. It may lead to tissue damage in the colon that causes bleeding or blockage. The diverticula may also burst (rupture) and cause infected stool to enter other areas of the abdomen. What are the causes? This condition is caused by stool becoming trapped in the diverticula, which allows bacteria to grow in the diverticula. This leads to inflammation and infection. What increases the risk? You are more likely to develop this condition if you have diverticulosis. The risk increases if you: Are overweight or obese. Do not get enough exercise. Drink alcohol. Use tobacco products. Eat a diet that has a lot of red meat such as beef, pork, or ashley. Eat a diet that does not include enough fiber. High-fiber foods include fruits, vegetables, beans, nuts, and whole grains. Are over 40 years of age. What are the signs or symptoms? Symptoms of this condition may include: Pain and tenderness in the abdomen. The pain is normally located on the left side of the abdomen, but it may occur in other areas. Fever and chills. Nausea. Vomiting. Cramping. Bloating. Changes in bowel routines. Blood in your stool. How is this diagnosed? This condition is diagnosed based on: Your medical history. A physical exam. Tests to make sure there is nothing else causing your condition. These tests may include: ?Blood tests. ?Urine tests. ?CT scan of the abdomen. How is this treated? Most cases of this condition are mild and can be treated at home. Treatment may include: Taking euks-yyi-loxbkcs pain medicines. Following a clear liquid diet. Taking antibiotic medicines by mouth. Resting. More severe cases may need to be treated at a hospital. Treatment may include: Not eating or drinking. Taking prescription pain medicine. Receiving antibiotic medicines through an IV. Receiving fluids and nutrition through an IV. Surgery. When your condition is under control, your health care provider may recommend that you have a colonoscopy. This is an exam to look at the entire large intestine. During the exam, a lubricated, bendable tube is inserted into the anus and then passed into the rectum, colon, and other parts of the large intestine. A colonoscopy can show how severe your diverticula are and whether something else may be causing your symptoms. Follow these instructions at home: Medicines Take xbdi-gfu-fhxahnp and prescription medicines only as told by your health care provider. These include fiber supplements, probiotics, and stool softeners. If you were prescribed an antibiotic medicine, take it as told by your health care provider. Do not stop taking the antibiotic even if you start to feel better. Ask your health care provider if the medicine prescribed to you requires you to avoid driving or using machinery. Eating and drinking Follow a full liquid diet or another diet as directed by your health care provider. After your symptoms improve, your health care provider may tell you to change your diet. He or she may recommend that you eat a diet that contains at least 25 grams (25 g) of fiber daily. Fiber makes it easier to pass stool. Healthy sources of fiber include: ?Berries. One cup contains 4 8 grams of fiber. ?Beans or lentils. One-half cup contains 5 8 grams of fiber. ?Green vegetables. One cup contains 4 grams of fiber. Avoid eating red meat. General instructions Do not use any products that contain nicotine or tobacco, such as cigarettes, e-cigarettes, and chewing tobacco. If you need help quitting, ask your health care provider. Exercise for at least 30 minutes, 3 times each week. You should exercise hard enough to raise your heart rate and break a sweat. Keep all follow-up visits as told by your health care provider. This is important. You may need to have a colonoscopy. Contact a health care provider if: Your pain does not improve. Your bowel movements do not return to normal. Get help right away if: Your pain gets worse. Your symptoms do not get better with treatment. Your symptoms suddenly get worse. You have a fever. You vomit more than one time. You have stools that are bloody, black, or tarry. Summary Diverticulitis is infection or inflammation of small pouches (diverticula) in the colon that form due to a condition called diverticulosis. Diverticula can trap stool (feces) and bacteria, causing infection and inflammation. You are at higher risk for this condition if you have diverticulosis and you eat a diet that does not include enough fiber. Most cases of this condition are mild and can be treated at home. More severe cases may need to be treated at a hospital. When your condition is under control, your health care provider may recommend that you have an exam called a colonoscopy. This exam can show how severe your diverticula are and whether something else may be causing your symptoms. Keep all follow-up visits as told by your health care provider. This is important. This information is not intended to replace advice given to you by your health care provider. Make sure you discuss any questions you have with your health care provider. Document Revised: 03/29/2020 Document Reviewed: 03/29/2020 [employer] Patient Education 2022 [employer]. Follow Up Care 11/24/2023 12:59:13 With:Charles Arambula Address: [address] [place], [place] [id number] Business (1) When:Within 3 Day(s) [facility] 11-24-2023 Evaluation + Plan note Diagnostic Tests PendingBlood Culture Charcoal 11/24/23Blood Culture Charcoal 11/24/23 [facility] 09-26-2023 History of Present illness Narrative Chief Complaint: 1. 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 Sensation of left eye pulsation, increased watering, and blurry vision 3. Posterior nasal drainage 4. Headaches 5. Adenocarcinoma of left lung s/p lobectomy in 2011 6. History of left thyroid lobectomy History Of Present Illness: Roselyn Freire presents since last being seen March 28, 2023. She's been having minor bleeding/clotting from the right side over the past 3 months, that she attributes it to dryness. She also mention having a left-sided vitreous detachment and is continuing to follow with ophthalmology as this has been impacting her vision. Main Symptoms: Patient does not have anterior nasal drainage. Patient has posterior nasal drainage. Patient does not have nasal airway obstruction. Patient does not have facial pain. Patient does not have facial pressure. Patient has decreased sense of smell. Decreased 20-30 % of normal. Down since having COVID in 2022 Associated Symptoms: Patient has nasal bleeding. over the past 3 months Medications currently on for sinonasal symptoms: Flonase and azelastine 1 puff each nostril once per day Active Problems: There is no problem list on file for this patient. Past Medical History: She has no past medical history on file. Surgical History: She has no past surgical history on file. Family History: No family history on file. Social History: She reports that she quit smoking about 17 years ago. Her smoking use included cigarettes. She has never used smokeless tobacco. She reports current alcohol use. She reports that she does not use drugs. Allergies: Meperidine Current Meds: Current Outpatient Medications: acetaminophen (Tylenol 8 HOUR) 650 mg ER tablet, Tylenol, Disp: , Rfl: amLODIPine (Norvasc) 10 mg tablet, Take 1 tablet every day by oral route for 90 days., Disp: , Rfl: bisoprolol (Zebeta) 10 mg tablet, Take 1 tablet (10 mg) by mouth once daily., Disp: , Rfl: docusate sodium (Colace) 100 mg capsule, Take 1 capsule (100 mg) by mouth once daily as needed., Disp: , Rfl: fluticasone (Flonase) 50 mcg/actuation nasal spray, INSTILL 2 SPRAYS IN EACH NOSTRIL ONCE A DAY for 90, Disp: , Rfl: hydroCHLOROthiazide (Microzide) 12.5 mg capsule, Take 1 capsule every day by oral route for 30 days., Disp: , Rfl: Saline NasaL 0.65 % nasal spray, SPRAY 4 SPRAYS INTO EACH NOSTRIL EVERY 4 HOURS, Disp: , Rfl: terconazole (Terazol 7) 0.4 % vaginal cream, INSERT 1 APPLICATOR INTO THE VAGINA AT BEDTIME FOR 7 DAYS., Disp: , Rfl: Vitals: Visit Vitals Ht 1.6 m (5' 3 ) Wt 68.8 kg (151 lb 11.2 oz) BMI 26.87 kg/m Smoking Status Former BSA 1.75 m Physical Exam: Nose: On external exam there are neither lesions nor asymmetry of the nasal tip/dorsum. On anterior rhinoscopy, visualization posteriorly is limited on anterior examination. For this reason, to adequately evaluate posteriorly for masses, source of epistaxis, polypoid disease, debridement, and/or signs of infections, nasal endoscopy is indicated. (Please see procedure below.) SINONASAL ENDOSCOPY WITH DEBRIDEMENT (CPT 28050-H): Due to the patient's chronic sinusitis/chronic rhinitis, sinonasal endoscopy with debridement is indicated. After discussion of risks and benefits, and topical decongestion and anesthesia, an endoscope was used to perform nasal endoscopy with debridement. A timeout identifying the patient, the procedure, and any concerns was performed prior to beginning the procedure. Findings: Examination of the right nasal cavity revealed no pus or polyps at the middle meatus or sphenoethmoid recess. There was mild dryness of the anterior septum but no concerning lesions. Examination of the left nasal cavity revealed a normal middle meatus and sphenoethmoid recess without pus or polyps. There was crusting along the floor of the left sphenoid that was completely removed with an alligator and suction. Following removal, there was no evidence of papilloma within the left sphenoid. She has healed very well from the procedure. Provider Impressions: 1. 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 Sensation of left eye pulsation, increased watering, and blurry vision 3. Posterior nasal drainage 4. Decreased sense of smell following coronavirus infection in 2022 5. Adenocarcinoma of left lung s/p lobectomy in 2011 6. History of left thyroid lobectomy 7. Right-sided epistaxis Discussion: Roselyn Freire and I discussed her exam and symptoms. I agree that as the weather warms, her nasal dryness and right-sided bleeding should improve. I did not see evidence of papilloma today and I recommended repeat assessment in about 6 months. She was amenable to this and all questions were answered. Signature: Scribe Attestation By signing my name below, I, Pamela Aguero Gerber attest that this documentation has been prepared under the direction and in the presence of Lukasz Rosario MD. documented in this encounter [facility] Work Phone: 07-31-2023 Hospital Discharge instructions Patient Education 07/31/2023 12:43:15 Cystoscopy Cystoscopy Cystoscopy is a procedure that is used to help diagnose and sometimes treat conditions that affect the lower urinary tract. The lower urinary tract includes the bladder and the urethra. The urethra is the tube that drains urine from the bladder. Cystoscopy is done using a thin, tube-shaped instrument with a light and camera at the end (cystoscope). The cystoscope may be hard or flexible, depending on the goal of the procedure. The cystoscope is inserted through the urethra, into the bladder. Cystoscopy may be recommended if you have: Urinary tract infections that keep coming back. Blood in the urine (hematuria). An inability to control when you urinate (urinary incontinence) or an overactive bladder. Unusual cells found in a urine sample. A blockage in the urethra, such as a urinary stone. Painful urination. An abnormality in the bladder found during an intravenous pyelogram (IVP) or CT scan. Cystoscopy may also be done to remove a sample of tissue to be examined under a microscope (biopsy). Tell a health care provider about: Any allergies you have. All medicines you are taking, including vitamins, herbs, eye drops, creams, and ilwx-yqa-lxjzjiv medicines. Any problems you or family members have had with anesthetic medicines. Any blood disorders you have. Any surgeries you have had. Any medical conditions you have. Whether you are or may be . What are the risks? Generally, this is a safe procedure. However, problems may occur, including: Infection. Bleeding. Allergic reactions to medicines. Damage to other structures or organs. What happens before the procedure? Medicines Ask your health care provider about: Changing or stopping your regular medicines. This is especially important if you are taking diabetes medicines or blood thinners. Taking medicines such as aspirin and ibuprofen. These medicines can thin your blood. Do not take these medicines unless your health care provider tells you to take them. Taking qfdv-gbx-krnzwtn medicines, vitamins, herbs, and supplements. Tests You may have an exam or testing, such as: X-rays of the bladder, urethra, or kidneys. CT scan of the abdomen or pelvis. Urine tests to check for signs of infection. General instructions Follow instructions from your health care provider about eating or drinking restrictions. Ask your health care provider what steps will be taken to help prevent infection. These steps may include: ?Washing skin with a germ-killing soap. ?Taking antibiotic medicine. Plan to have a responsible adult take you home from the hospital or clinic. What happens during the procedure? You will be given one or more of the following: ?A medicine to help you relax (sedative). ?A medicine to numb the area (local anesthetic). The area around the opening of your urethra will be cleaned. The cystoscope will be passed through your urethra into your bladder. Germ-free (sterile) fluid will flow through the cystoscope to fill your bladder. The fluid will stretch your bladder so that your health care provider can clearly examine your bladder sinha. Your doctor will look at the urethra and bladder. Your doctor may take a biopsy or remove stones. The cystoscope will be removed, and your bladder will be emptied. The procedure may vary among health care providers and hospitals. What can I expect after the procedure? After the procedure, it is common to have: Some soreness or pain in your abdomen and urethra. Urinary symptoms. These include: ?Mild pain or burning when you urinate. Pain should stop within a few minutes after you urinate. This may last for up to 1 week. ?A small amount of blood in your urine for several days. ?Feeling like you need to urinate but producing only a small amount of urine. Follow these instructions at home: Medicines Take jwlt-mua-zojgmht and prescription medicines only as told by your health care provider. If you were prescribed an antibiotic medicine, take it as told by your health care provider. Do not stop taking the antibiotic even if you start to feel better. General instructions Return to your normal activities as told by your health care provider. Ask your health care provider what activities are safe for you. If you were given a sedative during the procedure, it can affect you for several hours. Do not drive or operate machinery until your health care provider says that it is safe. Watch for any blood in your urine. If the amount of blood in your urine increases, call your health care provider. Follow instructions from your health care provider about eating or drinking restrictions. If a tissue sample was removed for testing (biopsy) during your procedure, it is up to you to get your test results. Ask your health care provider, or the department that is doing the test, when your results will be ready. Drink enough fluid to keep your urine pale yellow. Keep all follow-up visits. This is important. Contact a health care provider if: You have pain that gets worse or does not get better with medicine, especially pain when you urinate. You have trouble urinating. You have more blood in your urine. Get help right away if: You have blood clots in your urine. You have abdominal pain. You have a fever or chills. You are unable to urinate. Summary Cystoscopy is a procedure that is used to help diagnose and sometimes treat conditions that affect the lower urinary tract. Cystoscopy is done using a thin, tube-shaped instrument with a light and camera at the end. After the procedure, it is common to have some soreness or pain in your abdomen and urethra. Watch for any blood in your urine. If the amount of blood in your urine increases, call your health care provider. If you were prescribed an antibiotic medicine, take it as told by your health care provider. Do not stop taking the antibiotic even if you start to feel better. This information is not intended to replace advice given to you by your health care provider. Make sure you discuss any questions you have with your health care provider. Document Revised: 03/01/2022 Document Reviewed: 01/28/2021 [employer] Patient Education 2022 [employer]. 07/31/2023 12:43:01 Renal Mass Renal Mass A renal mass is an abnormal growth in the kidney. It may be found while performing an MRI, CT scan, or ultrasound to evaluate other problems of the abdomen. A renal mass that is cancerous (malignant) may grow or spread quickly. Others are not cancerous (benign). Renal masses include: Tumors. These may be malignant or benign. ?The most common type of kidney cancer in adults is renal cell carcinoma. In children, the most common type of kidney cancer is Wilms tumor. ?The most common benign tumors of the kidney include renal adenomas, oncocytomas, and angiomyolipoma (AML). Cysts. These are fluid-filled sacs that form on or in the kidney. What are the causes? Certain types of cancers, infections, or injuries can cause a renal mass. It is not always known what causes a cyst to develop in or on the kidney. What are the signs or symptoms? Often, a renal mass does not cause any signs or symptoms; most kidney cysts do not cause symptoms. How is this diagnosed? Your health care provider may recommend tests to diagnose the cause of your renal mass. These tests may be done if a renal mass is found: Physical exam. Blood tests. Urine tests. Imaging tests, such as ultrasound, CT scan, or MRI. Biopsy. This is a small sample that is removed from the renal mass and tested in a lab. The exact tests and how often they are done will depend on: The size and appearance of the renal mass. Risk factors or medical conditions that increase your risk for problems. Any symptoms associated with the renal mass, or concerns that you have about it. Tests and physical exams may be done once, or they may be done regularly for a period of time. Tests and exams that are done regularly will help monitor whether the mass is growing and beginning to cause problems. How is this treated? Treatment is not always needed for this condition. Your health care provider may recommend careful monitoring and regular tests and exams. Treatment will depend on the cause of the mass. Treatment for a cancerous renal mass may include surgical removal, chemotherapy, radiation, or immunotherapy. Most kidney cysts do not need to be treated. Follow these instructions at home: What you need to do at home will depend on the cause of the mass. Follow the instructions that your health care provider gives to you. In general: Take pgim-oqc-zpsqihu and prescription medicines only as told by your health care provider. If you were prescribed an antibiotic medicine, take it as told by your health care provider. Do not stop taking the antibiotic even if you start to feel better. Follow any restrictions that are given to you by your health care provider. Keep all follow-up visits. This is important. ?You may need to see your health care provider once or twice a year to have CT scans and ultrasounds. These tests will show if your renal mass has changed or grown. Contact a health care provider if you: Have pain in your side or back (flank pain). Have a fever. Feel full soon after eating. Have pain or swelling in the abdomen. Lose weight. Get help right away if: Your pain gets worse. There is blood in your urine. You cannot urinate. You have chest pain. You have trouble breathing. These symptoms may represent a serious problem that is an emergency. Do not wait to see if the symptoms will go away. Get medical help right away. Call your local emergency services (911 in the [place] Summary A renal mass is an abnormal growth in the kidney. It may be cancerous (malignant) and grow or spread quickly, or it may not be cancerous (benign). Renal masses often do not have any signs or symptoms. Renal masses may be found while performing an MRI, CT scan, or ultrasound for other problems of the abdomen. Your health care provider may recommend that you have tests to diagnose the cause of your renal mass. These may include a physical exam, blood tests, urine tests, imaging, or a biopsy. Treatment is not always needed for this condition. Careful monitoring may be recommended. This information is not intended to replace advice given to you by your health care provider. Make sure you discuss any questions you have with your health care provider. Document Revised: 12/13/2020 Document Reviewed: 12/13/2020 [employer] Patient Education 2022 [employer]. Follow Up Care 07/13/2023 08:18:03 With:HENRIETTA Null APRN, Torri Carrion, PEDRO, URL Address: When:Within 1 Year(s) Comments:jigar/ MONICA [facility] Note Urology Cystoscopy Cystoscopy is a procedure that is used to help diagnose and sometimes treat conditions that affect the lower urinary tract. The lower urinary tract includes the bladder and the urethra. The urethra is the tube that drains urine from the bladder. Cystoscopy is done using a thin, tube-shaped instrument with a light and camera at the end (cystoscope). The cystoscope may be hard or flexible, depending on the goal of the procedure. The cystoscope is inserted through the urethra, into the bladder. Cystoscopy may be recommended if you have: ? Urinary tract infections that keep coming back. ? Blood in the urine (hematuria). ? An inability to control when you urinate (urinary incontinence) or an overactive bladder. ? Unusual cells found in a urine sample. ? A blockage in the urethra, such as a urinary stone. ? Painful urination. ? An abnormality in the bladder found during an intravenous pyelogram (IVP) or CT scan. Cystoscopy may also be done to remove a sample of tissue to be examined under a microscope (biopsy). Tell a health care provider about: ? Any allergies you have. ? All medicines you are taking, including vitamins, herbs, eye drops, creams, and hmpn-mfg-fydanax medicines. ? Any problems you or family members have had with anesthetic medicines. ? Any blood disorders you have. ? Any surgeries you have had. ? Any medical conditions you have. ? Whether you are or may be . What are the risks? Generally, this is a safe procedure. However, problems may occur, including: ? Infection. ? Bleeding. ? Allergic reactions to medicines. ? Damage to other structures or organs. What happens before the procedure? Medicines Ask your health care provider about: ? Changing or stopping your regular medicines. This is especially important if you are taking diabetes medicines or blood thinners. ? Taking medicines such as aspirin and ibuprofen. These medicines can thin your blood. Do not take these medicines unless your health care provider tells you to take them. ? Taking mwdn-csz-trybbic medicines, vitamins, herbs, and supplements. Tests You may have an exam or testing, such as: ? X-rays of the bladder, urethra, or kidneys. ? CT scan of the abdomen or pelvis. ? Urine tests to check for signs of infection. General instructions ? Follow instructions from your health care provider about eating or drinking restrictions. ? Ask your health care provider what steps will be taken to help prevent infection. These steps may include: ? Washing skin with a germ-killing soap. ? Taking antibiotic medicine. ? Plan to have a responsible adult take you home from the hospital or clinic. What happens during the procedure? ? You will be given one or more of the following: ? A medicine to help you relax (sedative). ? A medicine to numb the area (local anesthetic). ? The area around the opening of your urethra will be cleaned. ? The cystoscope will be passed through your urethra into your bladder. ? Germ-free (sterile) fluid will flow through the cystoscope to fill your bladder. The fluid will stretch your bladder so that your health care provider can clearly examine your bladder sinha. ? Your doctor will look at the urethra and bladder. Your doctor may take a biopsy or remove stones. ? The cystoscope will be removed, and your bladder will be emptied. The procedure may vary among health care providers and hospitals. What can I expect after the procedure? After the procedure, it is common to have: ? Some soreness or pain in your abdomen and urethra. ? Urinary symptoms. These include: ? Mild pain or burning when you urinate. Pain should stop within a few minutes after you urinate. This may last for up to 1 week. ? A small amount of blood in your urine for several days. ? Feeling like you need to urinate but producing only a small amount of urine. Follow these instructions at home: Medicines ? Take klxi-dmk-aysbzwj and prescription medicines only as told by your health care provider. ? If you were prescribed an antibiotic medicine, take it as told by your health care provider. Do not stop taking the antibiotic even if you start to feel better. General instructions ? Return to your normal activities as told by your health care provider. Ask your health care provider what activities are safe for you. ? If you were given a sedative during the procedure, it can affect you for several hours. Do not drive or operate machinery until your health care provider says that it is safe. ? Watch for any blood in your urine. If the amount of blood in your urine increases, call your health care provider. ? Follow instructions from your health care provider about eating or drinking restrictions. ? If a tissue sample was removed for testing (biopsy) during your procedure, it is up to you to get your test results. Ask your health care provider, or the department th (more content not included)... [facility] 01-06-2023 History of Present illness Narrative Roselyn presents for her second postoperative visit.She has continued to have some headaches. She is rinsing about 3 times per day. She denies significant nasal bleeding but did evacuate a rather large crust from the right-hand side yesterday. 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 Extradural resection of left sphenoid mass 2. Right total ethmoid and sphenoid 3. 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 No bleeding. Pain controlled Patient discharged on POD1 with outpatient ENT follow-up. She will start nasal saline irrigations today. Discharge Information: and Continuing Care: Lab Results - Pending: Surgical Pathology Drawn at 18-Dec-2022 15:31:00 Radiology Results - Pending: None Discharge Instructions: Activity: activity as tolerated. May shower.. May not return to school/work until follow-up visit with. Dr. Rosario May not drive while taking narcotics. No pushing, pulling, or lifting objects greater than 10 pounds. Weight-bearing Instructions: full weight bearing. Activity as tolerated Increase your activity slowly. Walking is good exercise activity after surgery. Gradually increase the time and distance you walk each day. You may walk as much as is comfortable for you. Nutrition/Diet: resume normal diet Wound Care: Avoid blowing your nose. If you need to sneeze do so with your mouth open. Avoid bending over or lifting heavy objects. Sleep with your head elevated roughly 30 degrees. Additional Orders: Additional Instructions: Nasal and Sinus Surgery At Home Instructions The following instructions will help you know what to expect in the days following your surgery. Do not hesitate to call if you have questions or concerns. Please have the following items available at your home/recovery residence. It is best to pick these supplies up when you go to the pharmacy to drop off your prescriptions. [employer]Med Sinus Rinse bottle for post-surgical nasal irrigations Afrin (to be used ONLY if you have a nosebleed or excessive bleeding) or oxymetazoline or neosynephrine or another short acting nasal decongestant (ask your pharmacist.) 4 x 4 gauze and paper tape Tylenol (to be used if necessary after you are out of alternative pain medication) Activities You may shower this evening. Avoid sneezing or blowing your nose for 2 weeks after surgery (gently sniff rather than blow, if you do sneeze, do so with your mouth open). Activities should be limited for 1 week after surgery. Do not lift heavy objects (greater than 10 pounds) for 1 week after surgery. Walking is strongly encouraged. Most patients do not return to work for about 5 to 7 days after surgery; however some return sooner, and others may need more time. The level of pain and frustration caused by the nasal congestion and blockage may be different from patient to patient. Diet A normal diet may be resumed. Fever A low-grade fever, less than 101 F is not uncommon for 2 to 3 days after surgery. If fever continues or is higher than 101 F, call your physician. Use Tylenol to control the fever. Pain Control Many patients do not have much pain after nasal surgery, but everyone is different. Most patients feel pressure and congestion. For mild pain, acetaminophen (Tylenol) will do. We suggest scheduling 500-1000 mg of acetaminophen every 6 hours for the first several days (unless you are allergic to this medicine or have severe liver issues). We will also prescribe stronger pain medication for after surgery. Drink plenty of water as these stronger pain medications can be constipating. Also take the prescribed stool softeners on a regular basis while taking narcotic pain medications. Avoid taking aspirin, ibuprofen (Advil, Motrin), naproxen (Aleve, Naprosyn), and other nonsteroidal anti-inflammatory medications (NSAIDs) for a week following nasal surgery. These drugs can i (more content not included)... [facility] 12-18-2022 Note Post Operative Note: PreOp Diagnosis: Left sphenoid papilloma Post-Procedure Diagnosis: Same Procedure: 1. Extradural resection of left sphenoid mass 2. Right total ethmoid and sphenoid 3. Image guidance Surgeon: Abraham Vargas Resident/Fellow/Other Hand Inserter Operator: None Anesthesia: GET Estimated Blood Loss (mL): 125cc Specimen: yes Complications: None Findings: Left sphenoid mass resected Patient Returned To/Condition: PACU satisfactory Additional Details: No permanent packing placed Floseal placed in left sphenoid Attestation: Note Completion: Attending AttestationI was present for the entire procedure Electronic Signatures: Lukasz Rosario) (Signed 18-Dec-2022 16:19) Authored: Post Operative Note, Note Completion Last Updated: 18-Dec-2022 16:19 by Lukasz Rosario) [facility] 12-18-2022 Note PROCEDURE DETAILS 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 The patient was put in supine position. The thin cut volumetric CT and MRI were transferred to the Buy buy tea and awcvh-[id number] registration was done using the contras the patient scalp, forehead, bridge of nose. Multiple anatomic landmarks were used to check the accuracy registration. The patient was done prepped and draped in the usual fashion for endonasal surgery. Endoscopic endonasal access to the sphenoid sinus was obtained by the laryngology team. Please see separate dictation for this prior to procedure. Briefly, bilateral middle turbinates were resected. Posterior septectomy was performed. The inner sphenoid septation was removed. The sphenoid sinus inverted papilloma was clearly seen on the left side to be filling up the sphenoid sinus over here. In conjunction with the otolaryngology team, resection of the sphenoid sinus inverted papilloma was performed. The tumor was partially debulked with the microdebrider anteriorly. A plane was then delineated between the tumor and the posterior and lateral sphenoid bone the tumor was removed in pieces for starting medially and then working laterally and more inferiorly with curettes and pituitary rongeurs. There was no bony invasion of the tumor that we could see. The left internal carotid artery was clearly delineated with bone overlying it. No gross residual tumor was left behind and additional edematous mucosa was removed as well extending into the clival recess. There was no CSF leak. The tumor was sent for permanent pathology. The anterior inferior portion of the sphenoid was coagulated with the suction Bovie. Hemostasis was achieved with Floseal. The patient was then turned over to the anesthesia team, extubated, and taken to the recovery area in stable condition. Attestation: Note Completion: Attending AttestationI was present for flynn portions of the procedure and the procedure lasted longer than 5 minutes. I am a:Resident/Fellow Electronic Signatures: Isidro Hickman (Resident)) (Signed 18-Dec-2022 15:59) Authored: Post-Operative Note, Chart Review, Note Completion Yenny Vargas) (Signed 19-Dec-2022 23:39) Authored: Post-Operative Note, Chart Review, Note Completion Co-Signer: Post-Operative Note, Chart Review, Note Completion Last Updated: 19-Dec-2022 23:39 by Yenny Vargas) [facility] 12-18-2022 Note Clinical Note - Phar jose d v2: Education: Document TopicMedication Education [id number] Patient declines Meds to Beds service at discharge. Prefers [facility]. Sources used to confirm home medication list: Patient interview, Pharmacy ([facility] [phone]), Chart review (OARRS, AEMR, SS, HIE) Comments/other: Patient was cooperative and knowledgeable of medication history at time of interview. See OMR for updated last doses of all medications. Aspirin was stopped 1 week ago for procedure; supplements were stopped 2 weeks ago. Of note: patient had a bladder infection for which she completed therapy of 10 day supply of Bactrim and 3 day supply of Phenazopyridine. OARRS last filled oxycodone 5mg on 10/16/22 #15, 5 days (completed). OMR updated appropriately. Medication reconciliation complete Please reach out via [employer] for questions, or if no response call [phone] or Arnulfo Mcclendon PharmD, [facility] PGY1 Resident [facility] Ambulatory Pharmacy Services Is This Intervention Medication Reconciliation Relatedyes Time [id number] - 60 minutes Outcome2=meets goals/outcomes Additional NotesDrug Name: amLODIPine 10 mg oral tablet Instructions: 1 tab(s) oral once a day Drug Name: busPIRone 7.5 mg oral tablet Instructions: 1 tab(s) oral once a day Drug Name: docusate sodium 100 mg oral capsule Instructions: 1 tab(s) oral once a day Drug Name: hydroCHLOROthiazide 12.5 mg oral capsule Instructions: 1 tab(s) oral once a day Drug Name: [place] 0.65% nasal spray Instructions: 4 spray(s) nasal every 4 hours, As Needed Drug Name: aspirin 325 mg oral tablet Instructions: 1 tab(s) oral once a day Drug Name: azelastine nasal 137 mcg/inh nasal spray Instructions: 1 spray(s) nasal 2 times a day, As Needed Drug Name: krill oil 500mg capsules Instructions: 1 cap(s) orally once a day Drug Name: bisoprolol 10 mg oral tablet Instructions: 1 tab(s) orally once a day Drug Name: famotidine 10 mg oral tablet Instructions: 1 tab(s) orally once, As Needed Drug Name: acetaminophen 325 mg oral tablet Instructions: 2 tab(s) orally every 4 hours, As Needed Drug Name: Multiple Vitamins oral tablet Instructions: 1 tab(s) orally once a day Allergy: Allergies Summary No Known Allergies Electronic Signatures: Sruthi Mcclendon (FORMERLY [facility]) (Signed 18-Dec-2022 12:30) Authored: Education, Allergy Shubham Fraire (FORMERLY [facility]) (Signed 18-Dec-2022 14:33) Co-Signer: Education, Allergy Last Updated: 18-Dec-2022 14:33 by Shubham Fraire (FORMERLY [facility]) [facility] 12-18-2022 History of Present illness Narrative Roselyn presents to her first postoperative visit following endoscopic endonasal resection of left-sided inverted papilloma and right-sided sinus surgery on 12/18/22.She's doing well in the postoperative setting, she is having some pain, she's taking Tylenol as needed. She is doing the saline irrigations 3-5x daily as well as saline spray as needed. [facility] Work Phone: 12-18-2022 Note History & Physical R eviewed: I have reviewed the History and Physical dated: 11-Dec-2022 History and Physical reviewed and relevant findings noted. Patient examined to review pertinent physical findings.: No significant changes Home Medications Reviewed: no changes noted Allergies Reviewed: no changes noted ERAS (Enhanced Recovery After Surgery): ERAS Patient: no Consent: COVID-19 Consent: COVID-19 Risk ConsentSurgeon has reviewed flynn risks related to the risk of betsy COVID-19 and if they contract COVID-19 what the risks are. Attestation: Note Completion: I am a: Resident/Fellow Attending AttestationI saw and evaluated the patient. I personally obtained the flynn and critical portions of the history and physical exam or was physically present for flynn and critical portions performed by the resident/fellow. I reviewed the resident/fellows documentation and discussed the patient with the resident/fellow. I agree with the resident/fellows medical decision making as documented in the note. I personally evaluated the patient [id number] Electronic Signatures: Isidro Hickman (Resident)) (Signed 18-Dec-2022 06:01) Authored: History & Physical Reviewed, ERAS, Consent, Note Completion Yenny Vargas) (Signed 19-Dec-2022 12:19) Authored: Note Completion Co-Signer: History & Physical Reviewed, ERAS, Consent, Note Completion Last Updated: 19-Dec-2022 12:19 by Yenny Vargas) [facility] 12-12-2022 Chief complaint Narrative - Reported An interactive audio and video telecommunication system which permits real time communications between the patient (at the originating site) and provider (at the distant site) was utilized to provide this telehealth service.Verbal consent was requested and obtained from ROSELYN FREIRE on this date, 12/12/2022 01:00 PM , for a telehealth visit.Ms. ROSELYN FREIRE is a 67 year old woman here for endonasal surgery consult for sphenoid sinus mass, referred by Dr. Abraham BREWER, [facility] . This H&P is partly from review of the patient's previous chart. ZW-Nxzhlfmdvosc-Jtrtw Work Phone: 12-01-2022 Evaluation note Encounter Date Diagnosis Assessment Notes Nov, Dysuria (ICD-10 - R30.0) Discussed diagnosis and dipstick findings with patient. Will hold off on treatment at this time. Advised patient culture was sent today and we will call with her results in 2-5 days. At time of results, treatment plan many change. In the meantime, will send in Rx of Pyridium to use as directed. Patient instructed to push fluids. Patient symptoms should improve in the next 48 hours, if symptoms persist follow up with PCP or UC. Immediate eval by ER if back or flank pain, fever, chills, N/V, or any other concerning symptoms arise. Patient verbalizes understanding and is agreeable to treatment plan [email or web address] Other [id number] NotePROCEDURE DETAILS Preoperative Diagnosis: Left sphenoid sinus mass Postoperative Diagnosis: Same Surgeon: Abraham Resident/Fellow/Other Hand Inserter Operator: MD Malika Procedure: 1. Left endoscopic sinus surgery consisting of maxillary, ethmoid, and sphenoid with tissue removal 2. Image guidance Anesthesia: GET Estimated Blood Loss: 50cc Findings: Mass of the left sphenoid-papillomatous appearing-biopsies sent, involved lateral aspect of sinus, no involvement of planum Specimens(s) Collected: yes, Left sphenoid mass Complications: None immediately apparent Additional Details: No permanent or absorbable packing placed Patient Returned To/Condition: PACU satisfactory Attestation: Note Completion: Attending AttestationI was present for flynn portions of the procedure and the procedure lasted longer than 5 minutes. I am a:Resident/Fellow Electronic Signatures: Lukasz Rosario) (Signed 16-Oct-2022 20:19) Authored: Post-Operative Note, Chart Review, Note Completion Co-Signer: Post-Operative Note, Chart Review, Note Completion Pradip Daly (Resident)) (Signed 16-Oct-2022 13:34) Authored: Post-Operative Note, Chart Review, Note Completion Last Updated: 16-Oct-2022 20:19 by Lukasz Rosario)[facility]04-17-2023 History of Present illness Edith presents for her first postoperative visit following left-sided endoscopic sinus surgery on . She's feeling well in the postoperative setting, she's doing saline rinses 3 times daily as well as saline spray regularly.[facility]-K[facility]ylhiptmkvwgm-[facility] [address] Work Phone: 1(190) 526-195304-17-2023 Miscellaneous Notes* Op Note - Pradip Daly MD - 10/16/2022 1:32 PM EDT PROCEDURE DETAILS Preoperative Diagnosis: Left sphenoid sinus mass Postoperative Diagnosis: Same Surgeon: Abraham Resident/Fellow/Other Hand Inserter Operator: MD Malika Procedure: 1. Left endoscopic sinus surgery consisting of maxillary, ethmoid, and sphenoid with tissue removal 2. Image guidance Anesthesia: GET Estimated Blood Loss: 50cc Findings: Mass of the left sphenoid-papillomatous appearing-biopsies sent, involved lateral aspect of sinus, no involvement of planum Specimens(s) Collected: yes, Left sphenoid mass Complications: None immediately apparent Additional Details: No permanent or absorbable packing placed Patient Returned To/Condition: PACU satisfactory Attestation: Note Completion: Attending Attestation I was present for flynn portions of the procedure and the procedure lasted longer than 5 minutes. I am a: Resident/Fellow Electronic Signatures: Lukasz Rosario) (Signed 16-Oct-2022 20:19) Authored: Post-Operative Note, Chart Review, Note Completion Co-Signer: Post-Operative Note, Chart Review, Note Completion Pradip Daly (Resident)) (Signed 16-Oct-2022 13:34) Authored: Post-Operative Note, Chart Review, Note Completion Last Updated: 16-Oct-2022 20:19 by Lukasz Rosario) documented in this [facility] Work Phone: 1(564) 870-256104-17-2023 Note* Op Note - Pradip Daly MD - 10/16/2022 1:32 PM EDT PROCEDURE DETAILS Preoperative Diagnosis: Left sphenoid sinus mass Postoperative Diagnosis: Same Surgeon: Abraham Resident/Fellow/Other Hand Inserter Operator: MD Malika Procedure: 1. Left endoscopic sinus surgery consisting of maxillary, ethmoid, and sphenoid with tissue removal 2. Image guidance Anesthesia: GET Estimated Blood Loss: 50cc Findings: Mass of the left sphenoid-papillomatous appearing-biopsies sent, involved lateral aspect of sinus, no involvement of planum Specimens(s) Collected: yes, Left sphenoid mass Complications: None immediately apparent Additional Details: No permanent or absorbable packing placed Patient Returned To/Condition: PACU satisfactory Attestation: Note Completion: Attending Attestation I was present for flynn portions of the procedure and the procedure lasted longer than 5 minutes. I am a: Resident/Fellow Electronic Signatures: Lukasz Rosario) (Signed 16-Oct-2022 20:19) Authored: Post-Operative Note, Chart Review, Note Completion Co-Signer: Post-Operative Note, Chart Review, Note Completion Pradip Daly (Resident)) (Signed 16-Oct-2022 13:34) Authored: Post-Operative Note, Chart Review, Note Completion Last Updated: 16-Oct-2022 20:19 by Lukasz Rosario) [facility] Work Phone: [phone]) 718-656904-17-2023 NoteHistory & Physical Reviewed: I have reviewed the History and Physical dated: 06-Oct-2022 History and Physical reviewed and relevant findings noted. Patient examined to review pertinent physical findings.: No significant changes Home Medications Reviewed: no changes noted Allergies Reviewed: no changes noted ERAS (Enhanced Recovery After Surgery): ERAS Patient: no Consent: COVID-19 Consent: COVID-19 Risk ConsentSurgeon has reviewed flynn risks related to the risk of betsy COVID-19 and if they contract COVID-19 what the risks are. Attestation: Note Completion: I am a: Resident/Fellow Attending AttestationI saw and evaluated the patient. I personally obtained the flynn and critical portions of the history and physical exam or was physically present for flynn and critical portions performed by the resident/fellow. I reviewed the resident/fellows documentation and discussed the patient with the resident/fellow. I agree with the resident/fellows medical decision making as documented in the note. I personally evaluated the patient [id number] Electronic Signatures: Lukasz Rosario) (Signed 16-Oct-2022 12:09) Authored: Note Completion Co-Signer: History & Physical Reviewed, ERAS, Consent, Note Completion Pradip Daly (Resident)) (Signed 16-Oct-2022 11:11) Authored: History & Physical Reviewed, ERAS, Consent, Note Completion Last Updated: 16-Oct-2022 12:09 by Lukasz Rosario)[facility]04-17-2023 History and physical note* Pradip Daly MD - 10/16/2022 7:39 AM EDT History & Physical Reviewed: I have reviewed the History and Physical dated: 06-Oct-2022 History and Physical reviewed and relevant findings noted. Patient examined to review pertinent physical findings.: No significant changes Home Medications Reviewed: no changes noted Allergies Reviewed: no changes noted ERAS (Enhanced Recovery After Surgery): ERAS Patient: no Consent: COVID-19 Consent: COVID-19 Risk Consent Surgeon has reviewed flynn risks related to the risk of betsy COVID-19 and if they contract COVID-19 what the risks are. Attestation: Note Completion: I am a: Resident/Fellow Attending Attestation I saw and evaluated the patient. I personally obtained the flynn and critical portions of the history and physical exam or was physically present for flynn and critical portions performed by the resident/fellow. I reviewed the resident/fellow?s documentation and discussed the patient with the resident/fellow. I agree with the resident/fellow?s medical decision making as documented in the note. I personally evaluated the patient on 16-Oct-2022 Electronic Signatures: Lukasz Rosario) (Signed 16-Oct-2022 12:09) Authored: Note Completion Co-Signer: History & Physical Reviewed, ERAS, Consent, Note Completion Pradip Daly (Resident)) (Signed 16-Oct-2022 11:11) Authored: History & Physical Reviewed, ERAS, Consent, Note Completion Last Updated: 16-Oct-2022 12:09 by Lukasz Rosario) [facility]04-17-2023 History and physical note* Pradip Daly MD - 10/16/2022 7:39 AM EDT History & Physical Reviewed: I have reviewed the History and Physical dated: 06-Oct-2022 History and Physical reviewed and relevant findings noted. Patient examined to review pertinent physical findings.: No significant changes Home Medications Reviewed: no changes noted Allergies Reviewed: no changes noted ERAS (Enhanced Recovery After Surgery): ERAS Patient: no Consent: COVID-19 Consent: COVID-19 Risk Consent Surgeon has reviewed flynn risks related to the risk of betsy COVID-19 and if they contract COVID-19 what the risks are. Attestation: Note Completion: I am a: Resident/Fellow Attending Attestation I saw and evaluated the patient. I personally obtained the flynn and critical portions of the history and physical exam or was physically present for flynn and critical portions performed by the resident/fellow. I reviewed the resident/fellow?s documentation and discussed the patient with the resident/fellow. I agree with the resident/fellow?s medical decision making as documented in the note. I personally evaluated the patient on 16-Oct-2022 Electronic Signatures: Lukasz Rosario) (Signed 16-Oct-2022 12:09) Authored: Note Completion Co-Signer: History & Physical Reviewed, ERAS, Consent, Note Completion Pradip Daly (Resident)) (Signed 16-Oct-2022 11:11) Authored: History & Physical Reviewed, ERAS, Consent, Note Completion Last Updated: 16-Oct-2022 12:09 by Lukasz Rosario) [facility] Work Phone: [phone]) 237-824006-03-2022 Evaluation + Plan note Future Scheduled Tests Radiology* US Abdomen Complete 12/02/21 [facility] 06-03-2022 Hospital Discharge instructions Patient Education 12/02/2021 09:41:16 Gastritis, Adult Gastritis, Adult Gastritis is inflammation of the stomach. There are two kinds of gastritis: Acute gastritis. This kind develops suddenly. Chronic gastritis. This kind is much more common and lasts for a long time. Gastritis happens when the lining of the stomach becomes weak or gets damaged. Without treatment, gastritis can lead to stomach bleeding and ulcers. What are the causes? This condition may be caused by: An infection. Drinking too much alcohol. Certain medicines. These include steroids, antibiotics, and some egrs-xtz-ubchcod medicines, such as aspirin or ibuprofen. Having too much acid in the stomach. A disease of the intestines or stomach. Stress. An allergic reaction. Crohn's disease. Some cancer treatments (radiation). Sometimes the cause of this condition is not known. What are the signs or symptoms? Symptoms of this condition include: Pain or a burning sensation in the upper abdomen. Nausea. Vomiting. An uncomfortable feeling of fullness after eating. Weight loss. Bad breath. Blood in your vomit or stools. In some cases, there are no symptoms. How is this diagnosed? This condition may be diagnosed with: Your medical history and a description of your symptoms. A physical exam. Tests. These can include: ?Blood tests. ?Stool tests. ?A test in which a thin, flexible instrument with a light and a camera is passed down the esophagusand into the stomach (upper endoscopy). ?A test in which a sample of tissue is taken for testing (biopsy). How is this treated? This condition may be treated with medicines. The medicines that are used vary depending on the cause of the gastritis: If the condition is caused by a bacterial infection, you may be given antibiotic medicines. If the condition is caused by too much acid in the stomach, you may be given medicines called H2 blockers, proton pump inhibitors, or antacids. Treatment may also involve stopping the use of certain medicines, such as aspirin, ibuprofen, or other NSAIDs. Follow these instructions at home: Medicines Take uzys-ooi-cdefnii and prescription medicines only as told by your health care provider. If you were prescribed an antibiotic medicine, take it as told by your health care provider. Do notstop taking the antibiotic even if you start to feel better. Eating and drinking Eat small, frequent meals instead of large meals. Avoid foods and drinks that make your symptoms worse. Drink enough fluid to keep your urine pale yellow. Alcohol use Do not drink alcohol if: ?Your health care provider tells you not to drink. ?You are , may be , or are planning to become . If you drink alcohol: ?Limit your use to: ?0 1 drink a day for women. ?0 2 drinks a day for men. ?Be aware of how much alcohol is in your drink. In the [place] one drink equals one 12 oz bottle of beer (355 mL), one 5 oz glass of wine (148 mL), or one 1 oz glass of hard liquor (44 mL). General instructions Talk with your health care provider about ways to manage stress, such as getting regular exercise or practicing deep breathing, meditation, or yoga. Do not use any products that contain nicotine or tobacco, such as cigarettes and e-cigarettes. If you need help quitting, ask your health care provider. Keep all follow-up visits as told by your health care provider. This is important. Contact a health care provider if: Your symptoms get worse. Your symptoms return after treatment. Get help right away if: You vomit blood or material that looks like coffee grounds. You have black or dark red stools. You are unable to keep fluids down. Your abdominal pain gets worse. You have a fever. You do not feel better after one week. Summary Gastritis is inflammation of the lining of the stomach that can occur suddenly (acute) or develop slowly over time (chronic). This condition is diagnosed with a medical history, a physical exam, or tests. This condition may be treated with medicines to treat infection or medicines to reduce the amount of acid in your stomach. Follow your health care provider's instructions about taking medicines, making changes to your diet, and knowing when to call for help. This information is not intended to replace advice given to you by your health care provider. Make sure you discuss any questions you have with your health care provider. Document Released: 06/12/2002 Document Revised: 11/05/2018 Document Reviewed: 11/05/2018 [employer] Patient Education 2020 [employer]. Follow Up Care 11/18/2021 11:18:39 With:Daly White CNP Address: When:3 months [facility] 05-13-2022 Hospital Discharge instructions Patient Education 11/11/2021 13:28:13 Gastritis, Adult, Miyw-kf-Umty Gastritis, Adult Gastritis is swelling (inflammation) of the stomach. Gastritis can develop quickly (acute). It can also develop slowly over time (chronic). It is important to get help for this condition. If you do not get help, your stomach can bleed, and you can get sores (ulcers) in your stomach. What are the causes? This condition may be caused by: Germs that get to your stomach. Drinking too much alcohol. Medicines you are taking. Too much acid in the stomach. A disease of the intestines or stomach. Stress. An allergic reaction. Crohn's disease. Some cancer treatments (radiation). Sometimes the cause of this condition is not known. What are the signs or symptoms? Symptoms of this condition include: Pain in your stomach. A burning feeling in your stomach. Feeling sick to your stomach (nauseous). Throwing up (vomiting). Feeling too full after you eat. Weight loss. Bad breath. Throwing up blood. Blood in your poop (stool). How is this diagnosed? This condition may be diagnosed with: Your medical history and symptoms. A physical exam. Tests. These can include: ?Blood tests. ?Stool tests. ?A procedure to look inside your stomach (upper endoscopy). ?A test in which a sample of tissue is taken for testing (biopsy). How is this treated? Treatment for this condition depends on what caused it. You may be given: Antibiotic medicine, if your condition was caused by germs. H2 blockers and similar medicines, if your condition was caused by too much acid. Follow these instructions at home: Medicines Take axqu-zvs-kqzcdgf and prescription medicines only as told by your doctor. If you were prescribed an antibiotic medicine, take it as told by your doctor. Do not stop taking it even if you start to feel better. Eating and drinking Eat small meals often, instead of large meals. Avoid foods and drinks that make your symptoms worse. Drink enough fluid to keep your pee (urine) pale yellow. Alcohol use Do not drink alcohol if: ?Your doctor tells you not to drink. ?You are , may be , or are planning to become . If you drink alcohol: ?Limit your use to: ?0 1 drink a day for women. ?0 2 drinks a day for men. ?Be aware of how much alcohol is in your drink. In the [place] one drink equals one 12 oz bottle of beer (355 mL), one 5 oz glass of wine (148 mL), or one 1 oz glass of hard liquor (44 mL). General instructions Talk with your doctor about ways to manage stress. You can exercise or do deep breathing, meditation, or yoga. Do not smoke or use products that have nicotine or tobacco. If you need help quitting, ask your doctor. Keep all follow-up visits as told by your doctor. This is important. Contact a doctor if: Your symptoms get worse. Your symptoms go away and then come back. Get help right away if: You throw up blood or something that looks like coffee grounds. You have black or dark red poop. You throw up any time you try to drink fluids. Your stomach pain gets worse. You have a fever. You do not feel better after one week. Summary Gastritis is swelling (inflammation) of the stomach. You must get help for this condition. If you do not get help, your stomach can bleed, and you can get sores (ulcers). This condition is diagnosed with medical history, physical exam, or tests. You can be treated with medicines for germs or medicines to block too much acid in your stomach. This information is not intended to replace advice given to you by your health care provider. Make sure you discuss any questions you have with your health care provider. Document Released: 12/04/2008 Document Revised: 11/05/2018 Document Reviewed: 11/05/2018 [employer] Patient Education 2020 [employer]. 11/11/2021 13:28:13 Endoscopy, Care After Procedure [facility] [place] Endoscopy Care After Procedure Please read the instructions outlined below and refer to this sheet in the next few weeks. These discharge instructions provide you with general information on caring for [facility] Your doctor may also give you specific instructions. While your treatment has been planned according to the most current medical practices available, unavoidable complications occasionally occur. If you have any problems or questions after discharge, please call your doctor. ACTIVITY You may resume your regular activity but move at a slower pace for the next 24 hours. Take frequent rest periods for the next 24 hours. Walking will help expel (get rid of) the air and reduce the bloated feeling in your abdomen. No driving for 24 hours (because of the anesthesia (medicine) used during the test). You may shower. Do not sign any important legal documents or operate any machinery for 24 hours (because of the anesthesia used during the test). NUTRITION Drink plenty of fluids. You may resume your normal diet. Begin with a light meal and progress to your normal diet. Avoid alcoholic beverages for 24 hours or as instructed by your caregiver. MEDICATIONS You may resume your normal medications unless your caregiver tells you otherwise. WHAT YOU CAN EXPECT TODAY You may experience abdominal discomfort such as a feeling of fullness or gas pains. FOLLOW-UP Your doctor will discuss the results of your test with you. SEEK IMMEDIATE MEDICAL ATTENTION IF ANY OF THE FOLLOWING OCCUR: Excessive nausea (feeling sick to your stomach) and/or vomiting. Severe abdominal pain and distention (swelling). Trouble swallowing. Temperature over 100 F (37.8 C). Rectal bleeding or vomiting of blood. Document Released: 01/30/2005 Document Re-Released: 12/10/2006 [employer] Patient Information 2010 [employer]. 11/11/2021 13:28:13 Diverticulosis [facility] (CUSTOM) Diverticulosis Many people have small pouches in their colon called diverticulum. The diverticulum bulge outward through weak spots in the colon. You could have one or more of these pouches in the colon. The condition of having these pouches in the colon is called diverticulosis or diverticular disease. Diverticulosis is usually diagnosed by tests to evaluate something else. For example, you may have had a colonoscopy to screen for colon cancer when the diverticulosis was found. Most people with diverticulosis do not have any discomfort or problems. If symptoms develop, they may include mild cramps, bloating, and constipation. A complication of this condition is called diverticulitis. This is when the diverticulum become inflamed and infected. How to treat diverticulosis: Increasing the amount of fiber in the diet may reduce symptoms of diverticulosis and prevent complications such as diverticulitis (infected diverticuli). Fiber keeps stool soft and lowers pressure inside the colon so that bowel contents can move througheasily. You should eat 20 to 35 grams of fiber each day. The table below shows the amount of fiber in some foods that you can easily add to your diet. Adding fiber slowly may decrease the bloating and fullness sometimes felt with an immediate high fiber diet. The doctor may also recommend taking a fiber product such as Citrucel or Metamucil once a day. In the past people with diverticulosis were to avoid nuts, corn, and seeds. This has not been foundto be true. If you find that certain foods create cramping or bloating, avoid that food. Foods high in fiber include: Fresh fruits, fresh vegetables, legumes (beans), whole wheat bread, bran muffins or cereal, and nuts. See the table below for examples of high fiber foods. Remember, your goal is 20- 35 grams per day. Amount of fiber in different foods Food Serving Grams of fiber Fruits Apple (with skin) 1 medium apple 4.4 Banana 1 medium banana 3.1 Oranges 1 orange 3.1 Prunes 1 cup, pitted 12.4 Juices Apple, unsweetened, w/added ascorbic acid 1 cup 0.5 Grapefruit, white, canned, sweetened 1 cup 0.2 Grape, unsweetened, w/added ascorbic acid 1 cup 0.5 [place] 1 cup 0.7 Vegetables Cooked Green beans 1 cup 4.0 Carrots 1/2 cup sliced 2.3 Peas 1 cup 8.8 Potato (baked, with skin) 1 medium potato 3.8 Raw [place] (with peel) 1 cucumber 1.5 Lettuce 1 cup shredded 0.5 Tomato 1 medium tomato 1.5 Spinach 1 cup 0.7 Legumes Baked beans, canned, no salt added 1 cup 13.9 Kidney beans, canned 1 cup 13.6 [place] beans, canned 1 cup 11.6 Lentils, boiled 1 cup 15.6 Breads, pastas, flours Bran muffins 1 medium muffin 5.2 Oatmeal, cooked 1 cup 4.0 White bread 1 slice 0.6 Whole-wheat bread 1 slice 1.9 Pasta and rice, cooked Macaroni 1 cup 2.5 Rice, brown 1 cup 3.5 Rice, white 1 cup 0.6 Spaghetti (regular) 1 cup 2.5 Nuts Almonds 1/2 cup 8.7 Peanuts 1/2 cup 7.9 Chart from [facility] 2013. SEEK IMMEDIATE MEDICAL CARE IF: You develop abdominal (belly) pain. An oral temperature above _ 101 F__develops. Repeated vomiting occurs. Blood is being passed in stools (bright red or black tarry stools). You develop any bowel problems or changes which you have not had before. Extra Information: To learn how much fiber and other nutrients are in different foods, visit the [place] Department of Agriculture (USDA) National Nutrient Database at: http://www.nal.usda.gov/fnic/foodcomp/search/ Created using data from the USDA National Nutrient Database for Standard Reference. Available at http://www.nal.usda.gov/fnic/foodcomp/search/. Information adapted from: [facility] Patient Information 2009 SR [employer]. [employer] 2012 http://www.ImmunoGen/contents/flapzbfgxqtk-qwigxoz-wbnkre-the-basics 11/11/2021 13:28:13 Colonoscopy, Care After Surgery [facility] (CUSTOM) Colonoscopy Care After Surgery Please read the instructions outlined below and refer to this sheet in the next few weeks. These discharge instructions provide you with general information on caring for yourself after [facility] leave [facility]. Your doctor may also give you specific instructions. While your treatment has been planned according to the most current medical practices available, unavoidable complications occasionally occur. If you have any problems or questions after discharge, please call your doctor. ACTIVITY You may resume your regular activity, but move at a slower pace for the next 24 hours. Take frequent rest periods for the next 24 hours. Walking will help get rid of the air and reduce the bloated feeling in your abdomen (belly). No driving for 24 hours (because of the anesthesia (medicine) used during the test). You may shower. Do not sign any important legal documents or operate any machinery for 24 hours (because of the anesthesia used during the test). NUTRITION Drink plenty of fluids. You may resume your normal diet as instructed by your doctor. Begin with a light meal and progress to your normal diet. Heavy or fried foods are harder to digestand may make you feel nauseated (sick to your stomach). Avoid alcoholic beverages for 24 hours or as instructed. MEDICATIONS You may resume your normal medications unless your doctor tells you otherwise. WHAT YOU CAN EXPECT TODAY Some feelings of bloating in the abdomen. Passage of more gas than usual. Spotting of blood in your stool or on the toilet paper. FOLLOW-UP Your doctor will discuss the results of your test with you. SEEK IMMEDIATE MEDICAL ATTENTION IF: There is more than a spotting of blood in your stool. There is abdominal distention (your abdomen is swollen). There is vomiting. You have a temperature over 101.5 F. There is abdominal pain or discomfort that is severe or gets worse throughout the day. Follow Up Care 10/04/2021 12:41:14 With:Liana ROJAS Address: [address] [place] [address] Business (1) When:1 to 2 weeks Comments:Call for any problems. [facility]05-13-2022 Evaluation + Plan noteExtracted from: Title:Post-anesthesia - General Author:Alejandro Sanchez DO Date:11/11/21 Plan Transfer/ Discharge: Condition stable. Extracted from: Title:Pre-anesthesia - Endoscopy Author:Alejandro Oviedo Jr., DO Date:11/11/21 Plan [place] [employer] Anesthesiologists (ASA) physical status classification: Class III. Anesthetic Preoperative Plan Anesthesia: General. . Anesthetic plan, risks, benefits, and alternatives discussed with the patient and/or family. Patient verbalized understanding. [facility] [place]04-05-2022 Hospital Discharge instructions Patient Education 10/04/2021 11:48:11 Colonoscopy, Adult Colonoscopy, Adult A colonoscopy is an exam to look at the entire large intestine. During the exam, a lubricated, flexible tube that has a camera on the end of it is inserted into the anus and then passed into the rectum, colon, and other parts of the large intestine. You may have a colonoscopy as a part of normal colorectal screening or if you have certain symptoms, such as: Lack of red blood cells (anemia). Diarrhea that does not go away. Abdominal pain. Blood in your stool (feces). A colonoscopy can help screen for and diagnose medical problems, including: Tumors. Polyps. Inflammation. Areas of bleeding. Tell a health care provider about: Any allergies you have. All medicines you are taking, including vitamins, herbs, eye drops, creams, and tqts-myk-avghrom medicines. Any problems you or family members have had with anesthetic medicines. Any blood disorders you have. Any surgeries you have had. Any medical conditions you have. Any problems you have had passing stool. What are the risks? Generally, this is a safe procedure. However, problems may occur, including: Bleeding. A tear in the intestine. A reaction to medicines given during the exam. Infection (rare). What happens before the procedure? Eating and drinking restrictions Follow instructions from your health care provider about eating and drinking, which may include: A few days before the procedure follow a low-fiber diet. Avoid nuts, seeds, dried fruit, raw fruits, and vegetables. 1 3 days before the procedure follow a clear liquid diet. Drink only clear liquids, such as clear broth or bouillon, black coffee or tea, clear juice, clear soft drinks or sports drinks, gelatin dessert, and popsicles. Avoid any liquids that contain red or purple dye. On the day of the procedure do not eat or drink anything starting 2 hours before the procedure, or within the time period that your health care provider recommends. Up to 2 hours before the procedure, you may continue to drink clear liquids, such as water or clear fruit juice. Bowel prep If you were prescribed an oral bowel prep to clean out your colon: Take it as told by your health care provider. Starting the day before your procedure, you will needto drink a large amount of medicated liquid. The liquid will cause you to have multiple loose stools until your stool is almost clear or light green. If your skin or anus gets irritated from diarrhea, you may use these to relieve the irritation: ?Medicated wipes, such as adult wet wipes with aloe and vitamin E. ?A skin-soothing product like petroleum jelly. If you vomit while drinking the bowel prep, take a break for up to 60 minutes and then begin the bowel prep again. If vomiting continues and you cannot take the bowel prep without vomiting, call yourhealth care provider. To clean out your colon, you may also be given: ?Laxative medicines. ?Instructions about how to use an enema. General instructions Ask your health care provider about: ?Changing or stopping your regular medicines or supplements. This is especially important if you are taking iron supplements, diabetes medicines, or blood thinners. ?Taking medicines such as aspirin and ibuprofen. These medicines can thin your blood. Do not take these medicines before the procedure if your health care provider tells you not to. Plan to have someone take you home from the hospital or clinic. What happens during the procedure? An IV may be inserted into one of your veins. You will be given medicine to help you relax (sedative). To reduce your risk of infection: ?Your health care team will wash or sanitize their hands. ?Your anal area will be washed with soap. You will be asked to lie on your side with your knees bent. Your health care provider will lubricate a long, thin, flexible tube. The tube will have a camera and a light on the end. The tube will be inserted into your anus. The tube will be gently eased through your rectum and colon. Air will be delivered into your colon to keep it open. You may feel some pressure or cramping. The camera will be used to take images during the procedure. A small tissue sample may be removed to be examined under a microscope (biopsy). If small polyps are found, your health care provider may remove them and have them checked for cancer cells. When the exam is done, the tube will be removed. The procedure may vary among health care providers and hospitals. What happens after the procedure? Your blood pressure, heart rate, breathing rate, and blood oxygen level will be monitored until themedicines you were given have worn off. Do not drive for 24 hours after the exam. You may have a small amount of blood in your stool. You may pass gas and have mild abdominal cramping or bloating due to the air that was used to inflate your colon during the exam. It is up to you to get the results of your procedure. Ask your health care provider, or the department performing the procedure, when your results will be ready. Summary A colonoscopy is an exam to look at the entire large intestine. During a colonoscopy, a lubricated, flexible tube with a camera on the end of it is inserted into the anus and then passed into the colon and other parts of the large intestine. Follow instructions from your health care provider about eating and drinking before the procedure. If you were prescribed an oral bowel prep to clean out your colon, take it as told by your health care provider. After your procedure, your blood pressure, heart rate, breathing rate, and blood oxygen level will be monitored until the medicines you were given have worn off. This information is not intended to replace advice given to you by your health care provider. Make sure you discuss any questions you have with your health care provider. Document Released: 06/15/2001 Document Revised: 04/10/2018 Document Reviewed: 08/29/2016 [employer] Patient Education 2020 [employer]. Follow Up Care 09/22/2021 08:53:50 With:Daly White CNP Address: When:2 to 4 weeks [facility] Evaluation + Plan note Future Appointments Appointment Date:11/11/2021 12:40:00 PM Scheduled Provider: Location:[facility] Appointment Type:Surgery FT [facility] Evaluation + Plan note Future Appointments Appointment Date:12/16/2021 08:00:00 AM Scheduled Provider: Location:.[facility] Appointment Type:CT Abdomen/Pelvis Combo () Appointment Date:03/07/2022 12:20:00 PM Scheduled Provider:Daly White CNP Location[place] Type:[facility] Follow Up Future Scheduled Tests Radiology* CT Abdomen/Pelvis w/ Contrast [facility] Future Appointments Appointment Date:09/04/2023 07:45:00 AM Scheduled Provider:Tay BHAT MD Location[place] [place] Appointment Type:URO Procedure 15 min [facility] evaluation + Plan note Future Appointments Appointment Date:09/04/2023 03:15:00 PM Scheduled Provider:Tay BHAT MD Location:[facility] [place] Appointment Type:URO Procedure 15 min [facility] note[facility] assessment information available [facility] Work Phone: Evalufxrto noteNo InformationNoCoatesville [facility] [employer] Other evaluwcben note* Diagnosis Neoplasm of unspecified behavior of bone, soft tissue, and skin Chronic sphenoidal sinusitis Benign neoplasm of middle ear, nasal cavity and accessory sinuses Benign neoplasm of nasal cavities, middle ear, and accessory sinuses Essential (primary) hypertension Unspecified essential hypertension Obstructive sleep apnea (adult) (pediatric) Malignant neoplasm of unspecified part of unspecified bronchus or lung (CMS/HCC) Anxiety disorder, unspecified Depression, unspecified Unspecified viral hepatitis C without hepatic coma 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 documented in this encounter [facility] Work Phone: Evaluation note* Diagnosis Chronic sphenoidal sinusitis- Primary Decreased sense of smell 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 Epistaxis documented in this encounter [facility] Work Phone: History general Narrative - Reported* Type Description Date Medical History HTN Medical History History of Lung Cancer Medical History History of Hepatitis C Medical History anxiety Medical History 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 Noah Dolan for left sinus mass. * The symptoms are persistent and have been present for 3 months. * Main Symptoms: * Patient does not have anterior nasal drainage. * Patient has posterior nasal drainage. improves with sprays. * Patient does not have nasal airway obstruction. * Patient does not have facial pain. * Patient does not have facial pressure. * Patient does not have decreased sense of smell. * Associated Symptoms: * Patient has headaches. left cheondoism, new over last 12 months. * Patient has throat clearing. improves with sprays. * Patient does not have coughing. * Patient does not have dysphonia. * Patient does not have nasal bleeding. mild left-sided, cleared large clot 3 days ago. * Medications currently on for sinonasal symptoms Flonase/Fluticasone 1 spray in each nostril once per day and Azelastine 1 spray in each nostril once per day. * Medications tried in the past for sinonasal symptoms. * Augmentin. * Other Pertinent Medical Conditions: * Patient does not have asthma. * Patient does not have aspirin sensitivity. * Patient does not have migraines. * Patient does not have history of sinus surgery. history of septoplasty and uvulopalatopharyngoplasty (UPPP). * Patient has not had a nasal fracture. * The patient has had imaging of sinuses, If yes, 08/31/22 and 09/23/22, both MRI Head. * Roselyn presents to me as a new patient for a left sinus mass. She initially started to have a eye pulsating sensation on the left with increased eye watering in July of 2022, this prompted her evaluation. The eye pulsating intensifies with exercise. He also has some left eye blurred vision that st arted after the pulsation, she's not had ophthalmologic evaluation since the blurry vision started. * History of septoplasty and uvulopalatopharyngoplasty. CR-Cqhtchlntppiza-XhkoyujTrinity [facility] Work Phone: History of Present illness Narrative* Reason for visit: * ROSELYN FREIRE presents to the Otolaryngology Clinic in consultation at the request of Dr. Noah Dolan for left sinus mass. * The symptoms are persistent and have been present for 3 months. * Main Symptoms: * Patient does not have anterior nasal drainage. * Patient has posterior nasal drainage. improves with sprays. * Patient does not have nasal airway obstruction. * Patient does not have facial pain. * Patient does not have facial pressure. * Patient does not have decreased sense of smell. * Associated Symptoms: * Patient has headaches. left cheondoism, new over last 12 months. * Patient has throat clearing. improves with sprays. * Patient does not have coughing. * Patient does not have dysphonia. * Patient has nasal bleeding. mild left-sided, cleared large clot 3 days ago. * Medications currently on for sinonasal symptoms Flonase/Fluticasone 1 spray in each nostril once per day and Azelastine 1 spray in each nostril once per day. * Medications tried in the past for sinonasal symptoms. * Augmentin. * Other Pertinent Medical Conditions: * Patient does not have asthma. * Patient does not have aspirin sensitivity. * Patient does not have migraines. * Patient does not have history of sinus surgery. history of septoplasty and uvulopalatopharyngoplasty (UPPP). * Patient has not had a nasal fracture. * The patient has had imaging of sinuses, If yes, 08/31/22 and 09/23/22, both MRI Head. * Roselyn presents to me in consultation through Dr. Dolan for a left sphenoid mass. She started to have left eye pulsing and increased epiphora in July 2022 and imaging was obtained demonstrating a lesion in the left sphenoid. There was concern that it could be highly vascular so an MRI was obtained. Given the findings on imaging she was asked to see me for further options. * In regard to the left eye pulsing, this seems to worsen with exercise. She has noticed some vision change on the left but has not yet seen ophthalmology since the vision changes began. * She has a prior history of both septoplasty and UPPP. * Past medical history: Hepatitis C, history of lung cancer s/p resection * Social history: Former smoker * Family history: Diabetes BM-Ezfzrjvgrengxc-GgsioovSan[facility] [address] Work Phone: History of Present illness NarrativeRoselyn presents for her second postoperative visit. She continues to rinse twice daily. She scheduled to meet with Dr. Vargas in 1 month.JE-Yaptzknctiwcae-IqanvngOhioHealth [facility] Work Phone: History of Present illness NarrativeRoselyn presents today for second postoperative evaluation. She is rinsing her nose twice per day. She is scheduled to see my neurosurgery partner, Dr. Vargas, in a few weeks. She has done very well sinceher last assessment.KE-Hhejucxcyqnvvl-Sxvhdjhc Work Phone: History of Present illness NarrativeMs. ROSELYN FREIRE is a very nice 67 year year old woman with history of post-nasal drainage, headaches, sensation of left eye pulsation, increased watering, and blurry vision at times who was found to have a left sphenoid sinus mass. 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 She is scheduled to have endoscopic endonasal resectionof this mass on 12/18/2022.GC-Oxcsjpfbgwag-Biysk Work Phone: Hospital course Narrative No data available for this section [facility] Discharge instructions No data available for this section [facility] No data available for this section [facility] Summary Purpose Family History No Family History Records Found Relationship Condition Age at Onset Recorded Date/T enrique father Heart disease Unknown Unknown sister Heart disease Unknown Advance Directives No Advanced Directives Records Found Advance Directive Response Recorded Date/ Time Advance Directives No November 07, 2017 4:39pm Chief Complaint and Reason for Visit Chief Complaint J34.89 Mass of Sphen oid sinus Chief Complaint J34.89 Mass of Sphen oid sinus J34.89 Chief Complaint R19.00 Chief Complaint left sinus massLeft sphenoid mass* 1. Left sphenoid sinus mass * 2. Sensation of left eye pulsation, increased watering, and blurry vision * 3. Posterior nasal drainage * 4. Headaches * 5. Adenocarcinoma of left lung s/p lobectomy in 2011 * 6. History of left thyroid lobectomy * 1. Left sphenoid inverted papilloma * 2. Sensation of left eye pulsation, increased watering, and blurry vision * 3. Posterior nasal drainage * 4. Headaches * 5. Adenocarcinoma of left lung s/p lobectomy in 2011 * 6. History of left thyroid lobectomy * 1. Left sphenoid inverted papilloma * 2. Sensation of left eye pulsation, increased watering, and blurry vision * 3. Posterior nasal drainage * 4. Headaches * 5. Adenocarcinoma of left lung s/p lobectomy in 2011 * 6. History of left thyroid lobectomy * 1. Left sphenoid inverted papilloma * 2. Sensation of left eye pulsation, increased watering, and blurry vision * 3. Posterior nasal drainage * 4. Headaches * 5. Adenocarcinoma of left lung s/p lobectomy in 2011 * 6. History of left thyroid lobectomy * 1. Left sphenoid inverted papilloma s/p endoscopic endonasal resection 12/18/22 * 2. Sensation of left eye pulsation, increased watering, and blurry vision * 3. Posterior nasal drainage * 4. Headaches * 5. Adenocarcinoma of left lung s/p lobectomy in 2011 * 6. History of left thyroid lobectomy Additional Source Comments INFORMATION SOURCE (unrecogn ized section and content) DATE CREATED AUTHOR 08/12/2021 [facility] dical Specialist DATE CREATED AUTHOR AUTHOR'S ORGANIZ ATION 12/11/2022 [facility] DATE CREATED AUTHOR AUTHOR'S ORGANIZ ATION 12/28/2022 [employer] DATE CREATED AUTHOR AUTHOR'S ORGANIZ ATION 03/06/2023 [facility] DATE CREATED AUTHOR AUTHOR'S ORGANIZ ATION 09/21/2023 [facility] DATE CREATED AUTHOR AUTHOR'S ORGANIZ ATION 10/02/2023 [facility] DATE CREATED AUTHOR AUTHOR'S ORGANIZ ATION 10/30/2023 [facility] dical Specialists EPIC DATE CREATED AUTHOR AUTHOR'S ORGANIZ ATION 11/26/2023 [facility] DATE CREATED AUTHOR AUTHOR'S ORGANIZ ATION 12/02/2023 [facility] Care Team (unrecognized sect ion and content) Team Status: Active Member Role Status Dates Charles Arambula MD Primary Care Provider Active Team Status: Inactive Member Role Status Dates Charles Arambula MD Primary Care Provider Active Noah Dolan DO Attending Provider Active Team Status: Inactive Member Role Status Dates Gely Cortez APRN Attending Provider Active Nutrition Worker Relationship Specialty Start Date End Date Charles Arambula MD [address] [place] [address] PCP - General 09/28/22 Team Status: Inactive Member Role Status Dates Rebeca Mason MD Attending Provider Active St art: September 14, 2023 End: September 14, 2023 Charles Arambula MD Primary Care Provider Active Start: September 14, 2023 End: September 14, 2023 Nutrition Worker Relationship Specialty Start Date End Date Charles Arambula MD [address] [place] [address] PCP - General 09/28/22 Goals (unrecognized section and content) Goals may be documented in a n alternate section REASON FOR VISIT (unrecogniz ed section and content) Reason Comments Other Left endoscopic sinu s surgery with image guidance Reason Comments Follow-up FOR RECORDS PERTAINING TO PATIENTS WHO ARE OR HAVE BEEN ENROLLED IN A CHEMICAL DEPENDENCY/SUBSTANCEABUSE PROGRAM, SOME INFORMATION MAY BE OMITTED. This clinical summary was aggregated from multiple sources. Caution should be exercised in using it in the provision of clinical care. This summary normalizes information from multiple sources, and as a consequence, information in this document may materially change the coding, format and clinical context of patient data. In addition, data may be omitted in some cases. CLINICAL DECISIONS SHOULD BE BASED ON THE PRIMARY CLINICAL RECORDS. [facility] [employer] [facility]. provides no warranty or guarantee of the accuracy or completeness of information in this document.
== END 2023-12-26 20:00 | disposition home or self-care (01) ==
LOC: SLEEP 20:00
PROVIDERS: PCP Family Medicine; Visit Provider Family Medicine
DX: G47.33 Obstructive sleep apnea (adult) (pediatric) (principal)
CPT/HCPCS: 95811

== ENCOUNTER 2024-05-26 07:37 | Outpatient (OUT) | payer MEDICARE, OTHER, SELFPAY ==
--- NOTE | 2024-05-26 07:49 | CT_ITS ---
The [address] [address] Patient Name: CARON FREIRE MRN: [id number] date: 1955 Sex: F Assigned Patient Location: LAB Current Patient Location: LAB Accession/Order Number: [id number] Exam Date: 05/26/2024 08:45 Report Date: 05/26/2024 10:25 At the request of: CHARLES ARAMBULA Procedure: CT angio neck CT angio head, CT angio neck, 05/26/2024 8:45 AM EST INDICATION: Carotid Bruit COMPARISON: Prior CT of the neck dated 12/03/2019 TECHNIQUE: Pre and postcontrast enhanced CT angiography of the head and neck were acquired with contrast .3 D MIP images were reconstructed in sagittal and coronal format at the scanner and were evaluated at the time of dictation. Dose reduction techniques were achieved by using automated exposure control and/or adjustment of mA and/or kV according to patient size and/or use of iterative reconstruction technique. FINDINGS: The great vessels enhance normally. No filling defects are identified within the carotid arteries. There is no stenosis at the origin of the left internal carotid artery. Mild stenosis at origin of the right internal carotid artery is noted. No abnormality of [place] is noted. The TRAE MCA and ASSISTED LIVING ASSOCIATE are unremarkable. The anterior and posterior communicating arteries are patent. There is no aneurysm or significant stenosis. No abnormality of the vertebral and basilar arteries is noted. No mass, mass effect or midline shift or hemorrhage in the brain parenchyma is noted. No significant soft tissue abnormality within the neck is noted. Status post left hemithyroidectomy. Small nodules with the right thyroid lobe measuring up to 9 mm. The visualized portion of the lungs is unremarkable. There is some opacification within the sphenoid sinus. Postoperative changes within the left maxillary sinus and ethmoidal cells and sphenoid sinus are noted. Mild mucosal thickening within the maxillary sinuses is noted. No suspicious bone lesion is noted. Multilevel degenerative changes of cervical spine. There is diffuse demineralization of bone. CT/CT angio neck IMPRESSION: No CT evidence of embolus or severe stenosis or dissection in the major arteries in the current study. Small right thyroid nodules. Given the age of the patient and size of the nodule, no further follow-up is recommended per [employer]. Degree of stenosis in the cervical segment of the internal carotid arteries by NASCET criteria : Mild = <50% stenosis. Moderate = 50-69% stenosis. Severe = >70% stenosis to 99%. Total occlusion= No detectable patent lumen. Electronically authenticated by: POLY SANTILLAN Date: 05/26/2024 10:25
--- NOTE | 2024-05-26 07:49 | CT_ITS ---
The [address] [address] Patient Name: CARON FREIRE MRN: [id number] date: 1955 Sex: F Assigned Patient Location: LAB Current Patient Location: LAB Accession/Order Number: [id number] Exam Date: 05/26/2024 08:45 Report Date: 05/26/2024 10:25 At the request of: CHARLES ARAMBULA Procedure: CT angio head CT angio head, CT angio neck, 05/26/2024 8:45 AM EST INDICATION: Carotid Bruit COMPARISON: Prior CT of the neck dated 12/03/2019 TECHNIQUE: Pre and postcontrast enhanced CT angiography of the head and neck were acquired with contrast .3 D MIP images were reconstructed in sagittal and coronal format at the scanner and were evaluated at the time of dictation. Dose reduction techniques were achieved by using automated exposure control and/or adjustment of mA and/or kV according to patient size and/or use of iterative reconstruction technique. FINDINGS: The great vessels enhance normally. No filling defects are identified within the carotid arteries. There is no stenosis at the origin of the left internal carotid artery. Mild stenosis at origin of the right internal carotid artery is noted. No abnormality of [place] is noted. The TRAE MCA and CHANGE NUMBER OPERATOR are unremarkable. The anterior and posterior communicating arteries are patent. There is no aneurysm or significant stenosis. No abnormality of the vertebral and basilar arteries is noted. No mass, mass effect or midline shift or hemorrhage in the brain parenchyma is noted. No significant soft tissue abnormality within the neck is noted. Status post left hemithyroidectomy. Small nodules with the right thyroid lobe measuring up to 9 mm. The visualized portion of the lungs is unremarkable. There is some opacification within the sphenoid sinus. Postoperative changes within the left maxillary sinus and ethmoidal cells and sphenoid sinus are noted. Mild mucosal thickening within the maxillary sinuses is noted. No suspicious bone lesion is noted. Multilevel degenerative changes of cervical spine. There is diffuse demineralization of bone. CT/CT angio head IMPRESSION: No CT evidence of embolus or severe stenosis or dissection in the major arteries in the current study. Small right thyroid nodules. Given the age of the patient and size of the nodule, no further follow-up is recommended per [employer]. Degree of stenosis in the cervical segment of the internal carotid arteries by NASCET criteria : Mild = <50% stenosis. Moderate = 50-69% stenosis. Severe = >70% stenosis to 99%. Total occlusion= No detectable patent lumen. Electronically authenticated by: POLY SANTILLAN Date: 05/26/2024 10:25
[2024-05-26 07:58] LABS: Estimated GFR (African America >60 (>=60 mL/min/1.73m^2); Estimated GFR (Non-African Ame >60 (>=60 mL/min/1.73m^2)
== END 2024-05-26 07:38 | disposition home or self-care (01) ==
LOC: LAB 07:37
PROVIDERS: PCP Family Medicine; Visit Provider Family Medicine
DX: R09.89 Other specified symptoms and signs involving the circulatory and respiratory systems (principal); R10.30 Lower abdominal pain, unspecified
CPT/HCPCS: 36415; 70496; 70498; 82565; Q9967

== ENCOUNTER 2024-06-20 07:53 | Outpatient (OUT) | payer MEDICARE, OTHER, SELFPAY ==
--- NOTE | 2024-06-20 07:57 | MR_ITS ---
The [address] [address] Patient Name: CARON FREIRE MRN: [id number] date: 1955 Sex: F Assigned Patient Location: MRI Current Patient Location: MRI Accession/Order Number: [id number] Exam Date: 06/20/2024 08:10 Report Date: 06/20/2024 09:58 At the request of: CHARLES ARAMBULA Procedure: MR head/brain wo con MR head/brain wo con, 06/20/2024 8:10 AM EST INDICATION: Throbbing Headache COMPARISON: Prior CT of sinus dated 11/22/2022 TECHNIQUE: Multiplanar, multisequential MRI images of brain were obtained without injection of contrast. FINDINGS: The cerebral sulci as well as ventricular system are appropriate for age. There is no restricted diffusion. Hyperintensities on T2 and FLAIR images in the otero radiata and centrum semiovale with sparing of U fibers are nonspecific, statistically most likely consistent with microvascular ischemic changes or migraine or both. There is no intracranial mass, mass effect, midline shift, intra or extra-axial fluid collection or large hemorrhage. Normal flow-void in the intracranial vessels is noted. There is status post left lens replacement. Postoperative changes within the paranasal sinuses is noted. There is mucosal thickening within the right-sided sphenoid sinus. The visualized portions of orbits, mastoid air cells are unremarkable. MR/MR head/brain wo con IMPRESSION: No acute intracranial process is noted. Electronically authenticated by: POLY SANTILLAN Date: 06/20/2024 09:58
--- OUTSIDE RECORDS SUMMARY | 2024-06-20 07:58 | XMS_ITS | CCD ---
Author Organization [facility] Care Team Providers Care Military Personnel Specialist Name Role Phone Charles Arambula Primary Care Physician MD Charles Arambula Primary Care Provider [phone] Noah Dolan Attending Provider [phone] Charles Arambula Unavailable Unavailable Unavailable MARILEE Cortez [...] Unavailable HOY ., DR SOTO Admitting Unavailable LC HERNANDEZ Consulting Unavailable MISC, DR ALSTON Admitting Unavailable [...] ABRAHAM, MD LUKASZ VOGT Referring Unav ailable Hoy, Dr. Charles Lubin Primary [...] Dr. Charles Lubin Primary Care Unavail able Hoy, Dr. Charles Lubin Primary Care Unavail able ABRAHAM, MD LUKASZ VOGT Attending Unav ailable [...] Charles Arambula MD Primary Care Provider [phone] MD Rebeca Mason Attending Provider MD Charles Arambula Primary Care Provider [phone] Rebeca Mason Admitting Unavailable Rebeca Mason Attending Unavailable Charles Arambula Primary Care Unavailable Charles Arambula Primary Care Unavailable Noah Dolan Admitting Unavailable Noah Dolan Attending Unavailable NO FAMILY, PHYSICIAN Primary Care Unavailable Gely Cortez Admitting Unavailable Gely Cortez Attending Unavailable Orzech, Torri X Attending Unavailable Orzech, Torri X Referring Unavailable Orzech Torri X Attending Unavailable Orzech, Torri X Admitting Unavailable Oneal Cornelius Attending Unavailable Tay BHAT Attending Unavailable Oneal Cornelius Attending Unavailable Charles Arambula MD Primary Care Provider [phone] Charles Arambula MD Primary Care Provider [phone] Jyoti Pedro Attending Unavailable Jyoti Pedro Attending Unavailable LUZ MARIA PARISI Attending Unavailable CAROL RAWLS Referring Unavailable CHARLES ARAMBULA Primary Care Unavailable LUZ MARIA PARISI Attending Unavailable CAROL RAWLS Referring Unavailable CHARLES ARAMBULA Primary Care Unavailable JENNIFER STRAUSS Attending Unavailable CHARLES ARAMBULA Primary Care Unavailable CAROL RAWLS Attending Unavailable REBECA MASON Referring Unavailable CHARLES ARAMBULA Primary Care Unavailable GABRIEL HUERTA Attending Unavailable REBECA MASON Attending Unavailable REBECA MASON Referring Unavailable TRISTAN WARD Attending Unavailable SITA PEREZ Referring Unavailable REBECA MASON Attending Unavailable KENNEDY JIM Attending Unavailable JERMAINE BARTON Attending Unavailable KENNEDY JIM Attending Unavailable TRISTAN WARD Attending Unavailable SITA PEREZ Referring Unavailable TRISTAN WARD Attending Unavailable TRISTAN WARD Attending Unavailable LUKASZ ROSARIO Attending Unavailable CHARLES ARAMBULA Primary Care Unavailable LUKASZ ROSARIO Attending Unavailable CHARLES ARAMBULA Primary Care Unavailable LUKASZ ROSARIO Attending Unavailable CHARLES ARAMBULA Primary Care Unavailable Allergies Allergy Classification Reported Allergen(s) Allergy Type Date of Onset Reaction(s) Facility (20 sources) Meperidine; Translations: [MEPERIDINE] Drug Allergy 4 Nausea And Vomiting, Unknown [facility] (1 source) Meperidine Drug Allergy 3 [facility] Repository (15 sources) Meperidine Drug Allergy 4 Other [facility] Healthcare Medications Current Medications Medication Drug Class(es) Dates Sig (Normalized) Sig (Original) 8 hr acetaminophen 650 mg extended release oral tablet (17 sources) acetaminophen (Tylenol 8 Hour) 650 MG ER tablet Tylenol Active acetaminophen 325 mg / HYDROcodone bitartrate 5 mg oral tablet (4 sources) Opioid Agonist Start: 12-04-2017 Hydrocodone-Acetam inophen Active TABLET December 04, 2017 12:00am Albuterol (Eqv-Ventolin HFA) 90 mcg/inh inhalation aerosol (1 source) Start: 04-20-2024 take 2 puff(s) by inhalation every four hours Albuterol (Eqv-Ventolin HFA) 90 mcg/inh inhalation aerosol 2 puff(s), Inhalation, q4hr Wheezing, 18 gm, Refill(s) 0, [facility]/pharmacy #[id number], 160, cm, 04/20/24 12:11:00 EDT, Height/Length Dosing, 67.5, kg, 04/20/24 12:11:00 EDT, Weight Dosing Start Date: 04/20/24 Status: Ordered amLODIPine 10 mg oral tablet (20 sources) [...] day(s), # 30 tab(s), Refills(s) 0, [id number] 159, cm, 11/24/23 13:04:00 EDT, Height/Length [...] 01-Nov-2022 Complete aspirin 325 mg oral tablet (20 sources) Platelet Aggregation Inhibitor, Nonsteroidal Anti-inflammatory Drug [...] tablet (20 sources) beta-Adrenergic Leanna Start: 10-04-2021 take 1 tablet by mouth in the morning bisoprolol (Zebeta) 10 MG tablet Take 10 mg by mouth in the morning. 12/12/2022 Active Zebeta TABS Vineet tity: 0 Refills: 0 [...] 28-Sep-2022 DO Active take 1 tablet by veronique th every twenty-four hours busPIRone HCl 7.5 MG [...] succinate 50 mg extended release oral tablet (5 sources) Serotonin and Norepinephrine Reuptake Inhibitor Start: 12-04-2017 End: 02-08-2024 Desvenlafaxine Succinate Active December 04, 2017 12:00am Colace (20 sources) Start: 07-31-2023 Colace Oral, B ID, Refills(s) 0 Start Date: 07/31/23 Status: Ordered take 1 capsule by [facility] every twenty-four hours as needed Docusate Sodium (DSS) 100 MG capsule Take 100 mg by mouth Daily as needed. Active take 1 capsule by mouth twice da mya docusate sodium (COLACE) 100 mg capsule Take 100 mg by mouth twice daily. Active Colace 100 MG Or al Capsule Quantity: 0 Refills: 0 Ordered: 28-Sep-2022 DO Active doxycycline hyclate 100 mg oral capsule (1 source) Tetracycline-class Drug Start: 04-20-2024 End: 04-30-2024 take 1 capsule by mouth twice daily doxycycline hyclate 100 mg Cap 100 mg = 1 cap(s), Oral, BID, X 10 day(s), # 20 cap(s), Refills(s) 0, Pharmacy: [facility]/pharmacy #[id number], 160, cm, 04/20/24 12:11:00 EDT, Height/Length Dosing, 67.5, kg, 04/20/24 12:11:00 EDT, Weight Dosing Start Date: 04/20/24 Stop Date: 04/30/24 Status: Ordered estradiol 0.1 mg/ml vaginal cream (18 sources) Estrogen Start: 02-08-2024 End: 02-07-2025 estradiol (ESTRACE) 0.01 % (0.1 mg/gram) vaginal cream Use 1 g vaginally as directed. NIGHTLY x 2 weeks, then 2x/week (Mon/Thurs, Tu/Fri). 42.5 g 3 02/08/2024 05/21/2024 Discontinued (Discontinued by Patient) Start: 01-14-2024 estradiol (Est race) 0.1 MG/GM vaginal cream Indications: Vulvovaginal Atrophy Insert 1 gram twice weekly 42.5 g 12 01/14/2024 Active fluticasone propionate 0.05 mg/actuat metered dose nasal spray (20 sources) Corticosteroid take 2 spray(s) nasa l route once daily fluticasone (Flonase) 50 MCG/ACT nasal spray INSTILL 2 SPRAYS IN EACH NOSTRIL ONCE A DAY for 90 Active take 2 spray(s) nasal route once daily fluticasone (Flonase) 50 mcg/actuation nasal spray INSTILL 2 SPRAYS IN EACH NOSTRIL ONCE A DAY for 90 Active Fluticasone Prop ionate SUSP Quantity: 0 [...] 1 tablet Orally Once a day Active ketorolac tromethamine 5 mg/ml ophthalmic solution (1 source) Nonsteroidal Anti-inflammatory Drug, Cyclooxygenase Inhibitor Sta rt: 4 End : 4 take 1 drop(s) into the eye(s) in the morning ketorolac (Acular) 0.5 % ophthalmic solution Indications: Age-related nuclear cataract of left eye Administer 1 drop into affected eye(s) in the morning and 1 drop before bedtime. 5 mL 1 04/03/2024 05/03/2024 Active multivit with min-folic acid 0.4 mg tablet (1 source) take 1 tablet by mouth once daily multivit with min-folic acid 0.4 mg tablet Take 1 tablet by mouth once daily. Active nebivolol 10 mg oral tablet (5 sources) Sta rt: 8 End : 4 Nebivolol (Bystolic) 10 mg tablet Active TABLET December 04, 2017 12:00am ofloxacin 3 mg/ml ophthalmic solution (1 source) Quinolone Antimicrobial Sta rt: 4 End : 4 take 1 drop(s) into the eye(s) five times daily ofloxacin (Ocuflox) 0.3 % ophthalmic solution Indications: Age-related nuclear cataract of left eye Administer 1 drop into the right eye 5 (five) times a day for 1 day Starting 1 day before surgery, continue after surgery as directed 5 mL 1 04/03/2024 04/04/2024 Active phenazopyridine hydrochloride 200 mg oral tablet (2 sources) Sta rt: 3 take 1 tablet by mouth every eight hours Pyridium 200 MG 1 tablet after meals Orally Three times a day for 2 day(s) Nov, Active polyethylene glycol 3350 with electrolytes Oral Pwdr for Dia 4000 mL (NuLytely) (1 source) Sta rt: 2 take 1 dose by mouth once polyethylene glycol 3350 with electrolytes Oral Pwdr for Dia 4000 mL (NuLytely) See Instructions, 1 EA, Refill(s) 0, PER PHYSICIAN INSTRUCTIONS. PRIOR TO COLONOSCOPY., [facility]/pharmacy #[id number], 164, cm, 10/04/21 12:12:00 EDT, Height/Length Dosing, 73, kg, 10/04/21 12:12:00 EDT, Weight Dosing Start Date: 10/04/21 Status: Ordered prednisoLONE acetate 10 mg/ml ophthalmic suspension (1 source) Corticosteroid Sta rt: 4 End : 4 prednisoLONE acetate (Pred-Forte) 1 % ophthalmic suspension Indications: Age-related nuclear cataract of left eye Administer 1 drop into both eyes in the morning and 1 drop at noon and 1 drop in the evening and 1 drop before bedtime. Do all this for 14 days. 5 mL 1 04/03/2024 04/17/2024 Active Psyllium (7 sources) Sta rt: 4 Metamucil Oral, Refills(s) 0 Start Date: 07/31/23 Status: Ordered psyllium husk (M ETAMUCIL) 3.4 gram/5.4 gram powd Take by mouth. Active sodium chloride 0.111 meq/ml nasal spray (8 sources) Start: 12-09-2022 take 4 spray(s) nasa l route every four hours Saline NasaL 0.65 % nasal spray SPRAY 4 SPRAYS INTO EACH NOSTRIL EVERY 4 HOURS 12/09/2022 Active Start: 10-16-2022 take 4 spray(s) nasa l route every four hours [facility] Saline Nasal [place] 0.65 % Nasal Solution SPRAY 4 SPRAYS INTO EACH NOSTRIL EVERY 4 HOURS Quantity: 88 Refills: 0 Ordered: 16-Oct-2022 DO Start : 16-Oct-2022 Active terconazole 4 mg/ml vaginal cream (2 sources) Azole Antifungal Start: 09-13-2023 terconazole ( Terazol 7) 0.4 % vaginal cream INSERT 1 APPLICATOR INTO THE VAGINA AT BEDTIME FOR 7 DAYS. 09/13/2023 Active Completed/Discontinued Medications Medication Drug Class(es) [...] procedure, # 2 tab(s), Refills(s) 0, Pharmacy: [facility]/pharmacy #[id number], 159, cm, 07/31/23 10:21:00 EST, Height/Length Dosing, 65, kg, 07/31/23 10:21:00 EST, Weight Dosing Start Date: 07/31/23 Status: Ordered docusate sodium 50 mg / sennosides, prison 8.6 mg oral tablet (3 sources) Start: 10-17-19 End: 11-09-19 take 2 tablets by mouth once daily at bedtime [facility] Senna Plus 8.6-50 MG Oral Tablet TAKE 2 TABLETS BY MOUTH EVERY DAY AT BEDTIME Quantity: 14 Refills: 0 Ordered: 16-Oct-2022 DO Start : 16-Oct-2022 End : 08-Nov-2022 Complete 12 hr guaiFENesin 600 mg extended release oral tablet (1 source) End: 02-08-20 guaiFENesin (MUCINEX) 600 mg 12 hr tablet Take 1,200 mg by mouth twice daily. 0 02/08/2024 Discontinued (Course of therapy completed) krill oil 500 mg oral capsule (5 [...] day(s), # 60 tab(s), Refills(s) 0, Pharmacy: [facility]/pharmacy #[id number], 164, cm, 12/02/21 9:25:00 EDT, Height/Length Dosing, 72.1, kg, 12/02/21 9:25:00 EDT, Weight Dosing Start Date: 12/02/21 Stop Date: 01/31/22 Status: Ordered Start: 12-02-2021 End: 01-31-2022 take 1 tablet by mouth once daily Pantoprazole Sodium 40 MG Oral Tablet Delayed Release TAKE 1 TABLET BY MOUTH EVERY DAY Quantity: 60 Refills: 0 Ordered: 02-Dec-2021 DO Start : 02-Dec-2021 Active potassium chloride 10 meq extended release oral tablet (1 source) End: 02-08-2024 potassium chloride (KLOR-CON 10) 10 mEq tablet Take 10 mEq by mouth twice daily. 0 02/08/2024 Discontinued (Course of therapy completed) predniSONE 10 mg oral tablet (1 source) Start: 04-20-2024 predniSONE 10 mg Tab 10 mg = 1 tab(s), Oral, As Directed, 6 tabs for 2 days,5 tabs for 2 days,4 tabs for 2 days,3 tabs for 2 days,2 tabs for 2 days,1 tab for 2 days, # 42 tab(s), Refills(s) 0, Pharmacy: [facility]/pharmacy #[id number], 160, cm, 04/20/24 12:11:00 EDT, Height/Length Dosing, 67.5, kg, 04/20/24 12:11:00 EDT, Weight Dosing Start Date: 04/20/24 Status: Ordered Problems Active Problems Problem Classification Problem Date [...] Gallstone 07-31-2023 Episodic Cancer of bronchus; lung (8 sources) Malignant neoplasm of unspecified part of unspecified bronchus or lung; Translations: [Malignant neoplasm of lower respiratory tract] Onset: 11-10-2013 10-26-2022 Chronic Cancer of bronchus; lung (1 [...] malignant neoplasm of thyroid] Onset: 12-19-2022 Episodic Cataract (11 sources) Age-related nuclear cataract of left eye; Translations: [Age-related nuclear cataract, left eye] Onset: 04-03-2024 Resolved: 06-03-2024 04-03-2024 Chronic Chronic obstructive pulmonary disease and bronchiectasis (1 source) Chronic obstructive lung disease; Translations: [Chronic obstructive pulmonary disease, unspecified] Onset: 04-20-2024 Chronic Complications of surgical procedures or medical care [...] 12-02-2021 Episodic Genitourinary symptoms and ill-defined conditions (3 sources) Female stress incontinence; Translations: [Stress incontinence (female) (male)] Onset: 04-25-2024 02-08-2024 Chronic Genitourinary symptoms and ill-defined conditions (5 sources) [...] Mood disorders; Translations: [Depression, unspecified] Onset: 12-11-2022 Osteoarthritis (4 sources) Unspecified osteoarthritis, unspecified site; Translations: [Arthritis] Onset: 12-19-2022 07-31-2023 Chronic Other aftercare (1 source) [facility] (current) use of aspirin; Translations: [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] Onset: 12-19-2022 Episodic Other aftercare (1 source) Other meterman (current) drug therapy; Translations: [Other meterman (current) drug therapy] Onset: 12-19-2022 Episodic Other aftercare (1 source) Long-term current use of aspirin; Translations: [[facility] (current) use of aspirin] 10-26-2022 Episodic Other [...] (1 source) Lipoma (clinical) 09-04-2023 Episodic Other and unspecified benign neoplasm (1 source) Benign neoplasm of sphenoid bone; Translations: [Benign neoplasm of bones of skull and face] 03-26-2024 Episodic Other connective tissue disease (8 sources) Ganglion/synovial cyst - wrist 07-12-2016 Episodic Other connective tissue disease (1 source) Spasm; Translations: [Other muscle spasm] 05-01-2024 Episodic Other connective tissue disease (1 source) Muscle weakness; Translations: [Muscle weakness (generalized)] 05-01-2024 Episodic Other connective tissue disease (1 source) Other muscle spasm; Translations: [Muscle spasm] Onset: 05-01-2024 Episodic Other connective tissue disease (1 source) Muscle weakness (generalized); Translations: [Muscle weakness] Onset: 05-01-2024 Episodic Other diseases of kidney and ureters (1 source) Acquired renal cyst without neoplastic change; Translations: [Cyst of kidney, acquired] Onset: 07-31-2023 Episodic Other diseases of kidney and ureters (1 source) Cyst of kidney 09-04-2023 Episodic Other eye disorders (15 sources) Posterior vitreous detachment of left eye; Translations: [Vitreous degeneration, left eye] Onset: 10-29-2023 10-29-2023 Chronic Other female genital disorders (1 source) Vaginal discharge; Translations: [Other specified noninflammatory disorders of vagina] 02-08-2024 Episodic Other female genital disorders (1 source) Vaginal flatus; Translations: [Other specified noninflammatory disorders of vagina] 05-21-2024 Episodic Other infections; including parasitic (1 source) [...] Onset: 08-05-2022 Chronic Other upper respiratory infections (13 sources) Posterior rhinorrhea; Translations: [Postnasal drip] Onset: 07-13-2022 Episodic Pneumonia (except that caused by tuberculosis or sexually transmitted disease) (1 source) Pneumonia; Translations: [Pneumonia, unspecified organism] Onset: 04-20-2024 Episodic Residual codes; unclassified (1 source) Obstructive sleep apnea (adult) (pediatric); Translations: [Obstructive sleep apnea (adult) (pediatric)] Onset: 12-19-2022 Chronic Residual codes; unclassified (3 sources) Obstructive sleep apnea syndrome; Translations: [Obstructive sleep apnea (adult) (pediatric)] 10-26-2022 Chronic Residual codes; unclassified (2 sources) Hypersomnia; Translations: [Hypersomnia, unspecified] 02-26-2024 Chronic Residual codes; unclassified (1 source) Family [...] unspecified; Translations: [Bradycardia, unspecified] Onset: 10-06-2022 Episodic Neoplasms of unspecified nature or uncertain behavior (14 sources) Neoplasm of sphenoid bone; Translations: [Neoplasm of unspecified nature of bone, soft tissue, and skin] Onset: 11-29-2022 Episodic Other and unspecified benign neoplasm (2 sources) Melanocytic nevus of trunk; Translations: [Melanocytic nevi of trunk] 02-21-2024 Episodic Other and unspecified benign neoplasm (2 sources) Skin lesion; Translations: [Hemangioma of skin and subcutaneous tissue] 02-21-2024 Episodic Other and unspecified benign neoplasm (2 sources) Dermatofibroma; Translations: [Other benign neoplasm of skin, unspecified] 02-21-2024 Episodic Other bone disease and musculoskeletal deformities (2 sources) Disorder of bone, unspecified; Translations: [Disorder of bone, unspecified] Onset: 10-06-2022 Episodic Other lower respiratory disease (2 sources) Hypoxia; Translations: [Hypoxemia] 02-26-2024 Episodic Other lower respiratory disease (2 sources) Snoring; Translations: [Snoring] 02-26-2024 Episodic Other screening for suspected conditions (not mental disorders or infectious disease) (5 sources) Screening for malignant neoplasm of colon done; Translations: [Encounter for screening for malignant neoplasm of colon] Onset: 11-11-2021 Episodic Other skin disorders (2 sources) Lentiginosis; Translations: [Other melanin hyperpigmentation] 02-21-2024 Episodic Other skin disorders (2 sources) Inflamed seborrheic keratosis; Translations: [Inflamed seborrheic keratosis] 02-21-2024 Episodic Other upper respiratory disease (1 source) [...] and nasal sinuses] Onset: 09-23-2022 Episodic Unclassified (2 sources) Onset: 09-26-2023 09-26-2023 Results Test Name Value Interpretation Reference Range Facility [id number] 05-02-2024 [id number] HNO ID: [id number] Author: LUZ MARIA PARISI PT Service: ? Author Type: Physical Therapist Type: [id number] Filed: 05/02/2024 16:20 Note Text: [facility] Physical Therapy Plan of Care Certification Patient Name: Roselyn Freire : 1955 [facility] #: [id number] Date: 05/01/2024 To: Carol Rawls PA-C From Therapist: Luz Maria Parisi PT RE: Patient Certification/ Recertification Your review, approval and electronic signature are required in order to comply with Payor: MEDICARE / Plan: MEDICARE A AND B / Product Type: Medicare / regulations. The identified Physical Therapy PLAN OF CARE for the patient is as follows: M62.838 Muscle spasm (primary encounter diagnosis) M62.81 Muscle weakness PLAN OF CARE: Assessment: Roselyn Freire presents with chief complaint of passing air vaginally since procedure this past spring- non- odorous and likely from mild prolapse bladder ( did not diagnose or stage it per practice guidelines) - that interferes with ADLs/ socially uncomfortable (air/ gas releases from vagina and she can't stop it) . She is tight posterior floor B but not really painful except isolated areas; mildly weak, no complaints of STACEY except minor and occasional and no issues with bowels . The patient presents with impairments in coordination, flexibility, independence in exercise, symptom management, and tissue tenderness. PROMIS? (Patient-Reported Outcomes Measurement Information System) scores were reviewed and identified as within normal limits. Prognosis for therapy is Good due to: current objective clinical presentation, good overall health status . The patient will benefit from skilled therapy services to meet the goals established for this plan of care as noted below. Goals for Episode of Care: established 05/01/24 - improved deep breathing and coordinating PFM and deep core with it - improved / less painful PFM vaginal as noted to minimal isolated and under 2/10 level - no air passing from vagina or less than weekly - IND using pessary or revive or impressa Patient Goals: find out what this is and stop it Time Frame for Goals and Treatment : 07/25/24 Planned Interventions, Frequency, and Duration: Current Frequency: 1x/month Duration: 12 weeks Total Number of Visits Planned: 3 Planned Treatment Interventions: Therapeutic exercise (24749), Neuromuscular re-education (98142), Manual therapy (58972), Self-shelter management (55003), Patient/Family/Caregiver Education PLAN FOR NEXT VISIT: progress PFM strengthening; gravity; re-check for pain; check nerves; check rectally for tight. pain etc. Patient demonstrates good understanding of plan of care and treatment. The above goals and plan of care were discussed and agreed upon by patient/family. For further details regarding this patient refer to the Physical Therapy electronically documented visit dated 05/01/2024. Provider Attestation I have reviewed the treatment plan for Roselyn Freire, [facility]# [id number] for the period of 05/01/24 -- 07/25/24, established on 05/01/2024. Signature certifies the need for therapy services. [facility] CNTHERAPYon 05-01-2024 CNTHERAPY OT/PT/Speech Visit ([facility]) -------- LEXIEALAINAROSELYN S ([id number]) 1955 F Date Time Provider Department 05/01/24 4:30 PM LUZ MARIA PARISI [facility] Date Time Provider Department [place] 05/01/2024 4:30 PM [id number] MARIA PARISI [facility] Reason for Visit: PT Eval [747] Primary Visit Diagnosis:Muscle spasm [M62.838] Other Visit Diagnosis:Muscle weakness [M62.81] Allergies As of Date: 05/01/2024 (No Known Allergies) Date Reviewed: 02/08/2024 Reviewed by: Carol Rawls PA-C - Fully Assessed Prescriptions as of 05/02/2024 - bisoprolol (ZEBETA) 10 mg tablet TAKE 1 TABLET BY MOUTH EVERY DAY for 30 - psyllium husk (METAMUCIL) 3.4 gram/5.4 gram powd Take by mouth. - estradiol (ESTRACE) 0.01 % (0.1 mg/gram) vaginal cream Use 1 g vaginally as directed. NIGHTLY x 2 weeks, then 2x/week (Mon/Thurs, Tue/Fri). - amLODIPine (NORVASC) 10 mg tablet Take 10 mg by mouth once daily. - Hydrochlorothiazide 12.5 mg capsule Take 12.5 mg by mouth once daily. - aspirin 325 mg tablet Take 325 mg by mouth once daily. - docusate sodium (COLACE) 100 mg capsule Take 100 mg by mouth twice daily. [facility] ED Clinical Summaryon 2023 ED Clinical Summary ED Clinical Summary [place] [id number] ED Clinical Summary Person Information Name: ROSELYN FREIRE [facility] Age: 69 Years : 1955 Sex: Female Language: Angolan PCP: Charles Arambula MD Marital Status: Visit Id: Visit Reason: Sinus Pain/Congestion; Cough; positive for covid Speciality: Acuity: 4 Enc Type: Emergency Med Service: Emergency Arrival: 04/20/2024 12:04:27 Discharge: 04/20/2024 13:53:48 LOS: 000 01:49 Checkin: 04/20/2024 12:04:27 Checkout: 04/20/2024 13:53:48 Dispo Type: Home (Routine DC) EVENTS: Event Name Event Status Request Date/Time Start Date/Time Complete Date/Time Arrive Complete 04/20/2024 12:04:27 04/20/2024 12:04:27 04/20/2024 12:04:27 Document Home Meds Request 04/20/2024 12:04:27 Triage Complete 04/20/2024 12:04:27 04/20/2024 12:11:06 04/20/2024 12:11:06 Bed Assign Complete 04/20/2024 12:08:40 04/20/2024 12:08:40 04/20/2024 12:08:40 Dr Exam Complete 04/20/2024 12:08:40 04/20/2024 12:11:54 04/20/2024 12:11:54 RN Exam Complete 04/20/2024 12:08:40 04/20/2024 12:13:30 04/20/2024 12:13:30 Patient Care Request 04/20/2024 12:11:07 Patient Isolation Request 04/20/2024 12:11:07 Registration Complete 04/20/2024 12:11:54 04/20/2024 12:16:26 04/20/2024 12:16:26 X-Ray Complete 04/20/2024 12:12:16 04/20/2024 12:16:21 04/20/2024 12:33:07 Reg Complete Request 04/20/2024 12:16:26 Reg Bed Request Complete 04/20/2024 12:16:26 04/20/2024 12:16:26 04/20/2024 12:16:26 Wet Read Request 04/20/2024 12:33:07 Dr Exam Complete 04/20/2024 12:39:23 04/20/2024 12:39:23 04/20/2024 12:39:23 Registration Complete 04/20/2024 12:39:23 04/20/2024 13:21:39 04/20/2024 13:21:39 Pending Labs Complete 04/20/2024 13:05:47 04/20/2024 13:39:04 Lab Complete 04/20/2024 13:05:47 04/20/2024 13:39:04 Meds Admin Complete 04/20/2024 13:05:47 04/20/2024 13:17:07 RT Tx/ABG Complete 04/20/2024 13:05:48 04/20/2024 13:25:55 04/20/2024 13:25:55 RT Tx/ABG Request 04/20/2024 13:05:48 RT Tx/ABG Complete 04/20/2024 13:05:48 04/20/2024 13:25:47 04/20/2024 13:25:47 RT Tx/ABG Complete 04/20/2024 13:05:48 04/20/2024 13:25:39 04/20/2024 13:25:39 Discharge Complete 04/20/2024 13:47:21 04/20/2024 13:53:57 04/20/2024 13:53:57 Transfer Complete 04/20/2024 13:53:57 04/20/2024 13:53:57 04/20/2024 13:53:57 ADDRESS: [address] [place] [phone] PHYS DOC NOTES: MEDICAL INFORMATION: Prescriptions Given: New Medications [id number], [address], [place] [id number], [phone] albuterol (Albuterol (Eqv-Ventolin HFA) 90 mcg/inh inhalation aerosol) 2 Puffs Inhalation every 4 hours as needed Wheezing. Refills: 0. doxycycline (doxycycline hyclate 100 mg Cap) 1 Capsules By Mouth 2 times a day for 10 Days. Refills: 0. predniSONE (predniSONE 10 mg Tab) 1 Tablets By Mouth As Directed. 6 tabs for 2 days,5 tabs for 2 days,4 tabs for 2 days,3 tabs for 2 days,2 tabs for 2 days,1 tab for 2 days. Refills: 0. PATIENT EDUCATION INFORMATION: Instructions: Community-Acquired Pneumonia, Adult, Slnv-hu-Mhop; COVID-19 Follow up: With: Address: When: Charles Arambula [address] [place] [address], [place] [address] Business (1) In 3 days 04/23/2024 DIAGNOSIS: 1:Community acquired pneumonia of left lung; 2:COPD without exacerbation Normal [facility] ED Note-Physicianon 04-20-20 24 ED Note-Physician ED Note-Physician Basic Information Time Seen: Maritza Cooley PA-C 04/20/2024 12:11 Chief Complaint pt reports covid + since sunday, has concerns for PNE due to cough/congestion. VSS, NAD. just finished a z janett. History of Present Illness This patient presents emergency department chief complaint of cough, congestion. She states she feels like she has pneumonia. She just tested positive for COVID-19. She does have underlying lung disease. The patient does not have an albuterol inhaler at home. She did have some chills, no fevers or sweats. She coughs but it is nonproductive. She has wheezing. The patient does not smoke currently. She denies any urinary or bowel complaints. She denies any chest pain. She denies headache. She has no known allergies. Review of Systems Constitutional: Denies weight loss, fevers, chills, sweats, malaise Eyes: Denies visual changes, eye pain, double vision, scotomas, floaters ENT: Denies runny nose, epistaxis, sinus pain, ear pain, ringing in ears, tooth ache, sore throat, pain with swallowing Cardiovascular: Denies chest pain, shortness of breath, orthopnea, edema, palpitations, loss of consciousness, claudication Respiratory: Denies sputum production, hemoptysis, shortness of breath, dyspnea on exertion. + Cough, wheezing, congestion Gastrointestinal: Denies abdominal pain, unintentional weight loss, difficulty swallowing, indigestion, bloating, cramping, loss of appetite, nausea, vomiting, diarrhea, constipation, hematochezia, melena Genitourinary: Denies any incontinence of urine, dysuria, hematuria, nocturia, polyuria, hesitancy, frequency, urgency, burning Musculoskeletal: Denies joint pain, morning stiffness, joint swelling, decreased range of motion, crepitus Integumentary: Denies any pruritus, rashes, lesions, wounds, petechiae Neurologic: Denies any changes in sight, smell, hearing, taste, seizures, headache, paresthesia, numbness, weakness, balance disturbance Psychiatric denies any depression, change in sleep patterns, anxiety, difficulty concentrating, paranoia, anhedonia, lack of energy, abhinav Hematologic/lymphatic: Denies any purpura, petechiae, excessive bleeding, bruising Physical Exam Vitals & Measurements T: 36.8 ?C(Oral) HR: 72(Monitored) RR: 18 BP: 160/80 SpO2: 99% HT: 160 cm WT: 67.5 kg BMI: 26.37 Vital signs and nursing notes reviewed. General: Awake, alert, NAD. HEENT: Head is normocephalic, atraumatic. PERRL. EOMI. Sclerae are anicteric. External ears are normal. TMs are intact bilaterally. Canals are clear bilaterally. Nares are patent bilaterally. Oral mucosa is pink and moist. No lesions noted. Tongue protrudes in midline. Uvula rises with phonation. Neck is supple, no no palpable adenopathy. No JVD. Trachea is midline. Thorax: Symmetrical rise and fall Lungs: Inspiratory expiratory wheezing all stafford with poor air exchange. Heart: Regular rate and rhythm. No murmur, gallop, or rub Abdomen: No tenderness on palpation. Bowel sounds are present active and normal. No organomegaly. No palpable masses. No CVA tenderness. Extremities: Motor sensory pulses intact x4 extremities. No lower extremity edema. Skin: No lesions, rashes, ulcerations. No bruising or petechiae. Color appropriate, warm and dry Neuro: No oriented x3, no focal neuro deficits Psych: Mood and affect are normal Medical Decision Making MEDICAL DECISION MAKING Number and Complexity of Problems Differential Diagnosis: COVID-19, bacterial pneumonia, exacerbation asthma/COPD MDM Data External documents reviewed: Not applicable My EKG interpretation: Noted in chart if applicable My CT interpretation: Noted in chart if applicable My X-ray interpretation: Noted in chart if applicable My Ultrasound interpretation: Not applicable Decision rules/scores evaluated: Noted in chart if applicable Discussed with: Not applicable Treatment and Disposition ED Course: Patient was interviewed and examined. Patient was given a triple nebulizer treatment. Upon reevaluation, patient has much improved air exchange, With minimal end expiratory wheezing. Patient is still testing positive here for rapid COVID today. She requested this test due to needing it to know if she can return to her job tomorrow. The patient was given steroids here in the department. She is feeling much better. I discussed the use of albuterol rescue inhaler with a spacer. The patient was provided with a spacer and instructed in its use. I have discussed the discharge diagnosis, plan of care, home-going instructions and prescriptions with the patient. The patient will be discharged to home in stable condition. She is to return to the emergency department for any further problems or concerns. She is to follow-up with her primary care physician. Shared decision making: I discussed the discharge diagnosis and plan of care with the patient. She is in agreement with the plan of care. Code status: Not applicable Assessment/Plan 1. Communit (more content not included)... Normal [facility] Comment on above: Result Comment: Elec tronically Signed By: Maritza Cooley PA-C\.br\Date and Time Signed: 04/20/24 14:54 EDT\.br\Electronically Co-Signed By: Jyoti Pedro M.D.\.br\Date and Time Co-Signed: 04/20/24 16:05 EDT ED Patient Summaryon 024 ED Patient Summary ED Patient Summary [address] [address] Patient Discharge Instructions Person Information Name: ORSELYN FREIRE Age: 69 Years Arrival Date: 04/20/2024 12:04:27 Discharge Diagnosis: 1:Community acquired pneumonia of left lung; 2:COPD without exacerbation Primary Care Physician: Charles Arambula MD Provider Information Primary Provider: Jyoti Pedro M.D. Advanced Loader:None The exam and treatment you received in the Emergency Department were for an urgent problem and are not intended as complete care. It is important that you follow up with a doctor, nurse practitioner, or physician?s bookkeeper assistant for ongoing care. If your symptoms [...] Follow-up Instructions: With: Address: When: Charles Arambula [address] [place] [address], [facility] [place] [address] Business (1) In 3 days 04/23/2024 In the event that this physician does not participate in your insurance network, please consult with your insurance company to find a nearby participating provider. Patient Education Materials: Community-Acquired Pneumonia, Adult, Yymf-jz-Jpxv; COVID-19 A MESSAGE TO ALL PATIENTS REGARDING OPIOIDS PRESCRIPTION OPIOIDS: WHAT YOU NEED TO KNOW Prescription opioids can be used to help relieve gtkuhiax-rb-yfwcho pain and are often prescribed following a [...] guidance from the Food and Drug Administration (www.fda.gov/Drugs/Resou rcesForYou). ? Visit www.cdc.gov/drugoverdose to learn about the risks of opioids abuse and overdose. ? If you believe you may be struggling with addiction, tell your health care pro (more content not included)... Normal [facility] MICRO OTHER TESTSOrdered By: Margaux Reed on 04-20-2024 Rapid COV Int NEG Ctl Pass (04/20/24 1:13 PM) Normal [facility] Man Sero Rapid COV Int POS Ctl Pass (04/20/24 1:13 PM) Normal [facility] Sero SARS-CoV+SARS-CoV-2 (COVID-19) Ag IA.rapid Ql (Resp) Detected 1 *ABN* (04/20/24 1:13 PM) Invalid Interpretation Code Not Detected [facility] Sero Comment on above: Interpretive Data: Sravani donaldson kidthing Veritor System for Rapid Detection of SARS-CoV-2 [...] terminated or revoked sooner. Rapid COVID Antigen ([facility])on 04-20-2024 Rapid COV Int NEG Ctl Pass Normal [facility] Comment on above: Performed By: #### 2 [id number] #### [facility] [address] [place] [address] Rapid COV Int POS Ctl Pass Normal [facility] Comment on above: Performed By: #### 2 [id number] #### [facility] [address] [place] [address] SARS-CoV+SARS-CoV-2 (COVID-19) Ag IA.rapid Ql (Resp) Detected Abnormal Not Detected [facility] Comment on above: Result Comment: The [employer]? System for Rapid Detection of SARS-CoV-2 is [...] or revoked sooner. Performed By: #### 2 [id number] #### [facility] [address] [place] [address] XR Chest 2 Viewson XR Chest 2 Views Exam Date/Time: 04/20/2024 12:33 EDT Reason for Exam: Difficulty breathing Report IMPRESSION: SMALL LEFT EFFUSION VERSUS PLEURAL THICKENING. LEFT LOWER LUNG ATELECTASIS/PNEUMONIA. CLINICAL INFORMATION: Difficulty breathing COMPARISON: None available. FINDINGS: 2 views. Osseous structures intact. Cardiopericardial silhouette normal. Pulmonary vasculature normal. Mild elevation left diaphragm. Blunting left costophrenic angle with ill-defined area increased opacity posterior left lower lung. Ordering Provider: Maritza Cooley FINAL REPORT Dictated: 04/20/2024 12:44 pm Noah Russell MD Signed (Electronic Signature): 04/20/2024 12:44 pm Signed by: Noah Russell MD Transcribed by: ROCKY Technologist: ANN Technical Comments Radiation Dose: Ka,r in mGy = . DAP = . Normal [facility] US Eye+Orbit - bilateralon 1 Diagnosis: Cataract both eyes (OU) Testing Indication: Performed for preop measurements in the determination of an intraocular lens (IOL) for both eyes (OU) Test Reliability: Good quality both eyes (OU) Interpretation: Good measurements for intraocular lens (IOL) calculation purposes. Calculation made for both eyes (OU). [facility] Radiology Study observation (narrative) [facility] Surgical pathology studyon 0 03-26-2024 Surgical pathology study Pathology report.total SEE COMMENT Surgical Pathology Case: [id number] Authorizing Provider: Lukasz Rosario MD Collected: 03/26/20241523 Ordering Location: [facility] Received: 03/26/20241523 Pathologist: Albaro Patino MD Specimen: NASAL/SINONASAL RIGHT CONTENTS Path report.final diagnosis SEE COMMENT A. Right nasal/sinonasal contents: -- Inflammatory sinonasal polyp. jkw Laboratory comment By the signature on this report, the individual or group listed as making the Final Interpretation/Diagnosis certifies that they have reviewed this case. RESIDENT REVIEW The gross and/or microscopic findings were reviewed in conjunction with pathology resident, Erwin Younger MD. Path report.relevant Hx History of sphenoid papilloma Path report.gross observation SEE COMMENT Received in formalin, labeled with the patient's name and hospital number, is a fragment of gilman, soft tissue measuring 0.6 x 0.2 x 0.1 cm. The specimen is submitted in toto in one cassette. [facility] No Panel Informationon 03-06 Type of biopsy: tangential Informed consent: discussed and consent obtained Informed consent comment: The risks and benefits of the biopsy were discussed. Risks include but are not limited to bleeding, infection, scarring, pain, and nerve damage. An opportunity to ask questions prior to the procedure was permitted and all questions were answered. Patient was prepped and draped in usual sterile fashion: area cleansed with alcohol. Anesthesia: the lesion was anesthetized in a standard fashion Anesthetic: 1% lidocaine w/ epinephrine 1-100,000 buffered w/ 8.4% NaHCO3 Instrument used: DermaBlade Hemostasis achieved with: electrodesiccation Outcome: patient tolerated procedure well Outcome comment: The specimen was placed in a prelabeled formalin container to be sent for pathology Post-procedure details: sterile dressing applied and wound care instructions given Post-procedure details comment: Emphasized need to contact clinic for any signs of infection, uncontrollable bleeding, or complications. Dressing type: bandage Additional details: Photo taken yes Amount of lidocaine used: 1.0 cc [facility] No Panel Informationon 02-20 [facility] BACTERIAL VAGINOSIS NAATon 0 02-08-2024 Lactobacillus crispatus+gasseri+j ensenii + Gardnerella vaginalis + Atopobium vaginae rRNA SPENSER+probe Ql (Vag fld) Negative Normal Negative for bacterial vaginosis [facility] Comment on above: Order Comment: Speci men Type: SWAB Ordering Facility: [facility] Address: [address] [place] [address] Performed By: #### B VAMP, CVTV #### [facility] CLIA [id number] [address] [place] [address] [place] PHANI/TRICHOMONAS NAATon 0 02-08-2024 C. glabrata RNA SPENSER+probe Ql (Vag fld) Negative Normal Negative for Phani glabrata [facility] Comment on above: Order Comment: Speci men Type: SWAB Ordering Facility: [facility] Address: [address] [place] [address] Performed By: #### B VAMP, CVTV #### [facility] CLIA [id number] [address] [place] [address] [place] Phani sp DNA SPENSER+probe Ql (Vag fld) Negative Normal Negative for Phani species [facility] Comment on above: Order Comment: Speci men Type: SWAB Ordering Facility: [facility] Address: [address] [place] [address] Performed By: #### B VAMP, CVTV #### [facility] CLIA [id number] [address] [place] [address] [place] T. vaginalis DNA SPENSER+probe Ql (Unsp spec) Negative Normal Negative for Trichomonas vaginalis by amplification [facility] Comment on above: Order Comment: Speci men Type: SWAB Ordering Facility: [facility] Address: [address] [place] [address] Performed By: #### B VAMP, CVTV #### [facility] CLIA [id number] [address] [place] [address] [place] [facility] CNOVon 02-08-2024 [facility] -------- ROSELYN FREIRE ([id number]) 1955 F Date Time Provider Department 02/08/24 10:30 AM CAROL RAWLS [facility] During your visit today, we recorded the following information about you: Pulse Blood pressure Weight Height 88/minute 147/69 70 kg 1.6 m Carol Rawls PA-C 02/08/2024 11:37 AM Addendum Roselyn Freire is a 68 year old year old female. Patient presents for second opinion re:vaginal discharge. C/o passing gas through vagina. No passage of fecal matter. Both issues have occurred x5 months. Gas began after she had a TVUS. Multiple ABX use, hx diverticulitis and most recently started doxycycline since suffering tick bite and vaginal discharge has since resolved. On last day of doxycycline. No current vaginitis sxs. 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 +STACEY. Hx x2, no LGA. Not sexually active for 3 years. Hx vaginal Hysterectomy 1995s ovaries remain. HYST d/t endometriosis. States was on oral HRT then stopped many years ago. States not using hormones. No hx breast CA. Smoker? No. History of abnormal Paps? No Pressure Testing Technician? Offered: declined No LMP recorded. Patient has had a hysterectomy. History reviewed. No pertinent family history. OB History No obstetric history on file. PAST MEDICAL HISTORY No date: Abdominal pain No date: Adenocarcinoma of lung (HCC) Comment: lung/left lower lobe No date: Anxiety No date: Back pain No date: Bleeding nose No date: Chest pain No date: Diverticulitis No date: Endometriosis No date: Hepatitis C No date: History of cholecystectomy No date: Hypercholesteremia No date: Insomnia No date: Knee pain No date: Knee sprain No date: Neck pain No date: Otitis externa No date: Plantar fasciitis No date: Pulmonary nodule No date: Pyelonephritis No date: S/P partial hysterectomy No date: Sinusitis No date: Sleep apnea No date: Smoker No date: Thyroid disease No date: UTI (lower urinary tract infection) PAST SURGICAL HISTORY No date: ANGIOPLASTY No date: LOBECTOMY, SEGMENT Comment: left No date: TOTAL ABDOMINAL HYSTERECT W/WO RMVL TUBE OVARY Comment: Hysterectomy, partial 05/1995: VAGINAL HYSTERECTOMY Current Outpatient Medications Medication Sig guaiFENesin (MUCINEX) 600 mg 12 hr tablet Take 1,200 mg by mouth twice daily. nebivolol (BYSTOLIC) 10 mg tablet Take 10 mg by mouth once daily. desvenlafaxine ER (PRISTIQ) 50 mg 24 hr tablet Take 50 mg by mouth once daily. amLODIPine (NORVASC) 10 mg tablet Take 10 mg by mouth once daily. Hydrochlorothiazide 12.5 mg capsule Take 12.5 mg by mouth once daily. aspirin 325 mg tablet Take 325 mg by mouth once daily. potassium chloride (KLOR-CON 10) 10 mEq tablet Take 10 mEq by mouth twice daily. docusate sodium (COLACE) 100 mg capsule Take 100 mg by mouth twice daily. No current facility-administered medications for this visit. ALLERGIES No Known Allergies Social History Social History Narrative Not on file ROS: SEE HPI PE: GENERAL: well-appearing, in no acute distress LUNGS: Normal inspiratory effort UROLOGY TEACHER: Normal external genitalia, +vaginal atrophy, no vaginal bleeding or discharge, cervix surgically absent. Uterus surgically absent, no adnexal tenderness or masses detected. Good vaginal tone, minor cystocele with valsalva only. No levator tenderness. No obvious fistula. NEURO: Awake, alert and oriented A/P: 68 year old y/o F here for UROLOGY TEACHER problem visit. 1. STACEY (stress urinary incontinence, female) - No obvious fistula on exam, suspect pelvic floor weakness - Rx vaginal estrace sent - CONSULT TO PHYSICAL THERAPY; Future F/U PRN 2. Vaginal discharge - Would be best to swab when symptomatic, current exam is normal and pt asymptomatic. - If persists with unclear etiology or incomplete resolution despite tx, will refer to UROLOGY TEACHER Infectious Disease - PHANI/TRICHOMONAS NAAT - BACTERIAL VAGINOSIS NAAT F/U PRN Carol Rawls PA-C Referring Provider: REBECA MASON [[id number]] Allergies As of Date: 02/08/2024 (No Known Allergies) Date Reviewed: 02/08/2024 Reviewed by: Carol Rawls PA-C - Fully Assessed Reason for Visit: Vaginal Problem [117] Primary Visit Diagnosis:STACEY (stress urinary incontinence, female) [N39.3] Other Visit Diagnosis:Vaginal discharge [N89.8] Order(s):estradiol (ESTRACE) 0.01 % (0.1 mg/gram) vaginal creamUse 1 g vaginally as directed. NIGHTLY x 2 weeks, then 2x/week (Sun/, Sun/Sun).Disp: 42.5 gRfl: 3 CONSULT TO PHYSICAL THERAPY [9032] Order #: [id number]: 1 FUTURE PHANI/TRICHOMONAS NAAT [SQCVTV] Order #: [id number]. #:[id number] BACTERIAL VAGINOSIS NAAT [SQBVAMP] Order #: [id number]. #:[id number] Prescriptions as of 02/08/2024 - bisoprolol (ZEBETA) 10 mg tablet TAKE 1 TABLET BY MOUTH EVERY DAY for 30 - psyllium (more content not included)... Normal [facility] ED Note-Physicianon 11-26-19 ED Note-Physician Basic Information [...] day(s), # 30 tab(s), Refills(s) 0, Pharmacy: [id number], 159, cm, 11/24/23 13:04:00 EDT, Height/Length [...] Lactic Acid Lipase Level Rapid COVID Antigen ([facility]) UA with Cult Rflx 68-year-old female presents [...] q8hr Follow-up With When Contact Information Charles Arambula In 3 days [facility] [place] [id number]- Business (1) Additional Instructions: Patient Education Diverticulitis Attestation Patient was treated and evaluated by the Physician Manager Property. The attending physician was in the Emergency [...] Vaginal atrophy (more content not included)... Normal [facility] Comment on above: Result Comment: Elec tronically Signed By: Katherine Holt PA-C\.br\Date and Time Signed: 11/24/23 15:44 EDT\.br\Electronically Co-Signed By: Oneal Cornelius DO\.br\Date and Time Co-Signed: 11/26/23 07:05 EDT BMPon 11-24-2023 Anion gap [Moles/Vol] 11 mmol/L Normal 6-16 [facility] Comment on above: Performed By: #### 2 [id number] #### [facility] [address] [place] [address] Calcium [Mass/Vol] 9.3 mg/dL Normal 8.9-11.1 [facility] Comment on above: Performed By: #### 2 [id number] #### [facility] [address] [place] [address] Chloride [Moles/Vol] 100 mmol/L Low 101-111 [facility] Comment on above: Performed By: #### 2 [id number] #### [facility] [address] [place] [address] CO2 [Moles/Vol] 28 mmol/L Normal 21-31 [facility] Comment on above: Performed By: #### 2 [id number] #### [facility] [address] [place] [address] Creatinine [Mass/Vol] 0.5 mg/dL Normal 0.5-1.3 [facility] Comment on above: Performed By: #### 2 [id number] #### [facility] [address] [place] [address] Glucose [Mass/Vol] 113 mg/dL Normal 55-199 [facility] Comment on above: Performed By: #### 2 [id number] #### [facility] [address] [place] [address] Potassium [Moles/Vol] 3.4 mmol/L Low 3.5-5.3 [facility] Comment on above: Performed By: #### 2 [id number] #### [facility] [address] [place] [address] Sodium [Moles/Vol] 136 mmol/L Normal 135-145 [facility] Comment on above: Performed By: #### 2 [id number] #### [facility] [address] [place] [address] Urea nitrogen [Mass/Vol] 17 mg/dL Normal 5-21 [facility] Comment on above: Performed By: #### 2 [id number] #### [facility] [address] [place] [address] Urea nitrogen/Creatinine [Mass ratio] 34 No Units High 10-20 [facility] Comment on above: Performed By: #### 2 [id number] #### [facility] [address] [place] [address] CBC w/ Auto Diffon 4 Basophils/100 WBC (Bld) 0.2 % Normal 0.0-2.0 [facility] Comment on above: Performed By: #### 2 [id number] #### [facility] [address] [place] [address] Basophils/Leukocyte s Auto (Bld) [Pure # fraction] 0.0 E9/L Normal 0.0-0.2 [facility] Comment on above: Performed By: #### 2 [id number] #### [facility] [address] [place] [address] Eosinophils (Bld) [#/Vol] 0.0 E9/L Normal 0.0-0.5 [facility] Comment on above: Performed By: #### 2 [id number] #### [facility] [address] [place] [address] Eosinophils/100 WBC (Bld) 0.4 % Normal 0.0-8.0 [facility] Comment on above: Performed By: #### 2 [id number] #### [facility] [address] [place] [address] Erythrocyte distribution width (RBC) [Ratio] 12.9 % Normal 10.9-14.2 [facility] Comment on above: Performed By: #### 2 [id number] #### [facility] [address] [place] [address] [place] [address] Hematocrit (Bld) [Volume fraction] 39.9 % Normal 34.0-46.0 [facility] Comment on above: Performed By: #### 2 [id number] #### [facility] [address] [place] [address] Hemoglobin (Bld) [Mass/Vol] 14.1 g/dL Normal 12.0-16.0 [facility] Comment on above: Performed By: #### 2 [id number] #### [facility] [address] [place] [address] Lymphocytes (Bld) [#/Vol] 0.5 E9/L Low 1.0-4.0 [facility] Comment on above: Performed By: #### 2 [id number] #### [facility] [address] [place] [address] Lymphocytes/100 WBC (Bld) 7.2 % Low 14.0-50.0 [facility] Comment on above: Performed By: #### 2 [id number] #### [facility] [address] [place] [address] MCH (RBC) [Entitic mass] 30.9 pg Normal 27.0-34.0 [facility] Comment on above: Performed By: #### 2 [id number] #### [facility] [address] [place] [address] MCHC (RBC) [Mass/Vol] 35.5 g/dL Normal 31.4-36.0 [facility] Comment on above: Performed By: #### 2 [id number] #### [facility] [address] [place] [address] MCV (RBC) [Entitic vol] 87.0 fL Normal 80.0-100.0 [facility] Comment on above: Performed By: #### 2 [id number] #### [facility] [address] [place] [address] Monocytes (Bld) [#/Vol] 0.6 E9/L Normal 0.2-1.0 [facility] Comment on above: Performed By: #### 2 [id number] #### [facility] [address] [place] [address] Neutrophils (Bld) [#/Vol] 5.9 E9/L Normal 2.0-7.5 [facility] Comment on above: Performed By: #### 2 [id number] #### [facility] [address] [place] [address] Neutrophils/100 WBC (Bld) 83.7 % High 36.0-75.0 [facility] Comment on above: Performed By: #### 2 [id number] #### [facility] [address] [place] [address] Platelet mean volume (Bld) [Entitic vol] 8.3 fL Normal 6.4-10.8 [facility] Comment on above: Performed By: #### 2 [id number] #### [facility] [address] [place] [address] Platelets (Bld) [#/Vol] 128.0 E9/L Low 150.0-500.0 [facility] Comment on above: Performed By: #### 2 615259 #### [facility] [address] [place] [address] RBC (Bld) [#/Vol] 4.6 E12/L Normal 4.3-5.9 [facility] Comment on above: Performed By: #### 2 [id number] #### [facility] [address] [place] [address] WBC corrected for nucl RBC Auto (Bld) [#/Vol] 7.1 E9/L Normal 4.0-11.0 [facility] Comment on above: Performed By: #### 2 [id number] #### [facility] [address] [place] [address] CHEMISTRYOrdered By: SYSTEM SYSTEM on 11-24-2023 Albumin [Mass/Vol] 4.3 g/dL Normal 3.3 - 5.0 gm/dL Remisol Chem Albumin/Globulin [Mass ratio] 1.3 {ratio} Normal 1.1 - 2.2 Remisol Chem ALP [Catalytic activity/Vol] 48 [iU]/d Normal 21 - 98 Int._Unit/L Remisol Chem ALT No additional P-5'-P [Catalytic activity/Vol] 20 [iU]/d Normal 6 - 46 Int._Unit/L Remisol Chem Anion gap [Moles/Vol] 11 mmol/L Normal 6 - 16 mEq/L Remisol Chem AST [Catalytic activity/Vol] 19 [iU]/d Normal 5 - 43 Int._Unit/L Remisol Chem Bilirubin [Mass/Vol] 0.9 mg/dL Normal 0.0 - 1.1 mg/dL Remisol Chem Bilirubin.direct [Mass/Vol] 0.2 mg/dL Normal 0.0 - 0.4 mg/dL Remisol Chem Bilirubin.indirect [Mass or moles/Vol] 0.7 mg/dL Normal 0.1 - 0.9 mg/dL Remisol Chem Calcium [Mass/Vol] 9.3 mg/dL Normal 8.9 - 11. 1 mg/dL Remisol Chem Chloride [Moles/Vol] 100 mmol/L Low 101 - 111 mmol/L Remisol Chem CO2 [Moles/Vol] 28 mmol/L Normal 21 - 31 mmol/L Remis ol Chem Creatinine [Mass/Vol] 0.5 mg/dL Normal 0.5 - 1.3 mg/dL Remisol Chem eGFR 102 mL/min/1.73 m2 Normal >=59mL/mi n/1.7 3 m2 Remisol Chem Globulin (S) [Mass/Vol] 3.2 g/dL Normal 1.4 - 4.0 gm/dL Remisol Chem Glucose [Mass/Vol] 113 mg/dL Normal 55 - 199 mg/dL Re misol Chem Lactic Acid Lvl 1.7 mmol/L Normal [...] nodes: No abdominal or pelvic lymphadenopathy. Report Mesentery/Peritoneum/Ret roperitoneum: Perisigmoid stranding as above. No loculated collection [...] Oral contrast amount in ml's: 0 Normal [facility] Consent for Treatmenton 10-31 Consent for Treatment [id number] F Normal [facility] Discharge Instructionson Discharge Instructions [id number] FF Normal [facility] ED Clinical Summaryon 2023 ED Clinical Summary (Inserted Image. Corina ble to display) [place] [id number] ED Clinical Summary Person Information Name: ROSELYN FREIRE [facility] Age: 68 Years : 1955 Sex: Female Language: Angolan PCP: Charles Arambula MD Marital Status: MRN: [id number] Visit Id: Visit Reason: Diarrhea; Vomiting; Abdominal [...] 11/24/2023 15:44:36 ADDRESS: [address] [facility] [id number] PHYS DOC NOTES: MEDICAL INFORMATION: Prescriptions Given: New Medications [id number], [address], [place] [id number], [phone] amoxicillin-clavulanate (Augmentin 875 mg oral tablet) 1 [...] Follow up: With: Address: When: Charles Arambula [facility], [place] [address] Business (1) In 3 days DIAGNOSIS: 1:Diverticulitis Normal [facility] ED Patient Education Noteon 11-24-2023 ED [...] at home. Treatment may include: ? Taking psbt-rro-xmyhzqf pain medicines. ? Following a clear liquid [...] these instructions at home: Medicines ? Take iglx-bay-gsuyqpo and prescription medicines only as told by [...] diet zack (more content not included)... Normal [facility] ED Patient Summaryon 024 ED Patient Summary (Inserted Image. Corina ble to display) [address] [address] Patient Discharge Instructions Person Information Name: ROSELYN FREIRE Age: 68 Years Arrival Date: 11/24/2023 12:58:20 Discharge Diagnosis: 1:Diverticulitis Primary Care Physician: Charles Arambula MD Provider Information Primary Provider: Oneal Cornelius DO Advanced Loader:Katherine Holt PA-C The exam and treatment you received in the Emergency Department were for an urgent problem and are not intended as complete care. It is important that you follow up with a doctor, nurse practitioner, or physician?s bookkeeper assistant for ongoing care. If your symptoms become worse or you do not improve as expected and you are unable to reach your usual health care provider, you should return to the Emergency Department. We are available 24 hours a day. ROSELYN FREIRE has been given the following list of patient education materials, prescriptions and follow-up instructions: Follow-up Instructions: With: Address: When: Charles Dickeyry [address] [place] [address], [place] [address] Business (1) In 3 days In the event that this physician does not participate in your insurance network, please consult with your insurance company to find a nearby participating provider. Patient Education Materials: Diverticulitis A MESSAGE TO ALL PATIENTS REGARDING OPIOIDS PRESCRIPTION OPIOIDS: WHAT YOU NEED TO KNOW Prescription opioids can be used to help relieve oeaqcavh-nn-rdwiqg pain and are often prescribed following a [...] guidance from the Food and Drug Administration (www.fda.gov/Drugs/Resou rcesForYou). ? Visit www.cdc.gov/drugoverdose to learn about the risks of opioids abuse and overdose. ? If you believe you may be struggling with addiction, tell your health workforce investment act career manager and ask for guidance or call [facility]?S National Helpline at 0-975-199-CSZB. d Source: Department of Attensat (more content not included)... Normal [facility] HEMATOLOGYOrdered By: SYSTEM SYSTEM on 11-24-2023 Basophils/100 WBC (Bld) 0.2 % Normal 0.0 - 2.0 % Remisol Heme Basophils/Leukocyte s Auto (Bld) [Pure # fraction] 0.0 E9/L [...] 11-24-2023 Albumin [Mass/Vol] 4.3 g/dL Normal 3.3-5.0 [facility] Comment on above: Performed By: #### 2 [id number] #### [facility] [address] [place] [address] Albumin/Globulin (S) [Mass conc ratio] 1.3 Normal 1.1-2.2 [facility] Comment on above: Performed By: #### 2 310819 #### [facility] [address] [place] [address] ALP [Catalytic activity/Vol] 48 Int._Unit/L Normal 21-98 [facility] Comment on above: Performed By: #### 2 [id number] #### [facility] [address] [place] [address] ALT No additional P-5'-P [Catalytic activity/Vol] 20 Int._Unit/L Normal 6-46 [facility] Comment on above: Performed By: #### 2 [id number] #### [facility] [address] [place] [address] AST [Catalytic activity/Vol] 19 Int._Unit/L Normal 5-43 [facility] Comment on above: Performed By: #### 2 [id number] #### [facility] [address] [place] [address] Bilirubin [Mass/Vol] 0.9 mg/dL Normal 0.0-1.1 [facility] Comment on above: Performed By: #### 2 828381 #### [facility] [address] [place] [address] Bilirubin.direct [Mass/Vol] 0.2 mg/dL Normal 0.0-0.4 [facility] Comment on above: Performed By: #### 2 664868 #### [facility] [address] [place] [address] Bilirubin.indirect [Mass or moles/Vol] 0.7 mg/dL Normal 0.1-0.9 [facility] Comment on above: Performed By: #### 2 [id number] #### [facility] [address] [place] [address] Globulin (S) [Mass/Vol] 3.2 g/dL Normal 1.4-4.0 [facility] Comment on above: Performed By: #### 2 [id number] #### [facility] [address] [place] [address] Protein [Mass/Vol] 7.5 g/dL Normal 6.0-7.8 [facility] Comment on above: Performed By: #### 2 472435 #### [facility] [address] [place] [address] Influenza A&B Agon Influenzae A Ag Negative Normal Negative [facility] Comment on above: Performed By: #### 1 [id number] #### [facility] [address] [place] [address] Influenzae B Ag Negative Normal Negative [facility] Comment on above: Result Comment: Test sensitivity and specificity vary for age group, specimen type, antigen types, and prevalence of disease. Test results must be evaluated in conjunction with other clinical data available to the physician. Individuals who received nasally administered Influenza A vaccine may have positive test results up to 3 days after vaccination. Performed By: #### 1 [id number] #### [facility] [address] [place] [address] Lactic Acidon 11-24-2023 Lactic Acid Lvl 1.7 mmol/L Normal 0.5-2.2 [facility] Comment on above: Performed By: #### 2 381132 #### [facility] [address] [place] [address] Lipase Levelon 11-24-2023 Lipase [Catalytic activity/Vol] 45 U/L Normal 13-58 [facility] Comment on above: Performed By: #### 2 591949 #### [facility] [address] [place] [address] MICRO OTHER TESTSOrdered By: Harriet Barros on 11-24-2023 Influenzae A Ag Negative (11/24/23 1:42 PM) Normal Negative [facility] Man Sero Influenzae B Ag Negative 2 (11/24/23 1:42 PM) Normal Negative [facility] Sero Comment on above: Interpretive Data: T [...] NEG Ctl Pass (11/24/23 1:42 PM) Normal [facility] Sero Rapid COV Int POS Ctl Pass (11/24/23 1:42 PM) Normal [facility] Sero SARS-CoV+SARS-CoV-2 (COVID-19) Ag IA.rapid Ql (Resp) Not Detected 3 (11/24/23 1:42 PM) Normal Not Detected [facility] Comment on above: Interpretive Data: T he kidthing Veritor System for Rapid Detection of SARS-CoV-2 [...] terminated or revoked sooner. Rapid COVID Antigen ([facility])on 11-24-2023 Rapid COV Int NEG Ctl Pass Normal [facility] Comment on above: Performed By: #### 2 [id number] #### [facility] [address] [place] [address] Rapid COV Int POS Ctl Pass Normal [facility] Comment on above: Performed By: #### 2 [id number] #### [facility] [address] [place] [address] SARS-CoV+SARS-CoV-2 (COVID-19) Ag IA.rapid Ql (Resp) Not detected Normal Not Detected [facility] Comment on above: Result Comment: The kidthing Veritor? System for Rapid Detection of SARS-CoV-2 [...] other viruses or pathogens; and, in the [facility], this test is only authorized for the duration of the declaration that circumstances exist justifying the authorization of emergency use of in vitro diagnostics for detection and/or diagnosis of the virus that causes COVID-19 under Section 564(b)(1) of the Act, 21 U.S.C. ? 360bbb-3(b)(1), unless the authorization is terminated or revoked sooner. Performed By: #### 2 [id number] #### [facility] [address] [place] [address] UA with Cult Rflxon 25-20 24 Bacteria Auto Ql (U) Trace Normal Trace [facility] Comment on above: Performed By: #### 4 [id number] #### [facility] [address] [place] [address] Bilirubin Ql (U) Negative Normal Negative [facility] Comment on above: Performed By: #### 4 [id number] #### [facility] [address] [place] [address] Clarity (U) Clear Normal Clear [facility] Comment on above: Performed By: #### 4 [id number] #### [facility] [address] [place] [address] Color (U) Yellow Normal Yellow [facility] Comment on above: Result Comment: Micr oscopic readings are only performed on those samples that meet specific criteria set forth by [facility]. Performed By: #### 4 [id number] #### [facility] [address] [place] [address] Epithelial cells.squamous Auto (Urine sed) [#/Area] 0-2 Normal 0-2 [facility] Comment on above: Performed By: #### 4 [id number] #### [facility] [address] [place] [address] Glucose Ql (U) Negative Normal Negative [facility] Comment on above: Performed By: #### 4 [id number] #### [facility] [address] [place] [address] Hemoglobin Auto test strip (U) [Mass/Vol] Negative Normal Negative [facility] Comment on above: Performed By: #### 4 [id number] #### [facility] [address] [place] [address] Ketones Auto test strip Ql (U) Negative Normal Negative [facility] Comment on above: Performed By: #### 4 [id number] #### [facility] [address] [place] [address] Leukocyte esterase Auto test strip Ql (U) Negative Normal Negative [facility] Comment on above: Performed By: #### 4 [id number] #### [facility] [address] [place] [address] Mucus Auto Ql (U) Trace Normal Negative [facility] Comment on above: Performed By: #### 4 [id number] #### [facility] [address] [place] [address] Nitrite Auto test strip Ql (U) Negative Normal Negative [facility] Comment on above: Performed By: #### 4 [id number] #### [facility] [address] [place] [address] pH (U) 6.5 [pH] Invalid Interpretation Code 5.0-9.0 [facility] Comment on above: Performed By: #### 4 [id number] #### [facility] [address] [place] [address] Protein Ql (U) 1+ mg/dL Abnormal Negative [facility] Comment on above: Performed By: #### 4 [id number] #### [facility] [address] [place] [address] RBC Ql (U) 4-20 Abnormal 0-3 [facility] Comment on above: Performed By: #### 4 [id number] #### [facility] [address] [place] [address] Specific gravity (U) [Rel density] 1.024 Invalid Interpretation Code 1.005-1.030 [facility] Comment on above: Performed By: #### 4 [id number] #### [facility] [address] [place] [address] Urobilinogen (U) [Mass/Vol] 2 mg/dL Abnormal Negative [facility] Comment on above: Performed By: #### 4 [id number] #### [facility] [address] [place] [address] WBC Auto (Urine sed) [#/Area] 0-5 Normal 0-5 [facility] Comment on above: Performed By: #### 4 [id number] #### [facility] [address] [place] [address] Type of Urine collection method Clean Catch Normal [facility] Comment on above: Performed By: #### 4 [id number] #### [facility] [address] [place] [address] URINALYSISOrdered By: SYSTEM SYSTEM on 11-24-2023 Bacteria Auto Ql (U) Trace /HPF Normal Trace/HPF [facility] UA Auto SS Bilirubin Ql (U) Negative Normal Negativemg/dL FT UA Auto SS Clarity (U) Clear (11/24/23 1:28 PM) Normal Clear [facility] UA Auto SS Color (U) Yellow 1 (11/24/23 1:28 PM) Normal Yellow [facility] UA Auto SS Comment on above: Interpretive Data: M icroscopic readings are only performed on those samples that meet specific criteria set forth by [facility]. Epithelial cells.squamous Auto (Urine sed) [#/Area] 0-2 graded/HPF Normal 0-2graded/HPF [facility] UA Auto SS Glucose Ql (U) Negative Normal Negativemg/dL FT UA Auto SS Hemoglobin Auto test strip (U) [Mass/Vol] Negative Normal Negativemg/dL FT UA Auto SS Ketones Auto test strip Ql (U) Negative Normal Negativemg/dL FT UA Auto SS Leukocyte esterase Auto test strip Ql (U) Negative Normal NegativeLeu/uL FT UA Auto SS Mucus Auto Ql (U) Trace graded/LPF Normal Negati vegraded /LPF FT UA Auto SS Nitrite Auto test strip Ql (U) Negative Normal Negativemg/dL FT UA Auto SS pH (U) 6.5 *NA* (11/24/23 1:28 PM) Invalid Interpretation Code 5.0 - 9.0 [facility] UA Auto SS Protein Ql (U) 1+ mg/dL Invalid Interpretation Code Negativemg/dL FT UA Auto SS RBC Ql (U) 4-20 graded/HPF Invalid Interpretation Code 0-3graded/HPF FT UA Auto SS Specific gravity (U) [Rel density] 1.024 *NA* (11/24/23 1:28 PM) Invalid Interpretation Code 1.005 - 1.030 [facility] UA Auto SS Urobilinogen (U) [Mass/Vol] 2 mg/dL Invalid Interpretation Code Negativemg/dL FT UA Auto SS WBC Auto (Urine sed) [#/Area] 0-5 graded/HPF Normal 0-5graded/HPF [facility] UA Auto SS URINALYSISOrdered By: Kp Holt on 11-24-2023 UA Spec Desc Clean Catch (11/24/23 1:28 PM) Normal [facility] UA Auto SS eGFRon 11-24-2023 eGFR 102 mL/min/1.73 m2 Normal >=59 [facility] Comment on above: Order Comment: Order added by Discern Expert. Performed By: #### 1 [id number] #### [facility] [address] [place] [address] Blood Urea Nitrogenon 2023 Urea nitrogen [Mass/Vol] 11 mg/dL Normal 7-25 [facility] Comment on above: Order Comment: STAT FOR CT Performed By: #### C REBRANDY, BUN #### [address] pelvis w conon 09-14-2023 CT pelvis w con [facility] [place] [address] [place] [address] CT Scan Report Signed Patient: Roselyn Freire MR#: [id number] : 1955 Acct:[id number] Age/Sex: 68 / F ADM Date: 09/14/23 Loc: CT Room: Type: [facility] Attending Dr: Rebeca Mason MD Copies to: Rebeca Mason MD-NOMS Ordering Provider: VASQUEZ Jenkins Date of Service: 09/14/23 CT/CT pelvis w [...] DIVERTICULOSIS. Impression dictated by: Rey Fletcher Jr., D.OFlorian09/14/2023 2:30 PM Dictation Location: [place] [address] Transcribed By: [facility] 09/14/23 1430 Dictated By: Rey Fletcher Jr, DO 09/14/23 1428 Signed By: 09/14/23 1430 Normal [facility] Creatinineon 09-14-2023 Creatinine [Mass/Vol] 0.57 mg/dL Low 0.60-1.20 [facility] Comment on above: Order Comment: STAT FOR CT Performed By: #### C REAT, BUN #### [facility] [address] [place] [id number] [place] GFR/1.73 sq M.predicted MDRD (S/P/Bld) [Vol rate/Area] mL/min/{1.73_m2} Normal [facility] Comment on above: Order Comment: STAT FOR CT Result Comment: PERF ORMED BY: [place] [address] PATHOLOGIST CUSTOMER EXPERIENCE RETAIL CLERK ALANNA GABRIEL M.D. Performed By: #### C REAT, BUN #### [facility] [address] Creatinine [Mass/volume] in Serum or PlasmaOrdered By: VASQUEZ Mason on 09-14-2023 Creatinine [Mass/Vol] 0.57 mg/dL 0.60-1.20 [facility] No Panel InformationOrdered By: VASQUEZ Mason on 09-14-2023 Estimated GFR (CKD-EPI) > 60.0 mL/Min [facility]acy Creatinine Clearance (Chem N/A [facility] Urea nitrogen [Mass/volume] in Serum or PlasmaOrdered By: VASQUEZ Mason on 09-14-2023 Urea nitrogen [Mass/Vol] 11 mg/dL 725 [facility] Consent for Procedure/Surger yon 09-05-2023 Consent for Procedure/Surgery [id number] Normal [facility] Ambulatory Visit Summaryon 0 09-04-2023 Ambulatory Visit Summary LEXIECLARISSA FOLEYDY Wolfgang :1955 Visit Date:09/04/2023 Ambulatory Visit Instructions Your Diagnosis Bladder pain Angiomyolipoma Renal cyst Vaginal atrophy Your Care Team Attending Physician - HOME BREWER, Tay Nath Primary Care Physician - Charles Arambula MD This Is Your Medications List ciprofloxacin (Cipro 500 mg Tab) Contact prescribing physician if questions or concerns amlodipine (amLODIPine 10 mg Tab) aspirin bisoprolol (bisoprolol 10 mg Tab) busPIRone (busPIRone 15 mg Tab) docusate (Colace) hydrochlorothiazide (hydrochlorothiazide 12.5 mg Cap) psyllium (Metamucil) Procedures Performed Cystoscopy (09/04/2023), Colonoscopy (11/11/2021), Esophagogastroduodenosco py (11/11/2021), Cholecystectomy (2006), Hysterectomy, Lobectomy. Discharge Vitals Heart Rate (Apical) 54 Blood Pressure 136/88 Height 63 in Height 159 cm Weight 143 lb Weight 65 kg BMI 25.71 What to do next You Need to Schedule the Following Appointments Follow Up with HOME BREWER, ABRIL Garzon When: Comments: 1 yr recall placed for MONICA f/u with AO Where: [facility] [address], [place] [address]- Medications What How Much When Instructions Unchanged [...] test that (more content not included)... Normal [facility] Patient Educationon 09-04-19 24 Patient Education Obstetrics and Gynecology Atrophic Vaginitis Atrophic vaginitis is a condition [...] are. Treatment may include: ? Using an xvau-hny-xqnyofo vaginal lubricant before sex. ? Using a [...] these instructions at home: Medicines ? Take gbhh-iji-omrmxna and prescription medicines only as told by your health care provider. ? Do not use herbal or alternative medicines unless your health care provider says that you can. ? Use ewrw-lcf-iejguzj creams, lubricants, or moisturizers for dryness only [...] provider. Document Revised: 12/16/2020 Document Reviewed: 12/16/2020 [employer] Patient Education ? 2022 [employer]. [facility] Office/Clinic Noteon 09-04-2023 Urology Office/Clinic [...] URL [facility] [address], [place] [address]- Additional Instructions: 1 yr recall placed for MONICA f/u with AO Patient Education Atrophic Vaginitis I, Karlene Dow , personally scribed for Dr. Bhat on 09/04/2023 16:20:42. . Documentation (more content not included)... [facility] Comment on above: Result Comment: Elec tronically Signed By: Tay BHAT MD\.br\Date and Time Signed: 09/04/23 16:23 EST\.br\Electronically Co-Signed By: Karlene Dow\.br\Date and Time Co-Signed: 09/04/23 16:20 EST Consent for Treatmenton 08-02 Consent for Treatment [id number] F [facility] US Renalon 08-20-2023 US Renal Exam [...] Sanchez Davies DO Transcribed by: ROCKY Technologist: HW [facility] RAD - CT Reporton 08-15-20[address] RAD - CT Report [id number] F [facility] ED Note-Physicianon 08-01-19 24 ED Note-Physician [id number] FF [facility] Lab Reportson 08-01-2023 Lab Reports [id number]#[id number] [facility] Lab Reports [id number]#1.00TIF [facility] RAD - CT Reporton 08-01-2023 RAD - CT Report [id number]#1.00TIF [facility] Screenson 08-01-2023 Screens [id number]#1.00TI [facility] Ambulatory Visit Summaryon 0 07-31-2023 Ambulatory Visit [...] Cap) psyllium (Metamucil) Procedures Performed Colonoscopy (11/11/2021), Esophagogastroduodenosco py (11/11/2021), Cholecystectomy (2006), Hysterectomy, Lobectomy. Discharge Vitals [...] you for choosing us for your care. Larry Wyman [facility] Urology Office/Clinic Noteon 07-31-2023 Urology Office/Clinic Note Chief Complaint New Pt *Bladder Spasms HPI Staff New pt. Never before seen in our office. Here today due to Bladder Spasms. 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 Frequent UTI's. Has been ongoing for several yrs. Believes last infection was w/in last 2 months. [facility] SX: Bladder pain & burning. Pain last month that felt like it was coming from bladder. Did try Oxybutynin (from [facility]). Took for a couple days. [...] that pain did mildly improve w/ tylenol. [facility] ER 05/27/23 - negative UA, rx'd oxybutynin [...] does not mention angiomyolipoma. Left message w/ [facility] Radiology requesting addendum commenting on this. If not visualized on recent CT, will order MONICA. -f/u 1 yr w/ MONICA, recall placed. Ordered: Urnls Dip Stick Auto w/o Microscopy POC 81104 Urology Procedure Order 3. Renal cyst (N28.1: [...] Urnls Dip Stick Auto w/o Microscopy POC 66812 Urology Procedure Order Orders: ciprofloxacin, 500 mg = 1 tab(s), Oral, Daily, Take 1 tablet the day before the procedure and 1 tablet after the procedure, # 2 tab(s), Refills(s) 0, Pharmacy: [facility]/pharmacy #[id number], 159, cm, 07/31/23 10:21:00 EST, Height/Length Dosing, 65, kg, 07/31/23 10:21:00 EST, W... Follow-up With When Contact Information HENRIETTA Null APRN, [place] [facility], PEDRO, URL In 1 year Additional Instructions: w/ MONICA Patient Education Cystoscopy Renal Mass Problem List/Past Medical History Ongoing Arthritis Diverticulosis Elevated cholesterol Gallstones Gastritis Heart disease Hepati (more content not included)... Normal [facility] Comment on above: Result Comment: Elec [...] free to contact my office by calling [phone] with any questions. Provider Impressions 1. Left [...] 100 MG Oral Capsule [facility] Saline Nasal [place] 0.65 % Nasal SolutionSPRAY 4 SPRAYS INTO EACH NOSTRIL EVERY 4 HOURS Fluticasone Propionate SUSP Hibiclens 4 % External LiquidUse as directed for preoperative shower. hydroCHLOROthiazide 12.5 MG Oral Capsule Krill Oil 500 MG Oral Capsule Norvasc 10 MG Oral Tablet Zebeta TABS Vitals Vital Signs Recorded: 27Dec2022 09:05AM Height5 ft 3 in Rcrvol182 lb 11.2 oz BMI Raqjpqutyq41.05 kg/m2 BSA Calculated1.72 Tobacco Useb) No PHQ-2 [...] procedure below.) SINONASAL ENDOSCOPY WITH DEBRIDEMENT (CPT 99461-47-S): Due to the patient's chronic sinusitis/chronic rhinitis, [...] 27 2022 9:38AM EST (Author) Normal [facility] Tobacco Screening.on 023 Adult depression screening assessment No [facility] Work Phone: Fall risk assessment a) No falls within the last year -Otolaryngo [facility] 4100 Work Phone: Tobacco use status CPHS b) No [facility] Work Phone: Daily Progress Note-ENTon Daily Progress Note-ENT Service: ENT Subjective Data: ROSELYN FREIRE is a 67 year old Female who is Hospital Day # 2 and POD #1 for 1. Extradural resection of left sphenoid mass;2. Right total ethmoid and sphenoid;3. Image guidance. Additional Information: [facility] [place] Daily Progress Note Subjective: No acute events [...] Otolaryngology - Head & Neck Surgery Phone: [phone] Consult Pager: [phone]. Objective Data: Objective Information: T PRBPMAPSpO2 Value36.30561132/7293% Date/Time12/19 1: 1: 1: 1: 1:56 Range(36.6C - 36.6C ) (77 - 81 ) (18 - 18 ) (118 - 147 )/ (72 - 88 ) (93% - 96% ) Pain reported at 12/19 2:43: sleeping ---- Intake and Output ----- Mn/Dy/Year TimeIntakeOutputNet Dec 19, 2022 6:00 [id number] Dec 18, 2022 10:00 [id number] The Intake and Output Totals for the last 24 hours are: IntakeOutputNet [id number] Assessment and Plan: Code Status: Code StatusFull [...] Updated: 20-Dec-2022 07:16 by Lukasz Rosario) Normal [facility] Daily Progress Note-Neurosjessica ahumada 12-19-2022 Daily Progress Note-Neurosurgery Service: Neurosurgery Subjective Data: ROSELYN FREIRE is a 67 year old Female who is Hospital Day # 2 and POD #1 for 1. Extradural resection of left sphenoid mass;2. Right total ethmoid and sphenoid;3. Image guidance. Objective Data: Objective Information: T PRBPMAPSpO2 [id number]/8896% Date/Time12/18 20: 20: 20: 20:46 Range (81 [...] Last Updated: 19-Dec-2022 12:57 by Yenny Vargas) [facility] Order Reconciliationon 12-19 Order Reconciliation Page 1 Discharge Reconciliation Document Reconciliation Type: Discharge requested on behalf of Manuelito Mir (Resident) done by Manuelito Mir ( (Resident)) Discharge - Reconciliation: 19-Dec-2022 07:31 by: Manuelito Mir (Resident)) Home Medications EnteredHOME MEDICATIONS AT DISCHARGE [...] is continued as Multiple Vitamins oral tablet [place] 0.65% nasal spray 4 spray(s) nasal every 4 hours, As Needed 16-Oct-2022 00:00 [place] 0.65% nasal spray 4 spray(s) nasal every 4 hours, As Needed 16-Oct-2022 00:00 [place] 0.65% nasal spray is continued as [place] 0.65% nasal spray Current OrdersDateHOME MEDICATIONS AT [...] Immediate Re (more content not included)... Normal [facility] ABO/RH GROUP TESTon 12-19-19 23 ABO TYPE A Normal [facility] Comment on above: Performed By: #### V ERAB #### [facility] [address] [place] [address] RH TYPE Negative Normal [facility] Comment on above: Performed By: #### V ERAB #### [facility] [address] [place] [address] Discharge [id number] 023 Discharge Profile2 Discharge Orders: Anticipated Discharge Date: Anticipated Discharge [id number]-0799 Problem List: Additional Dx: Mass of sphenoid [...] IMPORTANT - (more content not included)... Normal [facility] Laboratory - Blood bankon ABO group Nom (Bld) A MG-Ot olaryngo logyTriNov[facility] Work Phone: Rh immune globulin screen (Bld) [Interp] Negative MG-Otolaryngo logy-[facility]Dabba Work Phone: No Panel Informationon 12-18 MG-Otolaryngo logy-[facility]Dab[facility] Work Phone: [facility] - [facility] PREOPERATIVE DIAGNOSIS: 1. Left sphenoid papilloma. 2. Chronic sinusitis. POSTOPERATIVE DIAGNOSIS: 1. Left sphenoid papilloma. 2. Chronic sinusitis. OPERATION/PROCEDURE: 1. 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 2. Right nasal endoscopy with total ethmoidectomy including sphenoidotomy with tissue removal. 3. Extracranial CT image guidance. SURGEON: Lukasz Rosario MD. COMMERCIAL HVAC TECHNICIAN(S): None. ANESTHESIA: General endotracheal anesthesia. CO-SURGEON: Yenny [...] and all (more content not included)... Normal [facility] Order Reconciliationon 12-18 Order Reconciliation Page 1 [...] oral tablet 1 tab(s) oral once a ysb69-Xfs-766655-Fab-105 3 AM amLODIPine (NORVASC) TabletDOSE = 10 mg Oral DailyamLODIPine 10 mg oral tablet continued as the inpatient order amLODIPine (NORVASC) aspirin 325 mg oral tablet 1 tab(s) oral once a qqi23-Jfq-912950-Aah-077 3 Reviewed and Held azelastine nasal 137 mcg/inh nasal spray 1 spray(s) nasal 2 times a day, As Nazfmy04-Wss-769725-Ayy- 2023 Reviewed and Held bisoprolol 10 mg oral tablet 1 tab(s) orally once a hne91-Gsh-284306-Zbr-244 3 AM Bisoprolol Tablet (ZEBETA)DOSE = 10 mg Oral Dailybisoprolol 10 mg oral tablet continued as the inpatient order Bisoprolol busPIRone 7.5 mg oral tablet 1 tab(s) oral once a cpg48-Kbc-462821-Tlg-240 3 AM busPIRone (BUSPAR) TabletDOSE = 7.5 mg Oral Every 24 HoursbusPIRone 7.5 mg oral tablet continued as the inpatient order busPIRone (BUSPAR) docusate sodium 100 mg oral capsule 1 tab(s) oral once a xfr53-Gwt-652018-Dec-2022 AM Docusate Capsule (COLACE)DOSE = 100 mg Oral Dailydocusate sodium 100 mg oral capsule continued as the inpatient order Docusate famotidine 10 mg oral tablet 1 tab(s) orally once, As Ccmclz50-Uws-3736 Famotidine Tablet (PEPCID)DOSE = 10 mg Oral Daily, PRN dyspepsiafamotidine 10 mg oral tablet continued as the inpatient order Famotidine hydroCHLOROthiazide 12.5 mg oral capsule 1 tab(s) oral once a rzz57-Yzr-075018-Dec-2022 AM hydroCHLOROthiazide Tablet (MICROZIDE)DOSE = 12.5 mg Oral DailyhydroCHLOROthiazide 12.5 mg oral capsule continued as the inpatient order hydroCHLOROthiazide krill oil 500mg capsules 1 cap(s) orally once a frw46-Xyi-025604-Bap-108 3 Reviewed and Held Multiple Vitamins oral tablet 1 tab(s) orally once a cro75-Cpm-875118-Dec-2022 Reviewed and Held [place] 0.65% nasal spray 4 spray(s) nasal every 4 hours, As Sagjxm35-Rpl-3367 Reviewed and Held Additional Current Orders Acetaminophen [...] 400 abbey (more content not included)... Normal [facility] Patient Profile - Preop v3on 12-18-2022 Patient Profile - Preop v3 Patient Profile - Preop: Initial Info: Patient DemographicsName: ROSELYN FREIRE Date: 1955 Address: [address] [address] Primary Phone [phone] How to be AddressedCINDY Spoken Language PreferredEnglish Stated Reason for Admission LEFT SINUS MASS REMOVAL Primary Contact Name and NumberHARRY (SPOUSE) Medications Brought to Hospitalno General Health: Weight in kg70.5 kilogram(s) Weight in vwi593.4 pound(s) Weight Methodactual (measured) Scale Typestanding Height in feet5 feet Height in inches2.95 inch(es) Height in cm159.8 centimeter(s) Height Methodstated BMI (kg/m2)27.608 square meter Patient or Family Member Reaction to Anesthesianever had anesthesia; no previous reaction; no previous family member reaction Blood Avoidance/Restrictionsno ne Previous Transfusion Reactionnot applicable Health Mgmt: Symptoms/Conditions Managed at Homecardiovascular; cancer Cardiovascular Symptoms/Conditionshyper tension Cardiovascular Management Strategiesmedication therapy Barriers to Managing [...] 11:49 by Muriel Solis (MARISA APODACA) Normal [facility] Preop Checkliston 12-18-2022 Preop Checklist Preop Checklist: Preop Checklist: Arrival Kcoa60-Vik-6394 Arrival Time11:30 Temperature C36.6 degrees C Temperature F97.8 degrees F Heart Rate62 beats per minute Respiratory Rate18 breath per minute Blood Pressure Reopmuuw240 mm/Hg Blood Pressure Yyctiwudq40 mm/Hg COVID 19 Results in Last 7 daysNot Tested NPOyes Last Food Qlwxfi22-Ref-9035 23:00 Last Clear Fluid Qwlmql54-Tke-3204 23:00 NPO CommentSIPS OF WATER WITH MEDS Beta-leanna Last Dose Date/Aplm97-Jcg-5927 09:00 ID Band On Patientpatient ID (name) Consent Signedpending H&P Completepending Anesthesia Assessment Completedpending EKG Performednot ordered Chest X-Ray Performednot ordered Preop Antibioticsnot ordered Type and Screen Resultedyes HCG Urine TestN/A LAUNCH MANAGER, HYSTERECTOMY Chlorhexadine Bath Givencompleted at home Nasal Antiseptic Appliedcompleted at home Soap and Water Bath the Night Before Surgeryyes Hair Washed with Shampooyes Hat placed on infant prior to transportyes SCD's Appliedsent to [facility] Hose Appliednot ordered Denturesplaced in locker Prostheticsnot applicable Hearing Aidsnot applicable Valuables Securedplaced in locker Glasses / Contactsplaced in locker Language / Communication: Language / CommunicationEnglish Electronic Signatures: Muriel Solis (MARISA PRN) (Signed 18-Dec-2022 11:45) Authored: Preop Checklist Last Updated: 18-Dec-2022 11:45 by Muriel Solis (MARISA PRN) Normal [facility] Surgical Pathology Department Name ROSELYN FREIRE Pathologist: Fawn Soria MD, Ph.D. Date of Procedure: 12/18/2022 Date Received: 12/18/2022 Date Reported 12/21/2022 Submitting Physician: LUKASZ ROSARIO MD Location: [place] [address] Copy To/Referring/Attending: YENNY VARGAS MD Other External [...] reviewed this case. Diagnostic interpretation performed at [facility] [address] [facility]. [place] [id number] Clinical History: Physician Contact Number: [phone] Fixative (A): Saline Clinical Diagnosis History SPHENOI [...] 4 cassettes, membranous tissue in cassette 4. AMANDA jade/12/19/2022 [facility] Department of Pathology [address] [place] [address] Normal [facility] Comment on above: Performed By: #### U [facility] ####[facility] Surgical Pathology [id number] [place] [id number] Initial Visit (Neurosurgery) on 12-12-2022 Initial Visit [...] sinus mass, referred by Dr. Abraham BREWER, [facility] . This HANDP is partly from [...] 100 MG Oral Capsule [facility] Saline Nasal [place] 0.65 % Nasal SolutionSPRAY 4 SPRAYS INTO [...] Dec 13 2022 2:58PM EST (Author) Normal [facility] BASIC METABOLIC PANELon 11-30 Anion gap [Moles/Vol] 17 mmol/L Normal 10 - 20 [facility] Comment on above: Performed By: #### B MP #### [facility] [address] [place] [address] Calcium [Mass/Vol] 10.5 mg/dL Normal 8.6 - 10.6 [facility] Comment on above: Performed By: #### B MP #### [facility] [address] [place] [address] Chloride [Moles/Vol] 101 mmol/L Normal 98 - 107 [facility] Comment on above: Performed By: #### B MP #### [facility] [address] [place] [address] Creatinine [Mass/Vol] 0.61 mg/dL Normal 0.50 - 1.05 [facility] Comment on above: Performed By: #### B MP #### [facility] [address] [place] [address] eGFR FEMALE >90 Normal >90 [facility] Comment on above: Result Comment: CALC ULATIONS OF ESTIMATED GFR ARE PERFORMED USING THE 2020 CKD-EPI STUDY REFIT EQUATION WITHOUT THE RACE VARIABLE FOR THE IDMS-TRACEABLE CREATININE METHODS. https://jasn.asnjournals.org/content//ASN.59402814 88 Performed By: #### B MP #### [facility] [address] [place] [address] Glucose [Mass/Vol] 110 mg/dL High 74 - 99 [facility] Comment on above: Performed By: #### B MP #### [facility] [address] [place] [address] HCO3 (Bld) [Moles/Vol] 26 mmol/L Normal 21 - 32 [facility] Comment on above: Performed By: #### B MP #### [facility] [address] [place] [address] Potassium [Moles/Vol] 4.6 mmol/L Normal 3.5 - 5.3 [facility] Comment on above: Performed By: #### B MP #### [facility] [address] [place] [address] Sodium [Moles/Vol] 139 mmol/L Normal 136 - 145 [facility] Comment on above: Performed By: #### B MP #### [facility] [address] [place] [address] Urea nitrogen [Mass/Vol] 17 mg/dL Normal 6 - 23 [facility] Comment on above: Performed By: #### B MP #### [facility] [address] [place] [address] CBC AND DIFFERENTIALon 12-11 % AUTOMATED IMMATURE GRAN 0.5 % Normal 0.0 - 0.9 [facility] Comment on above: Result Comment: María Elena ture Granulocyte Count (IG) includes promyelocytes, myelocytes and metamyelocytes but does not include bands. Percent differential counts (%) should be interpreted in the context of the absolute cell counts (cells/L). Performed By: #### C BCDF #### [facility] [address] [place] [address] Basophils (Bld) [#/Vol] 0.07 10*3/uL Normal 0.00 - 0.10 [facility] Comment on above: Performed By: #### C BCDF #### [facility] [address] [place] [address] Basophils/100 WBC (Bld) 1.1 % Normal 0.0 - 2.0 [facility] Comment on above: Performed By: #### C BCDF #### [facility] [address] [place] [address] Eosinophils (Bld) [#/Vol] 0.09 10*3/uL Normal 0.00 - 0.70 [facility] Comment on above: Performed By: #### C BCDF #### [facility] [address] [place] [address] Eosinophils/100 WBC (Bld) 1.4 % Normal 0.0 - 6.0 [facility] Comment on above: Performed By: #### C BCDF #### [facility] [address] [place] [address] Erythrocyte distribution width (RBC) [Ratio] 12.2 % Normal 11.5 - 14.5 [facility] Comment on above: Performed By: #### C BCDF #### [facility] [address] [place] [address] Hematocrit (Bld) [Volume fraction] 42.2 % Normal 36.0 - 46.0 [facility] Comment on above: Performed By: #### C BCDF #### [facility] [address] [place] [address] Hemoglobin (Bld) [Mass/Vol] 14.1 g/dL Normal 12.0 - 16.0 [facility] Comment on above: Performed By: #### C BCDF #### [facility] [address] [place] [address] Lymphocytes (Bld) [#/Vol] 1.83 10*3/uL Normal 1.20 - 4.80 [facility] Comment on above: Performed By: #### C BCDF #### [facility] [address] [place] [address] Lymphocytes/100 WBC (Bld) 28.6 % Normal 13.0 - 44.0 [facility] Comment on above: Performed By: #### C BCDF #### [facility] [address] [place] [address] MCHC (RBC) [Mass/Vol] 33.4 g/dL Normal 32.0 - 36.0 [facility] Comment on above: Performed By: #### C BCDF #### [facility] [address] [place] [address] MCV (RBC) [Entitic vol] 90 fL Normal 80 - 100 [facility] Comment on above: Performed By: #### C BCDF #### [facility] [address] [place] [address] Monocytes (Bld) [#/Vol] 0.51 10*3/uL Normal 0.10 - 1.00 [facility] Comment on above: Performed By: #### C BCDF #### [facility] [address] [place] [address] Monocytes/100 WBC (Bld) 8.0 % Normal 2.0 - 10.0 [facility] Comment on above: Performed By: #### C BCDF #### [facility] [address] [place] [address] Neutrophils (Bld) [#/Vol] 3.86 10*3/uL Normal 1.20 - 7.70 [facility] Comment on above: Performed By: #### C BCDF #### [facility] [address] [place] [address] Neutrophils/100 WBC (Bld) 60.4 % Normal 40.0 - 80.0 [facility] Comment on above: Performed By: #### C BCDF #### [facility] [address] [place] [address] NUCLEATED RBC 0.0 /100 WBC Normal 0.0-0.0 [facility] Comment on above: Performed By: #### C BCDF #### [facility] [address] [place] [address] Platelets (Bld) [#/Vol] 221 10*3/uL Normal 150 - 450 [facility] Comment on above: Performed By: #### C BCDF #### [facility] [address] [place] [address] RBC 4.69 x10E12/L Normal 4.00 - 5.20 [facility] Comment on above: Performed By: #### C BCDF #### [facility] [address] [place] [address] WBC (Bld) [#/Vol] 6.4 10*3/uL Normal 4.4 - 11.3 [facility] Comment on above: Performed By: #### C BCDF #### [facility] [address] [place] [address] COAGULATION SCREENon 023 aPTT Coag (Bld) [Time] 28 s Normal 26 - 39 [facility] Comment on above: Result Comment: THE APTT IS NO LONGER USED FOR MONITORING UNFRACTIONATED HEPARIN THERAPY. FOR MONITORING HEPARIN THERAPY, USE THE HEPARIN ASSAY. Performed By: #### C OAGS #### [facility] [address] [place] [address] PT Coag (PPP) [Time] 10.1 s Normal 9.8 - 13.4 [facility] Comment on above: Performed By: #### C OAGS #### [facility] [address] [place] [address] PT, INR 0.9 Normal 0.9 - 1.1 [facility] Comment on above: Performed By: #### C OAGS #### [facility] [address] [place] [address] Complete Blood Count + Diffe norma 12-11-2022 Basophils/100 WBC (Bld) 1.1 % 0.0 - 2.0 MG-Neurosurge [facility] Work Phone: Erythrocyte distribution width (RBC) [Ratio] 12.2 % See Below -Neurosurge [facility] Work Phone: Comment on above: Reference Range: 11. 5 - 14.5 Hematocrit (Bld) [Volume fraction] 42.2 % See Below -Neurosurge [facility] Work Phone: Comment on above: Reference Range: 36. 0 - 46.0 Hemoglobin (Bld) [Mass/Vol] 14.1 g/dL See Below -Neurosurge [facility] Work Phone: Comment on above: Reference Range: 12. 0 - 16.0 Lymphocytes/100 WBC (Bld) 28.6 % See Below MG-Neurosur[facility] Work Phone: Comment on above: Reference Range: 13. 0 - 44.0 MCHC (RBC) [Mass/Vol] 33.4 g/dL See Below MG-Neurosur[facility] Work Phone: Comment on above: Reference Range: 32. 0 - 36.0 MCV (RBC) [Entitic vol] 90 fL 80 - 100 [facility] Work Phone: Monocytes/100 WBC (Bld) 8.0 % [...] 6.4 10*3/uL 4.4 - 11.3 MG-Amber [facility]surge [facility] Work Phone: Complete Blood Count + [...] + Differential 3.86 {x10E9/L} See Below [facility]-Neurosurge [facility] Work Phone: Comment on above: Reference Range: 1.2 0 - 7.70 Complete Blood Count + Differential 1.4 % 0.0 - 6.0 [facility]Neuro[facility] Work Phone: Complete Blood Count + Differential 0.5 % 0.0 - 0.9 [facility] Work Phone: Comment on above: Immature Granulocyte Count (IG) includes promyelocytes, myelocytes and metamyelocytes but does not include bands. Percent differential counts (%) should be interpreted in the context of the absolute cell counts (cells/L). Complete Blood Count + Differential 0.0 {/100_WBC} 0.0-0.0 MG-Neurosurge [facility] Work Phone: Laboratory - Blood bankon ABO group Nom (Bld) A MG-Ne urosurge [facility] Work Phone: Blood group antibody screen Ql Negative MG-Neurosurge [facility] Work Phone: Rh immune globulin screen (Bld) [Interp] Negative MG-Neurosurge [facility] Work Phone: Laboratory - Chemistry and C hemistry - challengeon 12-11-2022 Anion gap [Moles/Vol] 17 mmol/L 10 - 20 [facility]uro[facility] Work Phone: Calcium [Mass/Vol] 10.5 mg/dL 8.6 - 10.6 MG-[facility]mber [facility] Work Phone: Chloride [Moles/Vol] 101 mmol/L 98 - 107 [facility] Work Phone: CO2 [Moles/Vol] 26 mmol/L 21 - 32 MG-Neuros urge [facility] Work Phone: Creatinine [Mass/Vol] 0.61 mg/dL See Below MG-Neurosurge [facility] Work Phone: Comment on above: Reference Range: 0.5 0 - 1.05 Glucose [Mass/Vol] 110 mg/dL above high threshold 74 - 99 [facility]sur[facility] Work Phone: Potassium [Moles/Vol] 4.6 mmol/L 3.5 - 5.3 [facility] Work Phone: Sodium [Moles/Vol] 139 mmol/L 136 - 145 MG-Amber rosurge [facility] Work Phone: Urea nitrogen [Mass/Vol] 17 mg/dL 6 - 23 [facility] Work Phone: Laboratory - Coagulationon 0 12-11-2022 aPTT Coag (PPP) [Time] 28 s 26 - 39 [facility] Work Phone: Comment on above: THE APTT IS NO LONGE R USED FOR MONITORING UNFRACTIONATED HEPARIN THERAPY. FOR MONITORING HEPARIN THERAPY, USE THE HEPARIN ASSAY. INR Coag (PPP) [Relative time] 0.9 {INR} 0.9 - 1.1 -Neurosurge [facility] Work Phone: PT Coag (PPP) [Time] 10.1 s 9.8 - 13.4 -Neurosurge [facility] [facility] Work Phone: MRSA Screenon 12-11-2022 Staphylococcus sp identified Org specific cx Nom (Unsp spec) MG-Neurosurge [facility] Work Phone: No Panel Informationon 12-11 >90 >90 MG-Neurosurge [facility] Work Phone: Comment on above: CALCULATIONS OF GLENN MATED GFR ARE PERFORMED USING THE 2020 CKD-EPI STUDY REFIT EQUATION WITHOUT THE RACE VARIABLE FOR THE IDMS-TRACEABLE CREATININE METHODS.https://jasn.asnjournals.org/content/early/ASN. 9742751447 STAPH/MRSA SCREENon 12-12-19 23 STAPH/MRSA SCREEN PATIENT: ELISA FREIRE LOCATION: [facility]#: [id number] : 57 AGE: SEX: F ORDERED BY: YENNY VARGAS SOURCE: ANTERIOR NARES COLLECTED: 12/11/22 10:28 ANTIBIOTICS AT TANMAY.: RECEIVED : 12/11/22 15:04 SITE: Nasal R E S U L T S STAPH/MRSA SCREEN FINAL 12/13/22 11:50 NO Staphylococcus aureus ISOLATED. Normal [facility] Comment on above: Performed By: #### S TAPH ####[id number] [place] [address] TYPE + SCREENon 12-11-2022 ABO TYPE A Normal [facility] Comment on above: Performed By: #### T +S ####[id number] [place] [address] RH TYPE Negative Normal [facility] Comment on above: Performed By: #### T +S ####[id number] [place] [address] Urinalysis - AUTOMATEDon Appearance (U) CLEAR [employer] [place] Other Bilirubin Ql (U) Negative [address] Other Color (U) YELLOW [employer] Other Glucose Ql (U) Negative [employer] [place] Other Hemoglobin Ql (U) TRACE-INTACT [employer] Other Ketones Ql (U) Negative [employer] [place] Other Leukocyte esterase Test strip Ql (U) Negative [employer] Other Nitrite Ql (U) Negative [employer] [place] Other pH (U) 6.0 [pH] [employer] Other Protein Ql (U) 100 [employer] [place] Other Specific gravity (U) [Rel density] 1.015 [employer] Other Urobilinogen (U) [Mass/Vol] 0.2 mg/dL [employer] Other Urinalysis - AUTOMATED [employer] Other Urine Cultureon 12-01-2022 Bacteria identified Cx Nom (U) 20,000 colonies/ml mixed bacterial skin contaminants 2 Days PERFORMED BY: [place] [address] PATHOLOGIST CUSTOMER EXPERIENCE RETAIL CLERK ALANNA GABRIEL M.D. 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 Provider Impressions 1. Left [...] 100 MG Oral Capsule [facility] Saline Nasal [place] 0.65 % Nasal SolutionSPRAY 4 SPRAYS INTO EACH NOSTRIL EVERY 4 HOURS Fluticasone Propionate SUSP hydroCHLOROthiazide 12.5 MG Oral Capsule Krill Oil 500 MG Oral Capsule Norvasc 10 MG Oral Tablet Pantoprazole Sodium 40 MG Oral Tablet Delayed ReleaseTAKE 1 TABLET BY MOUTH EVERY DAY Zebeta 10 MG TABS Vitals Vital Signs Recorded: [id number] 01:24PM Height5 ft 3 in Yartbr083 lb 6 oz BMI Ptjhyljrsf71.17 kg/m2 BSA Calculated1.73 Tobacco Useb) No PHQ-2 [...] (Please see procedure below.) SINONASAL ENDOSCOPY (CPT 02327): To better evaluate the patient's symptoms, sinonasal [...] middle meatus and sphenoethmoid recess. Results/Data Surgical [id number] 01:04PMLukasz Rosario Test NameResultFlagReference Case Surgical Pathology(Report) [...] of inflammation. Clinical follow up is recommended. oracle iam consultant: Dr. Albaro Patino at The gross and/or microscopic findings were reviewed in conjunction with pathology resident, Ezio Montana MD. Electronically Signed Out By WILLIE MONTANEZ DMD./AMT By the signature on this report, the individual or group listed as making the Final Interpretation/Diagnosis certifies that they have reviewed this case. Diagnostic interpretation performed at [facility] [address] [facility] [address] Adde (more content not included)... 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 Provider Impressions 1. Left [...] 100 MG Oral Capsule [facility] Saline Nasal [place] 0.65 % Nasal SolutionSPRAY 4 SPRAYS INTO [...] Recorded: 01Nov2022 11:28AM Height5 ft 3 in Lqftun777 lb 1 oz BMI Vrumultrtd52.35 kg/m2 BSA Calculated1.76 Tobacco Useb) No PHQ-2 [...] (Please see procedure below.) SINONASAL ENDOSCOPY (CPT 39082): To better evaluate the patient's symptoms, sinonasal [...] discussed her pathology revealing inverted papilloma. Surgical Icoxpqyki56Vfk7011 01:04PMLukasz Rosario Test NameResultFlagReference Case Surgical Pathology(Report) Name ROSELYN FREIRE Pathol (more content not included)... Normal [employer] Tobacco Screening.on 023 Adult depression screening assessment No MG-Otolaryngo logy-[facility] 4782 Work Phone: Fall risk assessment a) No falls within the last year MG-Otolaryngo logy-[facility] 4100 Work Phone: Tobacco use status CPHS b) No -Otolaryngo logy-[facility] 4100 Work Phone: SURGICAL PATHOLOGY RESULTSon 10-25-2022 [...] of inflammation. Clinical follow up is recommended. oracle iam consultant: Dr. Albaro Patino at The gross and/or microscopic findings were reviewed in conjunction with pathology resident, Ezio Montana MD. Electronically Signed Out By WILLIE MONTANEZ DMD./AMT By the signature on this report, the individual or group listed as making the Final Interpretation/Diagnosis certifies that they have reviewed this case. Diagnostic interpretation performed at [facility] [address] [facility] [address] Addendum/Procedures: Addendum Date Ordered: 10/25/2022 Status: Signed [...] reviewed this case. Addendum signed out at [facility] [address] [facility] [address]. Clinical History: Physician Contact Number: [id number] Fixative (A): Saline Clinical Diagnosis History LEFT SPHENOID MASS Specimens Submitted As: A: LEFT SPHENOID LESION Gross Description: Received in formalin, labeled with the patient's name and hospital number and left sphenoid lesion , are multiple fragments of gilman-brown soft tissue aggregating to 1.4 x 1.3 x 0.5 cm. The specimen is submitted in toto in one cassette. [facility]10/17/2022 The assays/tests were performed with appropriate positive and negative controls which stained appropriately. [facility] Department of Pathology [address] [place] [address] No Panel Informationon 10-16 MG-Otolaryngo logy-[facility] 1496 Work Phone: [facility] - [facility] PREOPERATIVE DIAGNOSIS: Left sphenoid sinus mass. POSTOPERATIVE DIAGNOSIS: Left sphenoid sinus mass. OPERATION/PROCEDURE: 1. Left nasal endoscopy with total ethmoidectomy including sphenoidotomy with tissue removal, CPT 21268-M. 2. Left maxillary endoscopy, CPT 95734-T. 3. Extracranial CT image guidance, CPT 98792. SURGEON: Lukasz Rosario MD. COMMERCIAL HVAC TECHNICIAN(S): Dr. Pradip Daly. ANESTHESIA: General endotracheal anesthesia. [...] 2022. She had presented to a different coastal tug mate outside the System with left eye pulsations [...] Lukasz Rosario MD EST EST DICTATION NUMBER: [id number] INTERNAL JOB NUMBER: [id number] CC: Lukasz Rosario MD, Electronic Signatures: Lukasz Rosario) (Signed on 18-Oct-2022 18:54) Authored Unsigned, Draft (SYS GENERATED) (Entered on 17-Oct-2022 08:15) Entered Last Updated: 18-Oct-2022 18:54 by Lukasz Rosario) [facility] Order Reconciliationon 10-16 Order Reconciliation Page 1 [...] be shared with your follow-up providers (doctor, textile machinery instructor, physical therapist, etc.). Follow Up with Dr. Rosario in [address] operate motor vehicles for 24 hours. May shower [place] 0.65% nasal spray 4 spray(s) intranasally every [...] age appropria (more content not included)... Normal [facility] Patient Profile - Preop v3on 10-16-2022 Patient Profile - Preop v3 Patient Profile - Preop: Initial Info: Patient DemographicsName: ROSELYN FREIRE Date: 1955 [address] [place] [address] Primary Phone [phone] How to be AddressedCindy Spoken Language PreferredEnglish Stated Reason for AdmissionBiopsy sinus cavity Primary Contact Name and NumberHarry. . [phone] Medications Brought to Hospitalno General Health: Weight in kg70.8 kilogram(s) Weight in wqo955 pound(s) Weight Methodactual (measured) Scale Typestanding Height in feet5 feet Height in inches2.95 inch(es) Height in cm159.8 centimeter(s) Height Methodstated BMI (kg/m2)27.725 square meter Patient or Family Member Reaction to Anesthesiano previous reaction Blood Avoidance/Restrictionsno ne Previous Transfusion Reactionnot applicable Health Mgmt: Symptoms/Conditions Managed at Homecardiovascular; behavioral health; musculoskeletal Barriers to Managing Healthnone Relationship/Environ: Lives Withspouse Living Arrangementshouse Resource/Environmental Concernsnone Anticipated Transition [facility] Anticipated at Transitionnone Tobacco Use: Tobacco Useno Pre-op Checklist: Arrival [id number] Arrival Time10:42 Procedure TypeLeft endoscopic sinus surgery [...] Updated: 16-Oct-2022 11:15 by Donna Cox) Normal [facility] Surgical Pathology Depar tmenton 10-16-2022 [facility] Surgical Pathology Department Name ROSELYN FREIRE [...] of inflammation. Clinical follow up is recommended. oracle iam consultant: Dr. Albaro Patino at The gross and/or microscopic findings were reviewed in conjunction with pathology resident, Ezio Montana MD. Electronically Signed Out By WILLIE MONTANEZ DMD./AMT By the signature on this report, the individual or group listed as making the Final Interpretation/Diagnosis certifies that they have reviewed this case. Diagnostic interpretation performed at [place] [address] Addendum/Procedures: Addendum Date Ordered: 10/25/2022 Status: Signed [...] reviewed this case. Addendum signed out at [place] [address]. Clinical History: Physician Contact Number: [id number] Fixative (A): Saline Clinical Diagnosis History LEFT SPHENOID MASS Specimens Submitted As: A: LEFT SPHENOID LESION Gross Description: Received in formalin, labeled with the patient's name and hospital number and left sphenoid lesion , are multiple fragments of gilman-brown soft tissue aggregating to 1.4 x 1.3 x 0.5 cm. The specimen is submitted in toto in one cassette. JOSE ALFREDO [facility]/10/17/2022 The assays/tests were performed with appropriate positive and negative controls which stained appropriately. [facility] Department of Pathology [address] [place] [address] Normal [facility] Comment on above: Performed By: #### U [facility] ####[facility] Surgical Pathology [address] [place], [place] [id number] BASIC METABOLIC PANELon 04-0 Anion gap [Moles/Vol] 16 mmol/L Normal 10 - 20 [facility] Comment on above: Performed By: #### B MP #### [facility] [id number] [place] [address], [place] [address] Calcium [Mass/Vol] 10.2 mg/dL Normal 8.6 - 10.6 [facility] Comment on above: Performed By: #### B MP #### [facility] [address] [place] [address] Chloride [Moles/Vol] 99 mmol/L Normal 98 - 107 [facility] Comment on above: Performed By: #### B MP #### [facility] [address] [place] [address] Creatinine [Mass/Vol] 0.60 mg/dL Normal 0.50 - 1.05 [facility] Comment on above: Performed By: #### B MP #### [facility] [address] [place] [address] eGFR FEMALE >90 Normal >90 [facility] Comment on above: Result Comment: CALC ULATIONS OF ESTIMATED GFR ARE PERFORMED USING THE 2020 CKD-EPI STUDY REFIT EQUATION WITHOUT THE RACE VARIABLE FOR THE IDMS-TRACEABLE CREATININE METHODS. https://jasn.asnjournals.org/content/early//ASN.68740037 88 Performed By: #### B MP #### [facility] [address] [place] [address] Glucose [Mass/Vol] 95 mg/dL Normal 74 - 99 [facility] Comment on above: Performed By: #### B MP #### [facility] [address] [place] [address] HCO3 (Bld) [Moles/Vol] 28 mmol/L Normal 21 - 32 [facility] Comment on above: Performed By: #### B MP #### [facility] [address] [place] [address] Potassium [Moles/Vol] 3.6 mmol/L Normal 3.5 - 5.3 [facility] Comment on above: Performed By: #### B MP #### [facility] [address] [place] [address] Sodium [Moles/Vol] 139 mmol/L Normal 136 - 145 [facility] Comment on above: Performed By: #### B MP #### [facility] [address] [place] [address] Urea nitrogen [Mass/Vol] 16 mg/dL Normal 6 - 23 [facility] Comment on above: Performed By: #### B MP #### [facility] [address] [place] [address] CBCon 10-06-2022 Erythrocyte distribution width (RBC) [Ratio] 11.8 % Normal 11.5 - 14.5 [facility] Comment on above: Performed By: #### C BC #### [facility] [address] [place] [address] Hematocrit (Bld) [Volume fraction] 41.2 % Normal 36.0 - 46.0 [facility] Comment on above: Performed By: #### C BC #### [facility] [address] [place] [address] Hemoglobin (Bld) [Mass/Vol] 14.5 g/dL Normal 12.0 - 16.0 [facility] Comment on above: Performed By: #### C BC #### [facility] [address] [place] [address] MCHC (RBC) [Mass/Vol] 35.2 g/dL Normal 32.0 - 36.0 [facility] Comment on above: Performed By: #### C BC #### [facility] [address] [place] [address] MCV (RBC) [Entitic vol] 87 fL Normal 80 - 100 [facility] Comment on above: Performed By: #### C BC #### [facility] [address] [place] [address] NUCLEATED RBC 0.0 /100 WBC Normal 0.0-0.0 [facility] Comment on above: Performed By: #### C BC #### [facility] [address] [place] [address] Platelets (Bld) [#/Vol] 207 10*3/uL Normal 150 - 450 [facility] Comment on above: Performed By: #### C BC #### [facility] [address] [place] [address] RBC 4.71 x10E12/L Normal 4.00 - 5.20 [facility] Comment on above: Performed By: #### C BC #### [facility] [address] [place] [address] WBC (Bld) [#/Vol] 8.7 10*3/uL Normal 4.4 - 11.3 [facility] Comment on above: Performed By: #### C BC #### [facility] [address] [place] [address] Electrocardiogram 12 Leadon 10-06-2022 Electrocardiogram 12 Lead Ventricular Rate 51 Atrial Rate 51 P-R Interval 140 QRS Duration 102 Q-T Interval 438 QTC Calculation(Bazett) 403 P Wilmot 26 R Wilmot -10 T Wilmot -14 QRS Count 9 Q Onset 222 P Onset 152 P Offset 219 T Offset 441 QTC Fredericia 415 Diagnosis Class Abnormal Diagnosis Sinus bradycardia Possible Left atrial enlargement LVH Abnormal ECG No previous ECGs available Confirmed by Marino Wolf ([id number]) on 10/10/2022 5:57:37 PM Normal [facility] Laboratory - Chemistry and C hemistry - challengeon 10-06-2022 Anion gap [Moles/Vol] 16 mmol/L 10 - 20 -Otolaryngo [facility] 4100 Work Phone: Calcium [Mass/Vol] 10.2 mg/dL 8.6 - 10.6 MG-[place] laryngo [facility] 4100 Work Phone: [phone] Chloride [Moles/Vol] 99 mmol/L 98 - 107 -Otolaryngo [facility] 4100 Work Phone: [phone] CO2 [Moles/Vol] 28 mmol/L 21 - 32 MG-Otolar yngo [facility] 4100 Work Phone: [phone] Creatinine [Mass/Vol] 0.60 mg/dL See Below [facility] 4100 Work Phone: Comment on above: Reference Range: 0.5 0 - 1.05 Glucose [Mass/Vol] 95 mg/dL 74 - 99 [facility] 4100 Work Phone: Potassium [Moles/Vol] 3.6 mmol/L 3.5 - 5.3 [facility] 4100 Work Phone: Sodium [Moles/Vol] 139 mmol/L 136 - 145 [facility] 4100 Work Phone: Urea nitrogen [Mass/Vol] 16 mg/dL 6 - 23 [facility] 4100 Work Phone: Laboratory - Hematology and Cell countson 10-06-2022 Erythrocyte distribution width (RBC) [Ratio] 11.8 % See Below [place] [address] Work Phone: Comment on above: Reference Range: 11. 5 - 14.5 Hematocrit (Bld) [Volume fraction] 41.2 % See Below [place] [address] Work Phone: Comment on above: Reference Range: 36. 0 - 46.0 Hemoglobin (Bld) [Mass/Vol] 14.5 g/dL See Below [place] [address] Work Phone: Comment on above: Reference Range: 12. 0 - 16.0 MCHC (RBC) [Mass/Vol] 35.2 g/dL See Below [place] [address] Work Phone: Comment on above: Reference Range: 32. 0 - 36.0 MCV (RBC) [Entitic vol] 87 fL 80 - 100 [place] [address] Work Phone: Platelets (Bld) [#/Vol] 207 10*3/uL 150 - 450 [place] [address] Work Phone: RBC (Bld) [#/Vol] 4.71 {x10E12/L} See Below MG -Otolaryngo [facility] 4100 Work Phone: Comment on above: Reference Range: 4.0 0 - 5.20 WBC (Bld) [#/Vol] 8.7 10*3/uL 4.4 - 11.3 MG-[place] laryngo [facility] 4100 Work Phone: No Panel Informationon 10-06 >90 >90 MG-Otolaryngo [facility] 4100 Work Phone: Comment on above: CALCULATIONS OF GLENN MATED GFR ARE PERFORMED USING THE 2020 CKD-EPI STUDY REFIT EQUATION WITHOUT THE RACE VARIABLE FOR THE IDMS-TRACEABLE CREATININE METHODS.https://jasn.asnjournals.org/content/early//ASN. 8397826575 0.0 {/100_WBC} 0.0-0.0 MG-Otolary guerra [facility] 4100 Work Phone: https://UHMUSEXPRDWE B01: 8080/musescripts/museweb .dll?RetrieveTestByDateT enrique?VnvcazxPA=[email or web address]& Date=01-02-2023&Time=14% 3a15%3a12%3a00&TestType= ECG&Site=1&OutputType=PD F&Ext=PDF MG-Otolaryngo [facility] 4100 Work Phone: Sinus bradycardia MG-Otol aryngo [facility] 4100 Work Phone: Abnormal MG-Otolaryngo [facility] 4100 Work Phone: [phone] MG-Otolaryngo [facility] 4100 Work Phone: [phone] [facility] 4[facility] Work Phone: [phone] 1 [facility] 4[facility] Work Phone: [phone] 152 1 [facility] 4[facility] Work Phone: [phone] 1 MG-Otolaryngo [facility] 4100 Work Phone: [phone] [facility] 4[facility] Work Phone: [phone] -14 1 MG-Otolaryngo [facility] 4100 Work Phone: [phone] -10 1 MG-Otolaryngo [facility] 4100 Work Phone: [phone] 26 1 MG-Otolaryngo [facility] 4100 Work Phone: [phone] MG-Otolaryngo [facility] 4100 Work Phone: [phone] MG-Otolaryngo [facility] 4100 Work Phone: 102 1 MG-Otolaryngo [facility] 4100 Work Phone: [phone] 140 1 MG-Otolaryngo [facility] 4100 Work Phone: [phone] 1 MG-Otolaryngo [facility] 4100 Work Phone: Chart Updateon 10-04-2022 Chart [...] assist you with your ENT needs at [facility] [place]. Dr. Rosario is an ENT that specializes in nose, sinus, and skull base disorders. Dr. Lukasz Rosario?s office number is [phone]. Please call this number to contact his [...] visits under Dr. Rosario?s supervision. Ellen Crane RN BSN is Dr. Rosario?s primary nurse. She can be reached by calling [phone]. Ellen is available during business hours Sunday through Sunday. Messages left for her will be returned within one business day. She is also Dr. Rosario?s neurosurgery physician and will assist you with planning and scheduling of your surgery. Monie Petit is Dr. Rosario?s financial secretary and you can reach her at [phone]. She can help you with scheduling of appointments, general questions and information. She is available to receive calls Sunday through Sunday from 8:00 am until 4:25 pm. For your convenience, Dr. Rosario sees patients at [facility]. 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 [...] smell. Associated Symptoms: Patient has headaches. left sabianism, new over last 12 months. Patient has [...] aspirin sensitivity. (more content not included)... Normal [facility] Tobacco Screening.on 023 Adult depression screening assessment No -Otolaryngo [facility] 4100 Work Phone: Fall risk assessment a) No falls within the last year -Otolaryngo [facility] 4100 Work Phone: Tobacco use status CPHS b) 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 PROTOCOL: Sagittal T2 and axial 3-D [id number] MRA with 3-D reconstructions COMPARISON: None. FINDINGS: [...] Sita Don M.D.09/23/2022 11:01 PM Dictation Location: [place] [address] Transcribed By: [facility] 09/23/222300 Dictated By: Sita Don II, MD 09/23/222251 Signed By: 09/23/222300 Normal [facility] Creatinine (Bld) [Mass/Vol]O rdered By: Noah Dolan on 09-18-2022 Creatinine [Mass/Vol] 0.7 mg/dL 0.6-1.3 [facility] Comment on above: ER/ESD physician is [...] sinus process. Skull base intact. Nasopharynx normal. Leather Skinner spaces normal. Orbital contents normal. IMPRESSION: 1. [...] by: PERICO FARAH Date: 2022-08-06 13:22 Normal [facility] XR SINUS WATERon 07-27-2022 XR SINUS [...] by: ROBE BAR Date: 2022-07-27 14:38 Normal [facility] XR CHEST 2 Von 07-13-2022 XR [...] chest is unchanged. Electronically authenticated by: LC HRENANDEZ Date: 2022-07-13 16:19 Normal [facility] MAMM SCREEN 3D ERNESTO CADon 12-20-2021 MG MAMM SCREEN 3D ERNESTO CAD Patient: ROSELYN FREIRE Exam Date: 12/20/2021 : 1955 Gender:F Ordering : DR CHARLES ARAMBULA . Admission #: [id number] Family : Order #: [id number] CLICK HERE TO VIEW EXAM RADIOLOGY REPORT [...] Lobectomy LLL Family Cancers None LOCATION: [facility] BREAST COMPOSITION: Heterogeneously dense,which may obscure small [...] Cisneros MD on 12/20/2021 at 13:51 Normal [facility] CHEMISTRYOrdered By: SYSTEM SYSTEM on 12-15-2021 Creatinine [Mass/Vol] 0.5 mg/dL Normal 0.5 - 1.3 mg/dL [facility] Remisol GFR/1.73 sq M.predicted among blacks MDRD (S/P/Bld) [Vol rate/Area] mL/min/1.73 m2 Normal >=59mL/min/1.7 3 m2 [facility] Chem S GFR/1.73 sq M.predicted among non-blacks MDRD (S/P/Bld) [Vol rate/Area] mL/min/1.73 m2 Normal >=59mL/min/1.7 3 m2 [facility] Chem S MRI Shoulder w/o Lefton 08-02 [...] by Sanchez Davies on 08/11/2021 1550 Normal [facility] Specialist Vital Signs Date Time Vital Sign Value Performing Clinician Facility 04-20-2024 13:38-0400 Heart rate 72 /min [facility] 04-20-2024 13:38-0400 Respiratory rate 18 /min [facility] 04-20-2024 13:17-0400 Heart rate 63 /min [facility] 04-20-2024 13:17-0400 Respiratory rate 18 /min [facility] 04-20-2024 12:09-0400 Body temperature 98.24 [degF] [facility] 04-20-2024 12:09-0400 Diastolic blood pressure 80 mm[Hg] [facility] 04-20-2024 12:09-0400 Heart rate 63 /min [facility] 04-20-2024 12:090400 Respiratory rate 18 /min [facility] 04-20-2024 12:09-0400 SaO2% (BldA) [Mass fraction] 99 % [facility] 04-20-2024 12:09-0400 Systolic blood pressure 160 mm[Hg] [facility] 03-26-2024 14:37-0400 Body height 160 cm Lukasz Rosario MD Work Phone: [facility] 03-26-2024 14:37-0400 Body mass index (BMI) [Ratio] 27.69 kg/m2 Lukasz Rosario MD Work Phone: [facility] 03-26-2024 14:37-0400 Body weight 70.9 kg Lukasz Rosario MD Work Phone: [facility] 02-26-2024 08:40-0400 Body height 160 cm Jermaine Oralia DO Work Phone: [facility] 02-26-2024 08:40-0400 Body mass index (BMI) [Ratio] 26.57 kg/m2 Jermaine Oralia DO Work Phone: [facility] 02-26-2024 08:40-0400 Body weight 68.04 kg Jermaine Oralia DO Work Phone: [facility] 02-26-2024 08:40-0400 Diastolic blood pressure 80 mm[Hg] Jermaine Oralia DO Work Phone: [facility] 02-26-2024 08:40-0400 Heart rate 67 /min Jermaine Oralia DO Work Phone: [facility] 02-26-2024 08:40-0400 SaO2% (BldA) [Mass fraction] 97 % Jermaine Oralia DO Work Phone: [facility] 02-26-2024 08:40-0400 Systolic blood pressure 132 mm[Hg] Jermaine Oralia DO Work Phone: [facility] 02-08-2024 10:25-0400 Body height 160 cm Carol Glasenapp PA-C Work Phone: [facility] 02-08-2024 10:25-0400 Body mass index (BMI) [Ratio] 27.34 kg/m2 Carol Glasenapp PA-C Work Phone: [facility] 02-08-2024 10:25-0400 Body weight 70 kg Carol Glasenapp PA-C Work Phone: [facility] 02-08-2024 10:25-0400 Diastolic blood pressure 69 mm[Hg] Carol Glasenapp PA-C Work Phone: [facility] 02-08-2024 10:25-0400 Heart rate 88 /min Carol Glasenapp PA-C Work Phone: [facility] 02-08-2024 10:25-0400 Systolic blood pressure 147 mm[Hg] Carol Glasenapp PA-C Work Phone: [facility] 11-24-2023 15:41-0400 Diastolic blood pressure 78 mm[Hg] Oneal Cornelius [facility] 11-24-2023 15:41-0400 Heart rate 63 /min Oneal Cornelius [facility] 11-24-2023 15:41-0400 Mean blood pressure 92 mm[Hg] Oneal Cornelius [facility] 11-24-2023 15:41-0400 Respiratory rate 16 /min Oneal Ashli [facility] 11-24-2023 15:41-0400 SaO2% (BldA) [Mass fraction] 97 % Oneal Ashli [facility] 11-24-2023 15:41-0400 Systolic blood pressure 120 mm[Hg] Oneal Ashli [facility] 11-24-2023 15:00-0400 Diastolic blood pressure 70 mm[Hg] Oneal Ashli [facility] 11-24-2023 15:00-0400 Mean blood pressure 87 mm[Hg] Oneal Ashli [facility] 11-24-2023 15:00-0400 SaO2% (BldA) [Mass fraction] 95 % Oneal Mcarthure [facility] 11-24-2023 14:00-0400 Body temperature 98.42 [degF] Oneal Ashli [facility] 11-24-2023 14:00-0400 Diastolic blood pressure 74 mm[Hg] Oneal Mcarthure [facility] 11-24-2023 14:00-0400 Heart rate 66 /min Oneal Mcarthure [facility] 11-24-2023 14:00-0400 Mean blood pressure 91 mm[Hg] Oneal Ashli [facility] 11-24-2023 14:00-0400 SaO2% (BldA) [Mass fraction] 96 % Oneal Ashli [facility] 11-24-2023 14:00-0400 Systolic blood pressure 124 mm[Hg] Oneal Ashli [facility] 11-24-2023 13:01-0400 Body temperature 99.5 [degF] Oneal Ashli [facility] 11-24-2023 13:01-0400 Heart rate 70 /min Oneal Cornelius [facility] 11-24-2023 13:01-0400 Respiratory rate 18 /min Oneal Cornelius [facility] 09-26-2023 14:38-0400 Body height 160 cm Lukasz Rosario MD Work Phone: [facility] 09-26-2023 14:38-0400 Body mass index (BMI) [Ratio] 26.87 kg/m2 Lukasz Rosario MD Work Phone: [facility] 09-26-2023 14:38-0400 Body weight 68.81 kg Lukasz Rosario MD Work Phone: [facility] 07-31-2023 10:17-0500 Blood Pressure Location Torri Orzech [facility] 07-31-2023 10:17-0500 Diastolic blood pressure 77 mm[Hg] Torri Orzech [facility] 07-31-2023 10:17-0500 Heart rate 53 /min Torri Orzech [facility] 07-31-2023 10:17-0500 Respiratory rate 16 /min Torri Orzech [facility] 07-31-2023 10:17-0500 Systolic blood pressure 135 mm[Hg] Torri Orzech [facility] 12-27-2022 09:05-0400 Body height 160.02 cm Charles Arambula Work Phone: [facility] 4100 Work Phone: 12-27-2022 09:05-0400 Body mass index (BMI) [Ratio] 27.05 kg/m2 Charles Arambula Work Phone: [facility] 410 Work Phone: 12-27-2022 09:05-0400 Body surface area Derived from formula 1.72 m2 Charles Arambula Work Phone: [facility] 4105 Work Phone: 12-27-2022 09:05-0400 Body weight 69.26 kg Charles Arambula Work Phone: [facility] 4104 Work Phone: 12-01-2022 15:05-0400 Body height 160.02 cm Gely Cortez Other [employer] [facility] [employer] Other 12-01-2022 15:05-0400 Body mass index (BMI) [Ratio] 28.34 kg/m2 Gely Cortez Other [employer] Other 12-01-2022 15:05-0400 Body temperature 96.8 [degF] Gely Cortez Other [employer] Other 12-01-2022 15:05-0400 Body weight 72.58 kg Gely Cortez Other [employer] Other 12-01-2022 15:05-0400 Diastolic blood pressure 82 mm[Hg] Gely Cortez Other [employer] Other 12-01-2022 15:05-0400 Respiratory rate 18 /min Gely Cortez Other [employer] Other 12-01-2022 15:05-0400 SaO2% (BldA) [Mass fraction] 94 % Gely Cortez Other [facility] [employer] [facility] Other 12-01-2022 15:05-0400 Systolic blood pressure 139 mm[Hg] Gely Cortez Other [facility] [employer] [facility] Other 11-08-2022 13:24-0400 Body height 160.02 cm Charles M Hoy Work Phone: KA-Ctaovytntfhgmp-Ob[facility] 4100 Work Phone: 11-08-2022 13:24-0400 Body mass index (BMI) [Ratio] 27.17 kg/m2 Charles M Hoy Work Phone: X[facility]xqsj[facility] Work Phone: 11-08-2022 13:24-0400 Body surface area Derived from formula 1.73 m2 Charles M Hoy Work Phone: CD-Udgwgaaaobxatv-[facility] 4[facility] Work Phone: 11-08-2022 13:24-0400 Body weight 69.57 kg Charles M Hoy Work Phone: QG-Idnpnomkscyycn-SjEssentia [facility] 4100 Work Phone: 11-01-2022 11:28-0400 Body height 160.02 cm Charles M Hoy Work Phone: DD-Hfmdbmxsificyn-CiEssentia [facility] 4100 Work Phone: 11-01-2022 11:28-0400 Body mass index (BMI) [Ratio] 28.35 kg/m2 Charles M Hoy Work Phone: SJ-Efcvxxorpauxqh-[facility] 4100 Work Phone: 11-01-2022 11:28-0400 Body surface area Derived from formula 1.76 m2 Charles M Hoy Work Phone: HB-Tvtdapisoqtnsg-RlEssentia Health 4100 Work Phone: 11-01-2022 11:28-0400 Body weight 72.6 kg Charles M Hoy Work Phone: FN-Ocefyxtcezpzet-LxEssentia Health 4100 Work Phone: 11-01-2022 11:28-0400 0 1 Charles M Hoy Work Phone: [facility] 4100 Work Phone: Comment on above: [employer] 10-16-2022 11:11-0400 Body height 159.8 cm Lukasz Rosario MD Work Phone: [facility] 10-16-2022 11:11-0400 Body mass index (BMI) [Ratio] 27.73 kg/m2 Lukasz Rosario MD Work Phone: [facility] 10-16-2022 11:11-0400 Body weight 70.8 kg Lukasz Rosario MD Work Phone: [facility] 09-28-2022 10:52-0400 Body height 160.02 cm Charles M Hoy Work Phone: [facility] 4100 Work Phone: 09-28-2022 10:52-0400 Body mass index (BMI) [Ratio] 28.72 kg/m2 Charles M Hoy Work Phone: [facility] 4100 Work Phone: 09-28-2022 10:52-0400 Body surface area Derived from formula 1.77 m2 Charles M Hoy Work Phone: EI-Oujwngyifmozye-[facility] 4[facility] Work Phone: 09-28-2022 10:52-0400 Body temperature 97.8 [degF] Charles Arambula Work Phone: LP-Ddfqsheumovxbo-JuSt. [facility] 4100 Work Phone: 09-28-2022 10:52-0400 Body weight 73.53 kg Charles Arambula Work Phone: IO-Gqtpudgfpkiycj-[facility] 4100 Work Phone: 12-02-2021 09:22-0400 Blood Pressure Location Daly White [facility] 12-02-2021 09:22-0400 Body temperature 97.7 [degF] Daly White [facility] 12-02-2021 09:22-0400 Diastolic blood pressure 88 mm[Hg] Daly White [facility] 12-02-2021 09:22-0400 Heart rate 64 /min Daly White [facility] 12-02-2021 09:22-0400 SaO2% (BldA) [Mass fraction] 96 % Daly White [facility] 12-02-2021 09:22-0400 Systolic blood pressure 138 mm[Hg] Daly White [facility] 11-11-2021 13:50-0400 Diastolic blood pressure 84 mm[Hg] Liana ROJAS [facility] 11-11-2021 13:50-0400 Heart rate 62 /min Gaines SALAM [facility] 11-11-2021 13:50-0400 Respiratory rate 10 /min Gaines SALAM [facility] 11-11-2021 13:50-0400 SaO2% (BldA) [Mass fraction] 98 % Gaines SALAM [facility] 11-11-2021 13:50-0400 Systolic blood pressure 125 mm[Hg] Gaines SALAM [facility] 11-11-2021 13:35-0400 Diastolic blood pressure 72 mm[Hg] Gaines SALAM [facility] 11-11-2021 13:35-0400 Heart rate 65 /min Gaines SALAM [facility] 11-11-2021 13:35-0400 Respiratory rate 15 /min Gaines SALAM [facility] 11-11-2021 13:35-0400 SaO2% (BldA) [Mass fraction] 94 % Gaines SALAM [facility] 11-11-2021 13:35-0400 Systolic blood pressure 129 mm[Hg] Gaines SALAM [facility] 11-11-2021 13:30-0400 Diastolic blood pressure 57 mm[Hg] Gaines SALAM [facility] 11-11-2021 13:30-0400 Heart rate 64 /min Gaines SALAM [facility] 11-11-2021 13:30-0400 Respiratory rate 15 /min Gianes SALAM [facility] 11-11-2021 13:30-0400 SaO2% (BldA) [Mass fraction] 95 % Gaines SALAM [facility] 11-11-2021 13:30-0400 Systolic blood pressure 104 mm[Hg] Gaines SALAM [facility] 11-11-2021 13:23-0400 Blood Pressure Location Gaines SALAM [facility] 11-11-2021 13:23-0400 Body temperature 96.98 [degF] Gaines SALAM [facility] 11-11-2021 11:43-0400 Blood Pressure Location Gaines SALAM [facility] 11-11-2021 11:43-0400 Body temperature 96.98 [degF] Gaines SALAM [facility] 10-04-2021 12:27-0400 Diastolic blood pressure 88 mm[Hg] Daly Cindy [facility] 10-04-2021 12:27-0400 Mean blood pressure 109 mm[Hg] Daly Cindy [facility] 10-04-2021 12:27-0400 Systolic blood pressure 151 mm[Hg] Daly Cindy [facility] 10-04-2021 12:10-0400 Diastolic blood pressure 86 mm[Hg] Daly Cnidy [facility] 10-04-2021 12:10-0400 Heart rate 91 /min Daly Cindy [facility] 10-04-2021 12:10-0400 Systolic blood pressure 157 mm[Hg] Daly White [facility] Health Encounters Encounter Date Encounter Type Care Provider Facility Start: 06-11-2024 End: 06-11-2024 ambulatory GLEN RICHEY Gem [facility] Ambulatory Start: 06-09-2024 End: 06-09-2024 ambulatory TRISTAN WARD Not Available Start: 06-09-2024 End: 06-09-2024 Postop follow up visit related to original px Tristan D Zahler DO Work Phone: [facility] Comment on above: Pseudophakia (Primar y Dx) Start: 06-09-2024 End: 06-09-2024 Bamboo flowsheet Tristan D Zahler DO Work Phone: [facility] Start: 06-09-2024 End: 06-09-2024 Bamboo flowsheet Tristan D Zahler DO Work Phone: [facility] Start: 06-03-2024 End: 06-03-2024 Bamboo flowsheet Tristan D Zahler DO Work Phone: [facility] Start: 06-03-2024 End: 06-03-2024 Bamboo flowsheet Tristan D Zahler DO Work Phone: [facility] Start: 06-03-2024 End: 06-03-2024 Postop follow up visit related to original px Tristan D Zahler DO Work Phone: [facility] Comment on above: Pseudophakia (Primar y Dx) Start: 06-03-2024 End: 06-03-2024 ambulatory TRISTAN WARD Not Available Start: 05-20-2024 End: 05-20-2024 ambulatory Jennifer Strauss MD Work Phone: Gynecology Comment on above: Vaginal flatus (Prim kike Dx); STACEY (stress urinary incontinence, female) Start: 05-20-2024 End: 05-20-2024 Telemedicine consultation with patient Jennifer Strauss MD Work Phone: Gynecology Start: 05-01-2024 End: 05-01-2024 ambulatory Luz Maria A Wiebusch PT Work Phone: Physical Therapy Comment on above: Muscle spasm (Primar y Dx); Muscle weakness Start: 04-25-2024 ambulatory LUZ MARIA A WIEBUSCH Fac ility:[facility] Start: 04-20-2024 End: 04-20-2024 Emergency department patient visit [facility] Start: 04-03-2024 End: 04-03-2024 Bamboo flowsheet Tristan Ward DO Work Phone: [facility] Start: 04-03-2024 End: 04-03-2024 Bamboo flowsheet Tristan Ward DO Work Phone: [facility] Start: 04-03-2024 End: 04-03-2024 Office outpatient visit 25 minutes Tristan Ward DO Work Phone: [facility] Comment on above: Age-related nuclear cataract of left eye (Primary Dx) Start: 04-03-2024 End: 04-03-2024 ambulatory TRISTAN WARD Not Available Start: 03-26-2024 End: 03-26-2024 ambulatory LUKASZ ROSARIO [facility] Ambulatory Start: 03-26-2024 End: 03-26-2024 Office outpatient visit 15 minutes Lukasz Rosario MD Work Phone: [facility] Comment on above: 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); Post-nasal drainage Start: 03-06-2024 End: 03-06-2024 Bamboo flowsheet Kennedy Jim DIRECTOR AIRPORT [employer]PERATIONS[employer]SEMBLER Work Phone: [facility] Start: 03-06-2024 End: 03-06-2024 Bamboo flowsheet Kennedy Miller Felter DIRECTOR [employer]PORT [employer]PERATIONS[employer] ASSEMBLER Work Phone: [facility] Start: 03-06-2024 End: 03-06-2024 Patient encounter procedure Kennedy Miller Felter DIRECTOR AIRPORT OPERATIONS-[employer]ANDAL [employer]S ASSEMBLER Work Phone: [facility] Comment on above: Neoplasm of unspecif ied behavior of bone, soft tissue, and skin (Primary Dx) Start: 03-06-2024 End: 03-06-2024 ambulatory KENNEDY Miller FELTER Not Available Start: 02-26-2024 End: 02-26-2024 [employer]am[employer]o [employer] Jermaine Oralia DO Work Phone: [facility] Start: 02-26-2024 End: 02-26-2024 [employer]o [employer] Jermaine Oralia DO Work Phone: [facility] Start: 02-26-2024 End: 02-26-2024 Office outpatient new 45 minutes Jermaine Oralia DO Work Phone: [facility] Comment on above: MAGALI (obstructive sle ep apnea); Hypoxia; Hypersomnia; Snoring Start: 02-26-2024 End: 02-26-2024 ambulatory JERMAINE ORALIA Not Available Start: 02-21-2024 End: 02-21-2024 Office outpatient visit 15 minutes Kennedy Miller Felter DIRECTOR AIRPORT [employer]PERATIONS[employer]S ASSEMBLER Work Phone: [facility] Comment on above: Lentigines; Melanocytic nevus of trunk; Seborrheic keratosis, inflamed; Angioma of skin; Dermatofibroma Start: 02-21-2024 End: 02-21-2024 ambulatory KENNEDY Miller FELTER Not Available Start: 02-21-2024 End: 02-21-2024 [employer]amboo [employer] Kennedy iMller Felter DIRECTOR AIR[employer]PERATIONS[employer]S ASSEMBLER Work Phone: [facility] Start: 02-21-2024 End: 02-21-2024 Bamboo flowsheet Kennedy Miller Felter DIRECTOR AIRPORT [employer]PERATIONS[employer]S ASSEMBLER Work Phone: [facility] Start: 02-08-2024 End: 02-08-2024 ambulatory CAROL RAWLS Facility:[facility] Start: 02-08-2024 End: 02-08-2024 Office outpatient new 45 minutes Carol Rawls PA-C Work Phone: OB/Gynecology Comment on above: STACEY (stress urinary incontinence, female) (Primary Dx); Vaginal discharge Start: 01-14-2024 End: 01-14-2024 ambulatory REBECA MASON Not Available Start: 11-24-2023 End: 11-24-2023 Emergency department patient visit Oneal Cornelius Facility[facility] Start: 11-24-2023 End: 11-24-2023 Emergency department patient visit Oneal Cornelius [facility] Start: 10-29-2023 End: 10-29-2023 ambulatory TRISTAN WARD Not Available Start: 09-26-2023 End: 09-26-2023 ambulatory LUKASZ ROSARIO [facility] Ambulatory Start: 09-26-2023 End: 09-26-2023 Office outpatient visit 15 minutes Lukasz Rosraio MD Work Phone: [facility] Comment on above: Chronic sphenoidal s inusitis (Primary Dx); Decreased sense of smell; Inverted papilloma of sphenoid sinus; Epistaxis Start: 09-14-2023 End: 09-14-2023 ambulatory Rebeca Mason Facility:[facility] Start: 09-14-2023 End: 09-14-2023 ambulatory MD Charles Arambula Work Phone: [facility] Work Phone: Start: 09-14-2023 End: 09-14-2023 Patient encounter procedure MD Charles Arambula Work Phone: [facility]-CT Scan [facility] [place] Work Phone: Start: 09-10-2023 End: 09-10-2023 ambulatory REBECA MASON Not Available Start: 09-04-2023 End: 09-05-2023 ambulatory Tay BHAT Facility:[facility] Start: 08-20-2023 End: 08-21-2023 ambulatory Torri X Orzech Facility[facility] Start: 08-20-2023 End: 08-20-2023 Patient encounter procedure Torri X Orzech [facility] Start: 07-31-2023 End: 08-01-2023 ambulatory Torri X Orzech Facility:[facility] Start: 07-31-2023 End: 07-31-2023 Patient encounter procedure Torri X Orzech [facility] Start: 07-13-2023 ambulatory Torri Orzech [facility] [place] Start: 07-03-2023 End: 07-03-2023 ambulatory GABRIEL HUERTA Not Available Start: 01-03-2023 Postop follow up vis it related to original px Charles Arambula Work Phone: Y[facility]-[place]jiiirtrdxuooi-[place] Work Phone: Start: 01-03-[address] Charles Arambula Facility:[id number] Start: 12-27-2022 Postop follow up vis it related to original px Charles Arambula Work Phone: [facility]nhajlfltzq[facility] Work Phone: Start: 12-27-[address] Charles Arambula Facility:[id number] Start: 12-18-2022 End: 12-19-2022 Evaluation and management of inpatient MD YENNY VARGAS Facility:[facility] Start: 12-12-2022 Office outpatient ne w 60 minutes Charles Arambula Work Phone: [facility] Work Phone: Start: 12-11-2022 ambulatory MD YENNY VARGAS Facilit y:[facility] Start: 12-11-2022 Encounter for blood typing MD YENNY VARGAS [facility] Start: 12-11-2022 Encounter for preprocedural laboratory examination MD YENNY VARGAS [facility] Start: 12-03-2022 End: 12-03-2022 ambulatory Gely Cortez Other [employer] Other Start: 12-03-2022 Telephone encounter Gely Cortez [facility] [address] Start: 12-01-2022 End: 12-01-2022 ambulatory PHYSICIAN NO FAMILY Facility:[facility] Start: 12-01-2022 End: 12-01-2022 Departed Referred MD Charles Arambula Work Phone: [facility]-Lab [facility] [place] Work Phone: Start: 12-01-2022 End: 12-01-2022 ambulatory MD Charles Arambula Work Phone: [facility] Work Phone: Start: 12-01-2022 Office outpatient ne w 20 minutes Gely Cortez [facility] Start: 11-22-2022 End: 11-23-[address] ALSTON [facility] Facility: Start: 11-08-2022 Office outpatient vi sit 15 minutes Charles Arambula Work Phone: VJ-Zljecltnfouxpu-[place] Work Phone: Start: 11-08-2022 Patient encounter procedure Charles Arambula Work Phone: FF[facility]yr[facility]oj-[facility] 4104 Work Phone: Start: 11-08-2022 ambulatory MD LUKASZ ROSARIO Facility:[id number] Start: 11-01-2022 Office outpatient vi sit 25 minutes Charles Arambula Work Phone: AF-Xjdcfsozkdrgke-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 Charles Arambula Facility:[facility] Start: 10-06-2022 Encounter for preprocedural cardiovascular examination MD LUKASZ ROSARIO [facility] Start: 10-04-2022 Chart Update Charles Arambula Work Phone: AR-Dftzyovsmpxdpy-[facility]vnw[facility] 5311 Work Phone: Start: 09-28-2022 Office consultation new/estab patient 60 min Charles Arambula Work Phone: EW-Vcraxxfbjsrhvx-Zcrq[facility] 1945 Work Phone: Start: 09-28-2022 Patient encounter procedure Charles Arambula Work Phone: VK-Szyebegiqwikvj-Kuaq[facility] 5031 Work Phone: Start: 09-28-[address] Charles Arambula Facility:[id number] Start: 09-23-2022 End: 09-23-2022 ambulatory Charles Arambula Facility:[facility] Start: 09-23-2022 End: 09-23-2022 ambulatory MD Charles Arambula Work Phone: [facility] Work Phone: Start: 09-23-2022 End: 09-23-2022 Patient encounter procedure MD Charles Arambula Work Phone: [facility]-MRI [facility] [place] Work Phone: Start: 09-18-2022 End: 09-18-2022 ambulatory MD Charles Arambula Work Phone: [facility] Work Phone: Start: 09-18-2022 End: 09-18-2022 Patient encounter procedure MD Charles Arambula Work Phone: [facility] [place] Work Phone: Start: 08-05-2022 End: 08-06-[address] CHARLES ARAMBULA . Facility:[facility]1 Start: 07-27-2022 End: 07-28-[address] CHARLES ARAMBULA . Facility:[facility] Start: 07-13-2022 End: 07-14-[address] CHARLES ARAMBULA . Facility:[facility] Start: 03-07-2022 End: 03-07-2022 Patient encounter procedure Daly White [facility] Start: 12-30-[address] CHARLES ARAMBULA . Facili ty:H1 Start: 12-20-2021 End: 12-21-[address] CHARLES ARAMBULA . Facility:[facility]1 Start: 12-15-2021 End: 12-15-2021 Patient encounter procedure Jamie Cunningham [facility] Start: 12-02-2021 End: 12-02-2021 Patient encounter procedure Daly White [facility] Start: 11-11-2021 End: 11-11-2021 Patient encounter procedure Liana ROJAS [facility] Start: 10-04-2021 End: 10-04-2021 Patient encounter procedure Daly [facility] Procedures Date Procedure Procedure Detail Performing Clinician Start: 04-03-2024 Oph bmtry prtl coher intrfrmtry io lens pwr carolina Tristan Ward DO Work Phone: Start: 03-06-2024 SKIN / NAIL BIOPSY Kennedy Jim DIRECTOR AIRPORT OPERATIONS-SANDAL PARTS ASSEMBLER Work Phone: Start: 02-21-2024 CRYOTHERAPY SKIN LESION Kennedy Jim DIRECTOR AIRPORT OPERATIONS-SANDAL PARTS ASSEMBLER Work Phone: Start: 09-26-2023 Follow-up visit Follow-up LUKASZ ROSARIO Start: 09-14-2023 CT of pelvis with contrast MD Charles raza Work Phone: Start: 09-04-2023 Transurethral cystoscopy Oneal Cornelius Start: 12-11-2022 Antibody screen MD LUKASZ ROSARIO Comment on above: Performed By: #### T+S [id number] [place] [address] Start: 10-16-2022 SURGICAL PATHOLOGY RESULTS Lukasz Rosario MD Work Phone: Start: 09-23-2022 Magnetic resonance angiography of head without contrast MD Charles Arambula Work Phone: Start: 09-18-2022 MRI of head MD Charles Arambula Work Phone: Start: 11-11-2021 Colonoscopy Kennedy Jim DIRECTOR AIRPORT OPERATIONS-SANDAL PARTS ASSEMBLER Work Phone: Start: 11-11-2021 Colonoscopy Gaines SALAM Start: 11-11-2021 Esophagogastroduodenoscopy Gaines SALAM Start: 12-25-2019 Mammography Lukasz Rosario MD Work Phone: Start: 07-02-2006 Cholecystectomy Torri Orzech Hysterectomy Torri Orzech Lobectomy Torri Orzech Plan of Treatment Date Care Activity Detail Author Start: 11-12-2031 Screening for malignant neoplasm of colon [facility] Start: 2031 RSV Vaccine (1 - 1-dose 75+ series) RSV Vaccine (1 - 1-dose 75+ series) [facility] Start: 09-24-2030 DTaP/Tdap/Td Vaccines (2 - Td or Tdap) DTaP/Tdap/Td Vaccines (2 - Td or Tdap) [facility] Start: 09-24-2030 Urine microalbumin profile DTaP,Tdap,Td Vaccine (2 - Td or Tdap) [facility] Start: 12-11-2025 Diabetes Screening Diabetes Screening [facility] Start: 04-24-2025 Pneumococcal Vaccine: 65+ (2 of 2 - PPSV23 or PCV20) Pneumococcal Vaccine: 65+ (2 of 2 - PPSV23 or PCV20) [facility] Start: 02-23-2025 End: 02-23-2025 Patient encounter procedure YUNGS DRAGAN BARCLAY Start: 06-11-2024 End: 06-11-2024 Patient encounter procedure 06/11/2024 3:00 PM EST Office Visit [facility] [address] [place] [address] Lukasz Rosario MD [address] [facility] [address] [place], [place] [id number] [facility] Start: 06-03-2024 End: 06-03-2024 Patient encounter procedure 06/03/2024 10:30 AM EST Office Visit [facility] [address] [place] [phone] Tristan Ward DO [address] [place] [address] Arrived [facility] Comment on above: Arrived Start: 04-25-2024 End: 04-25-2024 ambulatory 04/25/2024 3:30 PM EDT OT/PT/Speech Visit Physical Therapy [address] [place] [address] Luz Maria Parisi, PT [address] [place] [address] urinary incontinence Physical Therapy Comment on above: urinary incontinence Start: 04-03-2024 End: 04-03-2024 Patient encounter procedure 04/03/2024 12:30 PM EDT Office Visit [facility] [address] [place] [phone] Tristan Ward, [address] [place] [address] Arrived [facility] Comment on above: Arrived Start: 03-26-2024 End: 03-26-2024 Patient encounter procedure 03/26/2024 2:15 PM EDT Office Visit [facility] [address] [place] [address] Lukasz Rosario MD [address] [facility] [address] [place] [address] [facility] Start: 03-06-2024 End: 03-06-2024 Patient encounter procedure 03/06/2024 10:40 AM EDT Office Visit [facility] [address] [place] [address] Kennedy Jim, DIRECTOR AIRPORT OPERATIONS-SANDAL PARTS ASSEMBLER [address] [place] [address] Arrived [facility] Comment on above: Arrived Start: 03-02-2024 COVID-19 Vaccine ( season) COVID-19 Vaccine ( season) [facility] Start: 03-02-2024 Covid-19 Vaccine ( season) Covid-19 Vaccine ( season) [facility] Start: 03-02-2024 Influenza [facility] Start: 02-26-2024 End: 02-26-2024 Patient encounter procedure [facility] Comment on above: Arrived Start: 02-21-2024 End: 02-21-2024 Patient encounter procedure 02/21/2024 3:55 PM EDT Office Visit [facility] [address] [place] [address] Kennedy Jim, DIRECTOR AIRPORT OPERATIONS-SANDAL PARTS ASSEMBLER [address] [place] [address] Arrived [facility] Comment on above: Arrived Start: 09-26-2023 End: 09-26-2023 Patient encounter procedure 09/26/2023 2:30 PM EDT Office Visit [facility] [address] [place] [address] Lukasz Rosario MD [address] [facility] [address] [place] [address] [facility] Start: 07-02-2023 Advance Directive Discussion Advance Directive Discussion [facility] Start: 03-28-2023 FUV, Provider: Lukasz Rosario, Status: Pen, Time: 9:45 AM FUV, Provider: Lukasz Rosario, Status: Pen, Time: 9:45 AM CR-Eahzzyswwpiowl-N [place] Work Phone: Start: 03-02-2023 COVID-19 Vaccine ( season) COVID-19 Vaccine ( season) [facility] Start: 03-02-2023 Influenza vaccination Influenza Vaccine (#1) [facility] Start: 01-03-2023 POV, Provider: Lukasz Rosario, Status: Pen, Time: 2:45 PM POV, Provider: Lukasz Rosario, Status: Pen, Time: 2:45 PM CH-Fmujnqecjwzdae-[facility] [address] Work Phone: Start: 12-27-2022 POV, Provider: Lukasz Rosario, Status: Pen, Time: 9:00 AM POV, Provider: Lukasz Rosario, Status: Pen, Time: 9:00 AM QF-Oqynyglekgdpgx[facility] [address] Work Phone: Start: 12-18-2022 [facility], Provider: Yenny Vargas, Status: Pen, Time: 12:30 PM [facility], Provider: Yenny Vargas, Status: Pen, Time: 12:30 PM OZ-Iklnhnbrgvemjt[facility] [address] Work Phone: Start: 12-18-2022 [facility], Provider: Lukasz Rosario, Status: Pen, Time: 12:00 PM [facility], Provider: Lukasz Rosario, Status: Pen, Time: 12:00 PM [facility] [address] Work Phone: Start: 12-12-2022 [facility], Provider: Yenny Vargas, Status: Pen, Time: 1:00 PM [facility], Provider: Yenny Vargas, Status: Pen, Time: 1:00 PM [facility] [address] Work Phone: Start: 12-12-2022 NPVRFRL, Provider: Yenny Vargas, Status: Pen, Time: 10:00 AM NPVRFRL, Provider: Yenny Vargas, Status: Pen, Time: 10:00 AM [facility] [address] Work Phone: Start: 12-01-2022 Bacteria identified in Urine by Culture [facility] Start: 11-08-2022 POV, Provider: Lukasz Rosario, Status: Pen, Time: 1:15 PM POV, Provider: Lukasz Rosario, Status: Pen, Time: 1:15 PM [facility] [address] Work Phone: Start: 11-01-2022 POV, Provider: Lukasz Rosario, Status: Pen, Time: 11:45 AM POV, Provider: Lukasz Rosario, Status: Pen, Time: 11:45 AM [facility] [address] Work Phone: Start: 10-16-2022 [facility], Provider: Lukasz Rosario, Status: Pen, Time: 10:00 AM [facility], Provider: Lukasz Rosario, Status: Pen, Time: 10:00 AM MD-Fxvnncjveiaikr[facility] [address] Work Phone: Start: 09-18-2022 MR angiography of head with contrast MR angio MR brain wo/w [facility] Start: 2021 Pneumococcal Vaccine: 65+ (1 of 1 - PCV) Pneumococcal Vaccine: 65+ (1 of 1 - PCV) [facility] Start: 2021 Pneumococcal Vaccine: 65+ Years (1 - PCV) Pneumococcal Vaccine: 65+ Years (1 - PCV) [facility] Start: 2021 Pneumococcal Vaccine: 65+ Years (1 of 1 - PCV) Pneumococcal Vaccine: 65+ Years (1 of 1 - PCV) [facility] Start: 12-24-2020 Screening for malignant neoplasm of breast [facility] Start: 09-06-2020 COVID-19 Vaccine (3 - Pfizer series) COVID-19 Vaccine (3 - Pfizer series) [facility] Start: 2016 Hepatitis B Vaccines (1 of 3 - Risk 3-dose series) Hepatitis B Vaccines (1 of 3 - Risk 3-dose series) [facility] Start: 2016 RSV patients and/or patients aged 60+ years (1 - 1-dose 60+ series) RSV patients and/or patients aged 60+ years (1 - 1-dose 60+ series) [facility] Start: 2016 RSV Vaccine (1 - 1-dose 60+ series) RSV Vaccine (1 - 1-dose 60+ series) [facility] Start: 2001 Lipid panel Lipid Screening [facility] Start: 2001 Screening for malignant neoplasm of colon [facility] Start: 1996 Screening for malignant neoplasm of breast Mammogram [facility] Start: 1975 Hepatitis A Vaccines (1 of 2 - Risk 2-dose series) Hepatitis A Vaccines (1 of 2 - Risk 2-dose series) [facility] Start: 1974 Anxiety Screening Anxiety Screening [facility] Start: 1974 Depression Screening Depression Screening [facility] Start: 1974 Diabetes mellitus screening Diabetes Screening [facility] Start: 1974 Hepatitis C screening Hepatitis C Screening [facility] Start: 1956 Examination of skin Derm Melanoma Skin Check [facility] Start: 1956 Lipid panel Lipid Panel [facility] Start: 1956 Medicare Annual Wellness Visit Medicare Annual Wellness Visit (AWV) [facility] Start: 1956 Screening for malignant neoplasm of colon [facility] Start: 1956 Screening for osteoporosis Bone Density Scan [facility] Start: 1956 Thyroid stimulating hormone measurement TSH Level [facility] Start: 1956 Yearly Adult Physical Yearly Adult Physical [facility] BACTERIAL VAGINOSIS NAAT BACTERI AL VAGINOSIS NAAT Lab Routine Vaginal discharge 02/08/2024 11:17 AM EDT [facility] PHANI/TRICHOMONAS NAAT PHANI /TRICHOMONAS NAAT Lab Routine Vaginal discharge 02/08/2024 11:17 AM EDT [facility] Work Phone: Dermatopathology exam Dermatopat hology exam Pathology and Cytology Timed Neoplasm of unspecified behavior of bone, soft tissue, and skin Release Upon Ordering for 1 Occurrences starting 03/06/2024 [facility] Work Phone: Comment on above: Release Upon Ordering for 1 Occurrences starting 03/06/2024 Surgical pathology study Surgica l Pathology Exam Pathology and Cytology Routine Benign neoplasm of sphenoid bone 03/26/2024 3:24 PM EDT [facility] Service Area Work Phone: [facility] Immunizations Immunization Date Immunization Notes Care Provider Semaj rocha 12-30-2022 zoster vaccine recombinant Torri Chaka [facility] 06-06-2022 influenza virus vaccine, unspecified formulation Lukasz Rosario MD Work Phone: [facility] 04-22-2022 zoster vaccine recombinant Torri OrGIGA [employer]ON[employer] [facility] 09-24-2020 tetanus toxoid, redu alberta diphtheria toxoid, and acellular pertussis vaccine, adsorbed Torri Orzech [facility] 07-12-2020 SARS-CoV-2 (COVID-19 ) mRNA BNT-162b2 vax Torri Orzech [facility] Comment on above: Result Comment: 2023: [id number] 06-21-2020 SARS-CoV-2 (COVID-19 ) mRNA BNT-162b2 vax [employer] [facility] Comment on above: Result Comment: 2023: [id number] 04-26-2020 influenza virus vaccine, unspecified formulation Torri OrzeUpmann's [facility] Payers Date Payer Category Payer Private Health Insurance [id number] 2023 Private Health Insurance [facility] [id number] 2022 Self-pay [id number] 2021 Medicare [id number] 1959 Medicare [id number] 1959 Self-pay [id number] 1959 Unknown [id number] 1959 Unknown [id number] 1956 Unknown [id number] 2.16.840.1.613577.3.579.2. 593 1956 Unknown [id number] 2.16.840.1.528871.3.579.2. 593 1956 Unknown [id number] 2.16.840.1.656508.3.579.2. 593 1956 Unknown [id number] 2.16.840.1.706076.3.579.2. 593 1956 Unknown [id number] 2.16.840.1.540813.3.579.2. 593 1956 Unknown [id number] 2.16.840.1.110759.3.579.2. 593 1956 Unknown [id number] 2.16.840.1.504163.3.579.2. 356 1956 Unknown [id number] 2.16.840.1.495903.3.579.2. 356 1956 Unknown [id number] 2.16.840.1.886946.3.579.2. 356 1956 Unknown [id number] 2.16.840.1.304613.3.579.2. 356 1956 Unknown [id number] 2.16.840.1.817386.3.579.2. 356 1956 Unknown [id number] 2.16.840.1.579651.3.579.2. 356 1956 Unknown [id number] 2.16.840.1.828572.3.579.2. 356 1956 Unknown [id number] 2.16.840.1.162720.3.579.2. 356 1956 Unknown [id number] 2.16.840.1.143061.3.579.2. 356 1956 Unknown [id number] 2.16.840.1.525390.3.579.2. 727 1956 Unknown [id number] 2.16.840.1.527165.3.579.2. 727 1956 Unknown [id number] 2.16.840.1.659296.3.579.2. 727 1956 Unknown [id number] 2.16.840.1.676442.3.579.2. 727 1956 Unknown [id number] 2.16.840.1.340349.3.579.2. 727 1956 Unknown [id number] 2.16.840.1.416595.3.579.2. 727 1956 Unknown [id number] 2.16.840.1.701861.3.579.2. 727 1956 Unknown [id number] 2.16.840.1.893967.3.579.2. 1259 1956 Unknown [id number] 2.16.840.1.887863.3.579.2. 1259 1956 Unknown [id number] 2.16.840.1.129234.3.579.2. 1259 1956 Unknown [id number] 2.16.840.1.679180.3.579.2. 1259 1956 Unknown [id number] 2.16.840.1.460591.3.579.2. 1259 1956 Unknown [id number] 2.16.840.1.906076.3.579.2. 1259 1956 Unknown [id number] 2.16.840.1.696105.3.579.2. 1259 1956 Unknown [id number] 2.16.840.1.349982.3.579.2. 1259 1956 Unknown [id number] 2.16.840.1.686697.3.579.2. 1259 1956 Unknown [id number] 2.16.840.1.011951.3.579.2. 1259 1956 Unknown [id number] 2.16.840.1.029210.3.579.2. 1259 1956 Unknown [id number] 2.16.840.1.079143.3.579.2. 1244 1956 Unknown [id number] 2.16.840.1.695668.3.579.2. 1244 1956 Unknown [id number] 2.16.840.1.997652.3.579.2. 1244 Private Health Insurance [employer] [id number] Unknown O [id number] Unknown [employer] Unknown [id number] Unknown [id number] 2.16.840.1.629891.3.579.2. 531 Unknown [id number] 2.16.840.1.215120.3.579.2. 531 Unknown [id number] 2.16.840.1.951585.3.579.2. 531 Social History Date Type Detail Facility Start: 10-04-2021 End: 01-14-2024 Tobacco smoking status Ex-smoker (finding) [facility] Tobacco [facility] Start: 09-26-2023 End: 01-14-2024 Sex Assigned At Female [facility] Start: 1955 Sex Assigned At Female Najma [facility] Tobacco smoking stat us NHIS Tobacco smoking consumption unknown [facility] Work Phone: Start: 1955 Sex Assigned At Not on file U [facility] Work Phone: Start: 09-13-1986 End: 09-13-2006 History of tobacco use Current smoker [facility] Work Phone: Start: 09-13-1986 End: 09-13-2006 History of tobacco use Cigarette Smoker [facility] Work Phone: Start: 09-26-2023 End: 01-14-2024 Tobacco use and exposure Smokeless tobacco non-user [facility] Work Phone: Start: 09-26-2023 End: 03-06-2024 Alcohol intake Current drinker of alcohol (finding) [facility] Work Phone: Start: 09-26-2023 End: 01-14-2024 History of Social function [facility] Work Phone: Start: 09-16-2023 End: 03-26-2024 Exposure to SARS-CoV-2 (event) Not sure [facility] Start: 11-10-2013 Alcohol Comment [facility] How often to you hav e a drink containing alcohol? Monthly or less [facility] How many standard drinks containing alcohol do you have on a typical day? 1 or 2 [facility] How often do you hav e 6 or more drinks on 1 occasion? Less than monthly [facility] Start: 10-29-2023 Tobacco Comment Quit [facility] Start: 02-07-2023 Alcohol Comment Alcohol: 1 or 2 drinks on a typical day / 2 to 4 times a month. Caffeine: 1-2 cups/day coffee [facility] Start: 12-21-2022 Gender identity Identifies as female gender (finding) [facility] Tobacco smoking status No Smokin g Status Entered [facility] Functional Status Date Assessment Result Facility 04-20-2024 Functional Status N/A [facility] 11-24-2023 Functional Status N/A [facility] 07-31-2023 Functional Status N/A [facility] Clinical Notes 10-04-2021 to 06-09-2024 Tristan Ward DO - 06/09/2024 2:45 PM Petar Ward DO - 06/03/2024 10:30 AM Jennifer Mckeon MD - 05/20/2024 12:59 PM Luz Maria Lew PT - 05/02/2024 12:59 PM EDT Note Date & Type Note Facility 06-09-2024 History of Present illness Narrative Images from the original note were not included. Assessment/Plan Diagnoses and all orders for this visit: Pseudophakia - s/p CE OD (POD #7): Patient provided with post-op form. Instructed to continue drops. Discontinue eye shield. Instructed to call immediately with increased pain, redness, decreased vision, questions or concerns. documented in this encounter [facility] 06-03-2024 History of Present illness Narrative Images from the original note were not included. Assessment/Plan Diagnoses and all orders for this visit: Pseudophakia - s/p CE OS (POD #1): Patient provided with post-op form. Instructed to continue drops as well as shield. Instructed to call immediately with increased pain, redness, decreased vision, questions or concerns. documented in this encounter [facility] 05-20-2024 Note HNO ID: [id number] Author: JENNIFER STRAUSS MD Service: ? Author Type: Physician Type: Progress Notes Filed: 05/21/2024 09:51 Note Text: UROGYN VIRTUAL VISIT PROGRESS NOTE This is a virtual encounter initiated for an established patient, parent or guardian not originating from a related Evaluation AND Management service provided within the previous 7 days nor leading to an Evaluation AND Management service or procedure within the next 24 hours or soonest available appointment. Patient identified by and name. Roselyn Freire has consented to this virtual encounter. Persons Present: patient Chief Complaint/Reason: air in vagina HPI: Vaginal symptoms Vaginal bleeding in 08/2023 Was treated with bacterial vaginal infection--has to take two medications and creams for treatment Also had a yeast infection Saw her CORRUGATOR SUPERVISOR for this (Dr. Mason) Since then has had intermittent bleeding Had US around this time and since then started having air in the vagina Has been doing PFPT with Luz Maria with some improvement in symptoms over the last few weeks No urine or bowel leakage from vagina No abnormal discharge Denies bulge symptoms Concerned that vaginal gas could be fistula; normal exam on 01/2024 with UROLOGY TEACHER office Urinary symptoms Does report urinary leakage with cough/sneeze Reports it is occasional Some urgency but denies urgency urinary incontinence Reports she has been doing time voiding every few hours Has also been exercising more lately 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 Patient has had a hysterectomy.; Deliveries PAST MEDICAL HISTORY Diagnosis Date Abdominal pain Adenocarcinoma of lung (HCC) lung/left lower lobe Anxiety Back pain Bleeding nose Chest pain Diverticulitis Endometriosis Hepatitis C History of cholecystectomy Hypercholesteremia Insomnia Knee pain Knee sprain Neck pain Otitis externa Plantar fasciitis Pulmonary nodule Pyelonephritis S/P partial hysterectomy Sinusitis Sleep apnea Smoker Thyroid disease UTI (lower urinary tract infection) PAST SURGICAL HISTORY Procedure Laterality Date ANGIOPLASTY LOBECTOMY, SEGMENT left TOTAL ABDOMINAL HYSTERECT W/WO RMVL TUBE OVARY Hysterectomy, partial VAGINAL HYSTERECTOMY 05/1995 No family history on file. Social History Tobacco Use Smoking status: Former Current packs/day: 0.00 Types: Cigarettes Quit date: 07/02/2006 Years since quittin.8 Smokeless tobacco: Never Substance Use Topics Alcohol use: Yes Comment: socially Drug use: Not Currently Current Outpatient Medications Medication Sig Dispense Refill bisoprolol (ZEBETA) 10 mg tablet TAKE 1 TABLET BY MOUTH EVERY DAY for 30 psyllium husk (METAMUCIL) 3.4 gram/5.4 gram powd Take by mouth. estradiol (ESTRACE) 0.01 % (0.1 mg/gram) vaginal cream Use 1 g vaginally as directed. NIGHTLY x 2 weeks, then 2x/week (Mon/Thurs, Tu/Fri). 42.5 g 3 amLODIPine (NORVASC) 10 mg tablet Take 10 mg by mouth once daily. Hydrochlorothiazide 12.5 mg capsule Take 12.5 mg by mouth once daily. aspirin 325 mg tablet Take 325 mg by mouth once daily. docusate sodium (COLACE) 100 mg capsule Take 100 mg by mouth twice daily. No current facility-administered medications for this visit. ALLERGIES No Known Allergies Data Reviewed: Most recent labs and imaging results. REVIEW OF SYSTEMS: ROS collected by me as per HPI ASSESSMENT: Roselyn Freire is a 69 year old female with vaginal flatus with concern for fistula and stress urinary incontinence. PLAN: 1) Vaginal flatus: We discussed her symptoms history in detail. I reassured her history and prior exams sound reassuring. Very low suspicion for fistula given her history. I reviewed that a one time pelvic US would be unlikely to cause this. I also reassured her regarding symptoms improvement which she has had since starting PFPT. Discussed how pelvic floor muscle dysfunction could cause symptoms of vaginal flatus. Will plan for exam in the office to rule out fistula but again low suspicion given history. Recommend continuing PT at this time and following up for office exam. 2) Stress urinary incontinence: We discussed the non-surgical (behavioral/physical therapy, pessary) and surgical options (urethral bulking agents, slings - fascial and synthetic) for managing her stress urinary incontinence. She is not having frequent symptoms at this time and would like to continue PFPT. --Follow up for office exam (consider methylene blue and tampon test at time of exam) --She will notify us if any change or worsening of symptoms in the meantime --Continue PFPT I spent a total of 45 minutes on the date of the service which included preparing to see the patient, completing clinical documentation, counseling and educating the patient/family/caregiver, and care coordination (not separately (more content not included)... [facility] 05-20-2024 History of Present illness Narrative UROGYDavina VIRTUAL VISIT PROGRESS NOTE This is a virtual encounter initiated for an established patient, parent or guardian not originating from a related Evaluation & Management service provided within the previous 7 days nor leading to an Evaluation & Management service or procedure within the next 24 hours or soonest available appointment. Patient identified by and name. Roselyn Freire has consented to this virtual encounter. Persons Present: patient Chief Complaint/Reason: air in vagina HPI: Vaginal symptoms Vaginal bleeding in 08/2023 Was treated with bacterial vaginal infection--has to take two medications and creams for treatment Also had a yeast infection Saw her CORRUGATOR SUPERVISOR for this (Dr. Mason) Since then has had intermittent bleeding Had US around this time and since then started having air in the vagina Has been doing PFPT with Luz Maria with some improvement in symptoms over the last few weeks No urine or bowel leakage from vagina No abnormal discharge Denies bulge symptoms Concerned that vaginal gas could be fistula; normal exam on 01/2024 with UROLOGY TEACHER office Urinary symptoms Does report urinary leakage with cough/sneeze Reports it is occasional Some urgency but denies urgency urinary incontinence Reports she has been doing time voiding every few hours Has also been exercising more lately 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 Patient has had a hysterectomy.; Deliveries PAST MEDICAL HISTORY Diagnosis Date Abdominal pain Adenocarcinoma of lung (HCC) lung/left lower lobe Anxiety Back pain Bleeding nose Chest pain Diverticulitis Endometriosis Hepatitis C History of cholecystectomy Hypercholesteremia Insomnia Knee pain Knee sprain Neck pain Otitis externa Plantar fasciitis Pulmonary nodule Pyelonephritis S/P partial hysterectomy Sinusitis Sleep apnea Smoker Thyroid disease UTI (lower urinary tract infection) PAST SURGICAL HISTORY Procedure Laterality Date ANGIOPLASTY LOBECTOMY, SEGMENT left TOTAL ABDOMINAL HYSTERECT W/WO RMVL TUBE OVARY Hysterectomy, partial VAGINAL HYSTERECTOMY 05/1995 No family history on file. Social History Tobacco Use Smoking status: Former Current packs/day: 0.00 Types: Cigarettes Quit date: 07/02/2006 Years since quittin.8 Smokeless tobacco: Never Substance Use Topics Alcohol use: Yes Comment: socially Drug use: Not Currently Current Outpatient Medications Medication Sig Dispense Refill bisoprolol (ZEBETA) 10 mg tablet TAKE 1 TABLET BY MOUTH EVERY DAY for 30 psyllium husk (METAMUCIL) 3.4 gram/5.4 gram powd Take by mouth. estradiol (ESTRACE) 0.01 % (0.1 mg/gram) vaginal cream Use 1 g vaginally as directed. NIGHTLY x 2 weeks, then 2x/week (Mon/Thurs, Tu/Sun). 42.5 g 3 amLODIPine (NORVASC) 10 mg tablet Take 10 mg by mouth once daily. Hydrochlorothiazide 12.5 mg capsule Take 12.5 mg by mouth once daily. aspirin 325 mg tablet Take 325 mg by mouth once daily. docusate sodium (COLACE) 100 mg capsule Take 100 mg by mouth twice daily. No current facility-administered medications for this visit. ALLERGIES No Known Allergies Data Reviewed: Most recent labs and imaging results. REVIEW OF SYSTEMS: ROS collected by me as per HPI ASSESSMENT: Roselyn Freire is a 69 year old female with vaginal flatus with concern for fistula and stress urinary incontinence. PLAN: 1) Vaginal flatus: We discussed her symptoms history in detail. I reassured her history and prior exams sound reassuring. Very low suspicion for fistula given her history. I reviewed that a one time pelvic US would be unlikely to cause this. I also reassured her regarding symptoms improvement which she has had since starting PFPT. Discussed how pelvic floor muscle dysfunction could cause symptoms of vaginal flatus. Will plan for exam in the office to rule out fistula but again low suspicion given history. Recommend continuing PT at this time and following up for office exam. 2) Stress urinary incontinence: We discussed the non-surgical (behavioral/physical therapy, pessary) and surgical options (urethral bulking agents, slings - fascial and synthetic) for managing her stress urinary incontinence. She is not having frequent symptoms at this time and would like to continue PFPT. --Follow up for office exam (consider methylene blue and tampon test at time of exam) --She will notify us if any change or worsening of symptoms in the meantime --Continue PFPT I spent a total of 45 minutes on the date of the service which included preparing to see the patient, completing clinical documentation, counseling and educating the patient/family/caregiver, and care coordination (not separately reported) Jennifer Strauss MD documented in this encounter [facility] 05-02-2024 Note HNO ID: [id number] Author: LUZ MARIA PARISI PT Service: ? Author Type: Physical Therapist Type: Progress Notes Filed: 05/02/2024 16:25 Note Text: Episode Visit Count: 1 Therapist That Will Accept/Oversee The Plan Of Care: [place] Start of Care Date: 05/01/24 Onset Date: 08/31/23 Plan of Care Certification Date: 05/01/24 Next Certification Due Date: 07/25/24 Patient Identified by Name and Date of : Yes REHABILITATION AND SPORTS THERAPY PHYSICAL THERAPY EVALUATION PLAN OF CARE: Assessment: Roselyn Freire presents with chief complaint of passing air vaginally since procedure this past spring- non- odorous and likely from mild prolapse bladder ( did not diagnose or stage it per practice guidelines) - that interferes with ADLs/ socially uncomfortable (air/ gas releases from vagina and she can't stop it) . She is tight posterior floor B but not really painful except isolated areas; mildly weak, no complaints of STACEY except minor and occasional and no issues with bowels . The patient presents with impairments in coordination, flexibility, independence in exercise, symptom management, and tissue tenderness. PROMIS? (Patient-Reported Outcomes Measurement Information System) scores were reviewed and identified as within normal limits. Prognosis for therapy is Good due to: current objective clinical presentation, good overall health status . The patient will benefit from skilled therapy services to meet the goals established for this plan of care as noted below. Goals for Episode of Care: established 05/01/24 - improved deep breathing and coordinating PFM and deep core with it - improved / less painful PFM vaginal as noted to minimal isolated and under 2/10 level - no air passing from vagina or less than weekly - IND using pessary or revive or impressa Patient Goals: find out what this is and stop it Time Frame for Goals and Treatment : 07/25/24 Planned Interventions, Frequency, and Duration: Current Frequency: 1x/month Duration: 12 weeks Total Number of Visits Planned: 3 Planned Treatment Interventions: Therapeutic exercise (41300), Neuromuscular re-education (92204), Manual therapy (22552), Self-shelter management (12592), Patient/Family/Caregiver Education PLAN FOR NEXT VISIT: progress PFM strengthening; gravity; re-check for pain; check nerves; check rectally for tight. pain etc. Patient demonstrates good understanding of plan of care and treatment. The above goals and plan of care were discussed and agreed upon by patient/family. SUBJECTIVE: vaginal bleeding started this off had to be on ant- biotics and they did as US - since then has gas (air??) coming out of the vagina- not having STACEY- passes gas rectally also and it smells rectally not vaginally - steve first thing in AM- no smell- saw some blood during during the procedure.was having the US as she bled on and off and no uterus Patient Goals: find out what this is and stop it Functional Limitations: (air/ gas releases from vagina and she can't stop it) Prior Level of Function: Independent without limitations Relevant History Past Relevant Medical Conditions: Cancer, Covid, COPD Past Relevant Surgical Conditions: (hysterectony; long surgery ; throat) 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 5 points is clinically meaningfully difference Percentiles provide an indication of how the patient's score ranks in relation to the general population. Higher percentile rankings indicate better function/quality of life. 50th percentile is the average of the general population and indicates half of respondents had a worse score. OBJECTIVE MEASURES WITH LEVEL OF FUNCTION: Pelvic Floor Pregnancies: 2 Births: 2 Vaginal Delivery: Forceps (1 of the babies) Pain with penetration: Not sexually active (pain with US in 09/22) History of low back pain: Yes Urinary/Bowel History : Bowel History, Urinary History Difficulty starting stream: No slow or intermittent stream: No strains to void: No Incomplete emptying: No Stress Incontinence: Cough, Sneeze Daytime Frequency (hours): 1.5 Difficulty evacuating / Excessive Straining: No Incomplete emptying: No Bowel Movement Frequency: (no trouble going) Bowel Movement Consistency ([place]) : (more content not included)... [facility] 05-02-2024 History of Present illness Narrative Episode Visit Count: 1 Therapist That Will Accept/Oversee The Plan Of Care: Isak Start of Care Date: 05/01/24 Onset Date: 08/31/23 Plan of Care Certification Date: 05/01/24 Next Certification Due Date: 07/25/24 Patient Identified by Name and Date of : Yes REHABILITATION AND SPORTS THERAPY PHYSICAL THERAPY EVALUATION PLAN OF CARE: Assessment: Roselyn Freire presents with chief complaint of passing air vaginally since procedure this past spring- non- odorous and likely from mild prolapse bladder ( did not diagnose or stage it per practice guidelines) - that interferes with ADLs/ socially uncomfortable (air/ gas releases from vagina and she can't stop it) . She is tight posterior floor B but not really painful except isolated areas; mildly weak, no complaints of STACEY except minor and occasional and no issues with bowels . The patient presents with impairments in coordination, flexibility, independence in exercise, symptom management, and tissue tenderness. PROMIS (Patient-Reported Outcomes Measurement Information System) scores were reviewed and identified as within normal limits. Prognosis for therapy is Good due to: current objective clinical presentation, good overall health status . The patient will benefit from skilled therapy services to meet the goals established for this plan of care as noted below. Goals for Episode of Care: established 05/01/24 - improved deep breathing and coordinating PFM and deep core with it - improved / less painful PFM vaginal as noted to minimal isolated and under 2/10 level - no air passing from vagina or less than weekly - IND using pessary or revive or impressa Patient Goals: find out what this is and stop it Time Frame for Goals and Treatment : 07/25/24 Planned Interventions, Frequency, and Duration: Current Frequency: 1x/month Duration: 12 weeks Total Number of Visits Planned: 3 Planned Treatment Interventions: Therapeutic exercise (22142), Neuromuscular re-education (65399), Manual therapy (76069), Self-shelter management (60180), Patient/Family/Caregiver Education PLAN FOR NEXT VISIT: progress PFM strengthening; gravity; re-check for pain; check nerves; check rectally for tight. pain etc. Patient demonstrates good understanding of plan of care and treatment. The above goals and plan of care were discussed and agreed upon by patient/family. SUBJECTIVE: vaginal bleeding started this off had to be on ant- biotics and they did as US - since then has gas (air??) coming out of the vagina- not having STACEY- passes gas rectally also and it smells rectally not vaginally - steve first thing in AM- no smell- saw some blood during during the procedure.was having the US as she bled on and off and no uterus Patient Goals: find out what this is and stop it Functional Limitations: (air/ gas releases from vagina and she can't stop it) Prior Level of Function: Independent without limitations Relevant History Past Relevant Medical Conditions: Cancer, Covid, COPD Past Relevant Surgical Conditions: (hysterectony; long surgery ; throat) 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 5 points is clinically meaningfully difference Percentiles provide an indication of how the patient's score ranks in relation to the general population. Higher percentile rankings indicate better function/quality of life. 50th percentile is the average of the general population and indicates half of respondents had a worse score. OBJECTIVE MEASURES WITH LEVEL OF FUNCTION: Pelvic Floor Pregnancies: 2 Births: 2 Vaginal Delivery: Forceps (1 of the babies) Pain with penetration: Not sexually active (pain with US in 09/22) History of low back pain: Yes Urinary/Bowel History : Bowel History, Urinary History Difficulty starting stream: No slow or intermittent stream: No strains to void: No Incomplete emptying: No Stress Incontinence: Cough, Sneeze Daytime Frequency (hours): 1.5 Difficulty evacuating / Excessive Straining: No Incomplete emptying: No Bowel Movement Frequency: (no trouble going) Bowel Movement Consistency ([place]) : 4: Like a sausage or snake, smooth and soft Rectal Bleeding/history of hemorrhoids: once in awhile ; had long time Fecal incontinence: No Incontinence with Gas: Sometimes Pelvic Floor Muscle Assessment Consent for pelvic assessment/testing and treatment: Patient verbalized consent for the above treatment approaches today. Patient understands they have control of the treatment and an opportunity to stop treatment at any time., Patient was educated regarding pelvic floor physical therapy assessment/treatment which may include pelvic floor and girdle muscle assessment externally or internally (vaginal or rectal approach). (vaginal) Pelvic Floor Muscle Assessment: Muscle Dynamics, PERFECT Power: 3+ Endurance: 6 Reps: 8 Contracton Pressure: Moderate squeeze, felt all the way around finger surface Duration of Contraction: >3 seconds Recruitment of pelvic floor muscles: Coordinated Range of Motion: Normal Ability to Lengthen pelvic floor: Yes Relaxation Postcontraction: Yes Paradoxical Contraction: Intermittent Breathing Pattern : initially pulled up and did not drop into PF but this improved with reps and cues Diaphragmatic Breathing : Fair Pelvic Floor Manual Assessment External Pelvic Region Tenderness/ Hyperactivity - Trunk: Lateral trunk / obliques, Psoas Psoas: Left Lateral trunk / obliques: Left Pelvic Floor Tenderness/Hyperactivity: Tested Vaginally in Tested Vaginally in : Supine/hooklying Levator Ani: (L little higher/ tighter but not major; tone little higher and posterior few areas tender and tight with rectal referral ; felt mild drop with forced cough in anterior area , Epic notes possible mild cystocele) Deep transverse perineal: Left Iliococcygeus: Left Pubococcygeus: Bilateral (mostly L) Education: Education Learning Preferences: Explanation, Demonstration, Performance, Printed Materials Barriers: None Learning/educational needs: Home exercise program, Plan of Care Education Provided: Yes, see treatment interventions for education provided Education Provided To: Patient Education Mode/Type: Demonstration, Explanation/Discussion, Literature/Printed Materials Response to Education/Teach Back: States/Identifies, Return Demonstration, Requires Review/Additional Education TREATMENT: PT Treatment Interventions: Therapeutic Exercise, Manual Therapy, Neuromuscular Re-Education, Self-Shelter Management Evaluation Therapeutic Exercise: 1: child pose seated 2: child pose on bed with knees apart and deep breathing 3: SL deep breathign and feel for coccyx area moving correctly 4: L side rib mobilizations Skilled Intervention: Patient was educated in proper exercise technique and purpose for exercises. Manual Therapy: 1: PFM STM posterior floor any tight areas Skilled Intervention: Manual skills to improve joint mobility, ROM, and decrease pain. Utilized anatomy knowledge of the therapist, and assessment of patient's response to intervention. Neuromuscular Re-Education: 1: (breathing and PFM dropping and lifting each pose- seated/ supine/ SL; check for drop and lifts at home) Skilled Intervention: Correct performance of home program was facilitated with verbal and tactile cueing. Self-Shelter Management: 1: POC; anatomy and possibe reasons for this - cystocele and how a bulge could cause pocketing of air and this may release as she moves; fissures discussed; rec referral to uro- body presser and see if they can further diagnose this steve if it does not resolve with some good breathing and strengthening - may benefit from Poise Impressa or Revive- will message her to try these / return for guidance how to use Skilled Intervention: Correct performance of home program was facilitated with verbal cueing. Billing * Evaluation Moderate Complexity: 1 Unit Therapeutic Exercise Treatment Minutes: 20 Manual TherapyTreatment Minutes: 15 Neuromuscular Re-Education Treatment Minutes: 15 Self-Care/Home Management Treatment Minutes: 15 Total Session Time (minutes): 76 Session Start Time : 1723 Session Stop Time : 1839 Luz Maria Parisi PT documented in this encounter [facility] 04-20-2024 Hospital Discharge instructions Patient Education 04/20/2024 13:53:57 Community-Acquired Pneumonia, Adult, [id number] Community-Acquired Pneumonia, Adult Pneumonia is an infection of the lungs. It causes irritation and swelling in the airways of the lungs. Mucus and fluid may also build up inside the airways. This may cause coughing and trouble breathing. One type of pneumonia can happen while you are in a hospital. A different type can happen when you are not in a hospital (community-acquired pneumonia). What are the causes? This condition is caused by germs (viruses, bacteria, or fungi). Some types of germs can spread from person to person. Pneumonia is not thought to spread from person to person. What increases the risk? You have a long-term (chronic) disease, such as: ?Disease of the lungs. This may be chronic obstructive pulmonary disease (COPD) or asthma. ?Heart failure. ?Cystic fibrosis. ?Diabetes. ?Kidney disease. ?Sickle cell disease. ?HIV. You have other health problems, such as: ?Your body's defense system (immune system) is weak. ?A condition that may cause you to breathe in fluids from your mouth and nose. You had your spleen taken out. You do not take good care of your teeth and mouth (poor dental hygiene). You use or have used tobacco products. You go where the germs that cause this illness are common. You are older than 65 years of age. What are the signs or symptoms? A cough. A fever. Sweating or chills. Chest pain, often when you breathe deeply or cough. Breathing problems, such as: ?Fast breathing. ?Trouble breathing. ?Shortness of breath. Feeling tired (fatigued). Muscle aches. How is this treated? Treatment for this condition depends on many things, such as: The cause of your illness. Your medicines. Your other health problems. Most adults can be treated at home. Sometimes, treatment must happen in a hospital. Treatment may include medicines to kill germs. Medicines may depend on which germ caused your illness. Very bad pneumonia is rare. If you get it, you may: Have a machine to help you breathe. Have fluid taken away from around your lungs. Follow these instructions at home: Medicines Take [id number] and prescription medicines only as told by your doctor. Take cough medicine only if you are losing sleep. Cough medicine can keep your body from taking mucus away from your lungs. If you were prescribed antibiotics, take them as told by your doctor. Do not stop taking them even if you start to feel better. Lifestyle Do not smoke or use any products that contain nicotine or tobacco. If you need help quitting, ask your doctor. Do not drink alcohol. Eat a healthy diet. This includes a lot of vegetables, fruits, whole grains, low-fat dairy products, and low-fat (lean) protein. General instructions Rest a lot. Sleep for at least 8 hours each night. Sleep with your head and neck raised. Put a few pillows under your head or sleep in a reclining chair. Return to your normal activities as told by your doctor. Ask your doctor what activities are safe for you. Drink enough fluid to keep your pee (urine) pale yellow. If your throat is sore, gargle with a mixture of salt and water 3 4 times a day or as needed. To make salt water, completely dissolve 1 tsp (3 6 g) of salt in 1 cup (237 mL) of warm water. Keep all follow-up visits. How is this prevented? Getting the pneumonia shot (vaccine). These shots have different types and schedules. Ask your doctor what works best for you. Think about getting this shot if: ?You are older than 65 years of age. ?You are 19 65 years of age and: ?You are being treated for cancer. ?You have long-term lung disease. ?You have other problems that affect your body's defense system. Ask your doctor if you have one of these. Getting your flu shot every year. Ask your doctor which type of shot is best for you. Going to the dentist as often as told. Washing your hands often with soap and water for at least 20 seconds. If you cannot use soap and water, use hand form coverer. Contact a doctor if: You have a fever. You lose sleep because your cough medicine does not help. Get help right away if: You are short of breath and this gets worse. You have more chest pain. Your sickness gets worse. This is very serious if: ?You are an older adult. ?Your body's defense system is weak. You cough up blood. These symptoms may be an emergency. Get help right away. Call 911. Do not wait to see if the symptoms will go away. Do not drive yourself to the hospital. Summary Pneumonia is an infection of the lungs. Community-acquired pneumonia affects people who have not been in the hospital. Certain germs can cause this infection. This condition may be treated with medicines that kill germs. For very bad pneumonia, you may need a hospital stay and treatment to help with breathing. This information is not intended to replace advice given to you by your health care provider. Make sure you discuss any questions you have with your health care provider. Document Revised: 08/16/2022 Document Reviewed: 08/16/2022 [employer] Patient Education 2023 [employer]. 04/20/2024 13:53:57 COVID-19 COVID-19 COVID-19 is an infection caused by a virus called SARS-CoV-2. This type of virus is called a coronavirus. People with COVID-19 may: Have little to no symptoms. Have mild to moderate symptoms that affect their lungs and breathing. Get very sick. What are the causes? COVID-19 is caused by a virus. This virus may be in the air as droplets or on surfaces. It can spread from an infected person when they cough, sneeze, speak, sing, or breathe. You may become infected if: You breathe in the infected droplets in the air. You touch an object that has the virus on it. What increases the risk? You are at risk of getting COVID-19 if you have been around someone with the infection. You may be more likely to get very sick if: You are 65 years old or older. You have certain medical conditions, such as: ?Heart disease. ?Diabetes. ?Chronic respiratory disease. ?Cancer. ?. You are immunocompromised. This means your body cannot fight infections easily. You have a disability or trouble moving, meaning you're immobile. What are the signs or symptoms? People may have different symptoms from COVID-19. The symptoms can also be mild to severe. They often show up in 5 6 days after being infected. But they can take up to 14 days to appear. Common symptoms are: Cough. Feeling tired. New loss of taste or smell. Fever. Less common symptoms are: Sore throat. Headache. Body or muscle aches. Diarrhea. A skin rash or odd-colored fingers or toes. Red or irritated eyes. Sometimes, COVID-19 does not cause symptoms. How is this diagnosed? COVID-19 can be diagnosed with tests done in the lab or at home. Fluid from your nose, mouth, or lungs will be used to check for the virus. How is this treated? Treatment for COVID-19 depends on how sick you are. Mild symptoms can be treated at home with rest, fluids, and vqjq-awq-viltgmo medicines. Severe symptoms may be treated in a hospital intensive care unit (ICU). If you have symptoms and are at risk of getting very sick, you may be given a medicine that fights viruses. This medicine is called an antiviral. How is this prevented? To protect yourself from COVID-19: 1.Know your risk factors. 2.Get vaccinated. 3.If your body cannot fight infections easily, talk to your provider about treatment to help prevent COVID-19. 4.Stay at least 1 meter away from others. 5.Wear a well-fitted mask when: You can't stay at a distance from people. You're in a place with poor air flow. 6.Try to be in open spaces with good air flow when in public. 7.Wash your hands often or use an alcohol-based hand form coverer. 8.Cover your nose and mouth when coughing and sneezing. If you think you have COVID-19 or have been around someone who has it, stay home and be by yourself for 5 10 days. Where to find more information Centers for Disease Control and Prevention (CDC): cdc.gov World Health Organization (WHO): who.int Get help right away if: You have trouble breathing or get short of breath. You have pain or pressure in your chest. You cannot speak or move any part of your body. You are confused. Your symptoms get worse. These symptoms may be an emergency. Get help right away. Call 911. Do not wait to see if the symptoms will go away. Do not drive yourself to the hospital. This information is not intended to replace advice given to you by your health care provider. Make sure you discuss any questions you have with your health care provider. Document Revised: 06/26/2023 Document Reviewed: 03/02/2023 [employer] Patient Education 2023 [employer]. Follow Up Care 04/20/2024 12:06:48 With:Charles Arabmula Address: [address] [place] [id number] Business (1) When:04/23/2024 13:09:07 [facility] 04-20-2024 Evaluation + Plan note Extrac edinson from: Title:ED Note Author:Maritza Cooley PA-C Date:04/20/24 1. Community acquired pneumo angelo of left lung (J18.9: Pneumonia, unspecified organism) 2. COPD without exacerbation (J44.9: Chronic obstructive pulmonary disease, unspecified) Orders: albuterol, 5 mg, 6 mL, Soln-Inh, NEB, Once, Stop date 04/20/24 13:05:00 EDT, STAT, Start date 04/20/24 13:05:00 EDT albuterol, 2 puff(s), Inhalation, q4hr Wheezing, 18 gm, Refill(s) 0, [id number], 160, cm, 04/20/24 12:11:00 EDT, Height/Length Dosing, 67.5, kg, 04/20/24 12:11:00 EDT, Weight Dosing albuterol-ipratropium, 3 mL, Soln-Inh, Inhalation, Once, Stop date 04/20/24 13:05:00 EDT, STAT, Start date 04/20/24 13:05:00 EDT doxycycline, 100 mg = 1 cap(s), Oral, BID, X 10 day(s), # 20 cap(s), Refills(s) 0, Pharmacy: [id number], 160, cm, 04/20/24 12:11:00 EDT, Height/Length Dosing, 67.5, kg, 04/20/24 12:11:00 EDT, Weight Dosing predniSONE, 10 mg = 1 tab(s), Oral, As Directed, 6 tabs for 2 days,5 tabs for 2 days,4 tabs for 2 days,3 tabs for 2 days,2 tabs for 2 days,1 tab for 2 days, # 42 tab(s), Refills(s) 0, Pharmacy: [id number], 160, cm, 04/20/24 12:11:00 EDT, Height/Length Dos... predniSONE, 60 mg = 3 tab(s), Tab, Oral, Once, Stop date 04/20/24 13:05:00 EDT, STAT, Start date 04/20/24 13:05:00 EDT, 04/20/24 13:05:00 EDT Rapid COVID Antigen ([facility] [place]R Chest 2 Views [facility] 10-20-2024 NoteED Patient Education Note Infectious Disease Community-Acquired Pneumonia, Adult Pneumonia is an infection of the lungs. It causes irritation and swelling in the airways of the lungs. Mucus and fluid may also build up inside the airways. This may cause coughing and trouble breathing. One type of pneumonia can happen while you are in a hospital. A different type can happen when you are not in a hospital (community-acquired pneumonia). What are the causes? This condition is caused by germs (viruses, bacteria, or fungi). Some types of germs can spread from person to person. Pneumonia is not thought to spread from person to person. What increases the risk? ? You have a long-term (chronic) disease, such as: ? Disease of the lungs. This may be chronic obstructive pulmonary disease (COPD) or asthma. ? Heart failure. ? Cystic fibrosis. ? Diabetes. ? Kidney disease. ? Sickle cell disease. ? HIV. ? You have other health problems, such as: ? Your body's defense system (immune system) is weak. ? A condition that may cause you to breathe in fluids from your mouth and nose. ? You had your spleen taken out. ? You do not take good care of your teeth and mouth (poor dental hygiene). ? You use or have used tobacco products. ? You go where the germs that cause this illness are common. ? You are older than 65 years of age. What are the signs or symptoms? ? A cough. ? A fever. ? Sweating or chills. ? Chest pain, often when you breathe deeply or cough. ? Breathing problems, such as: ? Fast breathing. ? Trouble breathing. ? Shortness of breath. ? Feeling tired (fatigued). ? Muscle aches. How is this treated? Treatment for this condition depends on many things, such as: ? The cause of your illness. ? Your medicines. ? Your other health problems. Most adults can be treated at home. Sometimes, treatment must happen in a hospital. ? Treatment may include medicines to kill germs. ? Medicines may depend on which germ caused your illness. Very bad pneumonia is rare. If you get it, you may: ? Have a machine to help you breathe. ? Have fluid taken away from around your lungs. Follow these instructions at home: Medicines ? Take ijrg-bav-quhxemo and prescription medicines only as told by your doctor. ? Take cough medicine only if you are losing sleep. Cough medicine can keep your body from taking mucus away from your lungs. ? If you were prescribed antibiotics, take them as told by your doctor. Do not stop taking them even if you start to feel better. Lifestyle ? Do not smoke or use any products that contain nicotine or tobacco. If you need help quitting, askyour doctor. ? Do not drink alcohol. ? Eat a healthy diet. This includes a lot of vegetables, fruits, whole grains, low-fat dairy products, and low-fat (lean) protein. General instructions ? Rest a lot. Sleep for at least 8 hours each night. ? Sleep with your head and neck raised. Put a few pillows under your head or sleep in a reclining chair. ? Return to your normal activities as told by your doctor. Ask your doctor what activities are safefor you. ? Drink enough fluid to keep your pee (urine) pale yellow. ? If your throat is sore, gargle with a mixture of salt and water 3?4 times a day or as needed. To make salt water, completely dissolve ??1 tsp (3?6 g) of salt in 1 cup (237 mL) of warm water. ? Keep all follow-up visits. How is this prevented? ? Getting the pneumonia shot (vaccine). These shots have different types and schedules. Ask your doctor what works best for you. Think about getting this shot if: ? You are older than 65 years of age. ? You are 19?65 years of age and: ? You are being treated for cancer. ? You have long-term lung disease. ? You have other problems that affect your body's defense system. Ask your doctor if you have one of these. ? Getting your flu shot every year. Ask your doctor which type of shot is best for you. ? Going to the dentist as often as told. ? Washing your hands often with soap and water for at least 20 seconds. If you cannot use soap and water, use hand form coverer. Contact a doctor if: ? You have a fever. ? You lose sleep because your cough medicine does not help. Get help right away if: ? You are short of breath and this gets worse. ? You have more chest pain. ? Your sickness gets worse. This is very serious if: ? You are an older adult. ? Your body's defense system is weak. ? You cough up blood. These symptoms may be an emergency. Get help right away. Call 911. ? Do not wait to see if the symptoms will go away. ? Do not drive yourself to the hospital. Summary ? Pneumonia is an infection of the lungs. ? Community-acquired pneumonia affects people who have not been in the hospital. Certain germs can cause this infection. ? (more content not included)...[facility]10-03-2024 History of Present illness Narrative* Tristan Ward, - 04/03/2024 12:30 PM EDT Images from the original note were not included. Subjective Patient ID: Roselyn Freire is a 68 y.o. female. Chief Complaint Cataract HPI Cataract In left eye. Associated symptoms include blurred vision and a need for brighter lights. Context: distance vision, mid-range vision, near vision, driving and night driving. Affected activities includereading, working on the computer, driving, watching TV and daily activities. Treatments tried include glasses. Response to treatment was mild improvement. Comments Cataract extraction (CE) eval left eye (OS) for pt referred by Dr Dean. History of PVD left eye (OS). Pt has noticed light sensitivity left eye (OS). Dr Dean has concern of cataracts developing from PVD treatment. No pm or defib No latex allergy No flomax Last edited by LEONORA LOPES on 04/03/2024 1:04 PM. Current Outpatient Medications (Ophthalmic Agents) Medication Sig Dispense Refill ketorolac (Acular) 0.5 % ophthalmic solution Administer 1 drop into affected eye(s) in the morning and 1 drop before bedtime. 5 mL 1 ofloxacin (Ocuflox) 0.3 % ophthalmic solution Administer 1 drop into the right eye 5 (five) times aday for 1 day Starting 1 day before surgery, continue after surgery as directed 5 mL 1 prednisoLONE acetate (Pred-Forte) 1 % ophthalmic suspension Administer 1 drop into both eyes in themorning and 1 drop at noon and 1 drop in the evening and 1 drop before bedtime. Do all this for 14 days. 5 mL 1 No current facility-administered medications for this visit. (Ophthalmic Agents) Current Outpatient Medications (Other) Medication Sig Dispense Refill acetaminophen (Tylenol 8 Hour) 650 MG ER tablet Tylenol amLODIPine (Norvasc) 10 MG tablet Daily. aspirin 325 MG tablet Daily. bisoprolol (Zebeta) 10 MG tablet Take 10 mg by mouth in the morning. Docusate Sodium (DSS) 100 MG capsule Take 100 mg by mouth Daily as needed. estradiol (Estrace) 0.1 MG/GM vaginal cream Insert 1 gram twice weekly 42.5 g 12 fluticasone (Flonase) 50 MCG/ACT nasal spray INSTILL 2 SPRAYS IN EACH NOSTRIL ONCE A DAY for 90 hydroCHLOROthiazide (Microzide) 12.5 MG capsule Daily. No current facility-administered medications for this visit. (Other) Past Medical History: Diagnosis Date Basal cell carcinoma (BCC) of medial canthus of left eye MOHS Cancer of left lung (CMS/HCC) Cancer of thyroid (CMS/HCC) 2019- LT Diverticulitis Hepatitis C (CMS/HCC) Hypertension (CMS/HCC) Menopause ovarian failure 2012 Vitreous detachment of left eye Allergies Allergen Reactions Meperidine Nausea And Vomiting Meperidine Hcl Other Review of Systems Constitutional: Negative. HENT: Negative. Eyes: Negative. Respiratory: Negative. Cardiovascular: Negative. Gastrointestinal: Negative. Genitourinary: Negative. Musculoskeletal: Negative. Skin: Negative. Neurological: Negative. Psychiatric/Behavioral: Negative. Hematological: Negative. Endocrine: Negative. Allergic/Immunologic: Negative. Objective Base Eye Exam Visual Acuity (Snellen - Linear) Right Left Dist cc 20/30 20/50 -2 Correction: Glasses Pupils Pupils Right PERRL Left PERRL Visual Stafford Left Right Full Full Extraocular Movement Right Left Full Full Neuro/Psych Oriented x3: Yes Dilation Both eyes: 1.0% Mydriacyl @ 1:05 PM Additional Tests Keratometry K1 Wilmot K2 Wilmot Right 45.25 106 45.75 16 Left 45.5 52 46 142 Glare Testing High Right Left 20/200 Slit Lamp and Fundus Exam External Exam Right Left External Rosacea Rosacea Slit Lamp Exam Right Left Lids/Lashes Blepharitis, Dermatochalasis - upper lid Blepharitis, Dermatochalasis - upper lid Conjunctiva/Sclera White and quiet White and quiet Cornea Decreased tear film Decreased tear film Anterior Chamber Deep and quiet Deep and quiet Iris Round and reactive Round and reactive Lens 2+ Nuclear sclerosis 2+ Nuclear sclerosis Anterior Vitreous Normal Posterior vitreous detachment Fundus Exam Right Left Disc Normal Normal Macula Normal Normal Vessels Normal Normal Periphery Normal 360 degrees scleral depression - no hole/tear/detachment Refraction Wearing Rx Sphere Cylinder Wilmot Add Right +1.25 -1.25 093 +2.00 Left +0.50 -1.75 070 +2.00 Manifest Refraction Sphere Cylinder Wilmot Right +0.75 -1.25 080 Left +1.00 -2.00 070 Final Rx Sphere Cylinder Wilmot Dist VA Right +0.75 -1.25 080 20/30 Left +1.00 -2.00 070 20/40 Expiration Date: 04/03/2025 Assessment/Plan Diagnoses and all orders for this visit: Age-related nuclear cataract of left eye - Visually Significant Cataract, Os: I discussed the risks, benefits, alternatives, and expectations of cataract surgery. A complete ophthalmic exam was performed and it was determined that the cataracts were a primary source of vision decline, affecting activities of daily living, necessitating removal. Limited vision post-surgery may occur with pre-existing conditions affecting other areas of the eye or the brain was explained and the patient displayed an understanding. The overall objective is to improve ADLs, not eliminate glasses or restore vision to 20/20. Tests were reviewed - the different lens options were explained including the nom-gx-qrqdxb fees for any upgrades. Intraocular lens (IOL) selection may be altered either prior to or during the procedure based on the doctor's discretion including reverting to a traditional intraocular lens (IOL). They understood that there will exist the potential of glasses prescription need post surgery for near, distance or possibly both. The patient stated a full understanding and a desire to proceed with the procedure. The patient received cataract measurements and had any additional questions answered. - A complete exam was performed including a physical exam: General: AAOx3 and NAD, Lungs: Clear, Heart: RRR, Abdomen: S/NT/ND, Extremities: no pitting edema. documented in this encounterSaint [facility] [id number] History of Present illness Narrative* Lukasz Rosario MD - 03/26/2024 2:15 PM EDT Images from the original note were not included. Sinus & Skull Base Surgery Chief Complaint: 1. 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 Sensation of left eye pulsation, increased watering, and blurry vision 3. Posterior nasal drainage 4. Decreased sense of smell following coronavirus infection in 2022 5. Adenocarcinoma of left lung s/p lobectomy in 2011 6. History of left thyroid lobectomy 7. Right-sided epistaxis 8. Obstructive sleep apnea on positive pressure History Of Present Illness: Roselyn Freire presents since last being seen September 26, 2023. She has been intermittently producing crusting on the right-hand side. She is using a saline rinse about every 3 days. She had a sinus infection a few weeks ago in early March and was treated with Augmentin. She believes this was her first sinus infection since her surgery. Over the last 2 months she has been using humidification with positive pressure for sleep apnea. She also mentions some eye related issues. She had a vitreous detachment of the left eye in July2022. She has had some issues following this but her vision on the left side has been good. Main Symptoms: Patient does not have anterior nasal drainage. Patient has posterior nasal drainage. Patient does not have nasal airway obstruction. Patient has facial pain. Left-sided pain/pressure when leaning over. Otherwise not an issue. Patient has facial pressure. Patient has decreased sense of smell. Less than 50 % of normal. Covid-related. Associated Symptoms: Patient does not have headaches. Patient has throat clearing. Secondary to postnasal drip Patient has coughing. Secondary to postnasal drip Patient does not have dysphonia. Patient does not have nasal bleeding. Medications currently on for sinonasal symptoms: Rinses every 3 days; Flonase 1 puff in each nostril BID Active Problems: There is no problem list [...] SPRAYS IN EACH NOSTRIL ONCE A DAY for90, Disp: , Rfl: hydroCHLOROthiazide (Microzide) 12.5 mg capsule, Take 1 capsule every day by oral route for 30 days., Disp: , Rfl: multivit with min-folic acid 0.4 mg tablet, Take 1 tablet by mouth once daily., Disp: , Rfl: psyllium husk (MetamuciL) 3.4 gram/5.4 gram powder, Take by mouth., Disp: , Rfl: Saline NasaL 0.65 % nasal spray, SPRAY 4 SPRAYS INTO EACH NOSTRIL EVERY 4 HOURS, Disp: , Rfl: terconazole (Terazol 7) 0.4 % vaginal cream, INSERT 1 APPLICATOR INTO THE VAGINA AT BEDTIME FOR 7 DAYS., Disp: , Rfl: Vitals: Visit Vitals Ht 1.6 m (5' 3 ) Wt 70.9 kg (156 lb 4.8 oz) BMI 27.69 kg/m Smoking Status Former BSA 1.78 m Physical Exam: Nose: On external exam there are neither lesions nor asymmetry of the nasal tip/dorsum. On anteriorrhinoscopy, visualization posteriorly is limited on anterior examination. For this reason, to adequately evaluate posteriorly for masses, source of epistaxis, polypoid disease, debridement, and/or signs of infections, nasal endoscopy is indicated. (Please see procedure below.) SINONASAL ENDOSCOPY WITH BIOPSY (CPT 78769-J): Due to the patient's nasal cavity / paranasal sinus lesion, sinonasal endoscopy with biopsy is indicated. After discussion of risks (most notably bleeding) and benefits, topical decongestion and anesthesia was applied, and an endoscope was used to perform nasal endoscopy with biopsy. A timeout identifying the patient, the procedure, and any concerns was performed prior to beginning the procedure. Findings: Examination of the right nasal cavity revealed crusting and debris in the right posteriorethmoid cavity extending into the sphenoid. This was removed and there was a cystic lesion visualized. I entered this lesion and it was fluid-filled and I obtained a biopsy from the lesion itself sent for permanent pathological analysis. Examination of the left nasal cavity revealed a patent maxillary, ethmoid, and sphenoid. Within the left sphenoid I do not see evidence of papilloma. Complications: None Estimated blood loss: Less than 1 cc Provider Impressions: 1. 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 Sensation of left eye pulsation, increased watering, and blurry vision -- has been evaluated by ophthalmology 3. Posterior nasal drainage 4. Decreased sense of smell following coronavirus infection in 2022 5. Adenocarcinoma of left lung s/p lobectomy in 2011 6. History of left thyroid lobectomy 7. Facial pain and pressure 8. Obstructive sleep apnea on positive pressure Discussion: Roselyn Freire and I discussed her exam and symptoms. I obtained a biopsy of the lesion within the right sphenoid and I will follow-up with her as to what the biopsy reveals but it was much more consistent with a mucous retention cyst than recurrent papilloma. I suggested using rinses a bit more frequently now to prevent further buildup of debris. If the biopsy reveals anything inflammatory we could consider mometasone rinses. I asked her to follow-up with me in about 3 months. All questions were answered. Scribe Attestation By signing my name below, I, Vignesh Yoon, attest that this documentation has been prepared under the direction and in the presence of Lukasz Rosario MD. Signature: Lukasz Rosario MD documented in this [facility] Work Phone: [phone] 770-446309-05-2024 History of Present illness Narrative* Kennedy Jim, DIRECTOR [employer]PER[employer] - 03/06/2024 10:40 AM EDT Images from the original note were not included. Follow up Diagnosis: ISK Location: right inframammary Last visit: 3 weeks ago Symptoms: red Status: still there, bleeding, rubbing on bra Procedure performed: Cryotherapy Number of treatments to date: 1 All pertinent medical history, medications, and allergies were reviewed. General Exam: alert , oriented to person, place, and time , normal affect, well appearing Unaccompanied A focused exam completed based on patient reported problems, see below: 1. Neoplasm of unspecified behavior of bone, soft tissue, and skin Right Inframammary Fold Erythematous papule Lesion biopsy Type of biopsy: tangential Informed consent: discussed and consent obtained Informed consent comment: The risks and benefits of the biopsy were discussed. Risks include but are not limited to bleeding, infection, scarring, pain, and nerve damage. An opportunity to ask questions prior to the procedure was permitted and all questions were answered. Patient was prepped and draped in usual sterile fashion: area cleansed with alcohol. Anesthesia: the lesion was anesthetized in a standard fashion Anesthetic: 1% lidocaine w/ epinephrine 1-100,000 buffered w/ 8.4% NaHCO3 Instrument used: DermaBlade Hemostasis achieved with: electrodesiccation Outcome: patient tolerated procedure well Outcome comment: The specimen was placed in a prelabeled formalin container to be sent for pathology Post-procedure details: sterile dressing applied and wound care instructions given Post-procedure details comment: Emphasized need to contact clinic for any signs of infection, uncontrollable bleeding, or complications. Dressing type: bandage Additional details: Photo taken yes Amount of lidocaine used: 1.0 cc Specimen A - Dermatopathology exam Differential Diagnosis: SK vs other Check Margins: No Size of lesion: 0.6 x 0.5 cm Next Visit: 1 year documented in this encounterSaint Francis [facility] & Health [id number] History of Present illness Narrative* Jermaine Barton, - 02/26/2024 8:30 AM EDT Images from the original note were not included. No chief complaint on file. Subjective Roselyn Freire, 68 y.o., female being seen in Sleep consultation at the request of Dr. Arambula. She had a machine previously and had some issues using it and stopped using it. She realized that she was more tired the next day and the quality of sleep was not good. She has a smaller full face mask and that has been working for her. Previously she used the nasal pillows but her mouth open up and get dry. She likes the new mask and is getting much better sleep and feeling more rested. She has a hx of sinus issues also. She had a tumor in her sphenoid sinus thatneeded to be removed. HPI Sleep ND Patient Symptoms Snores: yes Wakes gasping for breath: yes Dozes off if inactive: no Dozes off with activity: no Wakes a lot through the night: yes Witnessed episodes of apnea: previous hx Is sleep restful or restorative: no Bedtime: 10-11 pm easy with melatonin Is it hard or easy to fall asleep: easy Wake 5-6 am not rested Takes naps: no Sleepwalk: no Sleeptalk:yes Vivid Dreams: no Acts out dreams: no Sleep related hallucinations: no Sleep paralysis: no Cataplexy: no Restless Leg: no TV on while sleeping: no Smoke before bed: quit in 2006 after having Hep C and needing treatment for that. Caffeine within 3 hours before bed: no The patient is here for follow up after starting her CPAP machine. She states that after about 5-6 hours of use the seal will break and it wakes her up. She states that she will turn her machine off and turn it back on and the pressure restarts. She is able to go back to sleep. She states that she is sleeping 6-8 hours a night and feels better rested the next day. She states that she does not napduring the day. Past Medical History: Diagnosis Date Basal cell carcinoma (BCC) of medial canthus of left eye MOHS Cancer of left lung (CMS/HCC) Cancer of thyroid (CMS/HCC) 2019- LT Diverticulitis Hepatitis C (CMS/HCC) Hypertension (CMS/HCC) Menopause ovarian failure 2012 Vitreous detachment of left eye Past Surgical History: Procedure Laterality Date COLONOSCOPY 10/2021 GANGLION CYST EXCISION Right 06/14/2016 wrist-MTP LUNG LOBECTOMY Left 2011 lower , stage I WA EXPLOR SPHENOID SINUS 2022 biopsy [place] LAP,CHOLECYSTECTOMY 2006 SHOULDER ARTHROSCOPY Right 06/09/2020 MTP SHOULDER ARTHROSCOPY Left 08/26/2021 MTP THYROIDECTOMY, PARTIAL Left 04/16/2020 TOTAL VAGINAL HYSTERECTOMY 1992 ovaries spared Family History Problem Relation Name Age of Onset Diabetes Father Javier Coronary artery disease Father Javier Breast cancer Sister Tila x2 Cancer Sister Tila Osteoarthritis Brother Tila sister Stroke Sister Jenny Melanoma Neg Hx Social History Tobacco Use Smoking status: Former Current packs/day: 0.00 Average packs/day: 1 pack/day for 20.0 years (20.0 ttl pk-yrs) Types: Cigarettes Start date: 09/13/1986 Quit date: 09/13/2006 Years since quittin.4 Smokeless tobacco: Never Tobacco comments: Quit Substance Use Topics Alcohol use: Yes Alcohol/week: 4.0 standard drinks of alcohol Types: 4 Cans of beer per week Comment: Alcohol: 1 or 2 drinks on a typical day / 2 to 4 times a month. Caffeine: 1-2 cups/day coffee Allergies: Meperidine and Meperidine hcl General: No fever or chills HEENT: No nasal congestion or runny nose Pulmonary: No shortness of breath or cough Cardiovascular: No chest pain or palpitations GI: No nausea or vomiting : No dysuria or hematuria Musculoskeletal: No new aches or pains or muscle weakness Infectious: no recurrent fevers or infections Dermatologic: No rashes or skin lesions Neurologic: No new headaches or dizziness There were no vitals filed for this visit.There is no height or weight on file to calculate BMI. Neurologic exam: General: Normal body habitus, cooperative, pleasant Mental status: Awake, alert to person, place and time. Recent and remote memory are intact. Attention and concentration are normal. Fund of knowledge is appropriate for level of education. HEENT: NC/AT Cranial nerves: CN II: Visual stafford full to confrontation. No loss of vision CN III, IV, : pupils equal round and reactive to light. Extraocular movements intact. No ptosis present. CN V: Facial sensation is normal. CN VII: Full and symmetric facial movement. CN VIII: Hearing is normal CN IX and X: Palate elevates symmetrically. CN XI: Shoulder shrug is normal bilaterally. CN XII: Tongue is midline without atrophy or fasciculation. Speech: Clear and fluent no aphasia or dysarthria Pronator drift: Negative bilateral upper extremity Coordination: Intact, no signs of dysmetria Good finger to nose and rapid alternating movements Sensory: Sensation is intact to light, temperature and vibratory touch throughout four extremities. Pinprick intact in all four extremities. Motor: LUE 5/5 RUE 5/5 LLE 5/5 RLE 5/5 Tone: Physiologic, no tremor, bradykinesia or rigidity DTR: Bilateral Biceps 2/4 Bilateral BR 2/4 Bilateral Patellar 2/4 Gait: Normal to casual gait Romberg's Negative Review and summary of old records: Assessment/Plan Diagnoses and all orders for this visit: MAGALI (obstructive sleep apnea) Hypoxia Hypersomnia Snoring 68-year-old female with a severe obstructive sleep apnea with an apnea-hypopnea index of 45 and hypoxia down to 77 percent. This is now treated with auto PAP at 10-15 cm of water. She was having significant hypersomnia snoring and sleep maintenance insomnia. This is all improved with the use of themachine she is getting great benefit. She is compliant with it using it 97 percent of the time greater than 4 hours with an average nightly usage of 6 hours and 40 minutes and residual AHI of 0.8. She could likely use a little bit more sleep time and she would likely feel even better. Overall however she is doing well and she is controlled, Compliant and getting benefit. Plan split night study was reviewed with her Compliance download was reviewed and she is compliant She should try to get a little bit more sleep The patient was counseled on proper sleep hygiene and adequate hours of sleep. The patient was counseled on the risks of stroke, ME, and sudden with MAGALI, along with the need for compliance with the CPAP/BiPAP treatment. Call if any issues with the mask or the machine. The diagnosis was all discussed with the patient. All questions were answered and they agreed with the treatment plan. Patient will call if there are any new issues or questions. Pt has been fully educated on their diagnosis, treatment options, follow up plan, and return instructions Return to clinic: 1 year documented in this encounterSaint [facility] & Health [id number] History of Present illness Narrative* Kennedy Jim APRN-[employer]AL PARTS ASSEMBLER - 02/21/2024 3:55 PM EDT Skin Check Location: Patient requests a full body skin examination Dermatologic history: no history of skin cancer, no history of atypical moles, no family history ofmelanoma Last visit: 1 year ago Lesions: Location: left forehead, left breast, right breast Duration: months Quality: itchy Modifying factors: aggravated by picking Associated symptoms: rough Treatments: none All pertinent medical history, medications, and allergies were reviewed. General Exam: alert , oriented to person, place, and time , normal affect, well appearing Unaccompanied Scalp, Examined , exam limited by hair Right leg Examined tattoo on lower leg Head, Face Examined Left leg Examined Neck Examined Right foot Examined Chest Examined Left foot Examined Back Examined Buttocks Examined Abdomen Examined Digits,nails: Examined Right arm Examined Left arm Examined Lymphatics: Not examined Hands Examined 1. Lentigines Head - Anterior (Face) Scattered gilman macules in sun-exposed areas. The patient was informed that lentigines are benign pigmented lesions that occur on sun-exposed andsun-damaged skin. No treatment is necessary. Recommended regular use of broad spectrum sunscreen SPF 30 or higher 2. Melanocytic nevus of trunk Scattered benign appearing, regular brown to light brown melanocytic papules and macules with similar morphology Counseled regarding these benign growths. Rarely, a nevus can develop into malignant melanoma, so any changing nevi should be promptly re-evaluated. 3. Seborrheic keratosis, inflamed (3) Left Breast, Left Forehead, Right Inframammary Fold Brown stuck on verrucous scaly papule, symptomatic The patient was informed that symptomatic seborrheic keratoses are benign growths that become inflamed, itchy, tender, traumatized, caught on clothing, or bleed. Symptomatic lesions can be treated with cryotherapy or curretage. Thicker lesions treated with cryotherapy may require more than one treatment. The patient was instructed to notify the office if abnormal redness or tenderness develops atthe treatment site. Cryotherapy today, see procedure note. Diagnosis: Inflamed seborrheic keratosis Indication: Inflamed Consent: Verbal consent was obtained and risks were discussed, including, but not limited to risks of scarring, darker or cutter and presser pigmentary changes, recurrence, incomplete removal and infection. Method: Liquid nitrogen was used to treat the lesion(s) with two 5-10 second freeze-thaw cycles Number of lesions treated: 3 Post-procedure instructions: Instructions were given verbally. The office will be contacted if the lesion fails to resolve despite treatment, or if a side effect develops such as abnormal crusting, scabbing, redness or tenderness Cryotherapy, skin lesion - Left Breast, Left Forehead, Right Inframammary Fold 4. Angioma of skin Right Buttock Scattered little-red papule(s). The patient was informed that angiomas are benign growths on the the skin. No treatment is necessary. 5. Dermatofibroma Right Lower Leg - Anterior Firm brown papule that dimples with lateral pressure. Discussed that these are benign scars on the skin. If lesion is changing/symptomatic, return to office to have lesion re-evaluated Next Visit: 1 year documented in this encounterSaint Francis Hospital & Health [id number] NoteHNO ID: [id number] Author: CAROL RAWLS PA-C Service: ? Author Type: Physician Manager Property Type: Progress Notes Filed: 02/08/2024 11:37 Note Text: Roselyn Freire is a 68 year old year old female. Patient presents for second opinion re:vaginal discharge. C/o passing gas through vagina. No passage of fecal matter. Both issues have occurred x5 months. Gas began after she had a TVUS. Multiple ABX use, hx diverticulitis and most recently started doxycycline since suffering tick bite and vaginal discharge has since resolved. On last day of doxycycline. No current vaginitis sxs. 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 +STACEY. Hx x2, no LGA. Not sexually active for 3 years. Hx vaginal Hysterectomy ovaries remain. HYST d/t endometriosis. States was on oral HRT then stopped many years ago. States not using hormones. No hx breast CA. Smoker? No. History of abnormal Paps? No Pressure Testing Technician? Offered: declined No LMP recorded. Patient has had a hysterectomy. History reviewed. No pertinent family history. OB History No obstetric history on file. PAST MEDICAL HISTORY No date: Abdominal pain No date: Adenocarcinoma of lung (HCC) Comment: lung/left lower lobe No date: Anxiety No date: Back pain No date: Bleeding nose No date: Chest pain No date: Diverticulitis No date: Endometriosis No date: Hepatitis C No date: History of cholecystectomy No date: Hypercholesteremia No date: Insomnia No date: Knee pain No date: Knee sprain No date: Neck pain No date: Otitis externa No date: Plantar fasciitis No date: Pulmonary nodule No date: Pyelonephritis No date: S/P partial hysterectomy No date: Sinusitis No date: Sleep apnea No date: Smoker No date: Thyroid disease No date: UTI (lower urinary tract infection) PAST SURGICAL HISTORY No date: ANGIOPLASTY No date: LOBECTOMY, SEGMENT Comment: left No date: TOTAL ABDOMINAL HYSTERECT W/WO RMVL TUBE OVARY Comment: Hysterectomy, partial 05/1995: VAGINAL HYSTERECTOMY Current Outpatient Medications Medication Sig guaiFENesin (MUCINEX) 600 mg 12 hr tablet Take 1,200 mg by mouth twice daily. nebivolol (BYSTOLIC) 10 mg tablet Take 10 mg by mouth once daily. desvenlafaxine ER (PRISTIQ) 50 mg 24 hr tablet Take 50 mg by mouth once daily. amLODIPine (NORVASC) 10 mg tablet Take 10 mg by mouth once daily. Hydrochlorothiazide 12.5 mg capsule Take 12.5 mg by mouth once daily. aspirin 325 mg tablet Take 325 mg by mouth once daily. potassium chloride (KLOR-CON 10) 10 mEq tablet Take 10 mEq by mouth twice daily. docusate sodium (COLACE) 100 mg capsule Take 100 mg by mouth twice daily. No current facility-administered medications for this visit. ALLERGIES No Known Allergies Social History Social History Narrative Not on file ROS: SEE HPI PE: GENERAL: well-appearing, in no acute distress LUNGS: Normal inspiratory effort UROLOGY TEACHER: Normal external genitalia, +vaginal atrophy, no vaginal bleeding or discharge, cervix surgically absent. Uterus surgically absent, no adnexal tenderness or masses detected. Good vaginal tone, minor cystocele with valsalva only. No levator tenderness. No obvious fistula. NEURO: Awake, alert and oriented A/P: 68 year old y/o F here for UROLOGY TEACHER problem visit. 1. STACEY (stress urinary incontinence, female) - No obvious fistula on exam, suspect pelvic floor weakness - Rx vaginal estrace sent - CONSULT TO PHYSICAL THERAPY; Future F/U PRN 2. Vaginal discharge - Would be best to swab when symptomatic, current exam is normal and pt asymptomatic. - If persists with unclear etiology or incomplete resolution despite tx, will refer to UROLOGY TEACHER Infectious Disease - PHANI/TRICHOMONAS NAAT - BACTERIAL VAGINOSIS NAAT F/U PRN [facility]08-09-2024 History of Present illness Narrative* Carol Rawls PA-C - 02/08/2024 10:22 AM EDT Roselyn Freire is a 68 year old year old female. Patient presents for second opinion re:vaginal discharge. C/o passing gas through vagina. No passage of fecal matter. Both issues have occurred x5 months. Gas began after she had a TVUS. Multiple ABX use, hx diverticulitis and most recently started doxycycline since suffering tick biteand vaginal discharge has since resolved. On last day of doxycycline. No current vaginitis sxs. GYNeval with many organisms found on swab, pt states treated with multiple anx and creams. +STACEY. Hx x2, no LGA. Not sexually active for 3 years. Hx vaginal Hysterectomy ovaries remain. HYST d/t endometriosis. States was on oral HRT then stopped many years ago. States not using hormones. No hx breast CA. Smoker? No. History of abnormal Paps? No Pressure Testing Technician? Offered: declined No LMP recorded. Patient has had a hysterectomy. History reviewed. No pertinent family history. OB History No obstetric history on file. PAST MEDICAL HISTORY No date: Abdominal pain No date: Adenocarcinoma of lung (HCC) Comment: lung/left lower lobe No date: Anxiety No date: Back pain No date: Bleeding nose No date: Chest pain No date: Diverticulitis No date: Endometriosis No date: Hepatitis C No date: History of cholecystectomy No date: Hypercholesteremia No date: Insomnia No date: Knee pain No date: Knee sprain No date: Neck pain No date: Otitis externa No date: Plantar fasciitis No date: Pulmonary nodule No date: Pyelonephritis No date: S/P partial hysterectomy No date: Sinusitis No date: Sleep apnea No date: Smoker No date: Thyroid disease No date: UTI (lower urinary tract infection) PAST SURGICAL HISTORY No date: ANGIOPLASTY No date: LOBECTOMY, SEGMENT Comment: left No date: TOTAL ABDOMINAL HYSTERECT W/WO RMVL TUBE OVARY Comment: Hysterectomy, partial 05/1995: VAGINAL HYSTERECTOMY Current Outpatient Medications Medication Sig guaiFENesin (MUCINEX) 600 mg 12 hr tablet Take 1,200 mg by mouth twice daily. nebivolol (BYSTOLIC) 10 mg tablet Take 10 mg by mouth once daily. desvenlafaxine ER (PRISTIQ) 50 mg 24 hr tablet Take 50 mg by mouth once daily. amLODIPine (NORVASC) 10 mg tablet Take 10 mg by mouth once daily. Hydrochlorothiazide 12.5 mg capsule Take 12.5 mg by mouth once daily. aspirin 325 mg tablet Take 325 mg by mouth once daily. potassium chloride (KLOR-CON 10) 10 mEq tablet Take 10 mEq by mouth twice daily. docusate sodium (COLACE) 100 mg capsule Take 100 mg by mouth twice daily. No current facility-administered medications for this visit. ALLERGIES No Known Allergies Social History Social History Narrative Not on file ROS: SEE HPI PE: GENERAL: well-appearing, in no acute distress LUNGS: Normal inspiratory effort UROLOGY TEACHER: Normal external genitalia, +vaginal atrophy, no vaginal bleeding or discharge, cervix surgically absent. Uterus surgically absent, no adnexal tenderness or masses detected. Good vaginal tone, minor cystocele with valsalva only. No levator tenderness. No obvious fistula. NEURO: Awake, alert and oriented A/P: 68 year old y/o F here for UROLOGY TEACHER problem visit. 1. STACEY (stress urinary incontinence, female) - No obvious fistula on exam, suspect pelvic floor weakness - Rx vaginal estrace sent - CONSULT TO PHYSICAL THERAPY; Future F/U PRN 2. Vaginal discharge - Would be best to swab when symptomatic, current exam is normal and pt asymptomatic. - If persists with unclear etiology or incomplete resolution despite tx, will refer to UROLOGY TEACHER Infectious Disease - PHANI/TRICHOMONAS NAAT - BACTERIAL VAGINOSIS NAAT F/U PRN aCrol Rawls PA-C documented in this encounterOhio[facility] NoteMicrobiology PROCEDURE: Blood Culture Charcoal [R1] SOURCE: Blood BODY SITE: Arm L COLLECTED DATE/TIME: 11/24/2023 13:43 EDT RECEIVED DATE/TIME: 11/24/2023 13:53 EDT START DATE/TIME: 11/24/2023 13:53 EDT FREE TEXT SOURCE: Katherine Holt PA-C, PA-C, Katherine Ghosh FINAL REPORTS Final Report [] Verified Date/Time: 12/01/2023 14:20 EDT No growth at 7 days. Performing Locations R1: This test was performed at: [facility], [address] [place] [address], [id number] , ZqlragGuernsey Memorial HospitalComment on above:Performed By: #### [id number] #### [facility] [address] [place] [address] [id number] NoteMicrobiology PROCEDURE: Blood Culture Charcoal [R1] SOURCE: Blood BODY SITE: Hand R COLLECTED DATE/TIME: 11/24/2023 13:48 EDT RECEIVED DATE/TIME: 11/24/2023 13:54 EDT START DATE/TIME: 11/24/2023 13:54 EDT FREE TEXT SOURCE: Katherine Holt PA-C, PA-C, Kristen N FINAL REPORTS Final Report [] Verified Date/Time: 12/01/2023 14:20 EDT No growth at 7 days. Performing Locations R1: This test was performed at: [facility], [address] [place] [address], [id number], BzxidkGuernsey Memorial HospitalComment on above:Performed By: #### [id number] #### [facility] [address] [place] [address] [id number] Hospital Discharge instructions Patient Education 11/24/2023 15:44:36 [...] treated at home. Treatment may include: Taking zbbv-mqp-ixzyiuk pain medicines. Following a clear liquid diet. [...] Follow these instructions at home: Medicines Take pfcx-mjb-dhlztdk and prescription medicines only as told by [...] grams (25 g) of fiber daily. Fiber makesit easier to pass stool. Healthy sources of fiber include: ?Berries. One cup contains 4 8 grams of fiber. ?Beans or lentils. One-half cup contains 5 8 grams of fiber. ?Green vegetables. One cup contains 4 grams of fiber. Avoid eating red meat. General instructions Do not use any products that contain nicotine or tobacco, such as cigarettes, e- cigarettes, and chewing tobacco. If you need help [...] provider may recommend that you have an examcalled a colonoscopy. This exam can show how severe your diverticula are and whether something elsemay be causing your symptoms. Keep all follow-up visits as told by your health care provider. This is important. This information is not intended to replace advice given to you by your health care provider. Make sure you discuss any questions you have with your health care provider. Document Revised: 03/29/2020 Document Reviewed: 03/29/2020 [employer] Patient Education 2022 [employer]. Follow Up Care 11/24/2023 12:59:13 With:Charles Dennis Address: [address] [place], [place] [id number] Business (1) When:Within 3 Day(s) [facility]05-25-2024 Evaluation + Plan note Diagnostic Tests Pending * Blood Culture Charcoal 11/24/23 * Blood Culture Charcoal 11/24/23 [facility]03-27-2024 History of Present illness Narrative* Lukasz Rosario MD - 09/26/2023 2:30 PM EDT Chief Complaint: 1. Left sphenoid inverted papilloma [...] SPRAYS IN EACH NOSTRIL ONCE A DAY for90, Disp: , Rfl: hydroCHLOROthiazide (Microzide) 12.5 mg [...] nor asymmetry of the nasal tip/dorsum. On anteriorrhinoscopy, visualization posteriorly is limited on anterior examination. For this reason, to adequately evaluate posteriorly for masses, source of epistaxis, polypoid disease, debridement, and/or signs of infections, nasal endoscopy is indicated. (Please see procedure below.) SINONASAL ENDOSCOPY WITH DEBRIDEMENT (CPT 11658-O): Due to the patient's chronic sinusitis/chronic rhinitis, [...] thyroid lobectomy 7. Right-sided epistaxis Discussion: Roselyn S Behning and I discussed her exam and symptoms. I agree that as the weather warms, her nasal dryness and right-sided bleeding should improve. I did not see evidence of papilloma today and I recommended repeat assessment in about 6 months. She was amenable to this and all questions were answered. Signature: Scribe Attestation By signing my name below, I, Pamela Aguero , Marcialibe attest that this documentation has been prepared under the direction and in the presence of Macey Rosario MD. documented in this [facility] Work Phone: [phone]) 496-334201-30-2024 Hospital Discharge instructions Patient Education 07/31/2023 12:43:15 [...] including vitamins, herbs, eye drops, creams, and gpdd-ovg-rftjxmh medicines. Any problems you or family members [...] provider tells you to take them. Taking sfil-xsu-hvokqrq medicines, vitamins, herbs, and supplements. Tests You [...] Follow these instructions at home: Medicines Take rkap-ciu-hbuwxaq and prescription medicines only as told by [...] blood in your urine increases, call your healthcare provider. Follow instructions from your health care provider about eating or drinking restrictions. If a tissue sample was removed for testing (biopsy) during your procedure, it is up to you to get your test results. Ask your health care provider, or the department that is doing the test, when yourresults will be ready. Drink enough fluid to [...] blood in your urine increases, call your healthcare provider. If you were prescribed an antibiotic [...] provider. Document Revised: 03/01/2022 Document Reviewed: 01/28/2021 [employer] Patient Education 2022 [employer] 07/31/2023 12:43:01 Renal Mass Renal Mass A renal mass is an abnormal growth in the kidney. It may be found while performing an MRI, CT scan,or ultrasound to evaluate other problems of the abdomen. A renal mass that is cancerous (malignant)may grow or spread quickly. Others are not [...] the cause of your renal mass. These testsmay be done if a renal mass is [...] of the mass. Follow the instructions that yourhealth care provider gives to you. In general: Take spnh-xlg-rvwxeyo and prescription medicines only as told by [...] scan, or ultrasound for other problems of theabdomen. Your health care provider may recommend that [...] provider. Document Revised: 12/13/2020 Document Reviewed: 12/13/2020 [employer] Patient Education 2022 [employer]. Follow Up Care 07/13/2023 08:18:03 With:HENRIETTA Null APRN, Torri Carrion, PEDRO, URL Address: When:Within 1 Year(s) Comments:w/ [facility] 01-30-2024 NoteUrology Cystoscopy Cystoscopy is a procedure that is [...] including vitamins, herbs, eye drops, creams, and voam-ugi-diedvtt medicines. ? Any problems you or family [...] tells you to take them. ? Taking wgof-jdj-lnqvqzc medicines, vitamins, herbs, and supplements. Tests You [...] taken to help prevent infection. These steps mayinclude: ? Washing skin with a germ-killing soap. [...] these instructions at home: Medicines ? Take vjhz-gxk-ulqajxz and prescription medicines only as told by [...] procedure, it is up to you to getyour test results. Ask your health care provider, or the department th (more content not included)...[facility] 01-06-2023 History of Present illness Narrative* Roselyn presents for her second postoperative visit. * She has continued to have some headaches. She is rinsing about 3 times per day. She denies significant nasal bleeding but did evacuate a rather large crust from the right-hand side yesterday. [facility]qbqlxthbt[facility]-Gufywfjd Work Phone: 1(833) 428-607806-20-2023 NoteSend Summary: Discharge Summary Providers: Provider RoleProvider Name Yenny Taylor Douglas M Note Recipients: Charles Arambula MD - [id number] [] Yenny Vargas MD Discharge: Summary: Admission [...] at Discharge: .Home Vital Signs: T PRBPMAPSpO2 [id number]/7293% Date/Time12/19 1:5612/19 1:5612/19 1:5612/19 1:5612/19 1:56 Range(36.6C - 36.6C ) (77 - [...] These drugs can i (more content not included)...[facility]06-19-2023 NotePost Operative Note: PreOp Diagnosis: Left sphenoid papilloma Post-Procedure Diagnosis: Same Procedure: 1. Extradural resection of left sphenoid mass 2. Right total ethmoid and sphenoid 3. Image guidance Surgeon: Abraham Vargas Resident/Fellow/Other Manager Property: None Anesthesia: GET Estimated Blood Loss (mL): 125cc Specimen: yes Complications: None Findings: Left sphenoid mass resected Patient Returned To/Condition: PACU satisfactory Additional Details: No permanent packing placed Floseal placed in left sphenoid Attestation: Note Completion: Attending AttestationI was present for the entire procedure Electronic Signatures: Lukasz Rosario) (Signed 18-Dec-2022 16:19) Authored: Post Operative Note, Note Completion Last Updated: 18-Dec-2022 16:19 by Lukasz Rosario)[facility]06-19-2023 NotePROCEDURE DETAILS Preoperative Diagnosis: sphenoid inverted papilloma Postoperative Diagnosis: sphenoid sinus inverted papilloma Surgeon: Yenny Rosario Resident/Fellow/Other Manager Property: Vick Procedure: 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 The patient was put in supine position. The thin cut volumetric CT and MRI [facility] zconi-fd-ucqjg registration was done using the contras the [...] Completion Last Updated: 19-Dec-2022 23:39 by Yenny Vargas)[facility] 12-18-2022 NoteClinical Note - Pharmacy v2: Education: Document TopicMedication Education [id number] Patient declines Meds to Beds service at discharge. Prefers [facility] Sources used to confirm home medication list: Patient interview, Pharmacy ([facility] [phone]), Chart review (OARRS, AEMR, SS, HIE) Comments/other: [...] Medication reconciliation complete Please reach out via Tot[employer] for questions, or if no response call [employer] or [employer] Sruthi Mcclendon, PharmD, [facility] PGY1 Resident [facility] Is This Intervention Medication Reconciliation Relatedyes Time [id number] - 60 minutes Outcome2=meets goals/outcomes Additional NotesDrug [...] tab(s) oral once a day Drug Name: [place] 0.65% nasal spray Instructions: 4 spray(s) nasal [...] No Known Allergies Electronic Signatures: Sruthi Mcclendon ([facility]) (Signed 18-Dec-2022 12:30) Authored: Education, Allergy Shubham Fraire ([facility]) (Signed 18-Dec-2022 14:33) Co-Signer: Education, Allergy Last Updated: 18-Dec-2022 14:33 by Shubham Fraire ([facility] 12-18-2022 History of Present illness Narrative* Roselyn presents to her first postoperative visit following endoscopic endonasal resection of left-sided inverted papilloma and right-sided sinus surgery on 12/18/22. * She's doing well in the postoperative setting, she is having some pain, she's taking Tylenol as needed. She is doing the saline irrigations 3-5x daily as well as saline spray as needed. [facility]utxy-[facility] [address] Work Phone: 1(435) 819-304106-19-2023 NoteHistory & Physical Reviewed: I have reviewed [...] the note. I personally evaluated the patient [id number] Electronic Signatures: Isidro Hickman (Resident)) (Signed 18-Dec-2022 06:01) Authored: History & Physical Reviewed, ERAS, Consent, Note Completion Yenny Vargas) (Signed 19-Dec-2022 12:19) Authored: Note Completion Co-Signer: History & Physical Reviewed, ERAS, Consent, Note Completion Last Updated: 19-Dec-2022 12:19 by Yenny Vargas)[facility] 12-12-2022 Chief complaint Narrative - Reported* An interactive audio and video telecommunication system which permits real time communications between the patient (at the originating site) and provider (at the distant site) was utilized to providethis telehealth service. * Verbal consent was requested and obtained from ROSELYN FREIRE on this date, 12/12/2022 01:00 PM , for a telehealth visit. * Ms. ROSELYN FREIRE is a 67 year old woman here for endonasal surgery consult for sphenoid sinus mass, referred by Dr. Abraham BREWER, Lukasz Gem . This H&P is partly from review of the patient's previous chart. FX-Stfqxfvcymfd-Ovyyd Work Phone: 1([phone]) 483-278706-02-2023 Evaluation note* Encounter Date Diagnosis Assessment Notes Treatment Notes Treatment Clinical Notes Nov, Dysuria (ICD-10 - R30.0) Discussed [...] understanding and is agreeable to treatment plan [employer] Other 04-17-2023 NotePROCEDURE DETAILS Preoperative Diagnosis: Left sphenoid sinus mass Postoperative Diagnosis: Same Surgeon: Abraham Resident/Fellow/Other Manager Property: MD Malika Procedure: 1. Left endoscopic sinus [...] Completion Last Updated: 16-Oct-2022 20:19 by Lukasz Rosario)[facility]04-17-2023 History of Present illness Edith presents for her first postoperative visit following left-sided endoscopic sinus surgery on . She's feeling well in the postoperative setting, she's doing saline rinses 3 times daily as well as saline spray regularly.PH-Zmxruonbtdtain-WacufatChi [facility] [address] Work Phone: 1([phone]) 683-545204-17-2023 Miscellaneous Notes* Op Note - Pradip Daly MD - 10/16/2022 1:32 PM EDT PROCEDURE DETAILS Preoperative Diagnosis: Left sphenoid sinus mass Postoperative Diagnosis: Same Surgeon: Abraham Resident/Fellow/Other Manager Property: MD Malika Procedure: 1. Left endoscopic sinus [...] 20:19 by Lukasz Rosario) [facility] Work Phone: 1([phone]) 900-255704-17-2023 Note* Op Note - Pradip Dlay MD - 10/16/2022 1:32 PM EDT PROCEDURE DETAILS Preoperative Diagnosis: Left sphenoid sinus mass Postoperative Diagnosis: Same Surgeon: Abraham Resident/Fellow/Other Manager Property: MD Malika Procedure: 1. Left endoscopic sinus [...] Last Updated: 16-Oct-2022 20:19 by Lukasz Rosario) [facility] Work Phone: [phone]) 959-891704-17-2023 NoteHistory & Physical Reviewed: I have reviewed [...] the note. I personally evaluated the patient [id number] Electronic Signatures: Lukasz Rosario) (Signed 16-Oct-2022 12:09) Authored: Note Completion Co-Signer: History & Physical Reviewed, ERAS, Consent, Note Completion Pradip Daly (Resident)) (Signed 16-Oct-2022 11:11) Authored: History & Physical Reviewed, ERAS, Consent, Note Completion Last Updated: 16-Oct-2022 12:09 by Lukasz Rosario)[facility]04-17-2023 History and physical note* Pradip Daly MD [...] Last Updated: 16-Oct-2022 12:09 by Lukasz Rosario) [facility]04-17-2023 History and physical note* Pradip Daly [...] Completion Last Updated: 16-Oct-2022 12:09 by Lukasz Rosario () documented in this [facility] [place] Work Phone: 1([phone]) 459-621006-03-2022 Evaluation + Plan note Future Scheduled Tests Radiology* US Abdomen Complete 12/02/21 [facility] 06-03-2022 Hospital Discharge instructions [...] medicines. These include steroids, antibiotics, and some msmb-mdx-ejlgaqm medicines, such as aspirin or ibuprofen. Having [...] Follow these instructions at home: Medicines Take eubc-knf-eklaiur and prescription medicines only as told by [...] 06/12/2002 Document Revised: 11/05/2018 Document Reviewed: 11/05/2018 [employer] Patient Education 2020 [employer]. Follow Up Care 11/18/2021 11:18:39 With:Daly White CNP Address: When:3 months [facility] 05-13-2022 Hospital Discharge instructions Patient Education 11/11/2021 13:28:13 Gastritis, Adult, Okqx-fx-Aful Gastritis, Adult Gastritis is swelling (inflammation) of [...] Follow these instructions at home: Medicines Take mltq-hfj-cspoqbq and prescription medicines only as told by [...] 12/04/2008 Document Revised: 11/05/2018 Document Reviewed: 11/05/2018 [employer]App Patient Education 2020 [employer]. 11/11/2021 13:28:13 Endoscopy, Care After Procedure [facility] Endoscopy Care After Procedure Please read the instructions outlined below and refer to this sheet in the next few weeks. These discharge instructions provide you with general information on caring for yourself [facility]. Your doctor may also give you specific [...] blood. Document Released: 01/30/2005 Document Re-Released: 12/10/2006 [facility] Patient Information Satomi. 11/11/2021 13:28:13 Diverticulosis MAGR (CUSTOM) Diverticulosis Many [...] unsweetened, w/added ascorbic acid 1 cup 0.5 Placida 1 cup 0.7 Vegetables Cooked Green beans 1 cup 4.0 Carrots 1/2 cup sliced 2.3 Peas 1 cup 8.8 Potato (baked, with skin) 1 medium potato 3.8 Raw [place] (with peel) 1 cucumber 1.5 Lettuce 1 [...] 8.7 Peanuts 1/2 cup 7.9 Chart from [facility] 2013. SEEK IMMEDIATE MEDICAL CARE IF: You [...] Nutrient Database for Standard Reference. Available at http://www.Food.ee.usda.gov/fnic/foodcomp/search/. Information adapted from: ExitCare Patient Information [address] [facility] 2012 http://www.[employer]/contents/bwgologoamzf-eeosfxd-eehxtx-the-basics 11/11/2021 13:28:13 Colonoscopy, Care After Surgery Michaela (CUSTOM) Colonoscopy Care After Surgery Please read the instructions outlined below and refer to this sheet in the next few weeks. These discharge instructions provide you with general information on caring for yourself [facility]. Your doctor may also give you specific [...] Up Care 10/04/2021 12:41:14 With:Liana ROJAS Address: [facility]. [address] [place] [address] [facility] ([employer] When:1 to 2 weeks Comments:Call for any problems. [facility]05-13-2022 Evaluation + Plan noteExtracted from: Title:Post-anesthesia - General Author:Alejandro Sanchez DO Date:11/11/21 Plan Transfer/ Discharge: Condition stable. Extracted from: Title:Pre-anesthesia - Endoscopy Author:Alejandro Oviedo Jr., DO Date:11/11/21 Plan [place] [employer] Anesthesiologists (ASA) physical status classification: Class III. Anesthetic Preoperative Plan Anesthesia: General. . Anesthetic plan, risks, benefits, and alternatives discussed with the patient and/or family. Patient verbalized understanding. [facility]04-05-2022 Hospital Discharge instructions Patient Education 10/04/2021 11:48:11 [...] including vitamins, herbs, eye drops, creams, and blzm-qhr-gusqday medicines. Any problems you or family members [...] 06/15/2001 Document Revised: 04/10/2018 Document Reviewed: 08/29/2016 ArtsApp Patient Education [place]. Follow Up Care 09/22/2021 08:53:50 With:Daly White CNP Address: When:2 to 4 weeks [facility] Evaluation + Plan note Future Appointments Appointment Date:11/11/2021 12:40:00 PM Scheduled Provider: Location:[facility] Appointment Type:Surgery FT [facility] Evaluation + Plan note Future Appointments Appointment Date:12/16/2021 08:00:00 AM Scheduled Provider: [facility] Type:CT Abdomen/Pelvis Combo () Appointment Date:03/07/2022 12:20:00 PM Scheduled Provider:Daly White CNP Location:[facility]ment Type:[facility] Follow Up Future Scheduled Tests Radiology* CT Abdomen/Pelvis w/ Contrast [facility] Future Appointments Appointment Date:09/04/2023 07:45:00 AM Scheduled Provider:Tay BHAT MD Location:[facility] [place] [place] Appointment Type:URO Procedure 15 min [facility] evaluation + Plan note Future Appointments Appointment Date:09/04/2023 03:15:00 PM Scheduled Provider:Tay BHAT MD Location:[facility] [place] [place] Appointment Type:URO Procedure 15 [facility] note[facility] assessment information available [facility] Work Phone: Evaluation noteNo InformationNort [employer] [employer] Other Evaluation note* Diagnosis Neoplasm of unspecified behavior of [...] use of aspirin documented in this encounter [facility] Work Phone: Evaluation note* Diagnosis Chronic sphenoidal sinusitis- Primary Decreased sense of smell 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 Epistaxis documented in this encounter [facility] Work Phone: Evaluation note* Diagnosis STACEY (stress urinary incontinence, female)- Primary Female stress incontinence Vaginal discharge Leukorrhea, not specified as infective [facility] Diagnosis Benign neoplasm of sphenoid bone- Primary Post-nasal drainage Other diseases of nasal cavity and sinuses documented in this encounter [facility] Work Phone: Evaluation note* Diagnosis Age-related nuclear cataract of left eye- Primary [facility] Diagnosis Muscle spasm- Primary Spasm of muscle Muscle weakness Muscle weakness (generalized) documented [facility]* Diagnosis Vaginal flatus- Primary Other specified disorders of female genital organs STACEY (stress urinary incontinence, female) Female stress incontinence documented in this encounter [facility]* Diagnosis Pseudophakia- Primary Lens replaced by other means documented in this encounter [facility]* Diagnosis Pseudophakia- Primary Lens replaced by other means [facility]* Diagnosis Lentigines Melanocytic nevus of trunk Benign neoplasm of skin of trunk, except scrotum Seborrheic keratosis, inflamed Angioma of skin Dermatofibroma Benign neoplasm of skin, site unspecified documented in this encounter [facility] Healthcare[facility] note* Diagnosis MAGALI (obstructive sleep apnea) Obstructive sleep apnea (adult) (pediatric) Hypoxia Hypoxemia Hypersomnia Hypersomnia, unspecified Snoring Other dyspnea and respiratory abnormality documented in this encounter [facility] HealthcareEvaluation note* Diagnosis Neoplasm of unspecified behavior of bone, soft tissue, and skin- Primary documented in this encounter [facility] general Narrative - Reported* Type Description Date Medical History HTN Medical History History of Lung Cancer Medical History History of Hepatitis C Medical History anxiety Medical History 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 left sabianism, new over last 12 months. * Patient [...] started. * History of septoplasty and uvulopalatopharyngoplasty. MT-Kubvshsnmxacrd-DjlxkiaChi [facility] [address] Work Phone: History of Present illness Narrative* [...] Associated Symptoms: * Patient has headaches. left sabianism, new over last 12 months. * Patient [...] history: Former smoker * Family history: Diabetes SY-Ywvqlqxwppyjdr-[facility]yawosw[facility] 4[address] Work Phone: History of Present illness NarrativeRoselyn presents for her second postoperative visit. She continues to rinse twice daily. She scheduled to meet with Dr. Vargas in 1 month.IL-Ryenrlfcdsjugv-RinaujcSan[facility] 5836 Work Phone: History of Present illness NarrativeRoselyn presents today for second postoperative evaluation. She is rinsing her nose twice per day. She is scheduled to see my neurosurgery partner, Dr. Vargas, in a few weeks. She has done very well sinceher last assessment.JY-Gzgbbmuffjasdk-Qdhxzluk Work Phone: History of Present illness NarrativeMs. [...] have endoscopic endonasal resectionof this mass on 12/18/2022.BE-Lvaoucvqcxdw-Tuzwa Work Phone: Hospital course Narrative No data available for this section [facility] Hospital Discharge instructions No data available for this section [facility] No data available for this section [facility] Summary Purpose Family History Relationship Condition Age at Onset Recorded Date/T enrique father Heart disease Unknown Unknown sister Heart disease Unknown Advance Directives Advance Directive Response Recorded Date/ Time Advance [...] * 6. History of left thyroid lobectomy Reason for Referral Specialty Diagnoses / Procedures Referred By Lilo t Referred To Contact [facility] Diagnoses STACEY (stress urinary incontinence, female) Procedures CONSULT TO PHYSICAL THERAPY PHYSICAL THERAPY EVALUATION HIGH COMPLEX 45 MINS Carol Rawls PA-C [address] [place] [address] [facility] [place] [address] [place] [address] Referral ID Status Reason Start Date Expiration Date Visits Requested Visits Authorized [id number] Authorized PCP Requested Referral Auto-Generate d Referral 02/08/2024 02/07/2025 99 99 Additional Source Comments INFORMATION SOURCE (unrecogn ized section and content) DATE CREATED AUTHOR 08/12/2021 [facility] dical Specialist DATE CREATED AUTHOR AUTHOR'S ORGANIZ ATION 12/11/2022 [facility] DATE CREATED AUTHOR AUTHOR'S ORGANIZ ATION 12/28/2022 [employer] DATE CREATED AUTHOR AUTHOR'S ORGANIZ ATION 03/06/2023 [facility] DATE CREATED AUTHOR AUTHOR'S ORGANIZ ATION 09/21/2023 [facility] DATE CREATED AUTHOR AUTHOR'S ORGANIZ ATION 11/26/2023 [facility] DATE CREATED AUTHOR AUTHOR'S ORGANIZ ATION 12/02/2023 Wyman Payne [facility] ical Center DATE CREATED AUTHOR AUTHOR'S ORGANIZ ATION 04/22/2024 Wyman Emile [facility] ical Center DATE CREATED AUTHOR AUTHOR'S ORGANIZ ATION 04/25/2024 Wyman Payne [facility] ical Center DATE CREATED AUTHOR AUTHOR'S ORGANIZ ATION 05/23/2024 [facility] DATE CREATED AUTHOR AUTHOR'S ORGANIZ ATION 06/12/2024 [facility] dical Specialists EPIC DATE CREATED AUTHOR AUTHOR'S ORGANIZ ATION 06/14/2024 [facility] [employer] Attendant Team (unrecognized sect ion and content) Team Status: Active Member Role Status Dates Charles Arambula MD Primary Care Provider Active Team Status: Inactive Member Role Status Dates Charles Arambula MD Primary Care Provider Active Noah Dolan DO Attending Provider Active Team Status: Inactive Member Role Status Dates Gely Cortez APRN Attending Provider Active Military Personnel Specialist Relationship Specialty Start Date End Date Charles Arambula MD [address] [facility] [place] [address] PCP - General 09/28/22 Team Status: Inactive Member Role Status Dates Rebeca Mason MD Attending Provider Active St art: September 14, 2023 End: September 14, 2023 Charles Arambula MD Primary Care Provider Active Start: September 14, 2023 End: September 14, 2023 Military Personnel Specialist Relationship Specialty Start Date End Date Charles Arambula MD [address] [facility] [place] [address] PCP - General 09/28/22 Military Personnel Specialist Relationship Specialty Start Date End Date Charles Arambula MD PCP - General Family Medicine 11/01/11 Military Personnel Specialist Relationship Specialty Start Date End Date Charles Arambula MD [address] [place] [facility] [place] [address] PCP - General Family Medicine 07/03/23 Military Personnel Specialist Relationship Specialty Start Date End Date Charles Arambula MD [address] [place] [facility] [place] [address] PCP - General Family Medicine 07/03/23 Military Personnel Specialist Relationship Specialty Start Date End Date Charles Arambula MD PCP - General Family Medicine 11/01/11 Military Personnel Specialist Relationship Specialty Start Date End Date Charles Arambula MD PCP - General Family Medicine 11/01/11 Military Personnel Specialist Relationship Specialty Start Date End Date Charles Arambula MD [address] [place] [facility] [place] [address] PCP - General Family Medicine 07/03/23 Military Personnel Specialist Relationship Specialty Start Date End Date Charles Arambula MD [address] [facility] [place] [address] PCP - General Family Medicine 07/03/23 Military Personnel Specialist Relationship Specialty Start Date End Date Charles Arambula MD [address] [place] [address] PCP - General Family Medicine 07/03/23 Military Personnel Specialist Relationship Specialty Start Date End Date Charles Arambula MD [address] [place] [address] PCP - General Family Medicine 07/03/23 Military Personnel Specialist Relationship Specialty Start Date End Date Charles Arambula MD [address] [place] [address] PCP - General Family Medicine 07/03/23 Military Personnel Specialist Relationship Specialty Start Date End Date Charles Arambula MD [address] [place] [address] PCP - General Family Medicine 07/03/23 Goals (unrecognized section and content) Goals may be documented in a n alternate section REASON FOR VISIT (unrecogniz ed section and content) Reason Comments Other Left endoscopic sinu s surgery with image guidance Reason Comments Follow-up Reason Comments Vaginal Problem Specialty Diagnoses / Procedures Referred By Contac t Referred To Contact [place] Diagnoses Vaginal discharge Procedures OFFICE/OUTPATIENT NEW HIGH MDM 60 MINUTES AMB REFERRAL TO OB-UROLOGY TEACHER Rebeca Mason MD [address] [place] [address] Grace Jonas MD [address] [place] [address] [address] [place] [address] Referral ID Status Reason Start Date Expiration Date V isits Requested Visits Authorized [id number] Outside PCP 01/24/2024 07/22/2024 1 1 Reason Comments Cataract Reason Comments PT Eval Specialty Diagnoses / Procedures Referred By Contac t Referred To Contact [facility] Diagnoses STACEY (stress urinary incontinence, female) Procedures CONSULT TO PHYSICAL THERAPY PHYSICAL THERAPY EVALUATION HIGH COMPLEX 45 MINS Carol Rawls PA-C [address] [place] [address] [facility] [place] [address] [place] [address] Referral ID Status Reason Start Date Expiration Date Visits Requested Visits Authorized [id number] Authorized PCP Requested Referral Auto-Generate d Referral 02/08/2024 02/07/2025 99 99 Reason Comments vaginal flatus Urinary Incontinence Reason Comments Post-op Reason Comments Post-op Follow-up Cataract Reason Comments Skin Check Reason Comments Sleep Apnea Source Comments (unrecognize d section and content) In the event this informatio n is protected by the Federal Confidentiality of Alcohol and Drug Abuse Patient Records regulations: The Federal rules restrict any use of the information to criminally investigate or prosecute any alcohol or drug abuse patient.[facility] HospitalIn the event this information is protected by the Federal Confidentiality of Alcohol and Drug Abuse Patient Records regulations: The Federal rules restrict any use of the information to criminally investigate or prosecute any alcohol or drug abuse patient.[facility] HospitalIn the event this information is protected by the Federal Confidentiality of Alcohol and Drug Abuse Patient Records regulations: The Federal rules restrict any use of the information to criminally investigate or prosecute any alcohol or drug abuse patient.[facility] FOR RECORDS PERTAINING TO PATIENTS WHO ARE [...] BE BASED ON THE PRIMARY CLINICAL RECORDS. [facility]. provides no warranty or guarantee of the accuracy or completeness of information in this document.
--- NOTE | 2024-06-20 07:59 | MR_ITS ---
The [address] [address] Patient Name: CARON FREIRE MRN: [id number] date: 1955 Sex: F Assigned Patient Location: MRI Current Patient Location: MRI Accession/Order Number: [id number] Exam Date: 06/20/2024 08:10 Report Date: 06/20/2024 12:56 At the request of: CHARLES ARAMBULA Procedure: MR angio head wo con MR angio head wo con, 06/20/2024 8:10 AM EST INDICATION: Throbbing Headache COMPARISON: There is no appropriate prior study for comparison. Technique: Multiplanar, multisequential vbje-ey-ssdbjk MRA images of mechoopda of [place] were obtained without contrast. 3-D reconstruction was performed. FINDINGS: The visualized portion of mechoopda of [place] is unremarkable. The TRAE, MCA, CARE INFORMATION ASSOCIATE and the vertebral and basilar arteries are unremarkable. There are patent posterior and anterior communicating arteries. No aneurysm or significant stenosis is noted. MR/MR angio head wo con IMPRESSION: Normal MRA of the brain. Electronically authenticated by: POLY SANTILLAN Date: 06/20/2024 12:56
== END 2024-06-20 07:54 | disposition home or self-care (01) ==
LOC: MRI 07:53
PROVIDERS: PCP Family Medicine; Visit Provider Family Medicine
DX: R51.9 Headache, unspecified (principal)
CPT/HCPCS: 70544; 70551

== ENCOUNTER 2024-10-25 08:37 | Outpatient (OUT) | payer MEDICARE, OTHER, SELFPAY ==
--- NOTE | 2024-10-25 | XR_ITS ---
[place] [id number] Patient Name: CARON FREIRE MRN: [id number] date: 1955 Sex: F Assigned Patient Location: LAB Current Patient Location: LAB Accession/Order Number: [id number] Exam Date: 10/27/2024 12:37 Report Date: 10/27/2024 12:37 At the request of: CHARLES ARAMBULA MD Procedure: XR cervical spine 2-3V CERVICAL SPINE 2 views: CLINICAL HISTORY: Cervical Pain COMPARISON: None FINDINGS: Vertebral body heights appear maintained. Moderate spondylosis C4-C7. Diffuse facet joint degenerative changes. No prevertebral soft tissue swelling. XR/XR cervical spine 2-3V IMPRESSION: MODERATE SPONDYLOSIS C4-C7. Impression dictated by: Rey Fletcher Jr. DFlorianOFlorian 10/27/2024 12:37 PM Dictation Location: [place] [address] Electronically authenticated by: [id number] Y Date: 10/27/2024 12:37
--- NOTE | 2024-10-25 | XR_ITS ---
The [address] [address] Patient Name: CARON FREIRE MRN: [id number] date: 1955 Sex: F Assigned Patient Location: LAB Current Patient Location: LAB Accession/Order Number: [id number] Exam Date: 10/27/2024 12:37 Report Date: 10/27/2024 12:38 At the request of: CHARLES ARAMBULA MD Procedure: XR thoracic spine 3V THORACIC SPINE - - 2 views CLINICAL HISTORY: Thorasic pain COMPARISON: None FINDINGS: Vertebral body heights appear maintained. Diffuse endplate degenerative changes. Pedicles appear intact. XR/XR thoracic spine 3V IMPRESSION: ENDPLATE DEGENERATIVE CHANGES WITHOUT ACUTE BONY PROCESS. Impression dictated by: Mirlande Dugan Jr.OFlorian 10/27/2024 12:38 PM Dictation Location: [place] [address] Electronically authenticated by: [id number] Y Date: 10/27/2024 12:38
[2024-10-25 09:03] LABS: Basophils Percent Auto 0.6 % (0.2-2.0); Eosinophils Absolute Auto 0.1 10^3/uL (0.0-0.7); Eosinophils Percent Auto 1.6 % (0.9-7.0); Hematocrit 37.1 % (36.0-48.0); Hemoglobin 12.8 g/dL (12.0-16.0); Immature Granulocytes Abs Auto 0.01 10^3/uL (0.00-0.03); Immature Granulocytes Pct Auto 0.1 % (0.0-0.5); Lymphocytes Absolute Auto 1.5 10^3/uL (1.2-3.8); Lymphocytes Percent Auto 21.6 % (20.5-60.0); Mean Corpuscular HGB Conc 34.5 g/dL (29.9-35.2); Mean Corpuscular Volume 87.1 fL (81.0-99.0); Mean Platelet Volume 10.3 fL (9.5-13.5); Monocytes Absolute Auto 0.5 10^3/uL (0.3-0.8); Monocytes Percent Auto 7.5 % (1.7-12.0); Neutrophils Absolute Auto 4.7 10^3/uL (1.4-6.5); Neutrophils Percent Auto 68.6 % (43.0-75.0); Platelet Count 164 10^3/uL (150-450); Red Blood Count 4.26 10^6/uL (4.20-5.40); Red Cell Distribution Width 11.8 % (11.0-15.0); White Blood Count 6.8 10^3/uL (4.0-11.0)
[2024-10-25 09:30] LABS: Estimated Average Glucose 131 mg/dL; Glycohemoglobin A1C 6.2 % (4.5-6.2)
[2024-10-25 09:52] LABS: Alanine Aminotransferase 38 U/L (14-59); Albumin Globulin Ratio 1.2; Albumin Level 3.9 g/dL (3.4-5.0); Alkaline Phosphatase 51 U/L (46-116); Anion Gap 11.3; Aspartate Amino Transferase 24 U/L (15-37); BUN Creatinine Ratio 24.1; Bilirubin Total 0.7 mg/dL (0.2-1.0); Calcium 9.1 mg/dL (8.5-10.1); Carbon Dioxide 30.3 mmol/L (21.0-32.0); Chloride 103 mmol/L (98-107); Chol HDL Ratio 4.5; Cholesterol 153 mg/dL (<=200); Estimated GFR (African America >60 (>=60 mL/min/1.73m^2); Estimated GFR (Non-African Ame >60 (>=60 mL/min/1.73m^2); Free T3 3.25 pg/mL (2.18-3.98); Globulin 3.2 g/dL; Glucose 122 mg/dL (74-106); HDL Cholesterol 34 mg/dL (40-60); Potassium 3.6 mmol/L (3.5-5.1); Sodium 141 mmol/L (136-145); Thyroid Stimulating Hormone 1.298 uIU/mL (0.358-3.740); Total Protein 7.1 g/dL (6.4-8.2); Triglycerides 155 mg/dL (<=150)
== END 2024-10-25 08:38 | disposition home or self-care (01) ==
LOC: LAB 08:39
PROVIDERS: PCP Family Medicine; Visit Provider Family Medicine
DX: K76.0 Fatty (change of) liver, not elsewhere classified (principal); I10 Essential (primary) hypertension; M25.511 Pain in right shoulder; M51.34 Other intervertebral disc degeneration, thoracic region
CPT/HCPCS: 36415; 72040; 72072; 80053; 80061; 83036; 84436; 84443; 84481; 85025